=== PATIENT | female | born 1975 ===

== ENCOUNTER 2020-10-20 13:05 | Outpatient (REF) | payer OTHER, SELFPAY ==
--- NOTE | ~2020-10-20 | MM_ITS ---
EXAMINATION: MM SCREENING DIGITAL BREAST TOMOSYNTHESIS, BILATERAL CLINICAL INFORMATION: Screening. Asymptomatic. Prior benign right breast biopsy 2018 (fibroadenoma). The lifetime risk of breast cancer based on the Tyrer-Cuzick Model is 8%. COMPARISON: Mammography: 07/22/2019, 01/25/2018, 01/15/2018 TECHNIQUE: Digital breast tomosynthesis is performed in both the craniocaudal and mediolateral oblique views along with computer-aided detection (CAD). Synthesized 2D images are generated from the tomosynthesis. FINDINGS: There are scattered areas of fibroglandular density (ACR BI-RADS breast composition Category b). Parenchymal pattern is similar to prior studies. There is no developing density or interval mass or architectural abnormality. No abnormal calcifications. There is a biopsy clip marker anterior 3:00 right breast overlying a stable nodule corresponding to the known fibroadenoma. The axilla and skin contours are unremarkable. No significant changes. MM/MM tomosynthesis screening BI IMPRESSION: No significant changes from prior studies. ASSESSMENT: BI-RADS 2: Benign RECOMMENDATION: Routine annual mammography screening. This patient's information was entered into a reminder system with a target due date for their next mammogram.
== END 2020-10-20 13:06 | disposition home or self-care (01) ==
LOC: HO.MAMMO 13:05
PROVIDERS: PCP Internal Medicine; Visit Provider Internal Medicine
DX: Z12.31 Encounter for screening mammogram for malignant neoplasm of breast (principal)
CPT/HCPCS: 77063; 77067

== ENCOUNTER 2020-11-04 08:32 | Outpatient (REF) | payer OTHER, SELFPAY ==
--- NOTE | ~2020-11-04 | XR_ITS ---
EXAMINATION: XR CHEST CLINICAL INFORMATION: Dyspnea COMPARISON: Previous chest x-ray October 2019 TECHNIQUE: 2 views of the chest were obtained. FINDINGS: No significant abnormality is noted involving the heart, lungs, mediastinum, bony thorax or soft tissues. XR/XR chest 2V IMPRESSION: Unremarkable examination.
[2020-11-04 10:37] LABS: Alanine Aminotransferase 11 U/L (0-31); Alkaline Phosphatase 61 U/L (39-117); Anion Gap 10 (12-20); Aspartate Amino Transferase 15 U/L (5-31); Bilirubin Total 0.4 mg/dL (0.0-1.0); Blood Urea Nitrogen 15 mg/dL (9-16); Calcium 8.6 mg/dL (8.4-10.2); Carbon Dioxide 28 mmol/L (22-29); Chloride 105 mmol/L (96-108); Cholesterol 171 mg/dL; Estimated Glomerular Filt Rate > 60; Glucose Fasting 96 mg/dL (60-99); HDL Cholesterol 71 mg/dL; LDL Cholesterol Calculated 87 mg/dl; Potassium 4.4 mmol/L (3.3-5.1); Sodium 139 mmol/L (135-145); Triglycerides 65 mg/dL
== END 2020-11-04 08:33 | disposition home or self-care (01) ==
LOC: HO.LAB 08:32
PROVIDERS: PCP Internal Medicine; Visit Provider Internal Medicine
DX: E78.5 Hyperlipidemia, unspecified (principal); I10 Essential (primary) hypertension; R06.00 Dyspnea, unspecified
CPT/HCPCS: 36415; 71046; 80053; 80061

== ENCOUNTER 2020-11-25 07:53 | Outpatient (REF) | payer OTHER, SELFPAY ==
--- NOTE | 2020-11-25 17:54 | PFT_ITS ---
INDICATION: Hypertension. SPIROMETRY: The FEV1 to FVC of 84% with an FEV1 of 2.68 L, which is 84% predicted, and an FVC of 3.17 L, which is 82% predicted. No significant response to bronchodilators noted. Of note, there is a slight evidence of small airways disease. Maximum voluntary ventilation 102% predicted. LUNG VOLUMES: Total lung capacity 77% predicted with expiratory reserve volume of 49% predicted. DIFFUSION CAPACITY: DLCO 73% predicted. COMPARISONS: None. INTERPRETATION: No obstructive ventilatory defect. No significant response to bronchodilators noted. There appears to be some degree of small airways disease with some reversibility. Normal maximum voluntary ventilation. The patient also has a mild restrictive ventilatory defect and a mild diffusion impairment. If asthma is in the differential, methacholine challenge will be helpful in the assessment of hyperreactive airways and asthma. Otherwise, further evaluation for the mild restrictive lung process is warranted. MD YASH Costa/MODL / [phone]
== END 2020-11-25 07:54 | disposition home or self-care (01) ==
LOC: HO.RESP 07:53
PROVIDERS: PCP Internal Medicine; Visit Provider Internal Medicine
DX: I10 Essential (primary) hypertension (principal)
CPT/HCPCS: 94060; 94727; 94729

== ENCOUNTER → 2020-11-30 08:00 | Outpatient (BNVA) | payer OTHER, SELFPAY | PROVIDERS: PCP Internal Medicine; Visit Provider Hospitalist | DX: B94.8 Sequelae of other specified infectious and parasitic diseases (principal); R06.02 Shortness of breath; J45.40 Moderate persistent asthma, uncomplicated; J98.4 Other disorders of lung | CPT/HCPCS: 99202 ==

== ENCOUNTER → 2021-01-11 08:34 | Outpatient (BNVA) | payer OTHER, SELFPAY | PROVIDERS: PCP Internal Medicine; Visit Provider Hospitalist | DX: J45.40 Moderate persistent asthma, uncomplicated (principal); J98.4 Other disorders of lung; R06.02 Shortness of breath; B94.8 Sequelae of other specified infectious and parasitic diseases | CPT/HCPCS: 99212 ==

== ENCOUNTER 2021-04-20 08:25 | Outpatient (REF) | payer OTHER, SELFPAY ==
[2021-04-25 09:46] LABS: HPV 16 RNA NOT DETECTED (NOT DETECTED); HPV mRNA E6/E7 rflx Detected (Not Detected)
== END 2021-04-20 08:26 | disposition home or self-care (01) ==
LOC: HO.LAB 08:25
PROVIDERS: PCP Internal Medicine; Visit Provider Obstetrics & Gynecology
DX: Z01.419 Encounter for gynecological examination (general) (routine) without abnormal findings (principal); Z11.51 Encounter for screening for human papillomavirus (HPV)
CPT/HCPCS: 87624; 87625; 88142

== ENCOUNTER → 2021-07-18 09:46 | Outpatient (BNVA) | payer OTHER, SELFPAY | PROVIDERS: PCP Internal Medicine; Visit Provider Hospitalist | DX: U09.9 Post COVID-19 condition, unspecified (principal); R06.00 Dyspnea, unspecified; R06.02 Shortness of breath; J45.40 Moderate persistent asthma, uncomplicated; J98.4 Other disorders of lung; Z79.899 Other long term (current) drug therapy | CPT/HCPCS: 99212 ==

== ENCOUNTER 2021-08-02 11:07 | Outpatient (REF) | payer OTHER, SELFPAY ==
[2021-08-02 11:42] LABS: MANUAL DIFF FLAG NO
[2021-08-02 12:22] LABS: Basophils Percent Auto 0.4 % (0-2); Eosinophils Absolute Auto 0.1 X10*3/uL (0.0-0.4); Hematocrit 39.7 % (37.0-47.0); Hemoglobin 12.8 g/dl (12.0-16.0); Imm Gran Abs Auto 0.01 X10*3/uL (0.00-0.03); Imm Gran Pct Auto 0.2 % (0.0-0.4); Lymphocytes Absolute Auto 1.8 X10*3/uL (1.2-4.9); Lymphocytes Percent Auto 34.2 % (20-40); Mean Corpuscular HGB Conc 32.2 g/dl (31.0-35.0); Mean Corpuscular Hemoglobin 32.8 pg (27.0-33.0); Mean Corpuscular Volume 101.8 fL (80.0-98.0); Mean Platelet Volume 9.5 fL (9.4-12.3); Monocytes Absolute Auto 0.4 X10*3/uL (0.1-1.2); Monocytes Percent Auto 7.4 % (2-11); Neutrophils Absolute Auto 2.9 x10*3/uL (2.0-8.3); Neutrophils Percent Auto 56.8 % (45-73); Platelet Count 415 X10*3/uL (160-400); Red Cell Distribution Width 13.5 % (11.0-16.0); White Blood Count 5.1 X10*3/uL (4.8-10.8)
[2021-08-02 12:53] LABS: C Reactive Protein 0.12 mg/dL (< or = 0.50)
[2021-08-02 13:07] LABS: Erythrocyte Sedimentation Rate 23 MM/HR (0-20)
[2021-08-03 14:11] LABS: Anti DNA DS Antibody 3 IU/mL
[2021-08-03 16:22] LABS: Cyclic Citrullinated Peptide <16 UNITS
[2021-08-03 21:57] LABS: Anti Nuclear Antibody Screen POSITIVE (NEGATIVE)
== END 2021-08-02 11:08 | disposition home or self-care (01) ==
LOC: HO.LAB 11:07
PROVIDERS: Absent Provider Internal Medicine; PCP Internal Medicine; Visit Provider Hospitalist
DX: M25.50 Pain in unspecified joint (principal); J45.909 Unspecified asthma, uncomplicated; Z01.82 Encounter for allergy testing
CPT/HCPCS: 36415; 82785; 85025; 85652; 86003; 86038; 86039; 86140; 86200; 86225

== ENCOUNTER → 2021-10-13 09:16 | Outpatient (BNVA) | payer OTHER, SELFPAY | PROVIDERS: PCP Internal Medicine; Visit Provider Hospitalist | DX: R06.02 Shortness of breath (principal); U09.9 Post COVID-19 condition, unspecified; J45.40 Moderate persistent asthma, uncomplicated; J98.4 Other disorders of lung; Z79.899 Other long term (current) drug therapy | CPT/HCPCS: 99212 ==

== ENCOUNTER 2021-10-19 13:52 | Outpatient (REF) | payer OTHER, SELFPAY ==
[2021-10-19 17:06] LABS: CT PCR NOT DETECTED (Not Detect.); NG PCR NOT DETECTED (Not Detect.)
== END 2021-10-19 13:53 | disposition home or self-care (01) ==
LOC: HO.LAB 13:52
PROVIDERS: PCP Internal Medicine; Visit Provider Obstetrics & Gynecology
DX: N93.9 Abnormal uterine and vaginal bleeding, unspecified (principal); R23.2 Flushing
CPT/HCPCS: 87491; 87591; 99212

== ENCOUNTER 2021-10-20 10:01 | Outpatient (REF) | payer OTHER, SELFPAY ==
--- NOTE | ~2021-10-20 | XR_ITS ---
EXAMINATION: XR KNEE, LEFT CLINICAL INFORMATION: Pain. COMPARISON: Radiographs of the knees dated from 11/26/2017. TECHNIQUE: Three views of the left knee. FINDINGS: No acute fractures or malalignment. Mild joint space narrowing of the medial compartment. No erosions or chondrocalcinosis. Small joint effusion. XR/XR knee LT 3V IMPRESSION: No acute fractures or malalignment. Mild joint space narrowing of the medial compartment. Small joint effusion.
--- NOTE | ~2021-10-20 | XR_ITS ---
EXAMINATION: X-RAY RIGHT ELBOW X-RAY LEFT ELBOW CLINICAL INFORMATION: Pain. COMPARISON: No similar priors. TECHNIQUE: 3 views of each elbow were obtained. FINDINGS: No acute fractures or malalignment. Small marginal osteophyte in the coronoid process of the right elbow, identified on the lateral view. Normal appearance of the soft tissues. No joint effusion. XR/XR elbow LT min 3V IMPRESSION: No acute fractures or malalignment. No significant abnormality of the soft tissues.
--- NOTE | ~2021-10-20 | XR_ITS ---
EXAMINATION: X-RAY RIGHT SHOULDER X-RAY LEFT SHOULDER CLINICAL INFORMATION: Pain. COMPARISON: Chest radiograph dated from 11/04/2020. TECHNIQUE: 4 views of each shoulder were obtained. FINDINGS: No acute fractures or malalignment. The humeral heads are well-seated in there respective glenoid. No significant degenerative osteoarthritis. Normal appearance of the acromioclavicular joints. No significant soft tissue abnormality. Visualized segments of the lungs are within normal limits. XR/XR shoulder RT min 2V IMPRESSION: No significant abnormality.
--- NOTE | ~2021-10-20 | XR_ITS ---
EXAMINATION: X-RAY RIGHT SHOULDER X-RAY LEFT SHOULDER CLINICAL INFORMATION: Pain. COMPARISON: Chest radiograph dated from 11/04/2020. TECHNIQUE: 4 views of each shoulder were obtained. FINDINGS: No acute fractures or malalignment. The humeral heads are well-seated in there respective glenoid. No significant degenerative osteoarthritis. Normal appearance of the acromioclavicular joints. No significant soft tissue abnormality. Visualized segments of the lungs are within normal limits. XR/XR shoulder LT min 2V IMPRESSION: No significant abnormality.
--- NOTE | ~2021-10-20 | XR_ITS ---
EXAMINATION: X-RAY RIGHT ELBOW X-RAY LEFT ELBOW CLINICAL INFORMATION: Pain. COMPARISON: No similar priors. TECHNIQUE: 3 views of each elbow were obtained. FINDINGS: No acute fractures or malalignment. Small marginal osteophyte in the coronoid process of the right elbow, identified on the lateral view. Normal appearance of the soft tissues. No joint effusion. XR/XR elbow RT 2V IMPRESSION: No acute fractures or malalignment. No significant abnormality of the soft tissues.
[2021-10-20 11:48] LABS: Hemoglobin 12.3 g/dl (12.0-16.0); Mean Corpuscular HGB Conc 33.2 g/dl (31.0-35.0); Mean Corpuscular Hemoglobin 33.2 pg (27.0-33.0); Mean Platelet Volume 9.5 fL (9.4-12.3); Platelet Count 390 X10*3/uL (160-400); Red Cell Distribution Width 12.5 % (11.0-16.0); White Blood Count 5.7 X10*3/uL (4.8-10.8)
[2021-10-20 12:12] LABS: C Reactive Protein 0.58 mg/dL (< or = 0.50)
[2021-10-20 12:39] LABS: HCG Quantitative < 2 mIU/mL; TSH reflex Free T4 0.24 uIU/mL (0.32-4.0)
[2021-10-20 12:42] LABS: Erythrocyte Sedimentation Rate 25 MM/HR (0-20)
[2021-10-20 14:08] LABS: Free T4 (Free Thyroxine) 0.93 ng/dL (0.71-1.85)
[2021-10-21 22:37] LABS: Follicle Stimulating Hormone 29.3 mIU/mL; Lutenizing Hormone 37.4 mIU/mL
[2021-10-25 16:27] LABS: Anti DNA DS Antibody 3 IU/mL; SM/Ribonucleoprotein Ab <1.0 NEG AI (<1.0 NEG); Smith Protein <1.0 NEG AI (<1.0 NEG)
== END 2021-10-20 10:02 | disposition home or self-care (01) ==
LOC: HO.XRAY 10:01
PROVIDERS: Absent Provider Obstetrics & Gynecology; PCP Internal Medicine; Visit Provider Internal Medicine Rheumatology
DX: N93.9 Abnormal uterine and vaginal bleeding, unspecified (principal); R76.8 Other specified abnormal immunological findings in serum; M25.50 Pain in unspecified joint; M79.603 Pain in arm, unspecified; G89.29 Other chronic pain; Z79.899 Other long term (current) drug therapy
CPT/HCPCS: 36415; 73030; 73070; 73080; 73562; 83001; 83002; 84439; 84443; 84702; 85027; 85652; 86140; 86225; 86235; 99202

== ENCOUNTER 2021-10-26 13:34 | Outpatient (REF) | payer OTHER, SELFPAY ==
--- NOTE | ~2021-10-26 | MM_ITS ---
EXAMINATION: MM SCREENING DIGITAL BREAST TOMOSYNTHESIS, BILATERAL CLINICAL INFORMATION: Screening. Asymptomatic. The lifetime risk of breast cancer based on the Tyrer-Cuzick Model is 12.5%. COMPARISON: Mammography: October 20, 2020 and studies dating back to January 09, 2012 TECHNIQUE: Digital breast tomosynthesis is performed in both the craniocaudal and mediolateral oblique views along with computer-aided detection (CAD). Synthesized 2D images are generated from the tomosynthesis. FINDINGS: The breasts are heterogeneously dense, which may obscure small masses (ACR BI-RADS breast composition Category c). There are no significant masses, abnormal calcifications, or other abnormalities. MM/MM tomosynthesis screening BI IMPRESSION: There are no significant changes from prior study. ASSESSMENT: BI-RADS 1: Negative RECOMMENDATION: Routine annual mammography screening. This patient's information was entered into a reminder system with a target due date for their next mammogram.
== END 2021-10-26 13:35 | disposition home or self-care (01) ==
LOC: HO.MAMMO 13:34
PROVIDERS: Visit Provider Internal Medicine
DX: Z12.31 Encounter for screening mammogram for malignant neoplasm of breast (principal)
CPT/HCPCS: 77063; 77067

== ENCOUNTER 2021-11-04 11:21 | Outpatient (REF) | payer OTHER, SELFPAY ==
[2021-11-04 13:19] LABS: Free T4 (Free Thyroxine) 0.88 ng/dL (0.71-1.85); Thyroid Stimulating Hormone 0.22 uIU/mL (0.32-4.0)
[2021-11-07 16:21] LABS: Thyroglobulin Antibodies <1 IU/mL (< or = 1); Thyroid Peroxidase Antibodies 2 IU/mL (<9)
== END 2021-11-04 11:22 | disposition home or self-care (01) ==
LOC: HO.LAB 11:21
PROVIDERS: PCP Internal Medicine; Visit Provider Internal Medicine
DX: R79.89 Other specified abnormal findings of blood chemistry (principal)
CPT/HCPCS: 36415; 84439; 84443; 86376; 86800

== ENCOUNTER → 2021-12-06 10:37 | Outpatient (BNVA) | payer OTHER, SELFPAY | PROVIDERS: PCP Internal Medicine; Visit Provider Hospitalist | DX: U09.9 Post COVID-19 condition, unspecified (principal); R06.02 Shortness of breath; J45.40 Moderate persistent asthma, uncomplicated; J98.4 Other disorders of lung; Z79.899 Other long term (current) drug therapy | CPT/HCPCS: 99212 ==

== ENCOUNTER 2021-12-07 12:48 | Outpatient (REF) | payer OTHER, SELFPAY ==
[2021-12-07 15:02] LABS: Thyroid Stimulating Hormone 0.36 uIU/mL (0.32-4.0)
[2021-12-09 21:17] LABS: Thyroglobulin Antibodies <1 IU/mL (< or = 1); Thyroid Peroxidase Antibodies 2 IU/mL (<9)
== END 2021-12-07 12:49 | disposition home or self-care (01) ==
LOC: HO.LAB 12:48
PROVIDERS: PCP Internal Medicine; Visit Provider Internal Medicine
DX: R79.89 Other specified abnormal findings of blood chemistry (principal)
CPT/HCPCS: 36415; 84443; 86376; 86800

== ENCOUNTER → 2021-12-08 14:19 | Outpatient (BNVA) | payer OTHER, SELFPAY | PROVIDERS: PCP Internal Medicine; Visit Provider Internal Medicine Endocrinology, Diabetes & Metabolism | DX: R94.6 Abnormal results of thyroid function studies (principal) | CPT/HCPCS: 99202 ==

== ENCOUNTER 2022-01-25 12:52 | Outpatient (REF) | payer OTHER, SELFPAY ==
--- NOTE | ~2022-01-25 | US_ITS ---
EXAMINATION: US PELVIS CLINICAL INFORMATION: Abnormal uterine bleeding COMPARISON: Previous pelvic ultrasound most recent September 2017 TECHNIQUE: Ultrasound of the pelvis is performed using both transabdominal and transvaginal transducers along with Doppler. Transvaginal imaging is performed due to inadequate visualization transabdominally. FINDINGS: The uterus is anteverted and measures 13 x 5.6 x 9 cm in dimension. There are multiple uterine fibroids. Largest fibroids measure 4.3 x 3.2 x 4.1 cm in the anterior uterine body, 4.6 x 4.7 x 4.4 cm in the posterior uterine body and 3.3 x 4.2 x 4.5 cm in the fundus. Endometrium is not well visualized due to the fibroids. The endometrium does not appear thickened measuring 0.5 cm. There are nabothian cysts in the cervix. The right ovary is not seen. The left ovary is seen transabdominally only and measures 2.2 x 1.4 x 2.2 cm. There is no fluid in the pelvis. US/US pelvic and transvaginal IMPRESSION: Enlarged fibroid uterus. Normal thickness endometrium. Normal left ovary. Right ovary not seen.
== END 2022-01-25 12:53 | disposition home or self-care (01) ==
LOC: HO.HMGCX 12:52
PROVIDERS: Visit Provider Obstetrics & Gynecology
DX: N93.9 Abnormal uterine and vaginal bleeding, unspecified (principal)
CPT/HCPCS: 76830; 76856

== ENCOUNTER 2022-02-09 08:39 | Outpatient (REF) | payer OTHER, SELFPAY | END 2022-02-09 08:40 | disposition home or self-care (01) | LOC: HO.LNP 08:39 | PROVIDERS: Visit Provider Obstetrics & Gynecology | DX: N93.9 Abnormal uterine and vaginal bleeding, unspecified (principal); A63.0 Anogenital (venereal) warts; B97.7 Papillomavirus as the cause of diseases classified elsewhere | CPT/HCPCS: 57454; 58100; 81025; 88305 ==

== ENCOUNTER → 2022-03-07 11:02 | Outpatient (BNVA) | payer OTHER, SELFPAY | PROVIDERS: PCP Internal Medicine; Visit Provider Obstetrics & Gynecology | DX: N93.9 Abnormal uterine and vaginal bleeding, unspecified (principal); B97.7 Papillomavirus as the cause of diseases classified elsewhere; N95.1 Menopausal and female climacteric states; D25.9 Leiomyoma of uterus, unspecified; R79.89 Other specified abnormal findings of blood chemistry | CPT/HCPCS: 99212 ==

== ENCOUNTER 2022-06-07 10:29 | Outpatient (REF) | payer OTHER, SELFPAY ==
[2022-06-10 03:18] LABS: HPV mRNA E6/E7 rflx Not Detected (Not Detected)
== END 2022-06-07 10:30 | disposition home or self-care (01) ==
LOC: HO.LNP 10:29
PROVIDERS: PCP Internal Medicine; Visit Provider Obstetrics & Gynecology
DX: Z01.419 Encounter for gynecological examination (general) (routine) without abnormal findings (principal); Z11.51 Encounter for screening for human papillomavirus (HPV)
CPT/HCPCS: 87624; 88142

== ENCOUNTER → 2022-08-21 09:14 | Outpatient (BNVA) | payer OTHER, SELFPAY | PROVIDERS: PCP Internal Medicine; Visit Provider Internal Medicine | DX: Z12.11 Encounter for screening for malignant neoplasm of colon (principal) | CPT/HCPCS: 99202 ==

== ENCOUNTER 2022-09-06 10:29 | Outpatient (REF) | payer OTHER, SELFPAY ==
--- NOTE | ~2022-09-06 | XR_ITS ---
EXAMINATION: XR CHEST CLINICAL INFORMATION: Pneumothorax COMPARISON: Previous chest x-ray most recent October 2020 TECHNIQUE: 2 views of the chest were obtained. FINDINGS: The cardiac and mediastinal contours are stable. There is atelectasis or small infiltrates at the lung bases. There is a left pneumothorax. This measures 1 cm at the left lung apex. There is question of a larger lateral component measuring up to 2.2 cm. There is a small left pleural effusion. Question left posterior eighth rib fracture. XR/XR chest 2V IMPRESSION: Small left pneumothorax. Atelectasis or small infiltrates at the lung bases. Small left pleural effusion. Question left posterior eighth rib fracture. 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
== END 2022-09-06 10:30 | disposition home or self-care (01) ==
LOC: HO.XRAY 10:29
PROVIDERS: PCP Internal Medicine; Visit Provider Internal Medicine
DX: J93.9 Pneumothorax, unspecified (principal)
CPT/HCPCS: 71046

== ENCOUNTER → 2022-09-20 08:38 | Outpatient (BNVA) | payer OTHER, SELFPAY | PROVIDERS: PCP Internal Medicine; Visit Provider Hospitalist | DX: J45.40 Moderate persistent asthma, uncomplicated (principal); J98.4 Other disorders of lung; J93.9 Pneumothorax, unspecified; J90 Pleural effusion, not elsewhere classified; R06.02 Shortness of breath; R07.9 Chest pain, unspecified; S22.39XA Fracture of one rib, unspecified side, initial encounter for closed fracture; Z79.891 Long term (current) use of opiate analgesic; Z79.899 Other long term (current) drug therapy | CPT/HCPCS: 99212 ==

== ENCOUNTER 2022-09-25 13:01 | Outpatient (REF) | payer OTHER, SELFPAY ==
--- NOTE | ~2022-09-25 | CT_ITS ---
EXAMINATION: CT CHEST WITH CONTRAST CLINICAL INFORMATION: Pneumothorax COMPARISON: Previous chest x-ray 09/06/2022 TECHNIQUE: Multidetector volumetric CT imaging of the chest was obtained after the administration of 65 mL of Omnipaque 350 intravenous contrast without immediate adverse reactions. Axial MIP volume rendering provided. Sagittal and coronal reformatted images were obtained. This CT examination was performed using dose optimization techniques as appropriate, variously including the following: *Automated exposure control *Adjustment of mA and/or kV according to patient size (this includes techniques or standardized protocols for targeted exams where dose is matched to indication/reason for exam; i.e. extremities or head) *Use of iterative reconstruction technique DLP: 165 mGy-cm FINDINGS: ELECTRO TECH: Unremarkable LUNGS: The lungs are clear with no evidence of inflammation or nodules. MEDIASTINUM: The mediastinum is normal. PLEURA: There is no pleural effusion. No pleural mass or thickening. No pneumothorax. AXILLA: No lymphadenopathy. UPPER ABDOMEN: Unremarkable OSSEOUS STRUCTURES: Unremarkable. CT/CT chest w IV con IMPRESSION: Unremarkable examination. No pneumothorax seen. Fleischner guidelines were followed.
[2022-09-25] MEDS: iohexoL 350 MG/ML 100 ML INFUS..BTL 85 ML IV (13:34)
== END 2022-09-25 13:02 | disposition home or self-care (01) ==
LOC: HO.CT 13:01
PROVIDERS: PCP Internal Medicine; Visit Provider Hospitalist
DX: J93.9 Pneumothorax, unspecified (principal); R07.9 Chest pain, unspecified; J90 Pleural effusion, not elsewhere classified
CPT/HCPCS: 71260; Q9967

== ENCOUNTER → 2022-09-27 08:59 | Outpatient (BNVA) | payer OTHER, SELFPAY | PROVIDERS: PCP Internal Medicine; Visit Provider Nurse Practitioner Family | DX: J93.9 Pneumothorax, unspecified (principal); J45.909 Unspecified asthma, uncomplicated; S22.39XD Fracture of one rib, unspecified side, subsequent encounter for fracture with routine healing | CPT/HCPCS: 99212 ==

== ENCOUNTER 2022-11-01 13:35 | Outpatient (REF) | payer OTHER, SELFPAY ==
--- NOTE | ~2022-11-01 | MM_ITS ---
EXAMINATION: MM SCREENING DIGITAL BREAST TOMOSYNTHESIS, BILATERAL CLINICAL INFORMATION: Screening. Asymptomatic. Benign right breast biopsy 2018, fibroadenoma. The lifetime risk of breast cancer based on the Tyrer-Cuzick Model is 8%. COMPARISON: Mammography: 10/26/2021, 10/20/2020, 07/22/2019, 01/15/2018 TECHNIQUE: Digital breast tomosynthesis is performed in both the craniocaudal and mediolateral oblique views along with computer-aided detection (CAD). Synthesized 2D images are generated from the tomosynthesis. FINDINGS: There are scattered areas of fibroglandular density (ACR BI-RADS breast composition Category b). Parenchymal pattern is similar to prior studies. There is no developing density or architectural abnormality. There is biopsy clip marker anterior 3:00 right breast adjacent to stable nodule, biopsy-proven fibroadenoma. The axilla and skin contours are unremarkable. No significant changes. There are no significant masses, abnormal calcifications, or other abnormalities. MM/MM tomosynthesis screening BI IMPRESSION: No mammographic evidence of malignancy. ASSESSMENT: BI-RADS 2: Benign RECOMMENDATION: Routine annual mammography screening. This patient's information was entered into a reminder system with a target due date for their next mammogram.
== END 2022-11-01 13:36 | disposition home or self-care (01) ==
LOC: HO.MAMMO 13:35
PROVIDERS: Absent Provider Obstetrics & Gynecology; PCP Internal Medicine; Visit Provider Internal Medicine
DX: Z12.31 Encounter for screening mammogram for malignant neoplasm of breast (principal)
CPT/HCPCS: 77063; 77067

== ENCOUNTER 2023-02-12 15:38 | Outpatient (AMB) | payer OTHER, SELFPAY ==
[2023-02-12 15:51] VITALS: PULSE 74; O2SAT 99; BMI 32.1
--- NOTE | 2023-02-12 15:51 | A.OFFVIS_ITS ---
Intake Vital Signs 02/12/23 15:51 Height 5 ft 7 in Weight 205 lb BMI 32.1 Pulse 74 Pulse Source Pulse Oximeter Pulse Oximetry (%) 99 Oxygen Delivery Method Room Air Intake Visit Reasons: Shortness of breath [employer] Required: No Allergies gabapentin Allergy (Intermediate, Verified 02/12/23 15:52) abdominal pain HPI HPI Comments History of Present Illness Details The patient is a 47-year-old woman previously healthy who developed COVID-19 back about a year ago. She was very sick at home with pneumonia like symptoms. She did go to the ER where she had an x-ray demonstrating no acute disease in a COVID test that was positive. Ever since then her breathing has not been well. She has has episodes of coughing and also worsening shortness of breath. She has had to leave stores because of increasing shortness of breath. She has a rescue inhaler that she uses with partial improvement of the symptoms. She did undergo a pulmonary function study and she notices the nebulized therapy did help her more. She was given a Flovent inhaler that she has been using regularly. She has not seen significant improvement the shortness of breath or coughing. Patient also has a history of blood pressure issues and has been on lisinopril even before the COVID infection. Recently she did undergo a repeat chest x-ray did which was personally reviewed by me demonstrating no significant changes although some slight haziness of the basilar areas which could be some degree of pneumonitis. In addition to that her pulmonary function studies demonstrated a restrictive process. 12/06/2021 the patient is here for a pulm onary follow-up visit. Overall the patient has been feeling better. She is responding to the respiratory regimen currently on Dulera and Incruse in the morning and then Dulera in the afternoon. She also has other inhalers that I clarified with her that were redundant and she did not have to continue them. She should continue her maintenance therapy in her rescue inhaler. The patient also had pulmonary function studies. It appears that she has a mild restrictive ventilatory defect. She also has a mild diffusion impairment. She needs to undergo a chest x-ray just to make sure there is any interstitial lung disease specially after having COVID. In the meantime no significant eosinophilia or elevations in her IgE to consider biologic therapy. Will continue on the current respiratory regimen. If patient has any worsening symptoms we also can consider Daliresp. 09/19/2022 The patient is here for a sick visit. She started developing chest pain while at [employer]. She was taken via EMS to the ED [place] where she was found to have a left sided rib fx, pleural effusion and small PTX. She was monitored overnight, but, no interventions took place and she was discharged with PCP F/U. Her repeat CXR still demonstrated the changes of basilar opacity on the left along with small PTX. She was given abx and then course complicated by bleeding. [place] [facility] [place] She was given additional abx for pneumonia. However, she is no better. Feels like she is having moderate left sided chest pain radiating to the left arm. She needs a CT chest with IV constrast to further assess. But if her symptoms worsen and or we can not get the CT chest early enough she will need to go to the ED. 02/12/2023 the patient is here for a pulmonary follow-up visit. Overall she is feeling a lot better. Denies any recurrent chest pain. She denies any sh ortness of breath. She does have a rescue inhaler that she uses as needed. Typically does not require it. Less than 2 times a week. She also uses her respiratory medicines with Dulera and Incruse with good effect. She is also using her allergy medicines. She is concerned about having another pneumothorax. At this point I reassured her that there is no evidence of any active disease. The patient knows to minimize any Valsalva like maneuvers. We did review her last CT scan of the chest demonstrating no evidence of any pneumothoraces. At this point the patient is doing well will continue with the current respiratory therapy. If the patient has any new onset chest pains or any other concerning symptoms she is to call the office for an earlier appointment otherwise will follow-up in a year's time. COUNT INCLUDES THE [facility] Medical History (Updated 02/12/23 @ 22:52 by Raudel Mays MD) Rib fracture Pleural effusion Chest pain HPV (human papilloma virus) infection Chronic restrictive lung disease Arm pain, chronic Knee pain STEPHANIE positive Chronic restrictive lung disease Mild recurrent major depression Polyarthralgia Asthma History of DVT of lower extremity Urge urinary incontinence Chronic restrictive lung disease Reactive airway disease Dyspnea [id number] syndrome Obese Depression with anxiety Dyspnea Anxiety Hypertension Arthritis Encounter for follow-up for hypertension Surgical History History of tubal ligation H/O breast biopsy H/O LEEP Family History Father Liver cancer Mother Hypertension Diabetes CVD (cardiovascular disease) Maternal Grandmother Throat cancer Son No problems noted. Social History Housing: House Alcohol intake: never Patient Tobacco Use Status: Never used Tobacco e-Cigarette/Vaping Use: Never Used Second Hand Smoke Exposure: No service: No Current occupational status: unemployed Cognitive needs: No Hearing needs: No Vision needs: No Female Reproductive History Menstrual Age of Menarche: 9 Review of Systems Const Denies night sweats ENT Denies change in voice, Denies lip swelling, Denies mouth pain, Reports nasal congestion, Reports nasal discharge and Denies tongue swelling Card Denies chest pain, Denies dyspnea and Denies dyspnea on exertion Resp Reports cough, Denies pain on inspiration, Denies pain with cough, Denies dyspnea and Denies dyspnea on exertion GI Denies abdominal pain Musc Denies no additional complaints Neuro Denies Neuro-related abnormal movements Psych Denies no additional complaints Darryl/Lymph Denies easy bleeding and Denies lymphadenopathy Aller/Immun Denies lip swelling and Denies tongue swelling Physical Exam Vital Signs: Last Vital Signs Pulse 74 02/12/23 15:51 Pulse Ox 99 02/12/23 15:51 Oxygen Delivery Method Room Air 02/12/23 15:51 BMI result Body Mass Index 32.1 Const General: alert Neck Neck: Yes normal visual inspection, Yes full ROM and Yes no lymphadenopathy Chest Chest palpation & inspection: normal inspection of the chest Resp Effort & Inspection: normal respiratory effort Auscultation: clear to auscultation bilaterally Cardio Rate: regular rate Rhythm: regular rhythm Heart sounds: S1 normal heart sound present and S2 normal heart sound present GI Palpation (GI): Soft to palpation and nontender Auscultation: normal bowel sounds Skin General skin exam: rashes and/or lesions noted Extrem General: Yes no clubbing, cyanosis or edema Assessment & Plan Assessment & Plan (1) Asthma: Code(s): J45.909 - Unspecified asthma, uncomplicated Qualifiers: Asthma severity: moderate Asthma persistence: persistent Asthma complication type: uncomplicated Qualified Code(s): J45.40 - Moderate persistent asthma, uncomplicated (2) Chronic restrictive lung disease: Code(s): J98.4 - Other disorders of lung (3) Pneumothorax: Comment: resolved Code(s): J93.9 - Pneumothorax, unspecified Qualifiers: Pneumothorax type: spontaneous, secondary Qualified Code(s): J93.12 - Secondary spontaneous pneumothorax (4) Pleural effusion: Comment: resolved Code(s): J90 - Pleural effusion, not elsewhere classified Plan Continue Dulera 2 puff twice a day with spacer continue Incruse Nebulizer therapy as needed Albuterol as needed continue singular at nighttime Follow-up in 1 yr Medications: Refilled Incruse Ellipta 62.5 mcg/actuation (umeclidinium) 1 inh inhalation DAILY 30 ea 11RF NS J45.909 - Unspecified asthma, uncomplicated montelukast 10 mg PO DAILY 30 tabs 11RF J45.909 - Unspecified asthma, uncomplicated mometasone-formoterol 200-5 mcg/actuation (Dulera) 2 puffs inhalation Q12H 30 days 13 grams 11RF albuterol sulfate 90 mcg/actuation 2 puffs inhalation Q4-6H PRN 1 ea 11RF shortness of breath or wheezing J45.909 - Unspecified asthma, uncomplicated Coding Level of Care Code Est Pt Level 4 (58231) Diagnoses Moderate persistent asthma without complication J45.40 Asthma severity: moderate Asthma persistence: persistent Asthma complication type: uncomplicated Chronic restrictive lung disease J98.4 Secondary spontaneous pneumothorax J93.12 Pneumothorax type: spontaneous, secondary Pleural effusion J90 Time Spent (min) 17
== END 2023-02-12 16:06 | disposition home or self-care (01) ==
PROVIDERS: PCP Internal Medicine; Visit Provider Hospitalist
DX: J45.40 Moderate persistent asthma, uncomplicated (principal); J98.4 Other disorders of lung; J93.12 Secondary spontaneous pneumothorax; J90 Pleural effusion, not elsewhere classified
CPT/HCPCS: 99214

== ENCOUNTER → 2023-02-12 15:38 | Outpatient (BNVA) | payer OTHER, SELFPAY | PROVIDERS: PCP Internal Medicine; Visit Provider Hospitalist | DX: J45.40 Moderate persistent asthma, uncomplicated (principal); J98.4 Other disorders of lung; J93.12 Secondary spontaneous pneumothorax; J90 Pleural effusion, not elsewhere classified | CPT/HCPCS: 99212 ==

== ENCOUNTER 2023-03-28 07:31 | Outpatient (AMB) | payer OTHER, SELFPAY ==
[2023-03-28 07:34] VITALS: BP 126/80; PULSE 82; O2SAT 99; BMI 32.4
--- NOTE | 2023-03-28 07:34 | MHC.PC.OV ---
Vital Signs 03/28/23 07:34 Height 5 ft 7 in Weight 207 lb BMI 32.4 BP 126/80 Blood Pressure Location Lt brachial Position Sitting Pulse 82 Pulse Source Pulse Oximeter Pulse Oximetry (%) 99 Oxygen Delivery Method Room Air Intake Visit Reasons: pe Intake Note: Patient here for a physical exam Director Of Primary Required: No Accompanied by: Self / Same As Patient Allergies gabapentin Allergy (Intermediate, Verified 03/28/23 07:48) abdominal pain Medication List - Last Reconciled 03/28/23 by Stephanie Chapman MD albuterol sulfate 2.5 mg (3 mL) inhalation Q4H PRN 30 days albuterol sulfate 90 mcg/actuation 2 puffs inhalation Q4-6H PRN aspirin 81 mg PO DAILY 90 days bupropion HCl mg PO cane As directed cetirizine 10 mg PO DAILY clonazepam 1 mg PO TID PRN escitalopram oxalate 10 mg PO DAILY fluticasone propionate 44 mcg/actuation (Flovent HFA) 1 puff inhalation BID 30 days hydrochlorothiazide 25 mg PO DAILY 30 days ibuprofen 600 mg PO Q8H PRN 10 days incontinence pad, liner, disp USe 1 to 2 pads per day as needed Incruse Ellipta 62.5 mcg/actuation (umeclidinium) 1 inh inhalation DAILY NS lisinopril 10 mg PO DAILY 90 days mometasone-formoterol 200-5 mcg/actuation (Dulera) 2 puffs inhalation Q12H 30 days montelukast 10 mg PO DAILY nebulizers (VixOne Nebulizer-Adult Mask) As directed [non slip bath mat As directed] ofloxacin 0.3% 2 drps ophthalmic (eye) timolol maleate 0.5% drps ophthalmic (eye) tobramycin-dexamethasone 0.3-0.1 % 1 drp ophthalmic (eye) TID tramadol 50 mg PO Q8H PRN 30 days underpads (Bed Underpads) Use 4 bed pads per day [wipes As directed] zolpidem 10 mg PO BEDTIME PRN Tobacco use date assessed: 07/27/22 Dental Screening Dental Screen Date: 03/28/23 Did you have a dental visit in the last 12 months?: Yes Did you have a dental problem in the last 6 months where you did not have access to dental care?: No Was dental information given to patient?: Patient has dentist HPI HPI Comments History of Present Illness Details This is a 47-year-old female with mild recurrent major depression that comes for her physical exam. Depression still present and this is follow by counseling and psychiatry. Last mammogram was October 2022. Last Pap smear was 2022 and was normal with HPV negative. Had Cologuard negative in September 2022. No chest pain or shortness of breath. Complains of urge urinary incontinence and loss of balance and needs incontinence liner and cane for gait stability. 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 Social History Housing: House Alcohol intake: never Patient Tobacco Use Status: Never used Tobacco e-Cigarette/Vaping Use: Never Used Second Hand Smoke Exposure: No service: No Current occupational status: unemployed Cognitive needs: No Hearing needs: No Vision needs: No Female Reproductive History Menstrual Age of Menarche: 9 Questionnaire PHQ-9 Over the last 2 weeks, how often have you been bothered by any of the following problems? 1. Little interest or pleasure in doing things: several days 2. Feeling down, depressed, or hopeless: more than half the days 3. Trouble falling or staying asleep, or sleeping too much: not at all 4. Feeling tired or having little energy: more than half the days 5. Poor appetite or overeating: more than half the days 6. Feeling bad about yourself - or that you are a failure or have let yourself or your family down: several days 7. Trouble concentrating on things, such as reading the newspaper or watching television: several days 8. Moving or speaking so slowly that other people could have noticed. Or the opposite - being so fidgety or restless that you have been moving around a lot more than usual: not at all 9. Thoughts that you would be better off or of hurting yourself in some way: not at all Total score: 9 Depression Screening Interpretation: Positive Depression Screening Follow-up: Existing condition, In treatment and Community Mental Health Worker F/U Depression Screening Done: Yes 60425 - PHQ-9 Billing: Yes Source: Developed by Drs. Pablo Gasca, Precious Benoit, Deep Puckett and colleagues, with an educational lyn from [employer]. Thrive Questionnaire Date Thrive assessed: 07/27/22 AUDIT C Alcohol Use Questionnaire (AUDIT-C) 1. How often do you have a drink containing alcohol?: Never Total Score: 0 ALISON-7 AMB Questionnaire ALISON-7 Date ALISON - 7 assessed: 03/28/23 Feeling nervous, anxious, or on edge: 3 = Nearly every day Not being able to stop or control worryin = Several days Worrying too much about different things: 3 = Nearly every day Trouble relaxin = More than half the days Being so restless that it is hard to sit still: 0 = Not at all Becoming easily annoyed or irritable: 3 = Nearly every day Feeling afraid as if something awful might happen: 3 = Nearly every day Total ALISON-7 score (0-4 normal; 5-9 mild; 10-14 moderate; 15-21 severe): 15 Source: Developed by Drs. Pablo Gasca, Deep Delatorre and colleagues, with an educational lyn from [employer]. ALISON-7 Assessment Billing ALISON-7 Assessment Tool: ALISON-7 Assessment 47660 Review of Systems Const All systems reviewed & are unremarkable except as noted in HPI and below Eyes Reports no additional complaints, Denies change in vision and Denies other visual disturbances Card Denies chest pain at rest, Denies chest pain with activity, Denies edema, Denies irregular heart rhythm, Denies claudication, Denies dyspnea, Denies dyspnea on exertion, Denies orthopnea, Denies paroxysmal nocturnal dyspnea and Denies slow heart rate Resp Denies cough, Denies dyspnea and Denies dyspnea on exertion GI Denies abdominal pain, Denies change in bowel habits, Denies excessive flatus, Denies nausea and Denies vomiting Denies urinary incontinence, Denies urinary hesitancy and Denies urinary urgency Musc Denies abnormal gait, Denies atrophy, Denies deformity and Denies limited range of motion Skin/Breast Denies bleeding lesions, Denies changing lesions and Denies rash Neuro Denies abnormal gait, Denies confusion and Denies lack of coordination Psych Reports anxiety, Denies confusion and Reports depression Physical exam (Primary Care) Vital Signs: Last Vital Signs Pulse 82 03/28/23 07:34 BP 126/80 03/28/23 07:34 Pulse Ox 99 03/28/23 07:34 Oxygen Delivery Method Room Air 03/28/23 07:34 BMI result Body Mass Index 32.4 Tobacco/Smoking Status: Tobacco use Status Tobacco use date assessed 07/27/22 03/28/23 07:38 Patient Tobacco Use Status Never used Tobacco 03/28/23 07:38 e-Cigarette/Vaping Use Never Used 03/28/23 07:38 PHQ-9: PHQ-9 Score PHQ-9: Total score 9 03/28/23 07:42 Depression Screening Interpretation: Positive Depression Screening Follow-up: Existing condition, In treatment and Community Mental Health Worker F/U Thrive Assessment: Date of Thrive Assessment Date Thrive assessed 07/27/22 03/28/23 07:38 Const General: No confusion Orientation/consciousness: patient oriented x3 and No confusion HENMT Head: Yes normal to inspection, Yes normocephalic and Yes atraumatic Ears: external ears normal Face and sinus: Yes sinuses nontender Mouth: lip normal Eyes General: appearance normal, both eyes and all related structures Eyelids: Yes eyelids normal Conjunctivae: conjunctivae normal Neck Neck: Yes normal visual inspection and Yes supple Resp Effort & Inspection: normal respiratory effort Auscultation: clear to auscultation bilaterally Cardio Jugular venous distension: no JVD Rate: regular rate Rhythm: regular rhythm Heart sounds: S1 normal heart sound present and S2 normal heart sound present GI Inspection: Yes normal to inspection Palpation (GI): Soft to palpation and nontender Auscultation: normal bowel sounds Skin General skin exam: no rashes or lesions noted Neuro General: patient oriented x3, no focal motor deficits and No confusion Extrem General: Yes full ROM Office Procedures Flu Questionnaire Does the patient have a severe egg allergy?: No Immunizations flu vacc [id number] 6mos up(PF) 60 mcg(15 mcgx4)/0.5 mL IM syringe Performing Provider: Stephanie Chapman MD [facility] Documented (not given) by: IZABEL Chahal on 03/28/23 07:44 Reason Not Given: Patient Refused Assessment and Plan Assessment & Plan (1) Physical exam: Code(s): Z00.00 - Encounter for general adult medical examination without abnormal findings Plan: Repeat in a year (2) Mild recurrent major depression: Code(s): F33.0 - Major depressive disorder, recurrent, mild Plan: Continue bupropion and escitalopram. Follow-up with psychiatry. Orders: Orders Influenza [id number] Immunization Today Z23 - Encounter for immunization Lipid Panel Today E78.5 - Hyperlipidemia, unspecified Comprehensive Regan. Panel Fast Today Z00.00 - Encounter for general adult medical examination without abnormal findings Medications: Refilled [wipes] As directed 120 ea 6RF N39.41 - Urge incontinence cane As directed 1 ea 0RF M25.50 - Pain in unspecified joint, M54.50 - Low back pain, unspecified Coding Level of Care Code Est Pt Prev Care 40-64y(18516) Diagnoses Physical exam Z00.00 Mild recurrent major depression F33.0 Additional Codes ALISON-7 Assessment Billing - ALISON-7 Assessment Tool: ALISON-7 Assessment 22509 ([id number]) Time Spent (min) 33
== END 2023-03-28 08:09 | disposition home or self-care (01) ==
PROVIDERS: Visit Provider Internal Medicine
DX: Z00.00 Encounter for general adult medical examination without abnormal findings (principal); F33.0 Major depressive disorder, recurrent, mild
CPT/HCPCS: 96127; 99396

== ENCOUNTER 2023-03-28 08:23 | Outpatient (REF) | payer OTHER, SELFPAY ==
[2023-03-28 09:31] LABS: Alanine Aminotransferase 10 U/L (0-31); Alkaline Phosphatase 71 U/L (39-117); Anion Gap 11 (12-20); Aspartate Amino Transferase 14 U/L (5-31); Bilirubin Total 1.1 mg/dL (0.0-1.0); Blood Urea Nitrogen 12 mg/dL (9-16); Calcium 9.3 mg/dL (8.4-10.2); Carbon Dioxide 28 mmol/L (22-29); Chloride 107 mmol/L (96-108); Cholesterol 196 mg/dL (<200); Estimated Glomerular Filt Rate > 60; Glucose Fasting 103 mg/dL (60-99); HDL Cholesterol 68 mg/dL (>40); LDL Cholesterol Calculated 114 mg/dL (<100); Potassium 3.8 mmol/L (3.3-5.1); Sodium 142 mmol/L (135-145); Total Protein 7.5 g/dL (6.5-8.0); Triglycerides 72 mg/dL (<150)
== END 2023-03-28 08:24 | disposition home or self-care (01) ==
LOC: HO.LAB 08:23
PROVIDERS: PCP Internal Medicine; Visit Provider Internal Medicine
DX: E78.5 Hyperlipidemia, unspecified (principal); I10 Essential (primary) hypertension
CPT/HCPCS: 36415; 80053; 80061

== ENCOUNTER 2023-09-11 10:22 | Outpatient (AMB) | payer OTHER, SELFPAY ==
[2023-09-11 10:31] VITALS: BP 122/72; BMI 31.8
--- NOTE | 2023-09-11 10:31 | MHC.OFFVIS ---
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 Complaining of right periureteral 12:00 o'clock breast lump, the patient contacted her PCP in the right diagnostic mammogram and ultrasound were ordered, the patient is scheduled today. Last Pap/HPV was in 06/12 was negative, this was preceded in 05/10 by negative Pap/HPV positive, followed by colpo/biopsy/ECC which were negative Last Mammogram was BI-RADS 2 in 11/10 No previous screening Colonoscopy PFSH Medical History Rib fracture Pleural effusion Chest pain HPV (human papilloma virus) infection Chronic restrictive lung disease Arm pain, chronic Knee pain JABARI positive Chronic restrictive lung disease Mild recurrent major depression Polyarthralgia Asthma History of DVT of lower extremity Urge urinary incontinence Chronic restrictive lung disease Reactive airway disease Dyspnea [id number] syndrome Obese Depression with anxiety Dyspnea Anxiety Hypertension Arthritis Encounter for follow-up for hypertension Surgical History History of tubal ligation H/O breast biopsy H/O LEEP Family History Father Liver cancer Mother Hypertension Diabetes CVD (cardiovascular disease) Maternal Grandmother Throat cancer Son No problems noted. Social History Housing: House Alcohol intake: never Patient Tobacco Use Status: Never used Tobacco e-Cigarette/Vaping Use: Never Used Second Hand Smoke Exposure: No service: No Current occupational status: unemployed Cognitive needs: No Hearing needs: No Vision needs: No Female Reproductive History Menstrual Age of Menarche: 9 Total pregnancies: 3 Full term: 2 Number of Living Children: 1 Ab spontaneous: 1 Date of last pap smear: 06/07/22 Date of Mammogram: 11/01/22 Review of Systems Const All systems reviewed & are unremarkable except as noted in HPI and below Card Reports as per HPI Resp Reports as per HPI GI Reports as per HPI and Reports no additional complaints Reports as per HPI Physical Exam Vital Signs: Last Vital Signs BP 122/72 09/11/23 10:31 BMI result Body Mass Index 31.8 Const General: cooperative, healthy appearing and comfortable Chest Chest palpation & inspection: normal inspection of the chest and normal palpation of entire chest wall Breast/axilla inspection: normal inspection of the breasts and normal inspection of the axillae Breast/axilla palpation: normal palpation of the breasts (Left breast within normal), normal palpation of the axillae, no axillary lymphadenopathy and abnormal palpation of the breast (Right breast 12:00 o'clock periareoral 0.3 cm lump) Resp Effort & Inspection: normal respiratory effort Auscultation: clear to auscultation bilaterally Percussion: percussion normal Cardio Palpation: normal PMI Rate: regular rate Rhythm: regular rhythm Heart sounds: no murmurs and no rubs Peripheral pulses: Peripheral pulses 2+ throughout GI Inspection: Yes normal to inspection Palpation (GI): Soft to palpation, nontender, no guarding, not rigid and No hepatosplenomegaly present Percussion: Yes normal to percussion Auscultation: normal bowel sounds Rectal Exam - Female: deferred General: Yes bladder normal to palpation External Female Exam: No lesion Speculum Exam - Vagina: normal appearance of the vagina, normal palpation, normal vaginal discharge and not erythematous Speculum Exam - Cervix: normal appearance of the cervix and normal palpation Bimanual exam- vagina & uterus: normal bimanual exam, normal palpation, uterine size normal, bladder normal to palpation, consistency normal and normal palpation Bimanual Exam- Adnexa, other: normal adnexae, no masses and no tenderness Assessment & Plan Assessment & Plan (1) Well woman exam: Code(s): Z01.419 - Encounter for gynecological examination (general) (routine) without abnormal findings Category: Medical Plan: Co testing not indicated this year. Counseled the patient about the recommended dietary allowance of 1200 mg of Calcium & 600 IU of vitamin D. Instructions given the patient to schedule next screening Mammogram in 11/11. The patient was referred to GI for screening colonoscopy . The patient was instructed to perform monthly self-breast exams and schedule annual exam in a year. All questions answered and the patient verbalized understanding. (2) Breast lump on right side at 12 o'clock position: Comment: Right periareolar 12:00 o'clock lump Code(s): N63.15 - Unspecified lump in the right breast, overlapping quadrants Category: Medical Plan: Discussed with the patient the finding on Breast exam (breast lump) .The differential diagnosis includes but not limited to lump/cyst/pre cancer/cancer or dense breast tissue. The work up includes breast US and diagnostic mammogram and referred the patient for surgical breast consult. Orders: Referrals Gastroenterology Referral Z12.11 - Encounter for screening for malignant neoplasm of colon General Surgery Referral N63.15 - Unspecified lump in the right breast, overlapping quadrants
== END 2023-09-11 10:54 | disposition home or self-care (01) ==
PROVIDERS: Visit Provider Obstetrics & Gynecology
DX: Z01.419 Encounter for gynecological examination (general) (routine) without abnormal findings (principal); N63.15 Unspecified lump in the right breast, overlapping quadrants
CPT/HCPCS: 99396

== ENCOUNTER → 2023-09-11 10:22 | Outpatient (BNVA) | payer OTHER, SELFPAY | PROVIDERS: Visit Provider Obstetrics & Gynecology ==

== ENCOUNTER 2023-09-19 16:15 | Outpatient (AMB) | payer OTHER, SELFPAY ==
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
[2023-09-19 16:20] VITALS: BP 130/80; BMI 31.5
== END 2023-09-19 17:03 | disposition home or self-care (01) ==
PROVIDERS: PCP Internal Medicine; Visit Provider Internal Medicine
DX: T22.131A Burn of first degree of right upper arm, initial encounter (principal); F33.0 Major depressive disorder, recurrent, mild; I10 Essential (primary) hypertension; J45.40 Moderate persistent asthma, uncomplicated
CPT/HCPCS: 99214

== ENCOUNTER 2023-10-09 13:56 | Outpatient (REF) | payer OTHER, SELFPAY ==
--- NOTE | ~2023-10-09 | MM_ITS ---
EXAMINATION: MM DIAGNOSTIC DIGITAL BREAST TOMOSYNTHESIS, BILATERAL US BREAST LIMITED, RIGHT MAMMOGRAPHY: CLINICAL INFORMATION: Mastodynia right periareolar region 9:00 axis, and questionably 12:00 axis as well. No palpable abnormality. Patient also due for bilateral screening. Benign right breast biopsy in 2018 yielding fibroadenoma. COMPARISON: Mammography: 11/01/2022, 10/26/2021, 10/20/2020, 07/22/2019, 01/15/2018 TECHNIQUE: Digital breast tomosynthesis is performed in both the craniocaudal and mediolateral oblique views along with computer-aided detection (CAD). Synthesized 2D images are generated from the tomosynthesis. In addition to standard views, full-field digital right ML view was obtained, as well as 3-D spot compression right CC and MLO views of the retroareolar region to include the region of palpable concern. FINDINGS: There are scattered areas of fibroglandular density (ACR BI-RADS breast composition Category b). Breast tissue borders on heterogeneously dense. In the right breast anterior one third at the 2:00 axis, there is a small oval mass with a biopsy clip in the periphery, consistent with the known biopsied fibroadenoma. No abnormality is noted mammographically in the periareolar region at 9:00 axis through 12:00 in the region of breast pain and palpable abnormality. Otherwise, there are no suspicious masses, suspicious grouped calcifications, or areas of architectural distortion in either breast. The parenchymal pattern is stable from prior exams. ULTRASOUND: CLINICAL INFORMATION: Mastodynia and palpable focus right periareolar region 9:00 questionably 12:00 axis as well. No definite palpable abnormality. History of benign fibroadenoma biopsied in 2018 at the 2:00 axis. COMPARISON: 01/25/2018. TECHNIQUE: Targeted sonographic evaluation was performed using a high frequency linear transducer. Attention to the periareolar region spanning 9:00 to 12:00 was performed. Selected archived documentation. FINDINGS: RIGHT BREAST: -Both myself and the technologist scanned. In the 11:00 retroareolar region, near the area of palpable concern, there is a mildly complicated cyst measuring 1.6 x 0.7 x 1.4 cm. This could potentially represent the region of palpable abnormality. This is not well seen on mammography, and could simply be a normal fat lobule made more hypoechoic by nipple shadowing on the ultrasound. There is good through transmission and no internal color Doppler flow. Finding is circumscribed. It is wider than tall. Six-month follow-up recommended. At the 2:00 axis there is a 1.0 cm biopsy proven fibroadenoma with a biopsy clip in the periphery. No additional abnormality is identified. MM/MM tomosynthesis diagnostic BI IMPRESSION: -There are no findings in either breast suspicious for malignancy. -Questionable mildly complicated cyst in the 11:00 retroareolar region, which may correlate with the focus of palpable concern and pain. This cannot definitively be characterized as a definite abnormality because of persistent shadowing from the nipple, which complicated the appearance, making it appear more hypoechoic than it likely actually is. This finding could potentially represent a normal retroareolar fat lobule, as there is no definite correlate on the mammogram. Six-month follow-up targeted right breast ultrasound is recommended to ensure stability and to assess if this represents a true abnormality. -1.0 cm benign fibroadenoma right breast 2:00, biopsy proven. This is unchanged. -No suspicious findings in the left breast. OVERALL ASSESSMENT: Mammography: BI-RADS 3 - Probably benign finding(s) - 6 month follow-up suggested Ultrasound: BI-RADS 3 - Probably benign finding(s) - 6 month follow-up suggested RECOMMENDATION: 6 Month F/U Results were discussed with the patient at time of visit. This patient's information was entered into a reminder system with a target due date for their next mammogram.
== END 2023-10-09 13:57 | disposition home or self-care (01) ==
LOC: HO.MAMMO 13:56
PROVIDERS: PCP Internal Medicine; Visit Provider Internal Medicine
DX: N63.15 Unspecified lump in the right breast, overlapping quadrants (principal)
CPT/HCPCS: 76642; 77062; 77066

== ENCOUNTER → 2023-10-09 14:30 | Outpatient (BNV) | payer OTHER, SELFPAY | PROVIDERS: PCP Internal Medicine; Visit Provider Radiology Diagnostic Radiology | DX: N64.4 Mastodynia (principal) | CPT/HCPCS: 76642; 77066; G0279 ==

== ENCOUNTER 2023-12-10 14:37 | Outpatient (AMB) | payer OTHER, SELFPAY ==
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
[2023-12-10 14:44] VITALS: PULSE 90; O2SAT 98; BMI 30.5
== END 2023-12-10 14:58 | disposition home or self-care (01) ==
PROVIDERS: PCP Internal Medicine; Visit Provider Hospitalist
DX: J18.9 Pneumonia, unspecified organism (principal); J45.40 Moderate persistent asthma, uncomplicated; J98.4 Other disorders of lung
CPT/HCPCS: 99214

== ENCOUNTER → 2023-12-10 14:37 | Outpatient (BNVA) | payer OTHER, SELFPAY | PROVIDERS: PCP Internal Medicine; Visit Provider Hospitalist | DX: J18.9 Pneumonia, unspecified organism (principal); J45.40 Moderate persistent asthma, uncomplicated; J98.4 Other disorders of lung | CPT/HCPCS: 99212 ==

== ENCOUNTER 2024-01-24 09:27 | Outpatient (AMB) | payer OTHER, SELFPAY ==
--- NOTE | 2024-01-24 09:30 | A.OFFPC_ITS ---
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 Accompanied by: Self / Same As Patient Allergies gabapentin Allergy (Intermediate, Verified 01/24/24 09:48) abdominal pain Medication List - Last Reconciled 01/24/24 by Stephanie Chapman MD albuterol sulfate 2.5 mg (3 mL) inhalation Q4H PRN 30 days albuterol sulfate 90 mcg/actuation 2 puffs inhalation Q4-6H PRN aspirin 81 mg PO DAILY 90 days bupropion HCl XL mg PO cane As directed cetirizine 10 mg PO DAILY clonazepam 1 mg PO TID PRN escitalopram oxalate 10 mg PO DAILY fluticasone propionate 44 mcg/actuation (Flovent HFA) 1 puff inhalation BID 30 days hydrochlorothiazide 25 mg PO DAILY 30 days ibuprofen 600 mg PO Q8H PRN 10 days incontinence pad, liner, disp USe 1 to 2 pads per day as needed Incruse Ellipta 62.5 mcg/actuation (umeclidinium) 1 inh inhalation DAILY NS lisinopril 10 mg PO DAILY 90 days mometasone-formoterol 200-5 mcg/actuation (Dulera) 2 puffs inhalation Q12H 30 days montelukast 10 mg PO DAILY nebulizers (VixOne Nebulizer-Adult Mask) As directed [non slip bath mat As directed] ofloxacin 0.3% 2 drps ophthalmic (eye) silver sulfadiazine 1% (Silvadene) 1 appl topical DAILY 1 week [thin panty liners As directed] timolol maleate 0.5% drps ophthalmic (eye) tobramycin-dexamethasone 0.3-0.1 % 1 drp ophthalmic (eye) TID tramadol 50 mg PO Q8H PRN 30 days underpads (Bed Underpads) Use 4 bed pads per day walker (Ultra-Light Rollator misc) As directed [wipes Use 4 times a day as needed] zolpidem 10 mg PO BEDTIME PRN Tobacco use date assessed: 09/19/23 Dental Screening Dental Screen Date: 09/19/23 HPI HPI Comments History of Present Illness Details This is a 48-year-old female with mild recurrent major depression and hypertension that comes today complaining of bilateral leg swelling that started few weeks ago. Went to ER for this matter recently and had ultrasound venous Doppler which was negative. Depression stable with medications. Blood pressure well controlled. She is also obese with a BMI of 30.7 and will benefit from Wegovy. No chest pain or shortness on breath. [facility] Medical History (Updated 01/24/24 @ 11:55 by Stephanie Chapman MD) Pneumonia Rib fracture Pleural effusion Chest pain HPV (human papilloma virus) infection Chronic restrictive lung disease Arm pain, chronic Knee pain STEPHANIE positive Chronic restrictive lung disease Mild recurrent major depression Polyarthralgia Asthma History of DVT of lower extremity Urge urinary incontinence Chronic restrictive lung disease Reactive airway disease Dyspnea [id number] syndrome Obese Depression with anxiety Dyspnea Anxiety Hypertension Arthritis Encounter for follow-up for hypertension Surgical History History of tubal ligation H/O breast biopsy H/O LEEP Family History Father Liver cancer Mother Hypertension Diabetes CVD (cardiovascular disease) Maternal Grandmother Throat cancer Son No problems noted. Social History Housing: House Alcohol intake: never Patient Tobacco Use Status: Never used Tobacco e-Cigarette/Vaping Use: Never Used Second Hand Smoke Exposure: No service: No Current occupational status: unemployed Cognitive needs: No Hearing needs: No Vision needs: No Female Reproductive History Menstrual Age of Menarche: 9 Questionnaire Thrive Questionnaire Date Thrive assessed: 09/19/23 ALISON-7 AMB Questionnaire ALISON-7 Date ALISON - 7 assessed: 09/19/23 Source: Developed by Drs. Pablo Gasca, Precious Benoit, Deep Puckett and colleagues, with an educational lyn from [employer]. Review of Systems Const All systems reviewed & are unremarkable except as noted in HPI and below Card Denies chest pain at rest, Denies chest pain with activity, Denies edema, Denies irregular heart rhythm, Denies claudication, Denies dyspnea, Denies dyspnea on exertion, Denies orthopnea, Denies paroxysmal nocturnal dyspnea and Denies slow heart rate Resp Denies cough, Denies dyspnea and Denies dyspnea on exertion GI Denies abdominal pain, Denies change in bowel habits, Denies excessive flatus, Denies nausea and Denies vomiting Reports urinary incontinence, Denies urinary hesitancy and Denies urinary urgency Musc Denies atrophy, Denies deformity, Reports arthralgias and Denies limited range of motion Skin/Breast Denies bleeding lesions, Denies changing lesions and Denies rash Physical exam (Primary Care) Vital Signs: Last Vital Signs BP 130/86 01/24/24 09:32 BMI result Body Mass Index 30.7 BMI Assessment/Plan discussion: High BMI High, discussed plan: lifestyle, weight reduction, dietary and physical activity Tobacco/Smoking Status: Tobacco use Status Tobacco use date assessed 09/19/23 01/24/24 09:35 Patient Tobacco Use Status Never used Tobacco 01/24/24 09:35 e-Cigarette/Vaping Use Never Used 01/24/24 09:35 Thrive Assessment: Date of Thrive Assessment Date Thrive assessed 09/19/23 01/24/24 09:35 Resp Effort & Inspection: normal respiratory effort Auscultation: clear to auscultation bilaterally Cardio Jugular venous distension: no JVD Rate: regular rate Rhythm: regular rhythm Heart sounds: S1 normal heart sound present and S2 normal heart sound present Extrem General: Yes full ROM Right lower extremity: lower leg Details: non-pitting edema Details: 1+ Left lower extremity: lower leg Details: non-pitting edema Details: 1+ Assessment and Plan Assessment & Plan (1) Hypertension: Code(s): I10 - Essential (primary) hypertension Qualifiers: Hypertension type: primary hypertension Qualified Code(s): I10 - Essential (primary) hypertension Plan: Continue hydrochlorothiazide. Blood pressure goal is equal or less than 130/80. (2) Mild recurrent major depression: Code(s): F33.0 - Major depressive disorder, recurrent, mild Plan: Continue SSRIs. (3) Obesity, Class I, BMI 30-34.9: Code(s): E66.9 - Obesity, unspecified Plan: Start Wegovy. BMI goal is less than 30. (4) Lymphedema: Code(s): I89.0 - Lymphedema, not elsewhere classified Plan: Start compression stockings as needed. Orders: Orders Comprehensive [place]. Panel Fast Today E66.9 - Obesity, unspecified Lipid Panel Today E66.9 - Obesity, unspecified, E78.5 - Hyperlipidemia, unspecified Medications: New [compression stockings knee high] As directed 2 ea 6RF I89.0 - Lymphedema, not elsewhere classified semaglutide (weight loss) (Connie) administer weeks 1 through 4 of therapy 0.25 mg (0.5 mL) subcut QWEEK 2 mL 0RF 4 weeks E66.9 - Obesity, unspecified, I10 - Essential (primary) hypertension Coding Level of Care Code Est Pt Level 4 (82227) Complex EM visit Add On G2211 Diagnoses Primary hypertension I10 Hypertension type: primary hypertension Mild recurrent major depression F33.0 Obesity, Class I, BMI 30-34.9 E66.9 Lymphedema I89.0 Time Spent (min) 23
[2024-01-24 09:32] VITALS: BP 130/86; BMI 30.7
== END 2024-01-24 09:58 | disposition home or self-care (01) ==
PROVIDERS: PCP Internal Medicine; Visit Provider Internal Medicine
DX: I10 Essential (primary) hypertension (principal); F33.0 Major depressive disorder, recurrent, mild; I89.0 Lymphedema, not elsewhere classified
CPT/HCPCS: 99214; G2211

== ENCOUNTER 2024-03-05 10:54 | Outpatient (AMB) | payer OTHER, SELFPAY ==
[2024-03-05 11:14] VITALS: BP 128/70; PULSE 88; O2SAT 98; BMI 30.4
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
== END 2024-03-05 11:33 | disposition home or self-care (01) ==
PROVIDERS: PCP Internal Medicine; Visit Provider Hospitalist
DX: J18.9 Pneumonia, unspecified organism (principal); J45.40 Moderate persistent asthma, uncomplicated; J98.4 Other disorders of lung
CPT/HCPCS: 99214

== ENCOUNTER → 2024-03-05 10:54 | Outpatient (BNVA) | payer OTHER, SELFPAY | PROVIDERS: PCP Internal Medicine; Visit Provider Hospitalist | DX: J18.9 Pneumonia, unspecified organism (principal); J45.40 Moderate persistent asthma, uncomplicated; J98.4 Other disorders of lung | CPT/HCPCS: 99212 ==

== ENCOUNTER 2024-03-31 07:31 | Outpatient (AMB) | payer OTHER, SELFPAY ==
--- NOTE | 2024-03-31 07:44 | A.OFFPC_ITS ---
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 Accompanied by: Self / Same As Patient Allergies gabapentin Allergy (Intermediate, Verified 03/31/24 07:51) abdominal pain Medication List - Last Reconciled 03/31/24 by Stephanie Chapman MD albuterol sulfate 2.5 mg (3 mL) inhalation Q4H PRN 30 days albuterol sulfate 90 mcg/actuation 2 puffs inhalation Q4-6H PRN aspirin 81 mg PO DAILY 90 days bupropion HCl XL mg PO cane As directed cetirizine 10 mg PO DAILY clonazepam 1 mg PO TID PRN [compression stockings knee high As directed] escitalopram oxalate 10 mg PO DAILY fluticasone propionate 44 mcg/actuation (Flovent HFA) 1 puff inhalation BID 30 days furosemide mg PO hydrochlorothiazide 25 mg PO DAILY 30 days ibuprofen 600 mg PO Q8H PRN 10 days incontinence pad, liner, disp USe 1 to 2 pads per day as needed Incruse Ellipta 62.5 mcg/actuation (umeclidinium) 1 inh inhalation DAILY NS lisinopril 10 mg PO DAILY 90 days mometasone-formoterol 200-5 mcg/actuation (Dulera) 2 puffs inhalation Q12H 30 days montelukast 10 mg PO DAILY nebulizers (VixOne Nebulizer-Adult Mask) As directed [non slip bath mat As directed] ofloxacin 0.3% 2 drps ophthalmic (eye) semaglutide (weight loss) (Wegovy) 0.25 mg (0.5 mL) subcut QWEEK 4 weeks semaglutide (weight loss) (Wegovy) 0.5 mg (0.5 mL) subcut QWEEK 4 weeks silver sulfadiazine 1% (Silvadene) 1 appl topical DAILY 1 week [thin panty liners As directed] timolol maleate 0.5% drps ophthalmic (eye) tobramycin-dexamethasone 0.3-0.1 % 1 drp ophthalmic (eye) TID tramadol 50 mg PO Q8H PRN 30 days underpads (Bed Underpads) Use 4 bed pads per day walker (Ultra-Light Rollator misc) As directed [wipes Use 4 times a day as needed] zolpidem 10 mg PO BEDTIME PRN Tobacco use date assessed: 09/19/23 Dental Screening Dental Screen Date: 03/31/24 Did you have a dental visit in the last 12 months?: No Did you have a dental problem in the last 6 months where you did not have access to dental care?: No Was dental information given to patient?: Patient has dentist HPI HPI Comments History of Present Illness Details This is a 48-year-old female that comes for her physical exam. Mammogram done 2023. Pap smear done 2022. Cologuard done 2 years ago and was negative. No chest pain or shortness on breath. Complains of constipation with less than 3 bowel movements per week. Has lost a few lb with Wegovy. Has moderate recurrent major depression follow by Psychiatry. 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 Social History Housing: House Alcohol intake: never Patient Tobacco Use Status: Never used Tobacco e-Cigarette/Vaping Use: Never Used Second Hand Smoke Exposure: No service: No Current occupational status: unemployed Cognitive needs: No Hearing needs: No Vision needs: No Female Reproductive History Menstrual Age of Menarche: 9 Questionnaire PHQ-9 Over the last 2 weeks, how often have you been bothered by any of the following problems? 1. Little interest or pleasure in doing things: nearly every day 2. Feeling down, depressed, or hopeless: several days 3. Trouble falling or staying asleep, or sleeping too much: nearly every day 4. Feeling tired or having little energy: more than half the days 5. Poor appetite or overeating: more than half the days 6. Feeling bad about yourself - or that you are a failure or have let yourself or your family down: not at all 7. Trouble concentrating on things, such as reading the newspaper or watching television: more than half the days 8. Moving or speaking so slowly that other people could have noticed. Or the opposite - being so fidgety or restless that you have been moving around a lot more than usual: more than half the days 9. Thoughts that you would be better off or of hurting yourself in some way: not at all Total score: 15 Depression Screening Interpretation: Positive (no suicidal thoughts) Depression Screening Follow-up: Existing condition, In treatment, Community Mental Health Worker F/U and Follow-up Visit Requested Depression Screening Done: Yes 39772 - PHQ-9 Billing: Yes Source: Developed by Drs. Pablo Gasca, Precious Benoit, Deep Puckett and colleagues, with an educational lyn from [employer]. Thrive Questionnaire Date Thrive assessed: 09/19/23 I am a: Patient What is your living situation today?: I have a steady place to live Within the past 12 months, did the food you bought not last and you didn't have the money to get more?: Never true Within the past 12 months, did you worry whether your food would run out before you got money to buy more?: Never true Do you have trouble paying for medicines?: No Do you have trouble getting transportation to medical appointments?: No Do you have trouble paying your heating and electricity bill?: No Do you have trouble taking care of your child, family member or friend?: I choose not to answer this question Do you have trouble with day-to-day activities such as bathing, preparing meals, shopping, managing finances, etc.?: Yes Are you currently unemployed and looking for a job?: I choose not to answer this question Are you interested in more education?: Yes Please select the resources that you would like help with: Utilities Currently or been in a relationship where the following occur: I choose not to answer THRIVE Score: 0 AUDIT C Alcohol Use Questionnaire (AUDIT-C) 1. How often do you have a drink containing alcohol?: Never Total Score: 0 Score Reviewed/Action Taken: No ALISON-7 AMB Questionnaire ALISON-7 Date ALISON - 7 assessed: 09/19/23 Feeling nervous, anxious, or on edge: 1 = Several days Not being able to stop or control worryin = Nearly every day Worrying too much about different things: 0 = Not at all Trouble relaxin = Nearly every day Being so restless that it is hard to sit still: 2 = More than half the days Becoming easily annoyed or irritable: 2 = More than half the days Feeling afraid as if something awful might happen: 0 = Not at all Total ALISON-7 score (0-4 normal; 5-9 mild; 10-14 moderate; 15-21 severe): 11 Source: Developed by Drs. Pablo Gasca, Precious Benoit, Deep Puckett and colleagues, with an educational lyn from [employer]. ALISON-7 Assessment Billing ALISON-7 Assessment Tool: ALISON-7 Assessment 99309 Review of Systems Const All systems reviewed & are unremarkable except as noted in HPI and below Card Denies chest pain at rest, Denies chest pain with activity, Denies edema, Denies irregular heart rhythm, Denies claudication, Denies dyspnea, Denies dyspnea on exertion, Denies orthopnea, Denies paroxysmal nocturnal dyspnea and Denies slow heart rate Resp Denies cough, Denies dyspnea and Denies dyspnea on exertion GI Denies abdominal pain, Denies change in bowel habits, Denies excessive flatus, Denies nausea and Denies vomiting Neuro Denies lack of coordination Physical exam (Primary Care) Vital Signs: Last Vital Signs BP 126/72 03/31/24 07:45 BMI result Body Mass Index 29.3 Tobacco/Smoking Status: Tobacco use Status Tobacco use date assessed 09/19/23 03/31/24 07:47 Patient Tobacco Use Status Never used Tobacco 03/31/24 07:47 e-Cigarette/Vaping Use Never Used 03/31/24 07:47 PHQ-9: PHQ-9 Score PHQ-9: Total score 15 03/31/24 07:47 Depression Screening Interpretation: Positive (no suicidal thoughts) Depression Screening Follow-up: Existing condition, In treatment, Community Mental Health Worker F/U and Follow-up Visit Requested Thrive Assessment: Date of Thrive Assessment Date Thrive assessed 09/19/23 03/31/24 07:47 Currently or been in a relationship where the following occur: I choose not to answer HENMT Head: Yes normal to inspection, Yes normocephalic and Yes atraumatic Ears: external ears normal Eyes General: appearance normal, both eyes and all related structures Eyelids: Yes eyelids normal Conjunctivae: conjunctivae normal Neck Neck: Yes normal visual inspection and Yes supple Resp Effort & Inspection: normal respiratory effort Auscultation: clear to auscultation bilaterally Cardio Jugular venous distension: no JVD Rate: regular rate Rhythm: regular rhythm Heart sounds: S1 normal heart sound present and S2 normal heart sound present GI Inspection: Yes normal to inspection Palpation (GI): Soft to palpation and nontender Auscultation: normal bowel sounds Skin General skin exam: no rashes or lesions noted Neuro General: no focal motor deficits Extrem General: Yes full ROM Psych Appearance: grossly normal Office Procedures Flu Questionnaire Does the patient have a severe egg allergy?: No Immunizations Fluarix Triv [id number] (PF) 45 mcg (15 mcg x 3)/0.5 mL IM syringe Performing Provider: Stephanie Chapman MD [facility] [place] [facility] Documented (not given) by: IZABEL Chahal on 03/31/24 07:54 Reason Not Given: Patient Refused Coding Level of Care Code Est Pt Level 3 (38210) Est Pt Prev Care 40-64y(72858) Diagnoses Physical exam Z00.00 Moderate recurrent major depression F33.1 Chronic idiopathic constipation K59.04 Additional Codes PHQ-9 - 81316 - PHQ-9 Billing: Yes ([id number]) ALISON-7 Assessment Billing - ALISON-7 Assessment Tool: ALISON-7 Assessment 25135 ([id number]) Time Spent (min) 33 Assessment & Plan Assessment & Plan (1) Physical exam: Code(s): Z00.00 - Encounter for general adult medical examination without abnormal findings Category: Medical Plan: Repeat in a year. (2) Moderate recurrent major depression: Code(s): F33.1 - Major depressive disorder, recurrent, moderate Category: Medical Plan: Continue bupropion. Follow-up with psychiatry. (3) Chronic idiopathic constipation: Code(s): K59.04 - Chronic idiopathic constipation Category: Medical Plan: Start docusate as needed. Follow a high-fiber diet. Orders: Orders Comprehensive [place]. Panel Fast Today Z00.00 - Encounter for general adult medical examination without abnormal findings Influenza [id number] Immunization Today Z23 - Encounter for immunization Lipid Panel Today Z00.00 - Encounter for general adult medical examination without abnormal findings Medications: New ibuprofen 800 mg PO Q8H 30 days PRN 90 tabs 2RF pain docusate calcium 240 mg PO BEDTIME 90 days PRN 90 caps 0RF constipation Refilled semaglutide (weight loss) (Wegovy) administer weeks 5 through 8 of therapy 0.5 mg (0.5 mL) subcut QWEEK 4 weeks 2 mL 0RF Discontinued semaglutide (weight loss) (Wegovy) administer weeks 1 through 4 of therapy Discontinued Reason: Patient Completed Course 0.25 mg (0.5 mL) subcut QWEEK 4 weeks 2 mL 0RF E66.9 - Obesity, unspecified, I10 - Essential (primary) hypertension
[2024-03-31 07:45] VITALS: BP 126/72; BMI 29.3
== END 2024-03-31 08:05 | disposition home or self-care (01) ==
PROVIDERS: PCP Internal Medicine; Visit Provider Internal Medicine
DX: Z00.00 Encounter for general adult medical examination without abnormal findings (principal); F33.1 Major depressive disorder, recurrent, moderate; K59.04 Chronic idiopathic constipation

== ENCOUNTER → 2024-03-31 07:31 | Outpatient (BNVA) | payer OTHER, SELFPAY | PROVIDERS: PCP Internal Medicine; Visit Provider Internal Medicine | DX: Z00.01 Encounter for general adult medical examination with abnormal findings (principal); F33.1 Major depressive disorder, recurrent, moderate; K59.04 Chronic idiopathic constipation; I10 Essential (primary) hypertension; E66.9 Obesity, unspecified | CPT/HCPCS: 96127; 99212; 99396 ==

== ENCOUNTER 2024-04-14 10:35 | Outpatient (REF) | payer OTHER, SELFPAY ==
--- NOTE | ~2024-04-14 | US_ITS ---
EXAMINATION: US DIAGNOSTIC ULTRASOUND BREAST, RIGHT CLINICAL INFORMATION: Diagnostic exam; six-month follow-up for right breast 11:00 axis potential oval mass versus nipple shadow artifact. COMPARISON: 10/09/2023 mammography and right breast ultrasound. Mammography 11/01/2022. TECHNIQUE: Ultrasound of the right breast is performed with real-time florez scale imaging and color Doppler. Attention was given to the 10-1 o'clock axes to include the 11:00 retroareolar region. FINDINGS: At the 11:00 retroareolar location, there is a stable and unchanged probable region of artifact versus stable oval mass measuring 1.6 x 0.9 x 1.4 cm. On today's exam, this appears more likely to represent nipple shadow artifact involving a fatty lobule versus an actual mass or complicated cyst. To be cautious, one more six-month follow-up recommended to ensure stability when the patient is due for bilateral screening. US/US breast RT limited mamm only IMPRESSION: 1. No findings suspicious for malignancy right breast. 2. Probably benign findings 11:00 retroareolar location which are unchanged and probably artifactual. Recommend six-month follow-up targeted right breast ultrasound to ensure stability, when the patient is due for bilateral screening. ASSESSMENT: BI-RADS 3: Probably Benign RECOMMENDATION: Diagnostic right sonography in 6 months. This patient's information was entered into a reminder system with a target due date for their next mammogram. Electronically signed by: Greg Finnegan MD 04/14/2024 11:22 AM [facility]
== END 2024-04-14 10:36 | disposition home or self-care (01) ==
LOC: HO.MAMMO 10:35
PROVIDERS: PCP Internal Medicine; Visit Provider Internal Medicine
DX: N63.11 Unspecified lump in the right breast, upper outer quadrant (principal)
CPT/HCPCS: 76642

== ENCOUNTER → 2024-04-14 11:00 | Outpatient (BNV) | payer OTHER, SELFPAY | PROVIDERS: PCP Internal Medicine; Visit Provider Radiology Diagnostic Radiology | DX: N63.11 Unspecified lump in the right breast, upper outer quadrant (principal) | CPT/HCPCS: 76642 ==

== ENCOUNTER 2024-05-01 12:19 | Emergency (ER) | payer OTHER, SELFPAY ==
--- NOTE | 2024-05-01 | ECG_ITS ---
Test Reason : PALPITATIONS Blood Pressure : / mmHG Vent. Rate : 112 BPM Atrial Rate : 112 BPM P-R Int : 204 ms QRS Dur : 084 ms QT Int : 298 ms P-R-T Axes : 026 027 -20 degrees QTc Int : 406 ms Sinus tachycardia Otherwise normal ECG When compared with ECG of 15-NOV-2019 19:12, Inverted T waves have replaced nonspecific T wave abnormality in Inferior leads Nonspecific T wave abnormality now evident in Anterior leads Referred By: Jennifer Krueger Electronically Signed By:JEANNINE MERCHANT MD
--- NOTE | ~2024-05-01 | XR_ITS ---
EXAMINATION: XR ABDOMEN KUB CLINICAL INDICATION: pain COMPARISON: None available. TECHNIQUE: AP view of the abdomen. FINDINGS: Bowel gas pattern is normal/nonspecific no focally dilated loop to suggest ileus or obstruction. Large ovoid calcification in the central pelvis is consistent with a degenerated uterine fibroid. No additional abnormal calcifications. No organomegaly. No large abdominal mass. Lung bases clear. Osseous structures grossly normal. XR/XR KUB IMPRESSION: No acute findings KUB examination. Electronically signed by: Greg Finnegan MD 05/01/2024 03:27 PM EST
[2024-05-01 12:54] VITALS: BP 147/91; PULSE 118; RESP 18; TEMP 36.6; O2SAT 98; BMI 25.2
--- NOTE | 2024-05-01 12:58 | ED_ITS ---
HPI - General Adult General Chief complaint: General Medical Stated complaint: vomiting Time Seen by Provider: 05/01/24 13:27 Source: patient and healthcare consultant Mode of arrival: ambulatory Limitations: language barrier History of Present Illness ED Provider: chema MALDONADO narrative: Patient is a 48-year-old Ivorian speaking female with history of constipation, depression, obesity presenting to the ED with complaint of nausea, vomiting and generalized abdominal pain for the past 3 days. States abdominal pain is generalized and due to vomiting. Also complains of constipation, last normal bowel movement was the day before yesterday. Some urinary frequency. Denies fevers. Emesis is non-bloody. States she recently got her third Wegovy shot, and has been increasing the dose each time. Denies chest pain, dyspnea, palpitations. MD complaint: nausea and vomiting Onset (ago): day(s) Related Data Home Medications ?Medication ?Instructions ?Recorded ?Confirmed bupropion HCl 150 mg 24 hr tablet, mg PO 03/23/20 03/31/24 extended release clonazepam 1 mg tablet 1 mg PO TID PRN 03/23/20 03/31/24 zolpidem 10 mg tablet 10 mg PO BEDTIME PRN 03/23/20 03/31/24 cetirizine 10 mg tablet 10 mg PO DAILY 11/04/20 03/31/24 escitalopram oxalate 10 mg tablet 10 mg PO DAILY 10/13/21 03/31/24 ofloxacin 0.3 % eye drops 2 drp ophthalmic (eye) 08/21/22 03/31/24 tobramycin 0.3 %-dexamethasone 0.1 1 drp ophthalmic (eye) TID 08/21/22 03/31/24 % eye drops,suspension timolol maleate 0.5 % eye drops drp ophthalmic (eye) 02/12/23 03/31/24 furosemide 20 mg tablet mg PO 03/05/24 03/31/24 Previous Rx's ?Medication ?Instructions ?Recorded fluticasone propionate 44 1 puff inhalation BID 30 days 11/04/20 mcg/actuation HFA aerosol inhaler #10.6 grams (Flovent HFA) hydrochlorothiazide 25 mg tablet 25 mg PO DAILY 30 days #30 tabs 11/30/20 nebulizers (VixOne Nebulizer-Adult #1 ea 04/22/21 Mask) albuterol sulfate 2.5 mg/3 mL 2.5 mg (3 mL) inhalation Q4H PRN 08/21/22 (0.083 %) solution for nebulization shortness of breath or wheezing 30 days #180 mL ibuprofen 600 mg tablet 600 mg PO Q8H PRN pain 10 days #30 09/25/22 tabs underpads (Bed Underpads) #100 ea 02/08/23 Incruse Ellipta 62.5 mcg/actuation 1 inh inhalation DAILY #30 ea 02/12/23 powder for inhalation (umeclidinium) mometasone-formoterol HFA 200 2 puff inhalation Q12H 30 days #13 02/12/23 mcg-5 mcg/actuation aerosol grams inhaler (Dulera) cane #1 ea 03/28/23 non slip bath mat #1 ea 08/14/23 walker (Ultra-Light Rollator misc) #1 ea 08/14/23 lisinopril 10 mg tablet 10 mg PO DAILY 90 days #90 tabs 09/04/23 silver sulfadiazine 1 % topical 1 appl topical DAILY 1 week #20 09/19/23 cream (Silvadene) grams incontinence pad, liner, disp #60 ea 10/04/23 albuterol sulfate 90 mcg/actuation 2 puff inhalation Q4-6H PRN 12/10/23 aerosol inhaler shortness of breath or wheezing #1 ea compression stockings knee high #2 ea 01/24/24 thin panty liners #90 ea 02/01/24 wipes #120 ea 02/01/24 montelukast 10 mg tablet 10 mg PO DAILY #30 tabs 03/04/24 aspirin 81 mg tablet,delayed 81 mg PO DAILY 90 days #90 tabs 03/05/24 release docusate calcium 240 mg capsule 240 mg PO BEDTIME PRN constipation 03/31/24 90 days #90 caps ibuprofen 800 mg tablet 800 mg PO Q8H PRN pain 30 days #90 03/31/24 tabs semaglutide (weight loss) 0.5 0.5 mg (0.5 mL) subcut QWEEK 4 03/31/24 mg/0.5 mL subcutaneous pen weeks #2 mL injector (Connie) tramadol 50 mg tablet 50 mg PO Q8H PRN pain 30 days #90 04/02/24 tabs semaglutide (weight loss) 1 mg/0.5 1 mg (0.5 mL) subcut Q7D 4 weeks 04/25/24 mL subcutaneous pen injector #2 mL (Wegovy) ondansetron 4 mg disintegrating 4 mg PO Q8H PRN nausea and 05/01/24 tablet vomiting #10 tabs Allergies Allergy/AdvReac Type Severity Reaction Status Date / Time gabapentin Allergy Intermediate abdominal Verified 05/01/24 12:58 pain Review of Systems 2 Review of Systems: As per HPI Yes all other systems are reviewed and are negative Constitutional: Constitutional: Reports as per HPI [facility] Past Medical History Medical History (Updated 05/01/24 @ 16:27 by Jennifer Krueger NP) Pneumonia Rib fracture Pleural effusion Chest pain HPV (human papilloma virus) infection Chronic restrictive lung disease Arm pain, chronic Knee pain STEPHANIE positive Chronic restrictive lung disease Mild recurrent major depression Polyarthralgia Asthma History of DVT of lower extremity Urge urinary incontinence Chronic restrictive lung disease Reactive airway disease Dyspnea 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 Social History Social History Housing: House Alcohol intake: never Patient Tobacco Use Status: Never used Tobacco Smoked in Last 30 Days: No e-Cigarette/Vaping Use: Never Used Second Hand Smoke Exposure: No Use of substances other than those prescribed or required for medical reasons: No Advance Directives: No Advance Directives Information Provided: Yes Do you have a plan to hurt others: No Plan Patient : No service: No Current occupational status: unemployed Cognitive needs: No Hearing needs: No Vision needs: No Physical Exam ED Vital Signs: Vital Signs - 24 hr 05/01/24 12:54 05/01/24 14:39 05/01/24 15:25 Temperature 97.9 F 98.9 F 97.7 F Pulse Rate 118 H 106 H 109 H Respiratory Rate 18 15 13 Blood Pressure 147/91 H 139/77 142/90 H Pulse Oximetry 98 97 99 Oxygen Delivery Method Room Air Room Air Room Air BMI result Body Mass Index 25.2 Vital signs have been reviewed and appear to be correct. Blood pressure elevated. Heart rate tachycardic. Respiratory rate normal. Temperature normal. Oxygen saturation normal. Const General: cooperative, healthy appearing and no acute distress Orientation/consciousness: oriented to person, oriented to place, oriented to time and patient oriented x3 Limitations: no limitations HENNJ Head: Yes normocephalic and Yes atraumatic Ears: external ears normal General nose exam: Normal external nose present Face and sinus: Yes face symmetric Mouth: oropharynx normal and moist mucous membranes Throat: Yes uvula midline Eyes Pupils: Equal, round and reactive pupils present Neck Neck: Yes normal visual inspection and Yes supple Resp Effort & Inspection: normal respiratory effort and able to speak in complete sentences Auscultation: clear to auscultation bilaterally Cardio Rate: regular rate Rhythm: regular rhythm Heart sounds: S1 normal heart sound present and S2 normal heart sound present GI Palpation (GI): Soft to palpation and nontender Auscultation: normoactive bowel sounds General: Yes no CVA tenderness Back/Spine/Pelvis Back: no CVA tenderness Skin General skin exam: elasticity normal and turgor normal Neuro General: oriented to person, oriented to place, oriented to time, patient oriented x3, moves all extremities, no focal motor deficits and CN's II-XI intact bilaterally Cranial nerves: Yes Equal, round and reactive pupils present Cognition (Neuro): normal cognition Extrem General: Yes full ROM, Yes no pedal edema and Yes no calf tenderness Psych Mental Status: mental status grossly normal Affect: normal affect Thought process: Normal thought process present Course Course Course Narrative: This is a rapid medical exam performed by Chantelle White PA-C. The patient is a 48-year-old female with a history of constipation, depression, obesity who presents with abdominal pain x2 days. Patient states she recently started Wegovy, she received her 3rd dose 2 days ago, since then she has developed generalized abdominal discomfort with nausea vomiting. On exam, the patient's abdomen is soft, nondistended, obese, nontender no guarding. We will obtain a KUB to assess stool burden, and screening labs. The patient is hemodynamically stable and can return to the waiting room pending her full medical assessment. Medications Administered Discontinued Medications Generic Name Dose Route Start Last Admin Trade Name Dennis PRN Reason Stop Dose Admin Sodium Chloride 1,000 mls @ 999 mls/hr 05/01/24 15:45 05/01/24 16:09 Ns IV 05/01/24 16:45 999 mls/hr .Q1H1M ORIANA Administration Ondansetron HCl 4 mg 05/01/24 15:40 05/01/24 16:09 Ondansetron Hcl 4 Mg/2 Ml Vial IVPUSH 05/01/24 15:41 4 mg ONCE ONE Administration Medical Decision Making Medical Decision Making [facility] Narrative: Patient is a 48-year-old Ivorian speaking female with history of constipation, depression, obesity presenting to the ED with complaint of nausea, vomiting and generalized abdominal pain for the past 3 days. On exam patient is awake, A+Ox3, tachycardic, VS otherwise WNL, afebrile, normal neurological exam without focal deficits, physical exam findings as above. Given reported symptoms and physical exam findings, initial differential includes electrolyte abnormality, constipation, UTI, adverse medication reaction, gastritis. Less likely obstruction. Labs notable for no leukocytosis, no anemia, slight hypercalcemia but no other significant electrolyte abnormalities, slightly elevated ALT and Tbili. X-ray abdomen notable for no evidence of obstruction. My interpretation is in agreement with the radiologist's interpretation. Urinalysis notable for trace leukocytes, no nitrites, unlikely UTI. Will wait for culture prior to treatment with antibiotics. Patient mildly tachycardic despite 1L NS. Patient states she was more tachycardic yesterday. This is likely due to dehydration, do not suspect PE as patient denies any chest pain or dyspnea. Discussed with patient that nausea and vomiting is likely due to her semaglutide injections. Advised her to call her PCP who is prescribing this for her to discuss dosage amount. She reports improvement in nausea after medications administered here. She feels comfortable with discharge home. Will send prescription for ODT Zofran. Return precautions discussed at bedside. Patient verbalized understanding of and agreement with plan. Differential Diagnosis Differential Diagnoses: The differential diagnosis associated with the presentation includes as per [facility] Admission/Observation Consideration of admission/observation: Escalation of care including admission/observation considered Patient would have been admitted to the hospital had their work up had any findings where hospital admission was appropriate and their clinical presentation warranted hospital admission. Lab Data [facility] Lab Attestation statement: I reviewed the patient's lab results. as per [facility] 05/01/24 13:05 05/01/24 13:05 Labs: Lab Results 05/01/24 05/01/24 05/01/24 Range/Units 13:05 13:37 15:32 WBC 5.6 (4.8-10.8) X10*3/uL RBC 4.28 (4.20-5.50) X10*6/uL Hgb 12.7 (12.0-16.0) g/dl Hct 36.9 L (37.0-47.0) % MCV 86.2 (80.0-98.0) fL MCH 29.7 (27.0-33.0) pg MCHC 34.4 (31.0-35.0) g/dl RDW 11.9 (11.0-16.0) % Plt Count 356 (160-400) X10*3/uL MPV 8.9 L (9.4-12.3) fL Immature Gran % (Auto) 0.2 (0.0-0.4) % Neut % (Auto) 59.5 (45-73) % Lymph % (Auto) 30.5 (20-40) % [place] % (Auto) 9.4 (2-11) % Eos % (Auto) 0.2 (0-4) % Baso % (Auto) 0.2 (0-2) % Lymph # (Auto) 1.7 (1.2-4.9) X10*3/uL [place] # (Auto) 0.5 (0.1-1.2) X10*3/uL Eos # (Auto) 0.0 (0.0-0.4) X10*3/uL Baso # (Auto) 0.0 (0.0-0.2) X10*3/uL Abs Immat Gran (auto) 0.01 (0.00-0.03) X10*3/uL Absolute Neuts (auto) 3.4 (2.0-8.3) x10*3/uL Absolute Nucleated RBC 0.000 (0.0-0.012) X10*3/uL Nucleated RBC % (auto) 0.0 (0.0-0.2) /100WBC Sodium 142 (135-145) mmol/L Potassium 3.5 (3.3-5.1) mmol/L Chloride 108 (96-108) mmol/L Carbon Dioxide 26 (22-29) mmol/L Anion Gap 12 (12-20) BUN 12 (9-16) mg/dL Creatinine 0.56 (0.5-1.4) mg/dL Estim Creat Clear Calc 116.9 Estimated GFR > 60 Random Glucose 109 (60-115) mg/dL Calcium 10.9 H D (8.4-10.2) mg/dL Magnesium 1.6 (1.6-2.6) mg/dL Total Bilirubin 1.3 H (0.0-1.0) mg/dL AST 27 (5-31) U/L ALT 39 H (0-31) U/L Alkaline Phosphatase 87 (39-117) U/L Total Protein 7.3 (6.5-8.0) g/dL Albumin 3.9 (3.5-5.0) g/dL Lipase 15 (8-78) U/L Urine Color Dark Yellow Urine Appearance Turbid Urine pH 5.5 (5.0-9.0) Ur Specific [place] 1.025 (1.005-1.025) Urine Protein 30 (1+) H (Neg-Trace) mg/dL Urine Glucose (UA) Negative (Negative) mg/dL Urine Ketones Trace (Negative) mg/dL Urine Blood Small (1+) H (Negative) Urine Nitrite Negative (Negative) Ur Leukocyte Esterase Trace H (Negative) Urine RBC 0-2 (0-2) /HPF Urine WBC 0-5 (0-5) /HPF Ur Squamous Epith Cells 6-10 (0-2) /HPF Calcium Oxalate Crystal Present Other Crystals Present Urine Bacteria None Seen (None Seen) Hyaline Casts 0-2 (0-2) /LPF Influenza Type A (PCR) NEGATIVE (Negative) Influenza Type B (PCR) NEGATIVE (Negative) RSV RNA Qual (PCR) NEGATIVE (Negative) SARS-CoV-2 RNA (RT-PCR) NEGATIVE (Negative) Independent Interpretation I performed an independent interpretation of an: Plain X-Ray Interpretation: No evidence of obstruction on KUB Radiology Impression Discussion of test interpretation with radiology: I have reviewed the radiologist's reading. Radiologist Impression: IMPRESSION: No acute findings KUB examination. External Record Review External record reviewed: Inpatient record, Office record and Outpatient record Discharge Plan Discharge Clinical Impression: Nausea & vomiting Patient Disposition: Home, Self-Care Instructions: Semaglutide (By injection), Acute Nausea and Vomiting (ED) Additional Instructions: You were evaluated in the emergency department today for nausea and vomiting which is likely due to your semaglutide injections. We recommend that you call your PCP to discuss the dosage amounts of this medication. Your symptoms improved in the emergency department with IV medication. You are being prescribed ondansetron which is a nausea medication that you can take at home. Use this as prescribed. Be sure to drink plenty of fluids and get adequate rest. Return to the emergency department if you have persistent vomiting, notice blood in your vomit, develop fever, severe abdominal pain or any other concerning symptoms. Prescriptions: New ondansetron 4 mg tablet,disintegrating 4 mg PO Q8H PRN (Reason: nausea and vomiting) Qty: 10 0RF No Action (DME) VixOne Nebulizer-Adult Mask Misc See Rx Instructions .Route Qty: 1 0RF Rx Instructions: As directed albuterol sulfate 2.5 mg /3 mL (0.083 %) solution for nebulization 2.5 mg inhalation Q4H PRN (Reason: shortness of breath or wheezing) 30 Days Qty: 180 11RF (DME) underpads [Bed Underpads] Pad See Rx Instructions .Route Qty: 100 11RF Rx Instructions: Use 4 bed pads per day (DME) Ultra-Light Rollator Misc See Rx Instructions .Route Qty: 1 0RF Rx Instructions: As directed (DME) non slip bath mat See Rx Instructions .Route .MEDSUPPLY Qty: 1 0RF Rx Instructions: As directed lisinopril 10 mg tablet 10 mg PO DAILY 90 Days Qty: 90 1RF (DME) incontinence pad, liner, disp Pad See Rx Instructions .Route Qty: 60 6RF Rx Instructions: USe 1 to 2 pads per day as needed (DME) wipes See Rx Instructions .Route .MEDSUPPLY Qty: 120 6RF Rx Instructions: Use 4 times a day as needed (DME) thin panty liners See Rx Instructions .Route .MEDSUPPLY Qty: 90 11RF Rx Instructions: As directed montelukast 10 mg tablet 10 mg PO DAILY Qty: 30 11RF aspirin 81 mg tablet,delayed release (DR/EC) 81 mg PO DAILY 90 Days Qty: 90 3RF tramadol 50 mg tablet 50 mg PO Q8H PRN (Reason: pain) 30 Days Qty: 90 0RF Wegovy 1 mg/0.5 mL pen injector 1 mg subcut Q7D 28 Days Qty: 2 0RF cetirizine 10 mg tablet 10 mg PO DAILY Flovent HFA 44 mcg/actuation HFA aerosol inhaler 1 puff inhalation BID 30 Days Qty: 10.6 4RF Rx Instructions: administer with spacer zolpidem 10 mg tablet 10 mg PO BEDTIME PRN clonazepam 1 mg tablet 1 mg PO TID PRN bupropion HCl 150 mg tablet extended release 24 hr PO (DME) cane Device See Rx Instructions .Route Qty: 1 0RF Rx Instructions: As directed silver sulfadiazine [Silvadene] 1 % cream 1 appl topical DAILY 7 Days Qty: 20 0RF Rx Instructions: apply a 1.5 mm thickness (DME) compression stockings knee high 40 mmHg See Rx Instructions .Route .MEDSUPPLY Qty: 2 6RF Rx Instructions: As directed hydrochlorothiazide 25 mg tablet 25 mg PO DAILY 30 Days Qty: 30 1RF escitalopram oxalate 10 mg tablet 10 mg PO DAILY ibuprofen 600 mg tablet 600 mg PO Q8H PRN (Reason: pain) 10 Days Qty: 30 0RF timolol maleate 0.5 % drops ophthalmic (eye) Dulera 200-5 mcg/actuation HFA aerosol inhaler 2 puff inhalation Q12H 30 Days Qty: 13 11RF Incruse Ellipta 62.5 mcg/actuation blister with device 1 inh inhalation DAILY Qty: 30 11RF ofloxacin 0.3 % drops 2 drp ophthalmic (eye) tobramycin-dexamethasone 0.3-0.1 % drops,suspension 1 drp ophthalmic (eye) TID albuterol sulfate 90 mcg/actuation HFA aerosol inhaler 2 puff inhalation Q4-6H PRN (Reason: shortness of breath or wheezing) Qty: 1 11RF furosemide 20 mg tablet PO ibuprofen 800 mg tablet 800 mg PO Q8H PRN (Reason: pain) 30 Days Qty: 90 2RF Wegovy 0.5 mg/0.5 mL pen injector 0.5 mg subcut QWEEK 28 Days Qty: 2 0RF Rx Instructions: administer weeks 5 through 8 of therapy docusate calcium 240 mg capsule 240 mg PO BEDTIME PRN (Reason: constipation) 90 Days Qty: 90 0RF Print Language: Ivorian
[2024-05-01 13:08] LABS: MANUAL DIFF FLAG NO
[2024-05-01 13:10] LABS: Basophils Percent Auto 0.2 % (0-2); Eosinophils Percent Auto 0.2 % (0-4); Hematocrit 36.9 % (37.0-47.0); Hemoglobin 12.7 g/dl (12.0-16.0); Imm Gran Abs Auto 0.01 X10*3/uL (0.00-0.03); Imm Gran Pct Auto 0.2 % (0.0-0.4); Lymphocytes Absolute Auto 1.7 X10*3/uL (1.2-4.9); Lymphocytes Percent Auto 30.5 % (20-40); Mean Corpuscular HGB Conc 34.4 g/dl (31.0-35.0); Mean Corpuscular Hemoglobin 29.7 pg (27.0-33.0); Mean Corpuscular Volume 86.2 fL (80.0-98.0); Mean Platelet Volume 8.9 fL (9.4-12.3); Monocytes Absolute Auto 0.5 X10*3/uL (0.1-1.2); Monocytes Percent Auto 9.4 % (2-11); Neutrophils Absolute Auto 3.4 x10*3/uL (2.0-8.3); Neutrophils Percent Auto 59.5 % (45-73); Platelet Count 356 X10*3/uL (160-400); Red Blood Count 4.28 X10*6/uL (4.20-5.50); Red Cell Distribution Width 11.9 % (11.0-16.0); White Blood Count 5.6 X10*3/uL (4.8-10.8)
[2024-05-01 13:28] LABS: Alanine Aminotransferase 39 U/L (0-31); Albumin Level 3.9 g/dL (3.5-5.0); Alkaline Phosphatase 87 U/L (39-117); Anion Gap 12 (12-20); Aspartate Amino Transferase 27 U/L (5-31); Bilirubin Total 1.3 mg/dL (0.0-1.0); Blood Urea Nitrogen 12 mg/dL (9-16); Calcium 10.9 mg/dL (8.4-10.2); Carbon Dioxide 26 mmol/L (22-29); Chloride 108 mmol/L (96-108); Creatinine Clr Calc Pharmacy 116.9; Estimated Glomerular Filt Rate > 60; Glucose Random 109 mg/dL (60-115); Lipase 15 U/L (8-78); Magnesium 1.6 mg/dL (1.6-2.6); Potassium 3.5 mmol/L (3.3-5.1); Sodium 142 mmol/L (135-145); Total Protein 7.3 g/dL (6.5-8.0)
[2024-05-01 14:24] LABS: Influenza A PCR NEGATIVE (Negative); Influenza B PCR NEGATIVE (Negative); Resp Syncy Virus RNA Qual PCR NEGATIVE (Negative); SARS COV2 PCR INHOUSE NEGATIVE (Negative)
[2024-05-01 14:39] VITALS: BP 139/77; PULSE 106; RESP 15; TEMP 37.2; O2SAT 97
[2024-05-01 15:25] VITALS: BP 142/90; PULSE 109; RESP 13; TEMP 36.5; O2SAT 99
--- NOTE | 2024-05-01 15:34 | PC.NURSE ---
a&ox4. vss and up to date aside from being sinus tachycardic on the pvc monitor. pt presents to the ED c/o nonradiating generalized abd pain w/ associated nausea/vomiting/decreased PO intake x 3 days. pt also reports urinary frequency. pt also verbalizing chest palpitations. denies chest pain/dizziness/lightheadedness/sob. UA obtained/sent to lab. ekg performed by tech. on RA w/o difficulty - no sob/wob noted. respirations even/unlabored. plan of care ongoing. call jarrett placed within reach.
[2024-05-01 15:40] LABS: Appearance Urine Turbid; Color Urine Dark Yellow; Glucose Urine UA Negative (Negative); Leukocyte Esterase Urine Trace (Negative); Nitrite Urine Negative (Negative); PH 5.5 (5.0-9.0); Specific Gravity - Urine 1.025 (1.005-1.025); UMIC TRIGGER UACC YES; Urine Blood Small (1+) (Negative); Urine Ketones Trace mg/dL (Negative); Urine Protein 30 (1+) mg/dL (Neg-Trace)
[2024-05-01] MEDS: 0.9 % Sodium Chloride 1,000 ML 999 ML IV (16:09)
[2024-05-01] MEDS: ondansetron HCL 4 MG/2 ML VIAL IVPUSH (16:09)
--- NOTE | 2024-05-01 16:13 | PC.NURSE ---
20gIV placed in the left AC - IVF/medication administered per provider order.
[2024-05-01 16:30] LABS: Bacteria Urine None Seen (None Seen); Calcium Oxalate Crystals Urine Present; Hyaline Casts Urine 0-2 /LPF (0-2); Other Crystals Urine Present; RBC Urine 0-2 /HPF (0-2); WBC Urine 0-5 /HPF (0-5)
[2024-05-01 16:56] VITALS: BP 135/77; PULSE 112; RESP 20; TEMP 36.8; O2SAT 98
[2024-05-01 17:19] VITALS: BP 135/77; PULSE 112; RESP 20; TEMP 36.8; O2SAT 98
[2024-05-01 17:20] VITALS: BP 135/77; PULSE 112; RESP 20; TEMP 36.8; O2SAT 98
== END 2024-05-01 17:21 | disposition home or self-care (01) ==
PROVIDERS: Physician Assistant Medical; Registered Nurse Emergency; Emergency Provider Student in an Organized Health Care Education/Training Program; PCP Internal Medicine
DX: R11.2 Nausea with vomiting, unspecified (principal); R10.84 Generalized abdominal pain; Z03.818 Encounter for observation for suspected exposure to other biological agents ruled out; J45.909 Unspecified asthma, uncomplicated; I10 Essential (primary) hypertension; Z79.899 Other long term (current) drug therapy
CPT/HCPCS: 0241U; 36415; 74018; 80053; 81001; 83690; 83735; 85025; 93005; 96361; 96374; 99285; J2405

== ENCOUNTER → 2024-05-01 12:57 | Outpatient (BNV) | payer OTHER, SELFPAY | PROVIDERS: Emergency Provider Student in an Organized Health Care Education/Training Program; PCP Internal Medicine; Visit Provider Radiology Diagnostic Radiology | DX: R10.9 Unspecified abdominal pain (principal) | CPT/HCPCS: 74018 ==

== ENCOUNTER → 2024-05-01 15:32 | Outpatient (BNV) | payer OTHER, SELFPAY | PROVIDERS: Emergency Provider Student in an Organized Health Care Education/Training Program; PCP Internal Medicine; Visit Provider Internal Medicine Cardiovascular Disease | DX: R00.2 Palpitations (principal) | CPT/HCPCS: 93010 ==

== ENCOUNTER 2024-05-12 15:58 | Outpatient (AMB) | payer OTHER, SELFPAY ==
--- NOTE | 2024-05-12 16:34 | MHC.PC.OV ---
Vital Signs 05/12/24 16:35 Height 5 ft 7 in Weight 166 lb 14.239 oz BMI 26.1 BP 136/80 Blood Pressure Location Lt brachial Position Sitting Intake Visit Reasons: [facility] [place] vomiting Integration Developer Required: No Accompanied by: Self / Same As Patient Allergies gabapentin Allergy (Intermediate, Verified 05/12/24 17:04) abdominal pain Medication List - Last Reconciled 05/12/24 by Stephanie Chapman MD albuterol sulfate 2.5 mg (3 mL) inhalation Q4H PRN 30 days albuterol sulfate 90 mcg/actuation 2 puffs inhalation Q4-6H PRN aspirin 81 mg PO DAILY 90 days bupropion HCl XL mg PO cane As directed cetirizine 10 mg PO DAILY clonazepam 1 mg PO TID PRN [compression stockings knee high As directed] docusate calcium 240 mg PO BEDTIME PRN 90 days escitalopram oxalate 10 mg PO DAILY fluticasone propionate 44 mcg/actuation (Flovent HFA) 1 puff inhalation BID 30 days furosemide mg PO hydrochlorothiazide 25 mg PO DAILY 30 days ibuprofen 800 mg PO Q8H PRN 30 days incontinence pad, liner, disp USe 1 to 2 pads per day as needed Incruse Ellipta 62.5 mcg/actuation (umeclidinium) 1 inh inhalation DAILY NS lisinopril 10 mg PO DAILY 90 days mometasone-formoterol 200-5 mcg/actuation (Dulera) 2 puffs inhalation Q12H 30 days montelukast 10 mg PO DAILY nebulizers (VixOne Nebulizer-Adult Mask) As directed [non slip bath mat As directed] ofloxacin 0.3% 2 drps ophthalmic (eye) ondansetron 4 mg PO Q8H PRN silver sulfadiazine 1% (Silvadene) 1 appl topical DAILY 1 week [thin panty liners As directed] timolol maleate 0.5% drps ophthalmic (eye) tobramycin-dexamethasone 0.3-0.1 % 1 drp ophthalmic (eye) TID tramadol 50 mg PO Q8H PRN 30 days underpads (Bed Underpads) Use 4 bed pads per day walker (Ultra-Light Rollator misc) As directed [wipes Use 4 times a day as needed] zolpidem 10 mg PO BEDTIME PRN Tobacco use date assessed: 09/19/23 Dental Screening Dental Screen Date: 03/31/24 HPI HPI Comments History of Present Illness Details The patient is a 48-year-old female presenting with a history of nausea and vomiting. She reported a significant reaction to a 1 mg dose of Wegovy, which began after administration. This reaction was characterized by an inability to consume food or water without emesis, leading to three days of nausea and excessive vomiting, accompanied by a significant lack of intake. The patient described the vomit as green in color, indicating potential dehydration and biliary content due to prolonged vomiting. Prior administration of a 0.5 mg dose of the same medication did not cause adverse effects. She went to ER due to this matter and received IV fluids. For her weight she would like to be in the lowest dose of Wegovy. The patient has a history of depression for which she is receiving treatment. She is currently on multiple medications, including hydrochlorothiazide and lisinopril for hypertension, and reports ongoing constipation for which she uses Docusate. Furthermore, there is a history of reported allergies and adverse reactions to multiple medications, including bupropion, cetirizine, furosemide, and clonazepam used as needed. The patient has a scheduled appointment with a psychiatrist. 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 Social History Housing: House Alcohol intake: never Patient Tobacco Use Status: Never used Tobacco e-Cigarette/Vaping Use: Never Used Second Hand Smoke Exposure: No service: No Current occupational status: unemployed Cognitive needs: No Hearing needs: No Vision needs: No Female Reproductive History Menstrual Age of Menarche: 9 Questionnaire Thrive Questionnaire Date Thrive assessed: 03/31/24 I am a: Patient What is your living situation today?: I have a steady place to live Within the past 12 months, did the food you bought not last and you didn't have the money to get more?: Never true Within the past 12 months, did you worry whether your food would run out before you got money to buy more?: Never true Do you have trouble paying for medicines?: No Do you have trouble getting transportation to medical appointments?: No Do you have trouble paying your heating and electricity bill?: No Do you have trouble taking care of your child, family member or friend?: I choose not to answer this question Do you have trouble with day-to-day activities such as bathing, preparing meals, shopping, managing finances, etc.?: Yes Are you currently unemployed and looking for a job?: I choose not to answer this question Are you interested in more education?: Yes Please select the resources that you would like help with: Utilities Currently or been in a relationship where the following occur: I choose not to answer THRIVE Score: 0 ALISON-7 AMB Questionnaire ALISON-7 Date ALISON - 7 assessed: 09/19/23 Source: Developed by Drs. Pablo Gasca, Precious Benoit, Deep Puckett and colleagues, with an educational lyn from [employer]. Review of Systems Const Details: - Gastrointestinal: Reports excessive vomiting, inability to consume food or water, and constipation. - Neurological: Reports depression. Physical exam (Primary Care) Vital Signs: Last Vital Signs BP 136/80 05/12/24 16:35 BMI result Body Mass Index 26.1 BMI Assessment/Plan discussion: High BMI High, discussed plan: lifestyle, weight reduction, dietary and physical activity Tobacco/Smoking Status: Tobacco use Status Tobacco use date assessed 09/19/23 05/12/24 16:34 Patient Tobacco Use Status Never used Tobacco 05/12/24 16:34 e-Cigarette/Vaping Use Never Used 05/12/24 16:34 Thrive Assessment: Date of Thrive Assessment Date Thrive assessed 03/31/24 05/12/24 16:34 Currently or been in a relationship where the following occur: I choose not to answer Const Other: General: No confusion Respiratory: Normal respiratory effort, clear to auscultation bilaterally Cardiovascular: No jugular venous distension, regular rate, regular rhythm, S1 normal heart sound present and S2 normal heart sound present GI: Normal to inspection, Soft to palpation and nontender, normal bowel sounds Psychology: Grossly normal, depression present more or less Office Procedures Flu Questionnaire Does the patient have a severe egg allergy?: No Immunizations Fluarix Triv [id number] (PF) 45 mcg (15 mcg x 3)/0.5 mL IM syringe Performing Provider: Stephanie Chapman MD [facility] [place] [facility] Documented (not given) by: IZABEL Chahal on 05/12/24 17:06 Reason Not Given: Patient Refused Coding Level of Care Code Est Pt Level 4 (58170) Complex EM visit Add On G2211 Diagnoses Nausea and vomiting R11.2 Moderate recurrent major depression F33.1 Primary hypertension I10 Hypertension type: primary hypertension Chronic idiopathic constipation K59.04 Time Spent (min) 22 Assessment & Plan Assessment & Plan (1) Nausea and vomiting: Code(s): R11.2 - Nausea with vomiting, unspecified Category: Medical (2) Moderate recurrent major depression: Code(s): F33.1 - Major depressive disorder, recurrent, moderate Category: Medical (3) Hypertension: Code(s): I10 - Essential (primary) hypertension Category: Medical Qualifiers: Hypertension type: primary hypertension Qualified Code(s): I10 - Essential (primary) hypertension (4) Chronic idiopathic constipation: Code(s): K59.04 - Chronic idiopathic constipation Category: Medical Plan - Decrease Wegovy to mitigate adverse effects while monitoring for tolerance: - Administer additional medications including Docusate for constipation management. - Continue current antihypertensive regimen, including lisinopril and hydrochlorothiazide, with ongoing monitoring of blood pressure. - Follow up with psychiatry for ongoing management of depression, continue scheduled appointment. Patient was informed and verbally consented to the use of an ambient scribe for clinic note documentation during this visit. I discussed the comprehensive plan for managing the patient's adverse reactions to Wegovy, confirming that reducing the dosage has previously minimized symptoms. We conversed about monitoring for any future incidence of nausea or vomiting and ensuring adequate hydration. Options for alternative weight management were also outlined, should dose manipulation not suffice. Continuous mental health support is emphasized with future engagement with psychiatric services. All potential side effects and expectations regarding medication tolerance were reviewed, and the patient agreed with the revised plan. Orders: Orders Influenza [id number] Immunization 05/12/24 Z23 - Encounter for immunization Medications: New semaglutide (weight loss) (Wegovy) administer weeks 1 through 4 of therapy 0.25 mg (0.5 mL) subcut QWEEK 2 mL 0RF 4 weeks Refilled docusate calcium 240 mg PO BEDTIME PRN 90 caps 0RF constipation 90 days Patient Instructions: - Avoid using 1 mg dose of Wegovy for the time being. - Begin using 0.25 mg dose when resuming. - Stay hydrated and attempt to eat small amounts when able. - Continue taking medications as prescribed for depression and hypertension. - Follow up with your psychiatrist as scheduled. - Seek immediate medical attention if nausea and vomiting persist or worsen.
[2024-05-12 16:35] VITALS: BP 136/80; BMI 26.1
== END 2024-05-12 17:47 | disposition home or self-care (01) ==
PROVIDERS: PCP Internal Medicine; Visit Provider Internal Medicine
DX: Z23 Encounter for immunization (principal)

== ENCOUNTER → 2024-05-12 15:58 | Outpatient (BNVA) | payer OTHER, SELFPAY | PROVIDERS: PCP Internal Medicine; Visit Provider Internal Medicine | DX: R11.2 Nausea with vomiting, unspecified (principal); F33.1 Major depressive disorder, recurrent, moderate; I10 Essential (primary) hypertension; K59.04 Chronic idiopathic constipation | CPT/HCPCS: 90471; 99212 ==

== ENCOUNTER 2024-07-28 10:40 | Outpatient (AMB) | payer OTHER, SELFPAY ==
--- NOTE | 2024-07-28 10:55 | A.OFFPC_ITS ---
Vital Signs 07/28/24 10:58 Height 5 ft 7 in Weight 159 lb 4 oz BMI 24.9 BP 122/70 Blood Pressure Location Lt brachial Position Sitting Pulse 70 Pulse Source Pulse Oximeter Temp 97.5 F Temp Source Temporal Artery Scan Pulse Oximetry (%) 99 Oxygen Delivery Method Room Air Intake Visit Reasons: Leg/Arm Tremors Intake Note: Patient is here to follow up on Weight loss medication discuss . Manager Wellness Required: Yes Manager Wellness Language: Gis Database Administrator Name: Davis ([id number]) Information Interpreted: non-clinical & clinical It Security Architect: Not Required per policy Accompanied by: Self / Same As Patient Allergies gabapentin Allergy (Intermediate, Verified 07/28/24 11:13) abdominal pain semaglutide [From Wegovy] Allergy (Intermediate, Verified 07/28/24 11:13) termons Medication List - Last Reconciled 07/30/24 by SRIDEVI De Dios albuterol sulfate 2.5 mg (3 mL) inhalation Q4H PRN 30 days albuterol sulfate 90 mcg/actuation 2 puffs inhalation Q4-6H PRN aspirin 81 mg PO DAILY 90 days bupropion HCl XL mg PO cane As directed cetirizine 10 mg PO DAILY clonazepam 1 mg PO TID PRN [compression stockings knee high As directed] docusate calcium 240 mg PO BEDTIME PRN 90 days escitalopram oxalate 10 mg PO DAILY fluticasone propionate 44 mcg/actuation (Flovent HFA) 1 puff inhalation BID 30 days furosemide mg PO hydrochlorothiazide 25 mg PO DAILY 30 days ibuprofen 800 mg PO Q8H PRN 30 days incontinence pad, liner, disp USe 1 to 2 pads per day as needed Incruse Ellipta 62.5 mcg/actuation (umeclidinium) 1 inh inhalation DAILY NS lisinopril 10 mg PO DAILY 90 days mometasone-formoterol 200-5 mcg/actuation (Dulera) 2 puffs inhalation Q12H 30 days montelukast 10 mg PO DAILY nebulizers (VixOne Nebulizer-Adult Mask) As directed [non slip bath mat As directed] ofloxacin 0.3% 2 drps ophthalmic (eye) ondansetron 4 mg PO Q8H PRN silver sulfadiazine 1% (Silvadene) 1 appl topical DAILY 1 week [thin panty liners As directed] timolol maleate 0.5% drps ophthalmic (eye) tobramycin-dexamethasone 0.3-0.1 % 1 drp ophthalmic (eye) TID tramadol 50 mg PO Q8H PRN 30 days underpads (Bed Underpads) Use 4 bed pads per day walker (Ultra-Light Rollator misc) As directed [wipes Use 4 times a day as needed] zolpidem 10 mg PO BEDTIME PRN Tobacco use date assessed: 07/28/24 Dental Screening Dental Screen Date: 07/28/24 Did you have a dental visit in the last 12 months?: Yes Did you have a dental problem in the last 6 months where you did not have access to dental care?: No Was dental information given to patient?: Patient has dentist HPI Leg/Arm Tremors HPI Details The patient is a 49-year-old female presenting with complaints of arm and leg tremors The patient reports that sometimes it is difficult for her to pick things up due to the tremors in her hands Patient reports that her tremors started after she was placed on Wegovy but they still remain after stopping the Wegovy The patient denies pain to her extremities and reports that her symptoms his bilateral The patient reports that her friend told her that she might have Parkinson disease On exam: Finger to nose test showed mild action tremors, the patient reports that it is worse at times The patient reports that this has been going on for about 3 months now Heart palpitation: Patient reports she could hear her heart palpitation when she lays down Reports that sometime it is short-lived but could go on for the whole day at times The patient denies otalgia and reports that the heartbeats are bilateral Patient also reports that this started after she was placed on Wegovy as well She denies chest pain, denies shortness of breath and said sob only occur during the summertime The patient also reports ringing in her ears when she gets the palpitations [facility] Medical History Pneumonia Rib fracture Pleural effusion Chest pain HPV (human papilloma virus) infection Chronic restrictive lung disease Arm pain, chronic Knee pain JABARI positive Chronic restrictive lung disease Mild recurrent major depression Polyarthralgia Asthma History of DVT of lower extremity Urge urinary incontinence Chronic restrictive lung disease Reactive airway disease Dyspnea 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 Social History Housing: House Alcohol intake: never Patient Tobacco Use Status: Never used Tobacco e-Cigarette/Vaping Use: Never Used Second Hand Smoke Exposure: No service: No Current occupational status: unemployed Cognitive needs: No Hearing needs: No Vision needs: No Female Reproductive History Menstrual Age of Menarche: 9 Questionnaire PHQ-9 Over the last 2 weeks, how often have you been bothered by any of the following problems? 1. Little interest or pleasure in doing things: more than half the days 2. Feeling down, depressed, or hopeless: nearly every day 3. Trouble falling or staying asleep, or sleeping too much: several days 4. Feeling tired or having little energy: several days 5. Poor appetite or overeating: not at all 6. Feeling bad about yourself - or that you are a failure or have let yourself or your family down: several days 7. Trouble concentrating on things, such as reading the newspaper or watching television: several days 8. Moving or speaking so slowly that other people could have noticed. Or the opposite - being so fidgety or restless that you have been moving around a lot more than usual: not at all 9. Thoughts that you would be better off or of hurting yourself in some way: not at all Total score: 9 Depression Screening Interpretation: Positive Depression Screening Done: Yes 22004 - PHQ-9 Billing: Yes Source: Developed by Drs. Pablo Gasca, Precious Benoit, Deep Puckett and colleagues, with an educational lyn from [email or web address]. Thrive Questionnaire Date Thrive assessed: 07/28/24 I am a: Patient What is your living situation today?: I have a steady place to live Within the past 12 months, did the food you bought not last and you didn't have the money to get more?: Never true Within the past 12 months, did you worry whether your food would run out before you got money to buy more?: Never true Do you have trouble paying for medicines?: No Do you have trouble getting transportation to medical appointments?: No Do you have trouble paying your heating and electricity bill?: No Do you have trouble taking care of your child, family member or friend?: No Do you have trouble with day-to-day activities such as bathing, preparing meals, shopping, managing finances, etc.?: No Are you currently unemployed and looking for a job?: No Are you interested in more education?: No Please select the resources that you would like help with: None Currently or been in a relationship where the following occur: No concerns reported THRIVE Score: 0 AUDIT C Alcohol Use Questionnaire (AUDIT-C) 1. How often do you have a drink containing alcohol?: Never Total Score: 0 ALISON-7 AMB Questionnaire ALISNO-7 Date ALISON - 7 assessed: 07/28/24 Feeling nervous, anxious, or on edge: 0 = Not at all Not being able to stop or control worryin = Not at all Worrying too much about different things: 0 = Not at all Trouble relaxin = Not at all Being so restless that it is hard to sit still: 0 = Not at all Becoming easily annoyed or irritable: 0 = Not at all Feeling afraid as if something awful might happen: 0 = Not at all Total ALISON-7 score (0-4 normal; 5-9 mild; 10-14 moderate; 15-21 severe): 0 Source: Developed by Drs. Pablo Gasca, Precious Benoit, Deep Puckett and colleagues, with an educational lyn from [email or web address]. ALISON-7 Assessment Billing ALISON-7 Assessment Tool: ALISON-7 Assessment 07257 Review of Systems Const Denies headache(s) Eyes Denies loss of vision ENT Denies vertigo, Denies dizziness, Denies headache(s), Reports tinnitus (During heart palpitation in the ears), Denies sore throat and Reports other (Heart palpitation is in her ears when laying down) Card Denies chest pain, Denies leg edema and Denies lightheadedness Resp Denies cough, Denies hemoptysis and Denies wheezing GI Denies abdominal pain, Denies melena, Reports constipation (chronic on and off), Denies diarrhea and Denies vomiting Denies urinary frequency, Denies dysuria and Denies urinary urgency Musc Denies arthralgias, Denies joint swelling, Denies numbness and Denies tingling Neuro Denies Abnormal speech present, Denies behavioral changes, Denies vertigo, Denies dizziness, Denies headache(s), Denies loss of vision, Denies memory loss, Denies numbness, Denies tingling and Reports tremor(s) (Reports tremors in upper and lower extremities, worse in uppers) Psych Reports anxiety, Denies behavioral changes, Reports depression, Denies memory loss and Denies panic attacks Darryl/Lymph Denies easy bleeding and Denies easy bruising Aller/Immun Denies wheezing Physical exam (Primary Care) Vital Signs: Last Vital Signs Temp 97.5 F 07/28/24 10:58 Pulse 70 07/28/24 10:58 BP 122/70 07/28/24 10:58 Pulse Ox 99 07/28/24 10:58 Oxygen Delivery Method Room Air 07/28/24 10:58 BMI result Body Mass Index 24.9 Tobacco/Smoking Status: Tobacco use Status Tobacco use date assessed 07/28/24 07/28/24 11:11 Patient Tobacco Use Status Never used Tobacco 07/28/24 11:11 e-Cigarette/Vaping Use Never Used 07/28/24 11:11 PHQ-9: PHQ-9 Score PHQ-9: Total score 9 07/28/24 11:27 Depression Screening Interpretation: Positive Thrive Assessment: Date of Thrive Assessment Date Thrive assessed 07/28/24 07/28/24 11:11 Currently or been in a relationship where the following occur: No concerns reported Const General: healthy appearing, no acute distress, alert and awake Nutritional Appearance: well nourished Orientation/consciousness: oriented to person, oriented to place and oriented to time [facility] Head: Yes normal to inspection Ears: TM's normal bilaterally General nose exam: Normal nasal mucous membranes and turbinates present Eyes Conjunctivae: conjunctivae normal Sclerae: sclerae normal Pupils: Equal, round and reactive pupils present Neck Neck: Yes no lymphadenopathy and Yes no JVD Thyroid: Thyroid normal Carotids: no bruits Chest Chest palpation & inspection: normal inspection of the chest Resp Effort & Inspection: normal respiratory effort and not tachypneic Auscultation: no crackles, no rales, no rhonchi and no wheezes Cardio Rate: regular rate Rhythm: regular rhythm Heart sounds: no murmurs and normal S1 and S2 Bruits: no carotid bruits Peripheral pulses: Peripheral pulses 2+ throughout GI Inspection: Yes normal to inspection Palpation (GI): Soft to palpation, nontender, no hepatomegaly and no splenomegaly Auscultation: normal bowel sounds Skin General skin exam: no rashes or lesions noted and dry skin Neuro General: oriented to person, oriented to place, oriented to time and CN's II-XI intact bilaterally Cranial nerves: Yes CN's II-XII intact bilaterally, Yes Equal, round and reactive pupils present and Yes Nystagmus not present Speech: No Abnormal speech present Gait exam (Neuro): Normal gait present Motor exam (neuro): Tremors during motor activity present (mild action tremors noted in upper exts, none in lower) Sensory Exam: double simultaneous stimulation for sensation normal and Upper extremity sensory exam abnormal Coordination: No [id number] test normal (mild action tremors) Romberg Test: Negative Extrem Right upper extremity: full ROM Left upper extremity: full ROM Right lower extremity: full ROM; no edema Left lower extremity: full ROM; no edema Psych Mental Status: mental status grossly normal Speech and movement: Normal speech and movement present Affect: normal affect Attitude: cooperative Thought process: Normal thought process present Coding Level of Care Code Est Pt Level 4 (50846) Diagnoses Essential tremor G25.0 Pulsatile tinnitus H93.A9 Chronic idiopathic constipation K59.04 Additional Codes PHQ-9 - 38752 - PHQ-9 Billing: Yes ([id number]) ALISON-7 Assessment Billing - ALISON-7 Assessment Tool: ALISON-7 Assessment 69985 ([id number]) Time Spent (min) 39 Assessment & Plan Assessment & Plan (1) Essential tremor: Code(s): G25.0 - Essential tremor Category: Medical Plan: The patient was referred to Neurology (2) Pulsatile tinnitus: Code(s): H93.A9 - Pulsatile tinnitus, unspecified ear Category: Medical Plan: Bilateral carotid ultrasound ordered (3) Chronic idiopathic constipation: Code(s): K59.04 - Chronic idiopathic constipation Category: Medical Plan: Increase fluid hydration and dietary fiber Continue docusate calcium 240 mg at bedtime Orders: Orders US carotid duplex BI Today H93.A9 - Pulsatile tinnitus, unspecified ear Referrals Neurology Referral G25.0 - Essential tremor
[2024-07-28 10:58] VITALS: BP 122/70; PULSE 70; TEMP 36.4; O2SAT 99; BMI 24.9
--- OUTSIDE RECORDS SUMMARY | 2024-07-28 12:02 | XMS_ITS | Clinical Summary ---
Author Organization [facility] Address [address] [place] [address] Care Team Providers Care Assorter Name Role Phone Neelima Lima PA-C Primary Care Provider [phone] Source Comments PLEASE NOTE, if this patient is a minor, it may be UNLAWFUL to discuss sensitive information that is contained in these records (such as FAMILY PLANNING, MENTAL HEALTH or SUBSTANCE ABUSE) with the minor patient's parent or other person without the patient's specific authorization.[facility] Allergies No known active allergies Medications clonazePAM (KLONOPIN) 1 mg tablet nightly at bedtime. 2 5 Active mirtazapine (REMERON) 15 mg tablet 3 5 Active paroxetine (PAXIL) 20 mg tablet 3 5 Active propranolol (INDERAL LA) 60 mg 24 hr capsule 5 5 Active diclofenac sodium (VOLTAREN) [address] tablet Take 1 Tab by mouth 2 (two) times daily. Swallow whole. Do not crush or chew. 60 Tab 2 6 Active leg brace (KNEE BRACE) Dx: M25.561 Hinged knee brace. indefinite need. Size large. Wear daily for pain as needed 1 Each 0 6 Active ibuprofen (ADVIL,MOTRIN) 600 mg tablet Take 1 Tab by mouth 4 (four) times daily as needed for pain. 30 Tab 1 6 Active Active Problems Problem Noted Date Diagnosed Date History of DVT (deep vein thrombosis) 09/27/2015 Atypical squamous cells of u ndetermined significance (ASCUS) on Papanicolaou smear of cervix 09/27/2015 Overview (09/27/2015): HPV negative last done 03/16/2015 Dr. Samreen Reyes MD [facility]. Recurrent major depression in partial remission (HCC-CMS) 05/31/2015 Migraine aura, persistent 05/31/2015 Midline low back pain without sciatica 6 Obesity (BMI 30.0-34.9) 05/31/2015 Immunizations Name Administration Dates Next Due INFLUENZA, SEASONAL, INJECTABLE 03/11/2014 Td (adult) unspecified 04/07/2008 Family History Medical History Relation Name Comments Cancer Father Cancer Maternal Grandmother Diabetes Mother Hypertension Mother Relation Name Status Comments Father Maternal Grandmother Mother Social History Tobacco Use Types Packs/Day Years Used Date Smoking Tobacco: Never Smokeless Tobacco: Never Alcohol Use Standard Drinks/Week Comments Yes 0 (1 standard drink = 0.6 oz pur e alcohol) rarely Social Connections Answer Date Recorded Social Connections and Isolation 0 01/12/2019 Financial Resource Strain Answer Date R ecorded Financial Resource Strain 0 2018 Stress Answer Date Recorded Stress 0 01/12/2019 Physical Activity Answer Date Recorded Physical Activity 0 01/12/2019 Food Insecurity Answer Date Recorded Food 0 01/12/2019 Transportation Needs Answer Date Record ed Transportation 0 01/12/2019 Housing Stability Answer Date Recorded Housing 0 01/12/2019 Safety and Environment Answer Date Michele rded Safety 0 01/12/2019 Utilities Answer Date Recorded Utilities 0 01/12/2019 Employment Answer Date Recorded Employment 0 01/12/2019 Comments No Sex and Gender Information Value Date Recorded Sex Assigned at Not on file Legal Sex Female 7:07 AM PST Gender Identity Not on file Sexual Orientation Not on file Last Filed Vital Signs Vital Sign Reading Time Taken Comments Blood Pressure 126/84 09/29/2015 9:36 AM EDT Pulse 70 09/29/2015 9:36 AM EDT Temperature 37 ??C (98.6 ??F) 09/29/2015 9:36 AM EDT Respiratory Rate 16 09/29/2015 9:36 AM EDT Oxygen Saturation - - Inhaled Oxygen Concentration - - Weight 86.6 kg (191 lb) 09/29/2015 9:36 AM EDT Height 167 cm (5' 5.75 ) 05/31/2015 9:05 AM EST Body Mass Index 31.06 05/31/2015 9:05 AM EST Plan of Treatment Not on file Insurance [place] MEDICAID Member Subscriber Plan / Payer (Ef fective 2015-Present) Name:Amira Nicholas Relation to Subscriber:Self Name:Amira Nicholas Payer ID:[id number] Group ID:Not on file Type:Medicaid Address: [address] [id number] MEDICARE - [place] Care Teams Assorter Relationship Specialty Start Date End Date Neelima Lima PA-C [address] [place] [id number] PCP - General Internal Medicine 05/19/16
--- OUTSIDE RECORDS SUMMARY | 2024-07-28 12:02 | XMS_ITS | Clinical Summary ---
Author Organization [facility] Address [address] [place] [address] Care Team Providers Care Corporate Human Resources Manager Name Role Phone Unavailable Primary Care Provider Unavailabl e Allergies No known active allergies Social History Tobacco Use Types Packs/Day Years Used Date Smoking Tobacco: Never Assessed Sex and Gender Information Value Date Recorded Sex Assigned at Female 09/05/2022 1:53 AM EDT Gender Identity Female 09/05/2022 1:53 AM EDT Sexual Orientation Heterosexual (straight) 09/05 1:53 AM EDT Last Filed Vital Signs Vital Sign Reading Time Taken Comments Blood Pressure 144/85 09/05/2022 11:00 AM EDT Pulse 81 09/05/2022 11:00 AM EDT Temperature 36.6 ??C (97.8 ??F) 09/05/2022 8:09 AM ED T Respiratory Rate 18 09/05/2022 11:00 AM EDT Oxygen Saturation 95% 09/05/2022 11:00 AM EDT Inhaled Oxygen Concentration - - Weight - - Height - - Body Mass Index - - Plan of Treatment Health Maintenance Due Date Last Done Comments Hepatitis C Virus Screening 1973 HIV Screening 1986 DTaP/Tdap/Td Vaccines (1 - Tdap) 1992 Hepatitis B Vaccines (1 of 3 - 19+ 3-dose series) 1992 Pap Smear (Ages 21-65) 1994 Mammogram 2013 Colonoscopy 2018 Pneumococcal Vaccines 50+ (1 of 1 - PCV) 2023 Zoster (Shingles) Vaccine (1 of 2) 2023 Influenza Vaccine 12/20/2023 03/11/2014 COVID-19 Vaccine ( - 2023-2 5 season) 2024 Pneumococcal Vaccine: Pediat ava (0-5 Years) and At-Risk Patients (6 to 49 Years) Aged Out No longer eligible b ased on patient's age to complete this topic
--- OUTSIDE RECORDS SUMMARY | 2024-07-28 12:02 | XMS_ITS | Clinical Summary ---
Author Organization [facility] Address [address] [place] [address] Phone Care Team Providers Care Cemetery Worker Name Role Phone Unavailable Primary Care Provider Unavailabl e Allergies Active Allergy Reactions Criticality Noted Date Comments Gabapentin 04/30/2024 Abdominal pain Encounters Date Type Department Care Team Description 04/30/2024 5:13 PM EST - 04/30/2024 9:27 PM EST Emergency [facility] Emergency [address] [place] [address] Discharge Disposition: Home or Self Care from Last 3 Months Medical History Medical History Date Comments HTN (hypertension) Social History Tobacco Use Types Packs/Day Years Used Date Smoking Tobacco: Never Assessed Comments Unknown Sex and Gender Information Value Date Recorded Sex Assigned at Not on file Legal Sex Female 8:26 AM EST Gender Identity Not on file Sexual Orientation Not on file Obstetrics History Last Filed Vital Signs Vital Sign Reading Time Taken Comments Blood Pressure 172/97 04/30/2024 5:23 PM EST Pulse 122 04/30/2024 5:23 PM EST Temperature 37.1 ??C (98.8 ??F) 04/30/2024 5:23 PM ES T Respiratory Rate 18 04/30/2024 5:23 PM EST Oxygen Saturation 98% 04/30/2024 5:23 PM EST Inhaled Oxygen Concentration - - Weight 86.2 kg (190 lb) 04/30/2024 5:28 PM EST Height 172.7 cm (5' 8 ) 04/30/2024 5:28 PM EST Body Mass Index 28.89 04/30/2024 5:28 PM EST Plan of Treatment Health Maintenance Due Date Last Done Comments Breast Cancer Screening 1973 Hepatitis B Vaccines (1 of 3 - 19+ 3-dose series) 1992 Cervical Cancer Screening: P ap Smear 1994 DTaP,Tdap,and Td Vaccines (2 - Td or Tdap) 04/07/2018 04/07/2008 Colorectal Cancer Screening: Colonoscopy 04/23/2022 Depression Screening 04/23/2022 HIV Screening 04/23/2022 Hepatitis C Screening 04/23/2022 Medicare Annual Wellness Visit 04/23/2022 Social Influencers of Health Screening 04/23/2022 Pneumococcal Vaccine: 50+ Ye ars (1 of 1 - PCV) 2023 Zoster Vaccines (1 of 2) 2023 COVID-19 Vaccine (1 - 2023-2 5 season) 2024 Influenza Vaccine (#1) 2024 03/11/2014 HIB Vaccines Aged Out No longer eligi ble based on patient's age to complete this topic HPV Vaccines Aged Out No longer eligi ble based on patient's age to complete this topic Hepatitis A Vaccines Aged Out No long er eligible based on patient's age to complete this topic IPV Vaccines Aged Out No longer eligi ble based on patient's age to complete this topic MMR Vaccines Aged Out No longer eligi ble based on patient's age to complete this topic Meningococcal ACWY Vaccine Aged Out N o longer eligible based on patient's age to complete this topic Meningococcal B Vacine Aged Out No lo nger eligible based on patient's age to complete this topic Pneumococcal Vaccine: Pediat rics (0 to 5 Years) and At-Risk Patients (6 to 64 Years) Aged Out No longer eligi ble based on patient's age to complete this topic RSV Immunization Patients Un pawel 20 months Aged Out No longer eligible b ased on patient's age to complete this topic Varicella Vaccines Aged Out No longer eligible based on patient's age to complete this topic Insurance Member Subscriber Plan / Payer (Ef fective 2016-Present) Name:Amira Nicholas Relation to Subscriber:Self Name:Amira Nicholas Payer ID:[id number] Group ID:[id number] Type:Not on file Address: [place] [address] [place] [id number]
== END 2024-07-28 13:12 | disposition home or self-care (01) ==
PROVIDERS: PCP Internal Medicine
DX: G25.0 Essential tremor (principal); H93.A9 Pulsatile tinnitus, unspecified ear; K59.04 Chronic idiopathic constipation

== ENCOUNTER → 2024-07-28 10:40 | Outpatient (BNVA) | payer OTHER, SELFPAY | PROVIDERS: PCP Internal Medicine | DX: G25.0 Essential tremor (principal); H93.A9 Pulsatile tinnitus, unspecified ear; K59.04 Chronic idiopathic constipation | CPT/HCPCS: 96127; 99212 ==

== ENCOUNTER 2024-08-27 14:17 | Outpatient (REF) | payer OTHER, SELFPAY ==
--- NOTE | ~2024-08-27 | US_ITS ---
EXAMINATION: BILATERAL CAROTID ULTRASOUND WITH DOPPLER HISTORY: H93.A9 - Pulsatile tinnitus, unspecified ear COMPARISON: There are no prior studies for comparison. TECHNIQUE: Real time and Color and Spectral doppler ultrasonography of the carotid and vertebral arteries was performed in multiple planes. FINDINGS: No significant plaque is seen. There are multiple enlarged lymph nodes in the neck measuring up to 2.7 x 1.2 x 1.5 cm on the right and 2.6 x 1.1 x 1.5 cm on the left. There is cortical thickening. VERTEBRAL FLOW DIRECTION: Antegrade bilaterally. PEAK SYSTOLIC VELOCITIES (in cm/sec): RIGHT: CCA: Prox: 246 Dist: 194 ICA: Prox: 172 Mid: 109 Dist: 192 ICA/CCA Ratio: 0.78 ECA: 130 Peak ICA EDV: 62 LEFT: CCA: Prox: 230 Dist: 175 ICA: Prox: 203 Mid: 140 Dist: 112 ICA/CCA Ratio: 0.88 ECA: 111 Peak ICA EDV: 46 US/US carotid duplex BI IMPRESSION: 1. Overall increased velocities bilaterally without visualized plaque. No significant stenosis. 2. Enlarged bilateral cervical lymph nodes as described. Electronically signed by: Pablo Bhakta MD 08/27/2024 03:12 PM EDT
--- OUTSIDE RECORDS SUMMARY | 2024-08-27 16:35 | XMS_ITS ---
Author Name [facility] Organization Unknown Encounters Encounter Type Encounter Reason Primary Diagnosis Location Date Emergency Pneumothorax, unspecified Pneumothorax, unspecified [employer] 09/05/2022 Care Team Organization Name Specialty Phone Email Start Date End Da te [employer] 09/05/2022 09/05/2022 [employer] 09/05/2022
--- OUTSIDE RECORDS SUMMARY | 2024-08-27 16:35 | XMS_ITS | Clinical Summary ---
Author Organization [facility] Address [address] [place] [address] Phone Care Team Providers Care Ammunition Specialist Name Role Phone Unavailable Primary Care Provider Unavailabl e Allergies Active Allergy Reactions Criticality Noted Date Comments Gabapentin 04/30/2024 Abdominal pain Medical History Medical History Date Comments HTN [...] age to complete this topic Meningococcal B Vaccine Aged Out No l onger eligible based on patient's age to complete [...] patient's age to complete this topic Insurance MEDICARE Member Subscriber Plan / Payer (Ef fective 2016-Present) Name:Amira Nicholas Relation to Subscriber:Self Name:Amira Nicholas Payer ID:[id number] Group ID:[id number] Type:Not on file Address: [place] [address] [place] [id number]
--- OUTSIDE RECORDS SUMMARY | 2024-08-27 16:35 | XMS_ITS | Clinical Summary ---
Author Organization [facility] Address [address] [place] [address] Care Team Providers Care Sales Representative Raw Fibers Name Role Phone Neelima Lima PA-C Primary Care Provider [phone] Source Comments PLEASE NOTE, if this patient [...] last done 03/16/2015 Dr. Samreen Reyes MD [facility] Plant Engineering Supervisor. Recurrent major depression i n partial remission ([facility] V24) 05/31/2015 Migraine aura, persistent 05/31/2015 Midline low back pain without sciatica 6 Obesity (BMI 30.0-34.9) 05/31/2015 Immunizations Immunization Administration Dates Next Due INFLUENZA, SEASONAL, INJECTABLE [...] Plan of Treatment Not on file Insurance [place] Care Teams Sales Representative Raw [employer]ers Relationship Specialty Start Date End Date Neelima Lima PA-C [address] [place] [id number] PCP - General Internal Medicine 05/19/16
--- OUTSIDE RECORDS SUMMARY | 2024-08-27 16:35 | XMS_ITS | Clinical Summary ---
Author Organization [facility] Address [address] [place] [address] Care Team Providers Care Jumpbasting Collar Baster Name Role Phone Unavailable Primary Care Provider [...]
== END 2024-08-27 14:18 | disposition home or self-care (01) ==
LOC: HO.HMGCX 14:17
PROVIDERS: PCP Internal Medicine
DX: H93.A1 Pulsatile tinnitus, right ear (principal); H93.A2 Pulsatile tinnitus, left ear
CPT/HCPCS: 93880

== ENCOUNTER → 2024-08-27 14:20 | Outpatient (BNV) | payer OTHER, SELFPAY | PROVIDERS: PCP Internal Medicine; Visit Provider Radiology Diagnostic Radiology | DX: R59.0 Localized enlarged lymph nodes (principal) | CPT/HCPCS: 93880 ==

== ENCOUNTER 2024-09-02 11:11 | Outpatient (REF) | payer OTHER, SELFPAY ==
[2024-09-02 11:58] LABS: MANUAL DIFF FLAG NO
[2024-09-02 12:19] LABS: Basophils Percent Auto 0.2 % (0-2); Hematocrit 31.5 % (37.0-47.0); Hemoglobin 10.5 g/dl (12.0-16.0); Imm Gran Abs Auto 0.01 X10*3/uL (0.00-0.03); Imm Gran Pct Auto 0.2 % (0.0-0.4); Lymphocytes Absolute Auto 1.8 X10*3/uL (1.2-4.9); Lymphocytes Percent Auto 43.1 % (20-40); Mean Corpuscular HGB Conc 33.3 g/dl (31.0-35.0); Mean Corpuscular Hemoglobin 29.3 pg (27.0-33.0); Monocytes Absolute Auto 0.4 X10*3/uL (0.1-1.2); Monocytes Percent Auto 10.5 % (2-11); Neutrophils Absolute Auto 1.9 x10*3/uL (2.0-8.3); Platelet Count 351 X10*3/uL (160-400); Red Blood Count 3.58 X10*6/uL (4.20-5.50); Red Cell Distribution Width 12.9 % (11.0-16.0); White Blood Count 4.1 X10*3/uL (4.8-10.8)
[2024-09-02 12:48] LABS: Alanine Aminotransferase 41 U/L (0-31); Albumin Level 3.7 g/dL (3.5-5.0); Aspartate Amino Transferase 42 U/L (5-31); Bilirubin Direct 0.3 mg/dL (0.0-0.5); Bilirubin Total 1.3 mg/dL (0.0-1.0); Magnesium 1.6 mg/dL (1.6-2.6); Total Protein 6.8 g/dL (6.5-8.0)
[2024-09-02 13:19] LABS: Folate 9.9 ng/mL (> or = 4.0); Vitamin B12 188 pg/mL (200-900)
--- OUTSIDE RECORDS SUMMARY | 2024-09-02 14:34 | XMS_ITS | Clinical Summary ---
Author Organization [facility] Address [address] [place] [address] Care Team Providers Care Supervisor Parachute Manufacturing Name Role Phone Unavailable Primary Care Provider [...]
--- OUTSIDE RECORDS SUMMARY | 2024-09-02 14:34 | XMS_ITS | Clinical Summary ---
Author Organization [facility] Address [address] [place] [address] Care Team Providers Care Holder Pile Driving Name Role Phone Neelima Lima PA-C Primary Care Provider +1 [phone] Source Comments PLEASE NOTE, if this patient [...] last done 03/16/2015 Dr. Samreen Reyes MD [facility] Street Inspector. Recurrent major depression i n partial remission ([facility] V24) 05/31/2015 Migraine aura, persistent 05/31/2015 Midline [...] Plan of Treatment Not on file Insurance [place] Care Teams Holder Pile Driving Relationship Specialty Start Date End Date Neelima Lima PA-C [address] [place] [id number] PCP - General Internal Medicine 05/19/16
--- OUTSIDE RECORDS SUMMARY | 2024-09-02 14:34 | XMS_ITS | Clinical Summary ---
Author Organization [facility] Address [address] [place] [address] Phone Care Team Providers Care Repair Servicer Name Role Phone Unavailable Primary Care Provider [...] ID:[id number] Group ID:[id number] Type:Not on file Address: [place] [address] [place] [address]
[2024-09-02 17:32] LABS: Alkaline Phosphatase 148 U/L (39-117)
[2024-09-05 12:14] LABS: Zinc 77 mcg/dL (60-130)
== END 2024-09-02 11:12 | disposition home or self-care (01) ==
LOC: HO.LAB 11:11
PROVIDERS: PCP Internal Medicine; Visit Provider Hospitalist
DX: R06.02 Shortness of breath (principal); J45.40 Moderate persistent asthma, uncomplicated; R09.89 Other specified symptoms and signs involving the circulatory and respiratory systems
CPT/HCPCS: 36415; 80076; 82607; 82746; 83735; 84100; 84630; 85025; 99212

== ENCOUNTER 2024-09-02 11:11 | Outpatient (AMB) | payer OTHER, SELFPAY ==
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
[2024-09-02 11:17] VITALS: BP 128/80; PULSE 107; O2SAT 96; BMI 25.2
--- OUTSIDE RECORDS SUMMARY | 2024-09-02 13:49 | XMS_ITS | Clinical Summary ---
Author Organization [facility] Address [address] [place] [address] Care Team Providers Care Glass Inspector Name Role Phone Unavailable Primary Care Provider [...]
--- OUTSIDE RECORDS SUMMARY | 2024-09-02 13:50 | XMS_ITS | Clinical Summary ---
Author Organization [facility] Address [address] [place] [address] Phone Care Team Providers Care Framing Inspector Name Role Phone Unavailable Primary Care [...] - 2023-2 5 season) 2024 Influenza Vaccine (Season Ended) 2025 03/11/20 14 HIB Vaccines Aged Out No longer eligi [...] ID:[id number] Group ID:[id number] Type:Not on file Address: [place] [address] [place] [id number]
--- OUTSIDE RECORDS SUMMARY | 2024-09-02 13:50 | XMS_ITS | Clinical Summary ---
Author Organization [facility] Address [address] [place] [address] Care Team Providers Care Retail Operations Manager Name Role Phone Neelima Lima PA-C Primary Care Provider [phone] [phone] Source Comments PLEASE NOTE, if this patient [...] last done 03/16/2015 Dr. Samreen Reyes MD [facility] Hitting Coach. Recurrent major depression i n partial remission ([facility] V24) 05/31/2015 Migraine aura, persistent 05/31/2015 Midline [...] Plan of Treatment Not on file [place] Care Teams Retail Operations Manager Relationship Specialty Start Date End Date Neelima Lima PA-C [address] [place] [id number] PCP - General Internal Medicine 05/19/16
== END 2024-09-02 11:40 | disposition home or self-care (01) ==
LOC: HO.HPS 11:11
PROVIDERS: PCP Internal Medicine; Visit Provider Hospitalist
DX: J45.40 Moderate persistent asthma, uncomplicated (principal); J98.4 Other disorders of lung; R06.02 Shortness of breath
CPT/HCPCS: 99214; G2211

== ENCOUNTER 2024-09-09 13:41 | Emergency (ER) | payer OTHER, SELFPAY ==
--- NOTE | ~2024-09-09 | XR_ITS ---
EXAMINATION: XR CHEST CLINICAL INFORMATION: SOB, COUGH COMPARISON: September 06, 2022. TECHNIQUE: 2 views of the chest were obtained. FINDINGS: Mild prominence of the interstitial markings more conspicuous in the inferior right perihilar. No consolidation, pleural effusion or pneumothorax. No hyperinflation. Heart silhouette size is normal. S-shaped curvature of the thoracic spine. XR/XR chest 2V IMPRESSION: Consider acute small airway inflammatory process in the correct clinical settings. Scoliosis, mild. Electronically signed by: Valente Cruz MD 09/09/2024 02:14 PM EDT
[2024-09-09 13:52] VITALS: BP 148/72; PULSE 126; RESP 22; TEMP 37.4; O2SAT 99; BMI 25.1
--- NOTE | 2024-09-09 13:54 | ECG_ITS ---
Test Reason : chest pressure Blood Pressure : */* mmHG Vent. Rate : 106 BPM Atrial Rate : 106 BPM P-R Int : 148 ms QRS Dur : 86 ms QT Int : 324 ms P-R-T Axes : 41 28 16 degrees QTcB Int : 430 ms Sinus tachycardia Otherwise normal ECG When compared with ECG of 01-May-2024 15:32, Nonspecific T wave abnormality has replaced inverted T waves in Inferior leads Referred By: Generic ED Physician Electronically Signed By: MARCUS LOPEZ
--- NOTE | 2024-09-09 13:56 | ED_ITS ---
HPI - General Adult General Chief complaint: Dyspnea Stated complaint: SOB Time Seen by Provider: 09/09/24 14:56 Source: patient Mode of arrival: ambulatory Limitations: no limitations History of Present Illness ED Provider: Dr. Lashay Callejas HPI narrative: Patient comes in the emergency room complaining of asthma exacerbation, cough, shortness of breath, not responding well to inhaler. When patient arrived to triage, patient was given a nebulization treatment. Patient denies chest pain but states that she has a bit of pressure. Related Data Home Medications ?Medication ?Instructions ?Recorded ?Confirmed bupropion HCl 150 mg 24 hr tablet, mg PO 03/23/20 07/30/24 extended release clonazepam 1 mg tablet 1 mg PO TID PRN 03/23/20 07/30/24 zolpidem 10 mg tablet 10 mg PO BEDTIME PRN 03/23/20 07/30/24 cetirizine 10 mg tablet 10 mg PO DAILY 11/04/20 07/30/24 escitalopram oxalate 10 mg tablet 10 mg PO DAILY 10/13/21 07/30/24 ofloxacin 0.3 % eye drops 2 drp ophthalmic (eye) 08/21/22 07/30/24 tobramycin 0.3 %-dexamethasone 0.1 1 drp ophthalmic (eye) TID 08/21/22 07/30/24 % eye drops,suspension timolol maleate 0.5 % eye drops drp ophthalmic (eye) 02/12/23 07/30/24 furosemide 20 mg tablet mg PO 03/05/24 07/30/24 Previous Rx's ?Medication ?Instructions ?Recorded fluticasone propionate 44 1 puff inhalation BID 30 days 11/04/20 mcg/actuation HFA aerosol inhaler #10.6 grams (Flovent HFA) hydrochlorothiazide 25 mg tablet 25 mg PO DAILY 30 days #30 tabs 11/30/20 nebulizers (VixOne Nebulizer-Adult #1 ea 04/22/21 Mask) albuterol sulfate 2.5 mg/3 mL 2.5 mg (3 mL) inhalation Q4H PRN 08/21/22 (0.083 %) solution for nebulization shortness of breath or wheezing 30 days #180 mL underpads (Bed Underpads) #100 ea 02/08/23 Incruse Ellipta 62.5 mcg/actuation 1 inh inhalation DAILY #30 ea 02/12/23 powder for inhalation (umeclidinium) mometasone-formoterol HFA 200 2 puff inhalation Q12H 30 days #13 02/12/23 mcg-5 mcg/actuation aerosol grams inhaler (Dulera) cane #1 ea 03/28/23 non slip bath mat #1 ea 08/14/23 walker (Ultra-Light Rollator misc) #1 ea 08/14/23 lisinopril 10 mg tablet 10 mg PO DAILY 90 days #90 tabs 09/04/23 silver sulfadiazine 1 % topical 1 appl topical DAILY 1 week #20 09/19/23 cream (Silvadene) grams incontinence pad, liner, disp #60 ea 10/04/23 albuterol sulfate 90 mcg/actuation 2 puff inhalation Q4-6H PRN 12/10/23 aerosol inhaler shortness of breath or wheezing #1 ea compression stockings knee high #2 ea 01/24/24 thin panty liners #90 ea 02/01/24 wipes #120 ea 02/01/24 montelukast 10 mg tablet 10 mg PO DAILY #30 tabs 03/04/24 aspirin 81 mg tablet,delayed 81 mg PO DAILY 90 days #90 tabs 03/05/24 release ondansetron 4 mg disintegrating 4 mg PO Q8H PRN nausea and 05/01/24 tablet vomiting #10 tabs docusate calcium 240 mg capsule 240 mg PO BEDTIME PRN constipation 05/12/24 90 days #90 caps tramadol 50 mg tablet 50 mg PO Q8H PRN pain 30 days #90 09/02/24 tabs ibuprofen 800 mg tablet 800 mg PO Q8H PRN pain 30 days #90 09/03/24 tabs mecobalamin (vitamin B12) 5,000 5,000 mcg PO DAILY 30 days #30 tabs 09/03/24 mcg disintegrating tablet furosemide 20 mg tablet (Lasix) 20 mg PO DAILY #7 tabs 09/09/24 Allergies Allergy/AdvReac Type Severity Reaction Status Date / Time gabapentin Allergy Intermediate abdominal Verified 09/09/24 13:53 pain semaglutide [From Wegovy] Allergy Intermediate termons Verified 09/09/24 13:53 Review of Systems 2 Review of Systems: Constitutional : No Weight loss, No Fever, No Chills, No Night Sweats, No Fatigue, No Malaise ENT/Mouth : No Hearing loss, No Ear Pain, No Nasal Congestion, No Sinus Pain, No Hoarseness, No sore throat, No Rhinorrhea, No Swallowing Difficulty Eyes: No Eye Pain, No Swelling, No Redness, No Foreign Body, No Discharge, No Vision Changes Cardiovascular : No Chest Pain, no orthopnea, no edema palpitations Respiratory : Complaining of cough, wheezing and shortness of breath worse with exertion Gastrointestinal : No Nausea, No Vomiting, No Diarrhea, No Constipation, No abdominal Pain, No Hematochezia, No Melena Genitourinary : no irregular bleeding, No Dysuria, No Urinary Frequency, No Hematuria, No Urinary Incontinence, No Urgency, No Flank Pain, No Urinary Flow Changes, No Hesitancy Musculoskeletal : No joint pain, No Myalgias, No Joint Swelling Skin : No Skin Lesions, No rash Neuro : No Weakness, No Numbness, No Paresthesias, No Loss of Consciousness, No Dizziness, No Headache Psych : No Anxiety/Panic, No Depression, No SI/HI/AH/VH, No Social Issues, Heme/Lymph: No Bruising, No Bleeding,No Lymphadenopathy Endocrine : No Polyuria, No Polydipsia, No Temperature Intolerance PMFSH Past Medical History Medical History Dyspnea Pneumonia Rib fracture Pleural effusion Chest pain HPV (human papilloma virus) infection Chronic restrictive lung disease Arm pain, chronic Knee pain JABARI positive Chronic restrictive lung disease Mild recurrent major depression Polyarthralgia Asthma History of DVT of lower extremity Urge urinary incontinence Chronic restrictive lung disease Reactive airway disease 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 Social History Social History Housing: House Alcohol intake: never Patient Tobacco Use Status: Never used Tobacco e-Cigarette/Vaping Use: Never Used Second Hand Smoke Exposure: No service: No Current occupational status: unemployed Cognitive needs: No Hearing needs: No Vision needs: No Physical Exam ED Vital Signs: Vital Signs - 24 hr 09/09/24 17:56 09/09/24 17:56 09/09/24 19:18 Temperature 98.3 F 98.3 F Pulse Rate 122 H 115 H Respiratory Rate 20 20 Blood Pressure 144/63 H 140/65 H Pulse Oximetry 98 99 98 Oxygen Delivery Method Room Air Room Air BMI result Body Mass Index 25.1 Const Other: Appearance: Alert. Oriented X3. No acute distress. Well-appearing Eyes: Pupils equal, round and reactive to light. ENT: Pharynx normal. Neck: Normal inspection. Neck supple. No lymph nodes noted. No crepitus CVS: Heart rate 110, patient just received a nebulization treatment. Pulses normal. Normal S1 and S2 Respiratory: No respiratory distress. At this time, breathing sounds are normal, no wheezing, no rales or crackles Abdomen: Soft and nontender. No rigidity. No distention. Skin: Skin warm and dry. Normal skin color. Normal skin turgor. Extremities: No lower extremity edema. No Lacerations. No Rash Neuro: Oriented X 3. No motor deficit. No sensory deficit. Moving all extremities. No slurred speech. CN 2 through 12 grossly intact Psych: calm, cooperative, normal affect Course Course Course Narrative: RME: 49-year-old female history of asthma and pneumothorax presents to ED for coughing chest tightness shortness of breath and body aches/chills. Patient's sounds tight. Smiled wheezing. EKG labs chest x-ray ED brought ordered Medications Administered Discontinued Medications Generic Name Dose Route Start Last Admin Trade Name Freq PRN Reason Stop Dose Admin Acetaminophen 975 mg 09/09/24 17:44 09/09/24 17:46 Acetaminophen 325 Mg Tablet PO 09/09/24 17:45 975 mg ONCE ONE Administration Albuterol Sulfate 2.5 mg/ 0 mg 09/09/24 14:15 09/09/24 14:20 Albuterol/Ipratropium 3 ml INHALE 09/09/24 14:16 1 dose ONCE ONE Administration Medical Decision Making Medical Decision Making MDM Narrative: My interpretation of labs: Patient's hematology shows a hemoglobin of 10.9, hematocrit of 32.3. Patient is on blood thinners, normal platelets Patient's chemistry is within normal limits, LFTs within normal limits Patient's BNP is 222, this is the 1st time that a BNP is checked Serology negative for influenza RSV COVID Chest x-ray does not show overt pulmonary edema Patient was ambulated in the emergency room, patient's oxygen saturation is in the mid 90s with exertion. I discussed with the patient that we will start her on Lasix. Differential Diagnosis Differential Diagnoses: The differential diagnosis associated with the presentation includes (URI, COVID, asthma, influenza, CHF) Admission/Observation Consideration of admission/observation: Escalation of care including admission/observation considered (Given patient's new onset of elevated BNP, observation/admission was considered) Lab Data MDM Lab Attestation statement: I reviewed the patient's lab results. 09/09/24 15:14 09/09/24 15:14 Labs: Lab Results 09/09/24 09/09/24 Range/Units 15:14 15:15 WBC 6.3 (4.8-10.8) X10*3/uL RBC 3.65 L (4.20-5.50) X10*6/uL Hgb 10.9 L (12.0-16.0) g/dl Hct 32.3 L (37.0-47.0) % MCV 88.5 (80.0-98.0) fL MCH 29.9 (27.0-33.0) pg MCHC 33.7 (31.0-35.0) g/dl RDW 13.2 (11.0-16.0) % Plt Count 314 (160-400) X10*3/uL MPV 8.9 L (9.4-12.3) fL Immature Gran % (Auto) 0.3 (0.0-0.4) % Neut % (Auto) 63.6 (45-73) % Lymph % (Auto) 23.8 (20-40) % [place] % (Auto) 11.9 H (2-11) % Eos % (Auto) 0.2 (0-4) % Baso % (Auto) 0.2 (0-2) % Lymph # (Auto) 1.5 (1.2-4.9) X10*3/uL [place] # (Auto) 0.8 (0.1-1.2) X10*3/uL Eos # (Auto) 0.0 (0.0-0.4) X10*3/uL Baso # (Auto) 0.0 (0.0-0.2) X10*3/uL Abs Immat Gran (auto) 0.02 (0.00-0.03) X10*3/uL Absolute Neuts (auto) 4.0 (2.0-8.3) x10*3/uL Absolute Nucleated RBC 0.000 (0.0-0.012) X10*3/uL Nucleated RBC % (auto) 0.0 (0.0-0.2) /100WBC Hold Blue Top SEE NOTE Sodium 141 (135-145) mmol/L Potassium 3.5 (3.3-5.1) mmol/L Chloride 106 (96-108) mmol/L Carbon Dioxide 27 (22-29) mmol/L Anion Gap 12 (12-20) BUN 9 (9-16) mg/dL Creatinine 0.51 (0.5-1.4) mg/dL Estim Creat Clear Calc 126.9 Estimated GFR > 60 Random Glucose 105 (60-115) mg/dL Calcium 9.8 D (8.4-10.2) mg/dL Total Bilirubin 1.3 H (0.0-1.0) mg/dL AST 30 (5-31) U/L ALT 32 H (0-31) U/L Alkaline Phosphatase 166 H (39-117) U/L Troponin I High Sens 8.0 (<3.5-17.0) ng/L B-Natriuretic Peptide 222 H (<100) pg/mL Total Protein 7.0 (6.5-8.0) g/dL Albumin 3.7 (3.5-5.0) g/dL Influenza Type A (PCR) NEGATIVE (Negative) Influenza Type B (PCR) NEGATIVE (Negative) RSV RNA Qual (PCR) NEGATIVE (Negative) SARS-CoV-2 RNA (RT-PCR) NEGATIVE (Negative) Independent Interpretation I performed an independent interpretation of an: Plain X-Ray Radiology Impression Discussion of test interpretation with radiology: I have reviewed the radiologist's reading. Radiologist Impression: Mild prominence of the interstitial markings more conspicuous in the inferior right perihilar. No consolidation, pleural effusion or pneumothorax. No hyperinflation. Heart silhouette size is normal. S-shaped curvature of the thoracic spine. XR/XR chest 2V IMPRESSION: Consider acute small airway inflammatory process in the correct clinical settings. Scoliosis, mild. Discharge Plan Discharge Clinical Impression: Headache Dyspnea Qualifiers: Dyspnea type: shortness of breath Qualified Code(s): R06.02 - Shortness of breath Patient Disposition: Home, Self-Care Instructions: Acute Headache (ED), Dyspnea (ED) Additional Instructions: Please follow-up with your primary care physician tomorrow. If you have any worsening or new symptoms, please return to the emergency room or call 911 Prescriptions: New furosemide [Lasix] 20 mg tablet 20 mg PO DAILY Qty: 7 0RF No Action (DME) VixOne Nebulizer-Adult Mask Misc See Rx Instructions .Route Qty: 1 0RF Rx Instructions: As directed albuterol sulfate 2.5 mg /3 mL (0.083 %) solution for nebulization 2.5 mg inhalation Q4H PRN (Reason: shortness of breath or wheezing) 30 Days Qty: 180 11RF (DME) underpads [Bed Underpads] Pad See Rx Instructions .Route Qty: 100 11RF Rx Instructions: Use 4 bed pads per day (DME) Ultra-Light Rollator Misc See Rx Instructions .Route Qty: 1 0RF Rx Instructions: As directed (DME) non slip bath mat See Rx Instructions .Route .MEDSUPPLY Qty: 1 0RF Rx Instructions: As directed lisinopril 10 mg tablet 10 mg PO DAILY 90 Days Qty: 90 1RF (DME) incontinence pad, liner, disp Pad See Rx Instructions .Route Qty: 60 6RF Rx Instructions: USe 1 to 2 pads per day as needed (DME) wipes See Rx Instructions .Route .MEDSUPPLY Qty: 120 6RF Rx Instructions: Use 4 times a day as needed (DME) thin panty liners See Rx Instructions .Route .MEDSUPPLY Qty: 90 11RF Rx Instructions: As directed montelukast 10 mg tablet 10 mg PO DAILY Qty: 30 11RF aspirin 81 mg tablet,delayed release (DR/EC) 81 mg PO DAILY 90 Days Qty: 90 3RF tramadol 50 mg tablet 50 mg PO Q8H PRN (Reason: pain) 30 Days Qty: 90 0RF mecobalamin (vitamin B12) 5,000 mcg tablet,disintegrating 5,000 mcg PO DAILY 30 Days Qty: 30 0RF ibuprofen 800 mg tablet 800 mg PO Q8H PRN (Reason: pain) 30 Days Qty: 90 2RF ondansetron 4 mg tablet,disintegrating 4 mg PO Q8H PRN (Reason: nausea and vomiting) Qty: 10 0RF cetirizine 10 mg tablet 10 mg PO DAILY Flovent HFA 44 mcg/actuation HFA aerosol inhaler 1 puff inhalation BID 30 Days Qty: 10.6 4RF Rx Instructions: administer with spacer zolpidem 10 mg tablet 10 mg PO BEDTIME PRN clonazepam 1 mg tablet 1 mg PO TID PRN bupropion HCl 150 mg tablet extended release 24 hr PO (DME) cane Device See Rx Instructions .Route Qty: 1 0RF Rx Instructions: As directed silver sulfadiazine [Silvadene] 1 % cream 1 appl topical DAILY 7 Days Qty: 20 0RF Rx Instructions: apply a 1.5 mm thickness (DME) compression stockings knee high 40 mmHg See Rx Instructions .Route .MEDSUPPLY Qty: 2 6RF Rx Instructions: As directed hydrochlorothiazide 25 mg tablet 25 mg PO DAILY 30 Days Qty: 30 1RF escitalopram oxalate 10 mg tablet 10 mg PO DAILY timolol maleate 0.5 % drops ophthalmic (eye) Dulera 200-5 mcg/actuation HFA aerosol inhaler 2 puff inhalation Q12H 30 Days Qty: 13 11RF Incruse Ellipta 62.5 mcg/actuation blister with device 1 inh inhalation DAILY Qty: 30 11RF docusate calcium 240 mg capsule 240 mg PO BEDTIME PRN (Reason: constipation) 90 Days Qty: 90 0RF ofloxacin 0.3 % drops 2 drp ophthalmic (eye) tobramycin-dexamethasone 0.3-0.1 % drops,suspension 1 drp ophthalmic (eye) TID albuterol sulfate 90 mcg/actuation HFA aerosol inhaler 2 puff inhalation Q4-6H PRN (Reason: shortness of breath or wheezing) Qty: 1 11RF furosemide 20 mg tablet PO Stand Alone Forms: Work/School Release Interventions: ED Discharge Assessment Last Done: 09/09/24 19:18 Discharge Date/Time: 09/09/24 19:18 Print Language: Tajik
[2024-09-09 14:20] VITALS: PULSE 74; RESP 22; O2SAT 97
[2024-09-09] MEDS: Albuterol Sulfate 2.5 MG, Albuterol/Iprat 2.5/0.5MG 3 ML 3 ML INHALE (14:20)
[2024-09-09 15:21] LABS: MANUAL DIFF FLAG NO
[2024-09-09 15:27] LABS: Basophils Percent Auto 0.2 % (0-2); Eosinophils Percent Auto 0.2 % (0-4); Hematocrit 32.3 % (37.0-47.0); Hemoglobin 10.9 g/dl (12.0-16.0); Imm Gran Abs Auto 0.02 X10*3/uL (0.00-0.03); Imm Gran Pct Auto 0.3 % (0.0-0.4); Lymphocytes Absolute Auto 1.5 X10*3/uL (1.2-4.9); Lymphocytes Percent Auto 23.8 % (20-40); Mean Corpuscular HGB Conc 33.7 g/dl (31.0-35.0); Mean Corpuscular Hemoglobin 29.9 pg (27.0-33.0); Mean Corpuscular Volume 88.5 fL (80.0-98.0); Mean Platelet Volume 8.9 fL (9.4-12.3); Monocytes Absolute Auto 0.8 X10*3/uL (0.1-1.2); Monocytes Percent Auto 11.9 % (2-11); Neutrophils Percent Auto 63.6 % (45-73); Platelet Count 314 X10*3/uL (160-400); Red Blood Count 3.65 X10*6/uL (4.20-5.50); Red Cell Distribution Width 13.2 % (11.0-16.0); White Blood Count 6.3 X10*3/uL (4.8-10.8)
[2024-09-09 15:50] LABS: Alanine Aminotransferase 32 U/L (0-31); Albumin Level 3.7 g/dL (3.5-5.0); Anion Gap 12 (12-20); Aspartate Amino Transferase 30 U/L (5-31); Bilirubin Total 1.3 mg/dL (0.0-1.0); Blood Urea Nitrogen 9 mg/dL (9-16); Calcium 9.8 mg/dL (8.4-10.2); Carbon Dioxide 27 mmol/L (22-29); Chloride 106 mmol/L (96-108); Creatinine Clr Calc Pharmacy 126.9; Estimated Glomerular Filt Rate > 60; Glucose Random 105 mg/dL (60-115); Potassium 3.5 mmol/L (3.3-5.1); Sodium 141 mmol/L (135-145)
[2024-09-09 16:05] LABS: Influenza A PCR NEGATIVE (Negative); Influenza B PCR NEGATIVE (Negative); Resp Syncy Virus RNA Qual PCR NEGATIVE (Negative); SARS COV2 PCR INHOUSE NEGATIVE (Negative)
[2024-09-09 16:12] LABS: B Type Natriuretic Peptide 222 pg/mL (<100)
[2024-09-09 17:07] LABS: Alkaline Phosphatase 166 U/L (39-117)
--- OUTSIDE RECORDS SUMMARY | 2024-09-09 17:25 | XMS_ITS | Encounter Summary ---
Author Organization [facility] Address [address] [place] [address] Care Team Providers Care Field Hockey Coach Name Role Phone Physician, Pcp Unknown Primary Care Provider Tabatha vailable Reason for Visit * Reason Comments Shortness of Breath Encounter Details Date Type Department Care Team (Late st Contact Info) Description 09/09/2024 12:08 PM EDT - 09/09/2024 5:15 PM EDT Emergency [facility] Emergency [address] [place] [address] Discharge Disposition: Home or Self Care Social History Tobacco Use Types Packs/Day Years Used Date Smoking Tobacco: Never Assessed Comments Unknown Sex and Gender Information Value Date Recorded Sex Assigned at Not on file Legal Sex Female 8:26 AM EST Gender Identity Not on file Sexual Orientation Not on file documented as of this encounter Last Filed Vital Signs Vital Sign Reading Time Taken Comments Blood Pressure 173/94 09/09/2024 12:17 PM EDT Pulse 118 09/09/2024 12:17 PM EDT Temperature 36.7 ??C (98 ??F) 09/09/2024 12:17 PM EDT Respiratory Rate 20 09/09/2024 12:17 PM EDT Oxygen Saturation 97% 09/09/2024 12:17 PM EDT Inhaled Oxygen Concentration - - Weight 68 kg (150 lb) 09/09/2024 12:17 PM EDT Height 162.6 cm (5' 4 ) 09/09/2024 12:17 PM EDT Body Mass Index 25.75 09/09/2024 12:17 PM EDT documented in this encounter Discharge Disposition Disposition Code Departure Means Destination Comment s Home or Self Care LWBS after triage, CNRx3 documented in this encounter Progress Notes * Emmy Olson RN - 09/09/2024 12:19 PM EDT Pt is unable to take deep breaths, cough, used inhaler at home * Carmenza Calderon RN - 09/09/2024 12:11 PM EDT Pt c/o cough congestion sob x 2 days . Pt has hx asthma , using inhalers at home with no relief. Denies fevers documented in this encounter Plan of Treatment Not on file documented as of this encounter Visit Diagnoses Not on filedocumented in this encounter Care Teams Field Hockey Coach Relationship Specialty Start Date End Date Physician, Pcp Unknown PCP - General 09/09/24 documented as of this encounter
--- OUTSIDE RECORDS SUMMARY | 2024-09-09 17:25 | XMS_ITS | Clinical Summary ---
Author Organization [facility] Address [address] [place] [address] Care Team Providers Care Motor Vehicle Licence Examiner Name Role Phone Neelima Lima PA-C Primary Care Provider [phone] [phone] Source Comments PLEASE NOTE, if this patient [...] last done 03/16/2015 Dr. Samreen Reyes MD [facility] Packing Machine Operator. Recurrent major depression i n partial remission ([facility] V24) 05/31/2015 Migraine aura, persistent [...] Plan of Treatment Not on file Insurance [place] Care Teams Motor Vehicle Licence Examiner Relationship Specialty Start Date End Date Neelima Lima PA-C [address] [place] [id number] PCP - General Internal Medicine 05/19/16
--- OUTSIDE RECORDS SUMMARY | 2024-09-09 17:25 | XMS_ITS | Clinical Summary ---
Author Organization [facility] Address [address] [place] [address] Care Team Providers Care Construction Equipment Mechanic Helper Name Role Phone Unavailable Primary Care Provider Unavailabl e Allergies No known active allergies Social History Tobacco Use Types Packs/Day Years Used Date Smoking Tobacco: Never Assessed Comments No Sex and Gender Information Value Date Recorded Sex Assigned at Female 09/05/2022 1:53 AM EDT Legal Sex Female 1:35 AM EDT Gender Identity Female 09/05/2022 1:53 [...] 2023 Influenza Vaccine 12/20/2023 03/11/2014 COVID-19 Vaccine (2023-2 5 season) 2024 Pneumococcal Vaccine: Pediat ava (0-5 Years) and At-Risk Patients (6 to 49 Years) Aged Out No longer eligible b ased on patient's age to complete this topic Insurance [facility] MEDICARE PART A & [facility] MEDICARE OUT OF NETWORK
--- OUTSIDE RECORDS SUMMARY | 2024-09-09 17:25 | XMS_ITS | Clinical Summary ---
Author Organization [facility] Address [address] [place] [address] Phone Care Team Providers Care Lacquer Pin Press Operator Name Role Phone Physician, Pcp Unknown Primary Care Provider Tabatha vailable Encounters Date Type Department Care Team Description 09/09/2024 12:08 PM EDT - 09/09/2024 5:15 PM EDT Emergency [facility] Emergency [address] [place] [address] Discharge Disposition: Home or Self Care from Last 3 Months Medical History Medical History Date Comments HTN (hypertension) Asthma Social History Tobacco Use Types Packs/Day Years [...] Mass Index 25.75 09/09/2024 12:17 PM EDT Plan of Treatment Health Maintenance Due Date [...] patient's age to complete this topic Insurance [facility] MEDICARE Member Subscriber Plan / Payer (Ef fective 2016-Present) Name:Amira Nicholas Relation to Subscriber:Self Name:Amira Nicholas Payer ID:[id number] Group ID:[id number] Type:Not on file Address: [address] [place] [address] Care Teams Lacquer Pin Press Operator Relationship Specialty Start Date End Date Physician, Pcp Unknown PCP - General 09/09/24
[2024-09-09] MEDS: Acetaminophen 325 MG TABLET 975 MG PO (17:46)
[2024-09-09 17:56] VITALS: BP 144/63; PULSE 122; RESP 20; TEMP 36.8; O2SAT 98; O2SAT 99
[2024-09-09 19:18] VITALS: BP 140/65; PULSE 115; RESP 20; TEMP 36.8; O2SAT 98
== END 2024-09-09 19:18 | disposition home or self-care (01) ==
PROVIDERS: Physician Assistant; Emergency Provider Emergency Medicine; PCP Internal Medicine
DX: R06.02 Shortness of breath (principal); R51.9 Headache, unspecified; R05.9 Cough, unspecified; R00.0 Tachycardia, unspecified; M79.10 Myalgia, unspecified site; Z79.899 Other long term (current) drug therapy; Z03.818 Encounter for observation for suspected exposure to other biological agents ruled out
CPT/HCPCS: 0241U; 71046; 80053; 83880; 84484; 85025; 93005; 94640; 99284; 99285

== ENCOUNTER → 2024-09-09 13:54 | Outpatient (BNV) | payer OTHER, SELFPAY | PROVIDERS: Emergency Provider Emergency Medicine; PCP Internal Medicine; Visit Provider Radiology Diagnostic Radiology | DX: R06.02 Shortness of breath (principal); R05.9 Cough, unspecified | CPT/HCPCS: 71046 ==

== ENCOUNTER → 2024-09-09 13:54 | Outpatient (BNV) | payer OTHER, SELFPAY | PROVIDERS: Emergency Provider Emergency Medicine; PCP Internal Medicine; Visit Provider Internal Medicine | DX: R00.0 Tachycardia, unspecified (principal) | CPT/HCPCS: 93010 ==

== ENCOUNTER 2024-09-16 10:24 | Outpatient (REF) | payer OTHER, SELFPAY ==
--- OUTSIDE RECORDS SUMMARY | 2024-09-16 13:09 | XMS_ITS | Clinical Summary ---
Author Organization [facility] Address [address] [place] [address] Care Team Providers Care Territory Manager Name Role Phone Unavailable Primary Care [...] 03/11/2014 COVID-19 Vaccine ( season) 2024 Insurance [facility] MEDICARE PART A & [place] [facility] [place]
--- OUTSIDE RECORDS SUMMARY | 2024-09-16 13:09 | XMS_ITS | Clinical Summary ---
Author Organization [facility] Address [address] [place] [address] Phone Care Team Providers Care Chainstitch Sewing Machine Operator Name Role Phone Physician, Pcp Unknown Primary Care Provider Tabatha vailable Encounters Date Type Department Care Team Description 09/09/2024 12:08 PM EDT - 09/09/2024 5:15 PM EDT Emergency [facility] Emergency [address] [place] [address] Discharge Disposition: Home or Self [...] patient's age to complete this topic Insurance [facility] MEDIC[facility] Member Subscriber Plan / Payer (Ef fective 2016-Present) Name:Amira Nicholas Relation to Subscriber:Self Name:Amira Nicholas Payer ID:[id number] Group ID:[id number] Type:Not on file Address: [address] [place] [address] Care Teams Chainstitch Sewing Machine Operator Relationship Specialty Start Date End Date Physician, Pcp Unknown PCP - General 09/09/24
--- OUTSIDE RECORDS SUMMARY | 2024-09-16 13:09 | XMS_ITS | Clinical Summary ---
Author Organization [facility] Address [address] [place] [address] Care Team Providers Care Boring Machine Operator Vertical Name Role Phone Neelima Lima PA-C Primary Care Provider [phone] Source Comments PLEASE NOTE, if this patient [...] last done 03/16/2015 Dr. Samreen Reyes MD [facility] Electrical Designer Drafter. Recurrent major depression i n partial remission ([facility] V[facility]) 05/31/2015 Migraine aura, persistent [...] Plan of Treatment Not on file [place] Care Teams Boring Machine Operator Vertical Relationship Specialty Start Date End Date Neelima Lima PA-C [address] [place] [id number] PCP - General Internal Medicine 05/19/16
[2024-09-19 13:43] LABS: HPV Genotype 16 Negative (Negative); HPV High Risk Negative (Negative)
[2024-09-19 13:44] LABS: HPV Genotype 18 Negative (Negative)
== END 2024-09-16 10:25 | disposition home or self-care (01) ==
LOC: HO.LNP 10:24
PROVIDERS: PCP Internal Medicine; Visit Provider Obstetrics & Gynecology
DX: Z01.419 Encounter for gynecological examination (general) (routine) without abnormal findings (principal); R87.610 Atypical squamous cells of undetermined significance on cytologic smear of cervix (ASC-US); Z87.42 Personal history of other diseases of the female genital tract
CPT/HCPCS: 87626; 88175; 99396; 99459

== ENCOUNTER 2024-09-16 10:24 | Outpatient (AMB) | payer OTHER, SELFPAY ==
--- NOTE | 2024-09-16 10:28 | MHC.OFFVIS ---
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 Marine Rigger Required: Yes Marine Rigger Language: International Student Advisor Services: Marine Rigger Present (in person) Marine Rigger Name: Katie IZABEL Foster Information Interpreted: non-clinical & clinical Septic Pump Truck Driver: Septic Pump Truck Driver Present (IZABEL Herndon) Accompanied by: Self / Same As Patient Allergies gabapentin Allergy (Intermediate, Verified 09/16/24 10:42) abdominal pain semaglutide [From Wegovy] Allergy (Intermediate, Verified 09/16/24 10:42) termons Is last menstrual period known: No Post menopausal: Yes Patient : No HPI Comments Details: Presenting for annual exam. No complaints. Last Pap/HPV was negative in 06/12, the patient in 05/10 had negative Pap/HPV positive, followed by colpo biopsy negative Last Mammogram with breast ultrasound was BI-RADS 3 in 04/13, the recommendation was to repeat in six-month, mammogram and breast ultrasound scheduled in 4 weeks No previous screening Colonoscopy PFSH Medical History Dyspnea Pneumonia Rib fracture Pleural effusion Chest pain HPV (human papilloma virus) infection Chronic restrictive lung disease Arm pain, chronic Knee pain JABARI positive Chronic restrictive lung disease Mild recurrent major depression Polyarthralgia Asthma History of DVT of lower extremity Urge urinary incontinence Chronic restrictive lung disease Reactive airway disease 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 Social History Housing: House Alcohol intake: never Patient Tobacco Use Status: Never used Tobacco e-Cigarette/Vaping Use: Never Used Second Hand Smoke Exposure: No Patient : No service: No Current occupational status: unemployed Cognitive needs: No Hearing needs: No Vision needs: No Female Reproductive History Menstrual Age of Menarche: 9 control method: none Total pregnancies: 3 Full term: 3 Number of Living Children: 2 Date of last pap smear: 06/07/22 (negative hpv, negative pap smear) Date of Mammogram: 10/09/23 (bi rad 3) Review of Systems Const All systems reviewed & are unremarkable except as noted in HPI and below Card Reports as per HPI Resp Reports as per HPI GI Reports as per HPI and Reports no additional complaints Reports as per HPI Physical Exam Vital Signs: Last Vital Signs BP 140/80 H 09/16/24 10:43 BMI result Body Mass Index 24.3 Const General: cooperative, healthy appearing and comfortable Chest Chest palpation & inspection: normal inspection of the chest and normal palpation of entire chest wall Breast/axilla inspection: normal inspection of the breasts and normal inspection of the axillae Breast/axilla palpation: normal palpation of the breasts, normal palpation of the axillae and no axillary lymphadenopathy Resp Effort & Inspection: normal respiratory effort Auscultation: clear to auscultation bilaterally Percussion: percussion normal Cardio Palpation: normal PMI Rate: regular rate Rhythm: regular rhythm Heart sounds: no murmurs and no rubs Peripheral pulses: Peripheral pulses 2+ throughout GI Inspection: Yes normal to inspection Palpation (GI): Soft to palpation, nontender, no guarding, not rigid and No hepatosplenomegaly present Percussion: Yes normal to percussion Auscultation: normal bowel sounds Rectal Exam - Female: deferred General: Yes bladder normal to palpation External Female Exam: No lesion Speculum Exam - Vagina: normal appearance of the vagina, normal palpation, normal vaginal discharge and not erythematous Speculum Exam - Cervix: normal appearance of the cervix and normal palpation Bimanual exam- vagina & uterus: normal bimanual exam, normal palpation, uterine size normal, bladder normal to palpation, consistency normal and normal palpation Bimanual Exam- Adnexa, other: normal adnexae, no masses and no tenderness Assessment & Plan Assessment & Plan (1) Well woman exam: Code(s): Z01.419 - Encounter for gynecological examination (general) (routine) without abnormal findings Category: Medical Plan: Co testing done. Counseled the patient about the recommended dietary allowance of 1200 mg of Calcium & 600 IU of vitamin D. Mammogram with breast ultrasound scheduled The patient is referred to GI for screening colonoscopy. The patient was instructed to perform monthly self-breast exams and schedule annual exam in a year. All questions answered and the patient verbalized understanding. Orders: Referrals Gastroenterology Referral Z12.11 - Encounter for screening for malignant neoplasm of colon Coding Level of Care Code Est Pt Prev Care 40-64y(27140) Diagnoses Well woman exam Z01.419
[2024-09-16 10:43] VITALS: BP 140/80; BMI 24.3
--- OUTSIDE RECORDS SUMMARY | 2024-09-16 11:58 | XMS_ITS | Clinical Summary ---
Author Organization [facility] Address [address] [place] [address] Phone Care Team Providers Care Parts Data Writer Name Role Phone Physician, Pcp Unknown Primary Care Provider Tabatha vailable Encounters Date Type Department Care Team Description 09/09/2024 12:08 PM EDT - 09/09/2024 5:15 PM EDT Emergency [facility] [address] [place] [address] Discharge Disposition: Home or Self [...] patient's age to complete this topic Insurance [facility] MEDICARE Member Subscriber Plan / Payer (Ef fective 2016-Present) Name:Amira Nicholas Relation to Subscriber:Self Name:Amira Nicholas Payer ID:[id number] Group ID:[id number] Type:Not on file Address: [address] [place] [address] Care Teams Parts Data Writer Relationship Specialty Start Date End Date Physician, Pcp Unknown PCP - General 09/09/24
--- OUTSIDE RECORDS SUMMARY | 2024-09-16 11:58 | XMS_ITS | Clinical Summary ---
Author Organization [facility] Address [address] [place] [address] Care Team Providers Care Marketing Support Specialist Name Role Phone Neelima Lima PA-C Primary Care Provider [phone] Source Comments PLEASE NOTE, if this patient [...] last done 03/16/2015 Dr. Samreen Reyes MD [facility] Lunchroom Food Service Supervisor. Recurrent major depression i n partial remission ([facility] V24) 05/31/2015 Migraine aura, persistent 05/31/2015 [...] Treatment Not on file [place] Care Teams Marketing Support Specialist Relationship Specialty Start Date End Date Neelima Lima PA-C [address] [place] [id number] PCP - General Internal Medicine 05/19/16
--- OUTSIDE RECORDS SUMMARY | 2024-09-16 11:58 | XMS_ITS | Clinical Summary ---
Author Organization [facility] Address [address] [place] [address] Care Team Providers Care Electrical Prospecting Operator Name Role Phone Unavailable Primary Care Provider [...] (1 of 3 - 19+ 3-dose series) 05/21 Pap Smear (Ages 21-65) 1994 Mammogram 2013 Colonoscopy 2018 Pneumococcal Vaccines 50+ (1 of 1 - PCV) 2023 Zoster (Shingles) Vaccine (1 of 2) 2023 Influenza Vaccine 12/20/2023 03/11/2014 COVID-19 Vaccine ( season) 2024 Insurance [facility] MEDICARE PART A & [place] [facility] [place]
== END 2024-09-16 11:07 | disposition home or self-care (01) ==
LOC: HO.HWS 10:24
PROVIDERS: PCP Internal Medicine; Visit Provider Obstetrics & Gynecology
DX: Z01.419 Encounter for gynecological examination (general) (routine) without abnormal findings (principal)
CPT/HCPCS: 99396; 99459

== ENCOUNTER 2024-09-29 08:03 | Outpatient (AMB) | payer OTHER, SELFPAY ==
--- NOTE | 2024-09-29 08:08 | A.OFFPC_ITS ---
Vital Signs 09/29/24 08:10 Height 5 ft 7 in Weight 157 lb BMI 24.6 BP 140/80 H Blood Pressure Location Lt brachial Position Sitting Intake Visit Reasons: 6M Depression Intake Note: Patient here for 6 month follow up depression Automation Tech Required: No Accompanied by: Self / Same As Patient Allergies gabapentin Allergy (Intermediate, Verified 09/29/24 08:18) abdominal pain semaglutide [From Wegovy] Allergy (Intermediate, Verified 09/29/24 08:18) termons Medication List - Last Reconciled 09/29/24 by Stephanie Chapman MD albuterol sulfate 2.5 mg (3 mL) inhalation Q4H PRN 30 days albuterol sulfate 90 mcg/actuation 2 puffs inhalation Q4-6H PRN aspirin 81 mg PO DAILY 90 days bupropion HCl XL mg PO cane As directed cetirizine 10 mg PO DAILY clonazepam 1 mg PO TID PRN [compression stockings knee high As directed] docusate calcium 240 mg PO BEDTIME PRN 90 days escitalopram oxalate 10 mg PO DAILY fluticasone propionate 44 mcg/actuation (Flovent HFA) 1 puff inhalation BID 30 days furosemide (Lasix) 20 mg PO DAILY furosemide mg PO hydrochlorothiazide 25 mg PO DAILY 30 days ibuprofen 800 mg PO Q8H PRN 30 days incontinence pad, liner, disp USe 1 to 2 pads per day as needed Incruse Ellipta 62.5 mcg/actuation (umeclidinium) 1 inh inhalation DAILY NS lisinopril 10 mg PO DAILY 90 days mecobalamin (vitamin B12) 5,000 mcg PO DAILY 30 days mometasone-formoterol 200-5 mcg/actuation (Dulera) 2 puffs inhalation Q12H 30 days montelukast 10 mg PO DAILY nebulizers (VixOne Nebulizer-Adult Mask) As directed [non slip bath mat As directed] ofloxacin 0.3% 2 drps ophthalmic (eye) ondansetron 4 mg PO Q8H PRN silver sulfadiazine 1% (Silvadene) 1 appl topical DAILY 1 week [thin panty liners As directed] timolol maleate 0.5% drps ophthalmic (eye) tobramycin-dexamethasone 0.3-0.1 % 1 drp ophthalmic (eye) TID tramadol 50 mg PO Q8H PRN 30 days underpads (Bed Underpads) Use 4 bed pads per day walker (Ultra-Light Rollator misc) As directed [wipes Use 4 times a day as needed] zolpidem 10 mg PO BEDTIME PRN Tobacco use date assessed: 07/28/24 Dental Screening Dental Screen Date: 07/28/24 HPI HPI Comments History of Present Illness Details The patient is a 49-year-old female presenting with multiple chronic conditions and medication management needs. Her essential hypertension is currently treated with two medications, hydrochlorothiazide and lisinopril; future adjustments are planned to taper the former and increase the latter. She recalls an acute asthma exacerbation in August requiring emergency care, attributed to airway inflammation, resolved without significant radiographic findings. Scoliosis results in ongoing back pain, while newly recognized anemia is under evaluation. Elevated hepatic enzymes necessitate further investigation through imaging and serologic testing. She continuously experiences pain attributed to fibromyalgia, as assessed by rheumatology. The patient mentions tremor episodes, with follow-up planned in neurology. Her mental health issues, specifically depression with anxiety, are managed with psychiatric medications. [facility] Medical History (Updated 09/29/24 @ 11:09 by Stephanie Chapman MD) Dyspnea Pneumonia Rib fracture Pleural effusion Chest pain HPV (human papilloma virus) infection Chronic restrictive lung disease Arm pain, chronic Knee pain STEPHANIE positive Chronic restrictive lung disease Mild recurrent major depression Polyarthralgia Asthma History of DVT of lower extremity Urge urinary incontinence Chronic restrictive lung disease Reactive airway disease Xxof-AVXYO-64 syndrome Obese Depression with anxiety Dyspnea Anxiety Hypertension Arthritis Encounter for follow-up for hypertension Surgical History History of tubal ligation H/O breast biopsy H/O LEEP Family History Father Liver cancer Mother Hypertension Diabetes CVD (cardiovascular disease) Maternal Grandmother Throat cancer Son No problems noted. Social History Housing: House Alcohol intake: never Patient Tobacco Use Status: Never used Tobacco e-Cigarette/Vaping Use: Never Used Second Hand Smoke Exposure: No service: No Current occupational status: unemployed Cognitive needs: No Hearing needs: No Vision needs: No Female Reproductive History Menstrual Age of Menarche: 9 Questionnaire PHQ-9 Over the last 2 weeks, how often have you been bothered by any of the following problems? 1. Little interest or pleasure in doing things: several days 2. Feeling down, depressed, or hopeless: more than half the days 3. Trouble falling or staying asleep, or sleeping too much: more than half the days 4. Feeling tired or having little energy: more than half the days 5. Poor appetite or overeating: several days 6. Feeling bad about yourself - or that you are a failure or have let yourself or your family down: several days 7. Trouble concentrating on things, such as reading the newspaper or watching television: several days 8. Moving or speaking so slowly that other people could have noticed. Or the opposite - being so fidgety or restless that you have been moving around a lot more than usual: more than half the days 9. Thoughts that you would be better off or of hurting yourself in some way: not at all Total score: 12 Depression Screening Interpretation: Positive Depression Screening Follow-up: Existing condition, In treatment and Follow-up Visit Requested Depression Screening Done: Yes 99862 - PHQ-9 Billing: Yes Source: Developed by Drs. Pablo Gasca, Precious Benoit, Deep Puckett and colleagues, with an educational lyn from [employer]. Thrive Questionnaire Date Thrive assessed: 09/29/24 I am a: Patient What is your living situation today?: I have a steady place to live Within the past 12 months, did the food you bought not last and you didn't have the money to get more?: Sometimes True Within the past 12 months, did you worry whether your food would run out before you got money to buy more?: Never true Do you have trouble paying for medicines?: No Do you have trouble getting transportation to medical appointments?: Yes Do you have trouble paying your heating and electricity bill?: Yes Do you have trouble taking care of your child, family member or friend?: No Do you have trouble with day-to-day activities such as bathing, preparing meals, shopping, managing finances, etc.?: Yes Are you currently unemployed and looking for a job?: Yes Are you interested in more education?: Yes Please select the resources that you would like help with: None Currently or been in a relationship where the following occur: No concerns reported THRIVE Score: 3 AUDIT C Alcohol Use Questionnaire (AUDIT-C) 1. How often do you have a drink containing alcohol?: Never Total Score: 0 Score Reviewed/Action Taken: No ALISON-7 AMB Questionnaire ALISON-7 Date LAISON - 7 assessed: 07/28/24 Source: Developed by Drs. Pablo Gasca, Precious Beonit, Deep Puckett and colleagues, with an educational lyn from [employer]. Review of Systems Const All systems reviewed & are unremarkable except as noted in HPI and below Card Denies chest pain at rest, Denies chest pain with activity, Denies edema, Denies irregular heart rhythm, Denies claudication, Denies dyspnea, Denies dyspnea on exertion, Denies orthopnea, Denies paroxysmal nocturnal dyspnea and Denies slow heart rate Resp Denies cough, Denies dyspnea and Denies dyspnea on exertion GI Denies abdominal pain, Denies change in bowel habits, Denies excessive flatus, Denies nausea and Denies vomiting Denies urinary incontinence, Denies urinary hesitancy and Denies urinary urgency Musc Denies atrophy, Denies deformity and Denies limited range of motion Physical exam (Primary Care) Vital Signs: Last Vital Signs BP 140/80 H 09/29/24 08:10 BMI result Body Mass Index 24.6 Tobacco/Smoking Status: Tobacco use Status Tobacco use date assessed 07/28/24 09/29/24 08:15 Patient Tobacco Use Status Never used Tobacco 09/29/24 08:15 e-Cigarette/Vaping Use Never Used 09/29/24 08:15 PHQ-9: PHQ-9 Score PHQ-9: Total score 12 09/29/24 08:21 Depression Screening Interpretation: Positive Depression Screening Follow-up: Existing condition, In treatment and Follow-up Visit Requested Thrive Assessment: Date of Thrive Assessment Date Thrive assessed 09/29/24 09/29/24 08:15 Currently or been in a relationship where the following occur: No concerns reported Resp Effort & Inspection: normal respiratory effort Auscultation: clear to auscultation bilaterally Cardio Jugular venous distension: no JVD Rate: regular rate Rhythm: regular rhythm Heart sounds: S1 normal heart sound present and S2 normal heart sound present Extrem General: Yes full ROM Coding Level of Care Code Est Pt Level 4 (07817) Complex EM visit Add On G2211 Diagnoses Transaminitis R74.01 Essential tremor G25.0 Moderate recurrent major depression F33.1 Primary hypertension I10 Hypertension type: primary hypertension Asthma J45.909 Additional Codes PHQ-9 - 29369 - PHQ-9 Billing: Yes ([id number]) Time Spent (min) 23 Assessment & Plan Assessment & Plan (1) Transaminitis: Code(s): R74.01 - Elevation of levels of liver transaminase levels Category: Medical (2) Essential tremor: Code(s): G25.0 - Essential tremor Category: Medical (3) Moderate recurrent major depression: Code(s): F33.1 - Major depressive disorder, recurrent, moderate Category: Medical (4) Hypertension: Code(s): I10 - Essential (primary) hypertension Category: Medical Qualifiers: Hypertension type: primary hypertension Qualified Code(s): I10 - Essential (primary) hypertension (5) Asthma: Code(s): J45.909 - Unspecified asthma, uncomplicated Category: Medical Plan Management for the patient's hypertension now includes a revaluation of her medication with a shift from hydrochlorothiazide to increasing lisinopril owing to a predicted improvement in control. Asthma care remains focused on strict adherence to inhaler therapies post-exacerbation. Investigative action regarding anemia and elevated liver enzymes is underway. Observational management of fibromyalgia involves accommodative lifestyle advice and potential pain- management interventions. Subscriber management of tremors involves a planned initiation of propranolol and coordinated care with neurology. The patient's mental health treatment is under a steadied psychiatric regime with bupropion and clonazepam, with scope for modification according to her unease. Patient was informed and verbally consented to the use of an ambient scribe for clinic note documentation during this visit. I communicated to the patient that her blood pressure regimen will be modified, progressively increasing lisinopril to improve control while abandoning hydrochlorothiazide. We reviewed her past severe asthma episode, noting ongoing therapeutic benefits from her inhaler regimes. I discussed pursuing abdominal ultrasound and hepatitis panels to clear suspicions surrounding her elevated liver enzymes. For tremors, a trial dose of propranolol is proposed, with neurologic referral endorsed to address any side effects. The route for managing reported fibromyalgia pain was highlighted through rheumatologic recommendations and potential appointments with specialists. Full understanding and consent for these approaches, including medication adjustments and diagnostics, was ensured. Orders: Orders Liver Panel Today R74.01 - Elevation of levels of liver transaminase levels US abdomen barnett w elastography Today R74.01 - Elevation of levels of liver transaminase levels CA echo transthoracic complete Today R01.1 - Cardiac murmur, unspecified, R06.02 - Shortness of breath, R79.89 - Other specified abnormal findings of blood chemistry Hepatitis A,B,C Profile Today R74.01 - Elevation of levels of liver transaminase levels Complete Blood Count Auto Diff Today D64.9 - Anemia, unspecified IRON PROFILE Today D64.9 - Anemia, unspecified Vitamin B12 and Folate Today E53.8 - Deficiency of other specified B group vitamins Medications: New lisinopril 20 mg PO DAILY 90 tabs 1RF 90 days Refilled ibuprofen 800 mg PO Q8H PRN 90 tabs 2RF pain 30 days tramadol 50 mg PO Q8H PRN 90 tabs 0RF pain 30 days Discontinued furosemide (Lasix) Discontinued Reason: Patient Completed Course 20 mg PO DAILY 7 tabs 0RF lisinopril Discontinued Reason: Patient Completed Course 10 mg PO DAILY 90 days 90 tabs 1RF I10 - Essential (primary) hypertension hydrochlorothiazide Discontinued Reason: Patient Completed Course 25 mg PO DAILY 30 days 30 tabs 1RF Patient Instructions: - Stop taking hydrochlorothiazide and start a 20 mg dosage of lisinopril as directed. - Continue using your inhalers, such as Singulair and Dulera, for asthma management. - Schedule your abdominal ultrasound and complete the hepatitis panel as soon as possible. - Begin taking propranolol for tremors as prescribed. - Follow-up with neurology for further tremor assessment. - Keep taking your psychiatric medications as directed, and collaborate with your psychiatrist on any needed adjustments. - Schedule regular check-ups to monitor your health and medication efficacy. - Report any new or worsening symptoms to the clinic immediately.
--- OUTSIDE RECORDS SUMMARY | 2024-09-29 08:08 | XMS_ITS | Clinical Summary ---
Author Organization [facility] Address [address] [place] [address] Care Team Providers Care Film Laboratory Technician Name Role Phone Unavailable Primary Care Provider [...] Zoster (Shingles) Vaccine (1 of 2) 2023 COVID-19 Vaccine (1 - 2023- season) 2024 Influenza Vaccine 12/19/2024 03/11/2014 Insurance [facility] MEDIC[facility] PART A & B [facility] [place] OUT [place]WORK
--- OUTSIDE RECORDS SUMMARY | 2024-09-29 08:09 | XMS_ITS | Clinical Summary ---
Author Organization [facility] Address [address] [place] [address] Phone Care Team Providers Care Manager Store Name Role Phone Physician, Pcp Unknown Primary Care Provider Tabatha vailable Encounters Date Type Department Care Team Description 09/09/2024 12:08 PM EDT - 09/09/2024 5:15 PM EDT Emergency [facility] Emergency [address] [place] [address] Discharge Disposition: Home or Self [...] patient's age to complete this topic Insurance [facility] MEDICARE Member Subscriber Plan / Payer (Ef fective 2016-Present) Name:Amira Nicholas Relation to Subscriber:Self Name:Amira Nicholas Payer ID:[id number] Group ID:[id number] Type:Not on file Address: [address] [place] [address] Care Teams Manager Store Relationship Specialty Start Date End Date Physician, Pcp Unknown PCP - General 09/09/24
--- OUTSIDE RECORDS SUMMARY | 2024-09-29 08:09 | XMS_ITS | Clinical Summary ---
Author Organization [facility] Address [address] [place] [address] Care Team Providers Care Weight Trainer Name Role Phone Neelima Lima PA-C Primary Care Provider [phone] Source Comments PLEASE NOTE, if this patient [...] last done 03/16/2015 Dr. Samreen Reyes MD [facility] Machine Packager. Recurrent major depression i n partial remission ([facility] V[facility]) 05/31/2015 Migraine aura, persistent 05/31/2015 Midline [...] Plan of Treatment Not on file [place] Care Teams Weight Trainer Relationship Specialty Start Date End Date Neelima Lima PA-C [address] [place] [phone] PCP - General Internal Medicine 05/19/16
[2024-09-29 08:10] VITALS: BP 140/80; BMI 24.6
== END 2024-09-29 08:30 | disposition home or self-care (01) ==
LOC: HO.HMCH 08:04
PROVIDERS: PCP Internal Medicine; Visit Provider Internal Medicine
DX: R74.01 Elevation of levels of liver transaminase levels (principal); G25.0 Essential tremor; F33.1 Major depressive disorder, recurrent, moderate; I10 Essential (primary) hypertension; J45.909 Unspecified asthma, uncomplicated

== ENCOUNTER → 2024-09-29 08:03 | Outpatient (BNVA) | payer OTHER, SELFPAY | PROVIDERS: PCP Internal Medicine; Visit Provider Internal Medicine | DX: R74.01 Elevation of levels of liver transaminase levels (principal); G25.0 Essential tremor; F33.1 Major depressive disorder, recurrent, moderate; I10 Essential (primary) hypertension; J45.909 Unspecified asthma, uncomplicated | CPT/HCPCS: 96127; 99212 ==

== ENCOUNTER 2024-10-01 08:46 | Outpatient (REF) | payer OTHER, SELFPAY ==
--- NOTE | ~2024-10-01 | XR_ITS ---
EXAMINATION: XR CHEST CLINICAL INFORMATION: J45.40 - Moderate persistent asthma, uncomplicated COMPARISON: 09/09/2024. TECHNIQUE: 2 views of the chest were obtained. FINDINGS: The cardiac, hilar, and mediastinal contours are normal. The lungs are clear bilaterally. There is no pneumothorax or pleural effusion. There is no focal osseous or soft tissue abnormality. XR/XR chest 2V IMPRESSION: No active pulmonary disease. Electronically signed by: Greg Finnegan MD 10/01/2024 10:41 AM EDT
[2024-10-01 09:36] LABS: MANUAL DIFF FLAG NO
--- OUTSIDE RECORDS SUMMARY | 2024-10-01 09:36 | XMS_ITS | Clinical Summary ---
Author Organization [facility] Address [address] [place] [address] Care Team Providers Care University Registrar Name Role Phone Neelima Lima PA-C Primary Care Provider [phone] Source Comments PLEASE NOTE, if this patient [...] last done 03/16/2015 Dr. Samreen Reyes MD [facility] Derrick Car Operator. Recurrent major depression i n partial remission ([facility] V24) 05/31/2015 Migraine aura, persistent 05/31/2015 [...] Plan of Treatment Not on file [place] Care Teams University Registrar Relationship Specialty Start Date End Date Neelima Lima PA-C [address] [place] [id number] PCP - General Internal Medicine 05/19/16
--- OUTSIDE RECORDS SUMMARY | 2024-10-01 09:36 | XMS_ITS | Clinical Summary ---
Author Organization [facility] Address [address] [place] [address] Care Team Providers Care Insurance Adviser Name Role Phone Unavailable Primary Care Provider [...] 12/19/2024 03/11/2014 Insurance [facility] MEDICARE PART A & B [facility] MGD MEDICARE OUT OF NETWORK
--- OUTSIDE RECORDS SUMMARY | 2024-10-01 09:36 | XMS_ITS | Clinical Summary ---
Author Organization [facility] Address [address] [place] [address] Phone Care Team Providers Care Hydrogen Power Plant Manager Name Role Phone Physician, Pcp Unknown Primary Care Provider Tabatha vailable Encounters Date Type Department Care Team Description 09/09/2024 12:08 PM EDT - 09/09/2024 5:[address] [facility] Emergency [address] [place] [address] Discharge Disposition: Home or Self [...] patient's age to complete this topic Insurance [facility] MEDICARE Member Subscriber Plan / Payer (Ef fective 2016-Present) Name:Amira Nicholas Relation to Subscriber:Self Name:Amira Nicholas Payer ID:[id number] Group ID:[id number] Type:Not on file Address: [address] [place] [address] Care Teams Hydrogen Power Plant Manager Relationship Specialty Start Date End Date Physician, Pcp Unknown PCP - General 09/09/24
[2024-10-01 10:26] LABS: Basophils Percent Auto 0.2 % (0-2); Eosinophils Percent Auto 0.9 % (0-4); Hematocrit 33.8 % (37.0-47.0); Hemoglobin 11.3 g/dl (12.0-16.0); Imm Gran Abs Auto 0.01 X10*3/uL (0.00-0.03); Imm Gran Pct Auto 0.2 % (0.0-0.4); Lymphocytes Absolute Auto 1.9 X10*3/uL (1.2-4.9); Lymphocytes Percent Auto 43.2 % (20-40); Mean Corpuscular HGB Conc 33.4 g/dl (31.0-35.0); Mean Corpuscular Hemoglobin 29.7 pg (27.0-33.0); Mean Corpuscular Volume 88.7 fL (80.0-98.0); Mean Platelet Volume 9.7 fL (9.4-12.3); Monocytes Absolute Auto 0.4 X10*3/uL (0.1-1.2); Neutrophils Absolute Auto 1.9 x10*3/uL (2.0-8.3); Neutrophils Percent Auto 45.5 % (45-73); Platelet Count 317 X10*3/uL (160-400); Red Blood Count 3.81 X10*6/uL (4.20-5.50); Red Cell Distribution Width 12.5 % (11.0-16.0); White Blood Count 4.3 X10*3/uL (4.8-10.8)
[2024-10-01 11:05] LABS: Alanine Aminotransferase 26 U/L (0-31); Albumin Level 3.8 g/dL (3.5-5.0); Alkaline Phosphatase 160 U/L (39-117); Anion Gap 13 (12-20); Aspartate Amino Transferase 28 U/L (5-31); Bilirubin Direct 0.3 mg/dL (0.0-0.5); Bilirubin Total 1.1 mg/dL (0.0-1.0); Blood Urea Nitrogen 16 mg/dL (9-16); Calcium 9.9 mg/dL (8.4-10.2); Carbon Dioxide 27 mmol/L (22-29); Chloride 107 mmol/L (96-108); Cholesterol 160 mg/dL (<200); Estimated Glomerular Filt Rate > 60; Glucose Fasting 114 mg/dL (60-99); HDL Cholesterol 61 mg/dL (>40); Iron 112 mcg/dL (30-160); LDL Cholesterol Calculated 84 mg/dL (<100); Lipase 39 U/L (8-78); Percent Iron Saturation 45 % (15-50); Potassium 4.2 mmol/L (3.3-5.1); Sodium 143 mmol/L (135-145); Total Iron Binding Capacity 248 mcg/dL (228-428); Total Protein 7.2 g/dL (6.5-8.0); Triglycerides 77 mg/dL (<150); Unsaturated Iron Binding 136 ug/dL
[2024-10-01 11:11] LABS: HBS Num1 0.26 mIU/mL (0-7.99); HBc Num1 0.07 S/CO (0.00-0.79); Hepatitis A Antibody IgM 0.34 Index (0-0.79); Hepatitis B Core Antibody Nonreactive (Nonreactive); Hepatitis B Surface Antigen Negative (Negative); ~HepC Num1 0.11 S/CO (0.00-0.79); ~Hepatitis A Antibody IgM Nonreactive (Nonreactive); ~Hepatitis B Surface Antibody NONREACTIVE (Nonreactive); ~Hepatitis C Antibody Nonreactive (Nonreactive)
[2024-10-01 11:20] LABS: Folate 5.9 ng/mL (> or = 4.0); Vitamin B12 1033 pg/mL (200-900)
[2024-10-01 11:22] LABS: Erythrocyte Sedimentation Rate 28 MM/HR (0-20)
[2024-10-02 20:42] LABS: Antibody to SS-A Antigen <1.0 NEG AI (<1.0 NEG); Antibody to SS-B Antigen <1.0 NEG AI (<1.0 NEG); Myeloperoxidase Antibody <1.0 AI; Proteinase 3 PR3 Antibodies <1.0 AI
[2024-10-03 17:39] LABS: Cyclic Citrullinated Peptide <16 UNITS
[2024-10-06 02:48] LABS: CK-BB 2 % (None Detected); CK-MB 0 % (<5); CK-MM 98 % (95-100); Creatine Kinase Isoenzyme Itrp BB BAND PRESENT.; Creatine Kinase,Total,Serum 29 U/L (21-240)
[2024-10-08 08:03] LABS: Anti Nuclear Antibody Screen NEGATIVE (NEGATIVE)
== END 2024-10-01 08:47 | disposition home or self-care (01) ==
LOC: HO.XRAY 08:46
PROVIDERS: Absent Provider Internal Medicine; PCP Internal Medicine; Visit Provider Hospitalist
DX: G72.9 Myopathy, unspecified (principal); J45.40 Moderate persistent asthma, uncomplicated; R06.02 Shortness of breath; E78.5 Hyperlipidemia, unspecified; E66.9 Obesity, unspecified; E53.8 Deficiency of other specified B group vitamins; D64.9 Anemia, unspecified; R74.01 Elevation of levels of liver transaminase levels
CPT/HCPCS: 36415; 71046; 80053; 80061; 80076; 82248; 82552; 82607; 82746; 83540; 83690; 85025; 85652; 86021; 86038; 86200; 86235; 86704; 86706; 86709; 86803; 87340; 99212

== ENCOUNTER 2024-10-01 08:46 | Outpatient (AMB) | payer OTHER, SELFPAY ==
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
[2024-10-01 08:51] VITALS: BP 122/62; PULSE 78; O2SAT 100; BMI 24.4
--- OUTSIDE RECORDS SUMMARY | 2024-10-01 09:06 | XMS_ITS | Clinical Summary ---
Author Organization [facility] Address [address] [place] [address] Care Team Providers Care Braille Duplicating Machine Operator Name Role Phone Neelima Lima PA-C Primary Care Provider [phone] Source Comments PLEASE NOTE, if this patient [...] last done 03/16/2015 Dr. Samreen Reyes MD [facility] Record Center Specialist. Recurrent major depression i n partial remission ([facility] V24) 05/31/2015 Migraine aura, persistent 05/31/2015 Midline [...] Plan of Treatment Not on file Insurance [place] Care Teams Braille Duplicating Machine Operator Relationship Specialty Start Date End Date Neelima Lima PA-C [address] [place] [id number] PCP - General Internal Medicine 05/19/16
--- OUTSIDE RECORDS SUMMARY | 2024-10-01 09:06 | XMS_ITS | Clinical Summary ---
Author Organization [facility] Address [address] [place] [address] Care Team Providers Care Rn Testing Name Role Phone Unavailable Primary Care Provider [...] season) 2024 Influenza Vaccine 12/19/2024 03/11/[address] [facility] MEDICARE PART A & B [facility] MGD MEDICARE OUT OF NETWORK
== END 2024-10-01 09:07 | disposition home or self-care (01) ==
LOC: HO.HPS 08:47
PROVIDERS: PCP Internal Medicine; Visit Provider Hospitalist
DX: J45.40 Moderate persistent asthma, uncomplicated (principal); J98.4 Other disorders of lung; R06.02 Shortness of breath
CPT/HCPCS: 99214

== ENCOUNTER → 2024-10-01 09:37 | Outpatient (BNV) | payer OTHER, SELFPAY | PROVIDERS: Absent Provider Internal Medicine; PCP Internal Medicine; Visit Provider Radiology Diagnostic Radiology | DX: J45.40 Moderate persistent asthma, uncomplicated (principal) | CPT/HCPCS: 71046 ==

== ENCOUNTER 2024-10-07 09:35 | Emergency (ER) | payer OTHER, SELFPAY ==
--- NOTE | ~2024-10-07 | XR_ITS ---
EXAMINATION: XR THORACIC SPINE CLINICAL INFORMATION: midline pain COMPARISON: None available. TECHNIQUE: 3 views of the thoracic spine were obtained. FINDINGS: There is a mild right convex scoliosis of the upper thoracic spine, apex at T6. There is a normal kyphosis. There is normal sagittal alignment without subluxation. There is no gross fracture, compression deformity, or suspicious bone lesion evident. Very mild degenerative disc changes are present throughout the thoracic spine. The facets are normally aligned. The imaged soft tissues, mediastinal contents, and lungs appear normal. XR/XR thoracic spine 3V IMPRESSION: No acute findings of the thoracic spine. Mild thoracic spondylosis. Electronically signed by: Greg Finnegan MD 10/07/2024 10:29 AM EDT RP
[2024-10-07 10:07] VITALS: BP 131/65; PULSE 93; RESP 16; TEMP 36.3; O2SAT 100; BMI 24.4
--- NOTE | 2024-10-07 11:20 | ED.BACK ---
HPI - Back Pain/Injury General Chief Complaint: Back Pain/Injury Stated Complaint: Back pain Time Seen by Provider: 10/07/24 11:19 Source: patient Mode of arrival: ambulatory Limitations: no limitations History of Present Illness ED Provider: Jeremias Whaley PA-C HPI Narrative: 49 yo female with history of asthma, constipation, depression, lymphedema, pneumonia, tremor, anxiety, chronic pain on chronic opiates who presents to the ER for evaluation of low back pain for the last 1 week. No trauma or injury. She has had back pain like this before. It radiates down her legs with certain movements and is worse with walking. She has been taking ibuprofen and her tramadol with no improvement. no bowel or bladder incontinence. no LE weakness, numbness or tingling. no fever or chills. no urinary symptoms. MD elicited complaint: back pain Onset (ago): week(s) (1) Timing: constant Severity: moderate Similar Symptoms Previously: Yes Location: lumbar spine Radiation: left upper leg and right upper leg Exacerbating factors: none Relieving factors: supine Context: unknown Associated symptoms: denies other symptoms Treatments prior to arrival: NSAIDS Work related injury: No Related Data Home Medications ?Medication ?Instructions ?Recorded ?Confirmed bupropion HCl 150 mg 24 hr tablet, mg PO 03/23/20 09/29/24 extended release clonazepam 1 mg tablet 1 mg PO TID PRN 03/23/20 09/29/24 zolpidem 10 mg tablet 10 mg PO BEDTIME PRN 03/23/20 09/29/24 cetirizine 10 mg tablet 10 mg PO DAILY 11/04/20 09/29/24 escitalopram oxalate 10 mg tablet 10 mg PO DAILY 10/13/21 09/29/24 ofloxacin 0.3 % eye drops 2 drp ophthalmic (eye) 08/21/22 09/29/24 tobramycin 0.3 %-dexamethasone 0.1 1 drp ophthalmic (eye) TID 08/21/22 09/29/24 % eye drops,suspension timolol maleate 0.5 % eye drops drp ophthalmic (eye) 02/12/23 09/29/24 Previous Rx's ?Medication ?Instructions ?Recorded fluticasone propionate 44 1 puff inhalation BID 30 days 11/04/20 mcg/actuation HFA aerosol inhaler #10.6 grams (Flovent HFA) nebulizers (VixOne Nebulizer-Adult #1 ea 04/22/21 Mask) albuterol sulfate 2.5 mg/3 mL 2.5 mg (3 mL) inhalation Q4H PRN 08/21/22 (0.083 %) solution for nebulization shortness of breath or wheezing 30 days #180 mL underpads (Bed Underpads) #100 ea 02/08/23 Incruse Ellipta 62.5 mcg/actuation 1 inh inhalation DAILY #30 ea 02/12/23 powder for inhalation (umeclidinium) mometasone-formoterol HFA 200 2 puff inhalation Q12H 30 days #13 02/12/23 mcg-5 mcg/actuation aerosol grams inhaler (Dulera) cane #1 ea 03/28/23 non slip bath mat #1 ea 08/14/23 walker (Ultra-Light Rollator misc) #1 ea 08/14/23 silver sulfadiazine 1 % topical 1 appl topical DAILY 1 week #20 09/19/23 cream (Silvadene) grams incontinence pad, liner, disp #60 ea 10/04/23 albuterol sulfate 90 mcg/actuation 2 puff inhalation Q4-6H PRN 12/10/23 aerosol inhaler shortness of breath or wheezing #1 ea compression stockings knee high #2 ea 01/24/24 thin panty liners #90 ea 02/01/24 wipes #120 ea 02/01/24 montelukast 10 mg tablet 10 mg PO DAILY #30 tabs 03/04/24 aspirin 81 mg tablet,delayed 81 mg PO DAILY 90 days #90 tabs 03/05/24 release ondansetron 4 mg disintegrating 4 mg PO Q8H PRN nausea and 05/01/24 tablet vomiting #10 tabs docusate calcium 240 mg capsule 240 mg PO BEDTIME PRN constipation 05/12/24 90 days #90 caps mecobalamin (vitamin B12) 5,000 5,000 mcg PO DAILY 30 days #30 tabs 09/03/24 mcg disintegrating tablet ibuprofen 800 mg tablet 800 mg PO Q8H PRN pain 30 days #90 09/29/24 tabs lisinopril 20 mg tablet 20 mg PO DAILY 90 days #90 tabs 09/29/24 tramadol 50 mg tablet 50 mg PO Q8H PRN pain 30 days #90 09/29/24 tabs cyclobenzaprine 10 mg tablet 10 mg PO TID PRN muscle spasm #10 10/07/24 tabs prednisone 20 mg tablet 40 mg (2 x 20 mg) PO DAILY #8 tabs 10/07/24 Allergies Allergy/AdvReac Type Severity Reaction Status Date / Time gabapentin Allergy Intermediate abdominal Verified 10/07/24 10:10 pain semaglutide [From Wegovy] Allergy Intermediate termons Verified 10/07/24 10:10 Review of Systems Review of Systems: Yes all other systems are reviewed and are negative [facility] Past Medical History Medical History (Updated 10/07/24 @ 12:12 by ROCKY Agrawal) Myopathy Dyspnea Pneumonia Rib fracture Pleural effusion Chest pain HPV (human papilloma virus) infection Chronic restrictive lung disease Arm pain, chronic Knee pain STEPHANIE positive Chronic restrictive lung disease Mild recurrent major depression Polyarthralgia Asthma History of DVT of lower extremity Urge urinary incontinence Chronic restrictive lung disease Reactive airway disease 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 Social History Social History Housing: House Alcohol intake: never Patient Tobacco Use Status: Never used Tobacco e-Cigarette/Vaping Use: Never Used Second Hand Smoke Exposure: No Advance Directives: No Advance Directives Information Provided: No service: No Current occupational status: unemployed Cognitive needs: No Hearing needs: No Vision needs: No Physical Exam Vital Signs: Vital Signs: Last Vital Signs Temp 97.5 F 10/07/24 12:21 Pulse 93 10/07/24 12:21 Resp 18 10/07/24 12:21 BP 154/77 H 10/07/24 12:21 Pulse Ox 98 10/07/24 12:21 O2 Del Method Room Air 10/07/24 12:21 BMI result Body Mass Index 24.4 Appearance: Alert. Oriented X3. No acute distress. HEENT: normal external inspection Neck: Normal inspection. Neck supple. CVS: Normal heart rate and rhythm. Pulses normal. Respiratory: No respiratory distress. Breath sounds normal. Abdomen: Soft and nontender. +BS x4 Back: no midline tenderness of the thoracic spine. the middle and lower lumbar areas with soft tissue tenderness centrally. no SI joint tenderness. negative straight leg raise test. Skin: Skin warm and dry. Normal skin color. Normal skin turgor. No rashes. Extremities: No lower extremity edema. No joint swelling. Neuro/psych: Oriented X 3. No motor deficit. No sensory deficit. CN II-XII intact. Normal speech and cognition. slow but steady gait Medications Administered Discontinued Medications Generic Name Dose Route Start Last Admin Trade Name Freq PRN Reason Stop Dose Admin Acetaminophen 975 mg 10/07/24 11:47 10/07/24 11:54 Acetaminophen 325 Mg Tablet PO 10/07/24 11:48 975 mg ONCE ONE Administration Cyclobenzaprine HCl 10 mg 10/07/24 11:47 10/07/24 11:54 Cyclobenzaprine Hcl 10 Mg Tablet PO 10/07/24 11:48 10 mg ONCE ONE Administration Prednisone 40 mg 10/07/24 11:47 10/07/24 11:54 Prednisone 20 Mg Tablet PO 10/07/24 11:48 40 mg ONCE ONE Administration Medical Decision Making Medical Decision Making MDM Narrative: 49 yo female presenting to the ER for evaluation of lower back pain x1 week. no trauma. she reports pain shoots down both legs. no red flag symptoms of low back pain XR thoracic spine ordered from triage, no acute abnormality or injury. no urinary symptoms. given flexeril and prednisone with concern for radiculopathy. she is already on tramadol at home will d/c with these meds and refer to PCP for possible PT. stable for d/c home Differential Diagnosis Differential Diagnoses: The differential diagnosis associated with the presentation includes Inflammatory disorders, malignancy, trauma, osteoporosis, nerve root compression, radiculopathy, plexopathy, degenerative disc disease, disc herniation, spinal stenosis, sacroiliac joint dysfunction, facet joint injury, and less likely infection?like abscess or diskitis Independent Interpretation I performed an independent interpretation of an: Plain X-Ray Interpretation: xr without acute fx or misalignment Radiology Impression Discussion of test interpretation with radiology: I have reviewed the radiologist's reading. External Record Review External record reviewed: Outpatient record, Prior outpatient labs and Prior outpatient radiology Tests considered The following testing was considered but not selected: XR lumbar spine considered - no trauma Prescription Management I considered prescription management with: Pain Medication Chronic Conditions Patient?s care impacted by: Other (chronic pain on chronic opiates) Critical Care Time Critical Care Time Critical Care Time: No Discharge Plan Discharge Clinical Impression: Lumbar radiculopathy Patient Disposition: Home, Self-Care Instructions: Lumbar Radiculopathy (ED), Lower Back Exercises (ED) Additional Instructions: Your x-ray did not show any acute abnormalities. Use ice several times per day for 20 minutes at a time for the next 48 hours and then change to heat. Take medications as prescribed to help with pain and discomfort. Follow up with your Primary Care Doctor this week. Recommend following up with the customer resource specialist - call for an appointment, number below. If your pain worsens, if you develop new numbness, tingling, weakness, loss of function or incontinence call 911 or come back to the ER right away for evaluation. Prescriptions: New prednisone 20 mg tablet 40 mg PO DAILY Qty: 8 0RF cyclobenzaprine 10 mg tablet 10 mg PO TID PRN (Reason: muscle spasm) Qty: 10 0RF No Action (DME) VixOne Nebulizer-Adult Mask Misc See Rx Instructions .Route Qty: 1 0RF Rx Instructions: As directed albuterol sulfate 2.5 mg /3 mL (0.083 %) solution for nebulization 2.5 mg inhalation Q4H PRN (Reason: shortness of breath or wheezing) 30 Days Qty: 180 11RF (DME) underpads [Bed Underpads] Pad See Rx Instructions .Route Qty: 100 11RF Rx Instructions: Use 4 bed pads per day (DME) Ultra-Light Rollator Misc See Rx Instructions .Route Qty: 1 0RF Rx Instructions: As directed (DME) non slip bath mat See Rx Instructions .Route .MEDSUPPLY Qty: 1 0RF Rx Instructions: As directed (DME) incontinence pad, liner, disp Pad See Rx Instructions .Route Qty: 60 6RF Rx Instructions: USe 1 to 2 pads per day as needed (DME) wipes See Rx Instructions .Route .MEDSUPPLY Qty: 120 6RF Rx Instructions: Use 4 times a day as needed (DME) thin panty liners See Rx Instructions .Route .MEDSUPPLY Qty: 90 11RF Rx Instructions: As directed montelukast 10 mg tablet 10 mg PO DAILY Qty: 30 11RF aspirin 81 mg tablet,delayed release (DR/EC) 81 mg PO DAILY 90 Days Qty: 90 3RF mecobalamin (vitamin B12) 5,000 mcg tablet,disintegrating 5,000 mcg PO DAILY 30 Days Qty: 30 0RF ondansetron 4 mg tablet,disintegrating 4 mg PO Q8H PRN (Reason: nausea and vomiting) Qty: 10 0RF cetirizine 10 mg tablet 10 mg PO DAILY Flovent HFA 44 mcg/actuation HFA aerosol inhaler 1 puff inhalation BID 30 Days Qty: 10.6 4RF Rx Instructions: administer with spacer zolpidem 10 mg tablet 10 mg PO BEDTIME PRN clonazepam 1 mg tablet 1 mg PO TID PRN bupropion HCl 150 mg tablet extended release 24 hr PO (DME) cane Device See Rx Instructions .Route Qty: 1 0RF Rx Instructions: As directed silver sulfadiazine [Silvadene] 1 % cream 1 appl topical DAILY 7 Days Qty: 20 0RF Rx Instructions: apply a 1.5 mm thickness (DME) compression stockings knee high 40 mmHg See Rx Instructions .Route .MEDSUPPLY Qty: 2 6RF Rx Instructions: As directed escitalopram oxalate 10 mg tablet 10 mg PO DAILY timolol maleate 0.5 % drops ophthalmic (eye) Dulera 200-5 mcg/actuation HFA aerosol inhaler 2 puff inhalation Q12H 30 Days Qty: 13 11RF Incruse Ellipta 62.5 mcg/actuation blister with device 1 inh inhalation DAILY Qty: 30 11RF docusate calcium 240 mg capsule 240 mg PO BEDTIME PRN (Reason: constipation) 90 Days Qty: 90 0RF ofloxacin 0.3 % drops 2 drp ophthalmic (eye) tobramycin-dexamethasone 0.3-0.1 % drops,suspension 1 drp ophthalmic (eye) TID albuterol sulfate 90 mcg/actuation HFA aerosol inhaler 2 puff inhalation Q4-6H PRN (Reason: shortness of breath or wheezing) Qty: 1 11RF tramadol 50 mg tablet 50 mg PO Q8H PRN (Reason: pain) 30 Days Qty: 90 0RF ibuprofen 800 mg tablet 800 mg PO Q8H PRN (Reason: pain) 30 Days Qty: 90 2RF lisinopril 20 mg tablet 20 mg PO DAILY 90 Days Qty: 90 1RF Referrals: New Borrero MD, PhD [Physician] - Stephanie Solano MD [Primary Care Provider] - Interventions: ED Discharge Assessment Last Done: 10/07/24 12:21 Discharge Date/Time: 10/07/24 12:21 Print Language: Bhutanese
--- OUTSIDE RECORDS SUMMARY | 2024-10-07 11:49 | XMS_ITS | Clinical Summary ---
Author Organization [facility] Address [address] [place] [address] Phone Care Team Providers Care Body Designer Name Role Phone Physician, Pcp Unknown Primary Care Provider Tabatha vailable Encounters Date Type Department Care Team Description 09/09/2024 12:08 PM EDT - 09/09/2024 5:15 PM EDT Emergency [facility] Emergency [address] [place] [address] Discharge Disposition: Home or Self [...] patient's age to complete this topic Insurance [facility] MEDICARE Member Subscriber Plan / Payer (Ef fective 2016-Present) Name:Amira Nicholas Relation to Subscriber:Self Name:Amira Nicholas Payer ID:[id number] Group ID:[id number] Type:Not on file Address: [address] [place] [address] Care Teams Body Designer Relationship Specialty Start Date End Date Physician, Pcp Unknown PCP - General 09/09/24
--- OUTSIDE RECORDS SUMMARY | 2024-10-07 11:49 | XMS_ITS | Clinical Summary ---
Author Organization [facility] Address [address] [place] [address] Care Team Providers Care Head Screen Worker Name Role Phone Neelima Lima PA-C Primary Care Provider [phone] Source Comments PLEASE NOTE, if this patient [...] last done 03/16/2015 Dr. Samreen Reyes MD [facility] Material Assistant. Recurrent major depression i n partial remission [...] Plan of Treatment Not on file [place] Care Teams Head Screen Worker Relationship Specialty Start Date End Date Neelima Lima PA-C [address] [place] [id number] PCP - General Internal Medicine 05/19/16
--- OUTSIDE RECORDS SUMMARY | 2024-10-07 11:49 | XMS_ITS | Clinical Summary ---
Author Organization [facility] Address [address] [place] [address] Care Team Providers Care External Relations Manager Name Role Phone Unavailable Primary Care [...] season) 2024 Influenza Vaccine 12/19/2024 03/11/2014 Insurance [facility] MEDICARE PART A & B [facility] MEDIC[facility] OUT OF NETWORK
[2024-10-07] MEDS: predniSONE 20 MG TABLET 40 MG PO (11:54)
[2024-10-07] MEDS: Cyclobenzaprine HCl 10 MG TABLET PO (11:54)
[2024-10-07] MEDS: Acetaminophen 325 MG TABLET 975 MG PO (11:54)
[2024-10-07 12:19] VITALS: BP 154/77; PULSE 93; RESP 18; TEMP 36.4; O2SAT 98
[2024-10-07 12:21] VITALS: BP 154/77; PULSE 93; RESP 18; TEMP 36.4; O2SAT 98
== END 2024-10-07 12:21 | disposition home or self-care (01) ==
PROVIDERS: Emergency Provider Emergency Medicine; PCP Internal Medicine
DX: M54.16 Radiculopathy, lumbar region (principal); M54.6 Pain in thoracic spine
CPT/HCPCS: 72072; 99283

== ENCOUNTER → 2024-10-07 10:24 | Outpatient (BNV) | payer OTHER, SELFPAY | PROVIDERS: PCP Internal Medicine; Visit Provider Radiology Diagnostic Radiology | DX: M54.6 Pain in thoracic spine (principal) | CPT/HCPCS: 72072 ==

== ENCOUNTER 2024-10-09 10:57 | Outpatient (REF) | payer OTHER, SELFPAY ==
--- OUTSIDE RECORDS SUMMARY | 2024-10-09 12:18 | XMS_ITS | Clinical Summary ---
Author Organization [facility] Address [address] [place] [address] Phone Care Team Providers Care Supervisor Painting Shipyard Name Role Phone Physician, Pcp Unknown Primary Care Provider Tabatha vailable Encounters Date Type Department Care Team Description 09/09/2024 12:08 PM EDT - 09/09/2024 5:15 PM EDT Emergency [facility] Emergency [address] [place] [address] Discharge Disposition: Home or Self [...] to complete this topic Insurance [facility] MEDICARE Member Subscriber Plan / Payer (Ef fective 2016-Present) Name:Amira Nicholas Relation to Subscriber:Self Name:Amira Nicholas Payer ID:[id number] Group ID:[id number] Type:Not on file Address: [address] [place] [address] Care Teams Supervisor Painting Shipyard Relationship Specialty Start Date End Date Physician, Pcp Unknown PCP - General 09/09/24
--- OUTSIDE RECORDS SUMMARY | 2024-10-09 12:18 | XMS_ITS | Clinical Summary ---
Author Organization [facility] Address [address] [place] [address] Care Team Providers Care Production Lapping Machine Operator Name Role Phone Neelima Lima PA-C Primary Care Provider [phone] Source Comments PLEASE NOTE, if this patient [...] last done 03/16/2015 Dr. Samreen Reyes MD [facility] Agricultural Consultant. Recurrent major depression i n partial remission ([facility] V24) 05/31/2015 Migraine aura, persistent 05/31/2015 Midline [...] Plan of Treatment Not on file [place] Care Teams Production Lapping Machine Operator Relationship Specialty Start Date End Date Neelima Lima PA-C [address] [place] [id number] PCP - General Internal Medicine 05/19/16
--- OUTSIDE RECORDS SUMMARY | 2024-10-09 12:18 | XMS_ITS | Clinical Summary ---
Author Organization [facility] Address [address] [place] [address] Care Team Providers Care Oncology Specialist Name Role Phone Unavailable Primary Care [...] season) 2024 Influenza Vaccine 12/19/2024 03/11/2014 Insurance [facility] MEDICARE PART A & B [facility] [place] OUT OF NETWORK
== END 2024-10-09 10:58 | disposition home or self-care (01) ==
LOC: HO.LNP 10:57
PROVIDERS: PCP Internal Medicine; Visit Provider Obstetrics & Gynecology
DX: R87.610 Atypical squamous cells of undetermined significance on cytologic smear of cervix (ASC-US) (principal)
CPT/HCPCS: 57454; 88305

== ENCOUNTER 2024-10-09 10:57 | Outpatient (AMB) | payer OTHER, SELFPAY ==
--- NOTE | 2024-10-09 11:12 | MHC.OFFVIS ---
Vital Signs 10/09/24 11:13 Height 5 ft 7 in Weight 156 lb BMI 24.4 Intake Visit Reasons: Colposcopy Rest Room Maid Required: Yes Rest Room Maid Language: Director Oracle Database Services: Rest Room Maid Present (in person) Rest Room Maid Name: Katie PAIZ Information Interpreted: non-clinical & clinical Postal Worker: Postal Worker Present (Katie PAIZ) Accompanied by: Self / Same As Patient Allergies gabapentin Allergy (Intermediate, Verified 10/09/24 11:16) abdominal pain semaglutide [From Wegovy] Allergy (Intermediate, Verified 10/09/24 11:16) termons Post menopausal: Yes HPI Comments Details: Presenting for ascus HPV negative, the patient had HPV positive or negative Pap in 2020 [facility] Medical History Myopathy Dyspnea Pneumonia Rib fracture Pleural effusion Chest pain HPV (human papilloma virus) infection Chronic restrictive lung disease Arm pain, chronic Knee pain JABARI positive Chronic restrictive lung disease Mild recurrent major depression Polyarthralgia Asthma History of DVT of lower extremity Urge urinary incontinence Chronic restrictive lung disease Reactive airway disease [id number] syndrome Obese Depression with anxiety Dyspnea Anxiety Hypertension Arthritis Encounter for follow-up for hypertension Surgical History History of tubal ligation H/O breast biopsy H/O LEEP Family History Father Liver cancer Mother Hypertension Diabetes CVD (cardiovascular disease) Maternal Grandmother Throat cancer Son No problems noted. Social History Housing: House Alcohol intake: never Patient Tobacco Use Status: Never used Tobacco e-Cigarette/Vaping Use: Never Used Second Hand Smoke Exposure: No service: No Current occupational status: unemployed Cognitive needs: No Hearing needs: No Vision needs: No Female Reproductive History Menstrual Age of Menarche: 9 Review of Systems Const All systems reviewed & are unremarkable except as noted in HPI and below Reports as per HPI and Reports no additional complaints GI Reports no additional complaints Reports no additional complaints Physical Exam Vital Signs: BMI result Body Mass Index 24.4 Office Procedures Colposcopy Colposcopy: Pre-Procedure Counseling: Before beginning the procedure, I conducted comprehensive counseling with the patient. We thoroughly discussed the procedure itself, including its details, alternatives, and all associated risks. This included but not limited to the following complications such as bleeding, infection, and injury to the vagina, bladder, and vessels, as well as the potential need for transfusion with all its associated risks. Subsequently, the patient sign the consent. Urine test done in the office was negative Pap smear result: Ascus/HPV negative. Procedure: During the procedure, the following steps were performed: A speculum was inserted, and acetic acid was applied. Colposcopy was conducted, allowing visualization of the transformation zone. Acetowhite lesions were identified at the 5+ 12 o'clock position. Cervical biopsies were obtained from the 5+ 12 o'clock position, followed by an endocervical curettage (ECC). Vaginoscopy of the upper vagina revealed no evidence of aceto-white lesions. Hemostasis was achieved using Monsel solution, and the patient tolerated the procedure well. Post-Procedure Instructions: The patient was advised to promptly contact the office or the after hours answering service or go to the emergency room if experiencing a temperature exceeding 100.4?F, abdominal pain, nausea/vomiting, or bleeding. Additionally, the patient was instructed to abstain from vaginal intercourse and bathtub use. The patient confirmed understanding of these instructions. Discharge Instructions: The patient was instructed to schedule a follow-up appointment in 2 weeks for further evaluation and management. Please note that this note was generated using a voice recognition program, and errors may have occurred during research and development manager. 22618-Ttzhaxgls of cervix including upper vagina with biopsy and ECC Procedure code (CPT) selection complete Assessment & Plan Assessment & Plan (1) ASCUS of cervix with negative high risk HPV: Code(s): R87.610 - Atypical squamous cells of undetermined significance on cytologic smear of cervix (ASC-US) Category: Medical Plan: Discussed with the patient the result of her abnormal pap, its significance, risk of progression, persistence, and regression. the false positive/negative rate of a Pap smear as a screening test in detecting cervical cancer and the indication for a diagnostic test -colposcopy, biopsy, endocervical curettage. The patient verbalized understanding and agreed with the plan, all questions answered. Colpo biopsy ECC done, see procedure note Orders: Orders AMB Colposcopy Today R87.610 - Atypical squamous cells of undetermined significance on cytologic smear of cervix (ASC-US) Coding Level of Care Code Procedure Only Diagnoses ASCUS of cervix with negative high risk HPV R87.610 CPT Codes Colposcopy - CPT: 72662-Snqyrudht of cervix including upper vagina with biopsy and ECC ([id number])
[2024-10-09 11:13] VITALS: BMI 24.4
--- OUTSIDE RECORDS SUMMARY | 2024-10-09 11:39 | XMS_ITS | Clinical Summary ---
Author Organization [facility] Address [address] [place] [address] Care Team Providers Care Manager International Name Role Phone Neelima Lima PA-C Primary Care Provider [phone] Source Comments PLEASE NOTE, if this patient [...] last done 03/16/2015 Dr. Samreen Reyes MD [facility] [place] Machine Operator. Recurrent major depression i n partial remission ([facility] V24) 05/31/2015 Migraine aura, persistent [...] Plan of Treatment Not on file [place] Care Teams Manager International Relationship Specialty Start Date End Date Neelima Lima PA-C [address] [place] [id number] PCP - General Internal Medicine 05/19/16
--- OUTSIDE RECORDS SUMMARY | 2024-10-09 11:39 | XMS_ITS | Clinical Summary ---
Author Organization [facility] Address [address] [place] [address] Care Team Providers Care Cartographic Technician Name Role Phone Unavailable Primary Care [...] season) 2024 Influenza Vaccine 12/19/2024 03/11/2014 Insurance [facility] MEDICARE PART A & B [facility] [place] MEDICARE OUT OF NETWORK
--- OUTSIDE RECORDS SUMMARY | 2024-10-09 11:39 | XMS_ITS | Clinical Summary ---
Author Organization [facility] Address [address] [place] [address] Phone Care Team Providers Care Revolving Inventory Clerk Name Role Phone Physician, Pcp Unknown Primary Care Provider Tabatha vailable Encounters Date Type Department Care Team Description 09/09/2024 12:08 PM EDT - 09/09/2024 5:15 PM EDT Emergency [facility] Emergency [address] [place] [address] Discharge Disposition: Home or Self [...] patient's age to complete this topic Insurance [facility] MEDICARE Member Subscriber Plan / Payer (Ef fective 2016-Present) Name:Amira Nicholas Relation to Subscriber:Self Name:Amira Nicholas Payer ID:[id number] Group ID:[id number] Type:Not on file Address: [address] [place] [address] Care Teams Revolving Inventory Clerk Relationship Specialty Start Date End Date Physician, Pcp Unknown PCP - General 09/09/24
== END 2024-10-09 12:00 | disposition home or self-care (01) ==
LOC: HO.HWS 10:58
PROVIDERS: PCP Internal Medicine; Visit Provider Obstetrics & Gynecology
DX: R87.610 Atypical squamous cells of undetermined significance on cytologic smear of cervix (ASC-US) (principal)
CPT/HCPCS: 57454

== ENCOUNTER 2024-10-14 10:27 | Outpatient (REF) | payer OTHER, SELFPAY ==
--- NOTE | ~2024-10-14 | MM_ITS ---
EXAMINATION: MM DIAGNOSTIC DIGITAL BREAST TOMOSYNTHESIS, BILATERAL Limited right breast ultrasound. CLINICAL INFORMATION: 1 year follow-up for hypoechoic solid mass versus complicated cyst in the right breast on ultrasound. COMPARISON: Mammography: Comparison is made with relevant prior exams. TECHNIQUE: Digital breast mammography with tomosynthesis is performed in both the craniocaudal and mediolateral oblique views along with computer-aided detection (CAD). FINDINGS: There are scattered areas of fibroglandular density (ACR BI-RADS breast composition Category b). Right marker clip. There are no significant masses, abnormal calcifications, or other abnormalities. Targeted color Doppler ultrasound scanning in the right breast previously seen solid mass versus complicated cyst at 11:00 2 cm from the nipple again demonstrates interval decrease in size of a hypoechoic oval circumscribed solid mass versus complicated cyst measuring 8 x 5 x 7 mm not significantly changed from prior ultrasound. Results are provided to the patient at time of visit by the technologist. MM/MM tomosynthesis diagnostic BI IMPRESSION: Left: Negative. Right: Hypoechoic oval circumscribed solid mass versus complicated cyst at 11:00 2 cm from the nipple decreased in size to significantly changed from prior ultrasound. Recommend follow-up in one year to demonstrate 2 years of stability when the patient will be due for bilateral mammography. ASSESSMENT: BI-RADS BI-RADS 3 - Probably benign finding(s) - 12 month follow-up suggested RECOMMENDATION: 12 month diagnostic follow up This patient's information was entered into a reminder system with a target due date for their next mammogram. Electronically signed by: Zunilda Foster DO 10/14/2024 12:44 PM EDT
--- OUTSIDE RECORDS SUMMARY | 2024-10-14 11:13 | XMS_ITS | Clinical Summary ---
Author Organization [facility] Address [address] [place] [address] Care Team Providers Care Malted Milk Supervisor Name Role Phone Unavailable Primary Care Provider [...] season) 2024 Influenza Vaccine 12/19/2024 03/11/2014 Insurance [facility] MEDICARE PART A & B [facility] [place] MEDICARE OUT OF NETWORK
== END 2024-10-14 10:28 | disposition home or self-care (01) ==
LOC: HO.MAMMO 10:27
PROVIDERS: PCP Internal Medicine; Visit Provider Internal Medicine
DX: N60.01 Solitary cyst of right breast (principal)
CPT/HCPCS: 76642; 77062; 77066

== ENCOUNTER → 2024-10-14 10:45 | Outpatient (BNV) | payer OTHER, SELFPAY | PROVIDERS: PCP Internal Medicine; Visit Provider Internal Medicine | DX: N64.89 Other specified disorders of breast (principal) | CPT/HCPCS: 76642; 77066; G0279 ==

== ENCOUNTER 2024-10-15 | Outpatient (REF) | payer OTHER, SELFPAY ==
--- OUTSIDE RECORDS SUMMARY | 2024-11-18 08:14 | XMS_ITS | Clinical Summary ---
Author Organization [facility] Address [address] [place] [address] Care Team Providers Care Biostatistics Professor Name Role Phone Unavailable Primary Care Provider [...] 81 09/05/2022 11:00 AM EDT Temperature 36.6 C (97.8 F) 09/05/2022 8:09 AM EDT Respiratory Rate 18 09/05/2022 11:00 AM EDT [...] season) 2024 Influenza Vaccine 12/19/2024 03/11/2014 Insurance [facility] MEDIC[facility] PART A & B [facility] [place] MGD MEDICARE OUT OF NETWORK
--- OUTSIDE RECORDS SUMMARY | 2024-11-18 08:14 | XMS_ITS ---
[facility] Name [facility] Organization Unknown Encounters Encounter Type Encounter Reason Primary Diagnosis Location Date Emergency Pneumothorax, unspecified Pneumothorax, unspecified [facility] 09/05/2022 Care Team Organization Name Specialty Phone Email Start Date End Da te [facility] 09/05/2022 09/05/2022 [facility] 09/05/2022
--- OUTSIDE RECORDS SUMMARY | 2024-11-18 08:16 | XMS_ITS | Clinical Summary ---
Author Organization [facility] Address [address] [place] [address] Phone Care Team Providers Care Batch Records Clerk Name Role Phone Physician, Pcp Unknown Primary Care Provider Tabatha vailable Encounters Date Type Department Care Team Description 09/09/2024 12:08 PM EDT - 09/09/2024 5:15 PM EDT Emergency [facility] Emergency [address] [place] [address] Discharge Disposition: Home or Self [...] 118 09/09/2024 12:17 PM EDT Temperature 36.7 C (98 F) 09/09/2024 12:17 PM EDT Respiratory Rate 20 [...] 2023-2 5 season) 2024 Influenza Vaccine (#1) 2025 03/11/2014 HIB Vaccines Aged Out No longer [...] patient's age to complete this topic Insurance [facility] MEDICARE Member Subscriber Plan / Payer (Ef fective 2016-Present) Name:Amira Nicholas Relation to Subscriber:Self Name:Amira Nicholas Payer ID:[id number] Group ID:[id number] Type:Not on file Address: [address] [place] [address] Care Teams Batch Records Clerk Relationship Specialty Start Date End Date Physician, Pcp Unknown PCP - General 09/09/24
== END 2024-10-15 00:01 | disposition home or self-care (01) ==
LOC: CF
PROVIDERS: PCP Internal Medicine; Visit Provider Internal Medicine
DX: M54.14 Radiculopathy, thoracic region (principal); I10 Essential (primary) hypertension; K59.04 Chronic idiopathic constipation; F33.1 Major depressive disorder, recurrent, moderate; J45.909 Unspecified asthma, uncomplicated; N60.09 Solitary cyst of unspecified breast
CPT/HCPCS: 99212

== ENCOUNTER 2024-10-15 09:05 | Outpatient (AMB) | payer OTHER, SELFPAY ==
--- NOTE | 2024-10-15 09:17 | MHC.PC.OV ---
Vital Signs 10/15/24 09:18 Height 5 ft 7 in Weight 158 lb BMI 24.7 BP 136/80 Blood Pressure Location Lt brachial Position Sitting Intake Visit Reasons: [facility] [place] 10/07 back pain Smoke And Flame Specialist Required: No Accompanied by: Self / Same As Patient Allergies gabapentin Allergy (Intermediate, Verified 10/15/24 09:50) abdominal pain semaglutide [From Wegovy] Allergy (Intermediate, Verified 10/15/24 09:50) termons Medication List - Last Reconciled 10/15/24 by Stephanie Chapman MD albuterol sulfate 2.5 mg (3 mL) inhalation Q4H PRN 30 days albuterol sulfate 90 mcg/actuation 2 puffs inhalation Q4-6H PRN aspirin 81 mg PO DAILY 90 days [Bath mat As directed] bupropion HCl XL mg PO cane As directed cetirizine 10 mg PO DAILY clonazepam 1 mg PO TID PRN [compression stockings knee high As directed] cyclobenzaprine 10 mg PO TID PRN docusate calcium 240 mg PO BEDTIME PRN 90 days escitalopram oxalate 10 mg PO DAILY fluticasone propionate 44 mcg/actuation (Flovent HFA) 1 puff inhalation BID 30 days [Grab bar As directed] ibuprofen 800 mg PO Q8H PRN 30 days incontinence pad, liner, disp USe 1 to 2 pads per day as needed Incruse Ellipta 62.5 mcg/actuation (umeclidinium) 1 inh inhalation DAILY NS lisinopril 20 mg PO DAILY 90 days mecobalamin (vitamin B12) 5,000 mcg PO DAILY 30 days mometasone-formoterol 200-5 mcg/actuation (Dulera) 2 puffs inhalation Q12H 30 days montelukast 10 mg PO DAILY nebulizers (VixOne Nebulizer-Adult Mask) As directed [non slip bath mat As directed] ofloxacin 0.3% 2 drps ophthalmic (eye) ondansetron 4 mg PO Q8H PRN prednisone 40 mg (2 x 20 mg) PO DAILY silver sulfadiazine 1% (Silvadene) 1 appl topical DAILY 1 week [thin panty liners As directed] timolol maleate 0.5% drps ophthalmic (eye) tobramycin-dexamethasone 0.3-0.1 % 1 drp ophthalmic (eye) TID tramadol 50 mg PO Q8H PRN 30 days underpads (Bed Underpads) Use 4 bed pads per day walker (Ultra-Light Rollator misc) As directed [wipes Use 4 times a day as needed] zolpidem 10 mg PO BEDTIME PRN Tobacco use date assessed: 07/28/24 Dental Screening Dental Screen Date: 07/28/24 HPI HPI Comments History of Present Illness Details The patient is a 49-year-old female presenting with back pain and a cyst in the right breast. Her back pain was initially addressed during an emergency department visit on October 07, where she received Flexeril and prednisone to manage the inflammation. She completed the prednisone regimen, yet the pain persists, prompting considerations for further imaging, such as an MRI, and possibly a referral to a neuro-surgeon. Physical therapy may be a viable option to manage her symptoms moving forward. Regarding the cyst in the right breast, a recent sonogram identified its presence, although it does not appear to be malignant or require immediate intervention. The patient has been advised to consult with a surgeon for a comprehensive evaluation, but the condition is not urgent. Her medical history includes essential hypertension, managed with lisinopril, and she has a noted allergy to gabapentin. Her current medication regimen comprises an inhaler for intermittent use, baby aspirin, bupropion for depression, cetirizine for allergies, and clonazepam for anxiety, taken as required. She also uses Dulera, following the prescribed dosage. 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 Social History Housing: House Alcohol intake: never Patient Tobacco Use Status: Never used Tobacco e-Cigarette/Vaping Use: Never Used Second Hand Smoke Exposure: No service: No Current occupational status: unemployed Cognitive needs: No Hearing needs: No Vision needs: No Female Reproductive History Menstrual Age of Menarche: 9 Questionnaire Thrive Questionnaire Date Thrive assessed: 09/29/24 I am a: Patient What is your living situation today?: I have a steady place to live Within the past 12 months, did the food you bought not last and you didn't have the money to get more?: Sometimes True Within the past 12 months, did you worry whether your food would run out before you got money to buy more?: Never true Do you have trouble paying for medicines?: No Do you have trouble getting transportation to medical appointments?: Yes Do you have trouble paying your heating and electricity bill?: Yes Do you have trouble taking care of your child, family member or friend?: No Do you have trouble with day-to-day activities such as bathing, preparing meals, shopping, managing finances, etc.?: Yes Are you currently unemployed and looking for a job?: Yes Are you interested in more education?: Yes Please select the resources that you would like help with: None Currently or been in a relationship where the following occur: No concerns reported THRIVE Score: 3 AUDIT C Alcohol Use Questionnaire (AUDIT-C) 1. How often do you have a drink containing alcohol?: Never Total Score: 0 ALISON-7 AMB Questionnaire ALISON-7 Date ALISON - 7 assessed: 07/28/24 Feeling nervous, anxious, or on edge: 0 = Not at all Not being able to stop or control worryin = Not at all Worrying too much about different things: 0 = Not at all Trouble relaxin = Not at all Being so restless that it is hard to sit still: 0 = Not at all Becoming easily annoyed or irritable: 1 = Several days Feeling afraid as if something awful might happen: 1 = Several days Total ALISON-7 score (0-4 normal; 5-9 mild; 10-14 moderate; 15-21 severe): 2 Source: Developed by Randolph Azaret B[employer]. [employer], Deep Puckett and colleagues, with an educational lyn from [employer]. Review of Systems Const All systems reviewed & are unremarkable except as noted in HPI and below Card Denies chest pain at rest, Denies chest pain with activity, Denies edema, Denies irregular heart rhythm, Denies claudication, Denies dyspnea, Denies dyspnea on exertion, Denies orthopnea, Denies paroxysmal nocturnal dyspnea and Denies slow heart rate Resp Denies cough, Denies dyspnea and Denies dyspnea on exertion GI Denies abdominal pain, Denies change in bowel habits, Denies excessive flatus, Denies nausea and Denies vomiting Denies urinary incontinence, Denies urinary hesitancy and Denies urinary urgency Musc Denies abnormal gait, Reports back pain, Denies atrophy, Denies deformity and Denies limited range of motion Skin/Breast Denies bleeding lesions, Denies changing lesions and Denies rash Neuro Denies abnormal gait, Denies behavioral changes and Denies lack of coordination Psych Denies behavioral changes Physical exam (Primary Care) Vital Signs: Last Vital Signs BP 136/80 10/15/24 09:18 BMI result Body Mass Index 24.7 Tobacco/Smoking Status: Tobacco use Status Tobacco use date assessed 07/28/24 10/15/24 09:29 Patient Tobacco Use Status Never used Tobacco 10/15/24 09:29 e-Cigarette/Vaping Use Never Used 10/15/24 09:29 Thrive Assessment: Date of Thrive Assessment Date Thrive assessed 09/29/24 10/15/24 09:29 Currently or been in a relationship where the following occur: No concerns reported Resp Effort & Inspection: normal respiratory effort Auscultation: clear to auscultation bilaterally Cardio Jugular venous distension: no JVD Rate: regular rate Rhythm: regular rhythm Heart sounds: S1 normal heart sound present and S2 normal heart sound present Back/Spine/Pelvis Thoracic/Lumbar Spine: thoracic spinal tenderness Extrem General: Yes full ROM Coding Level of Care Code Est Pt Level 4 (02683) Complex EM visit Add On G2211 Diagnoses Thoracic radiculopathy M54.14 Breast cyst N60.09 Asthma J45.909 Moderate recurrent major depression F33.1 Chronic idiopathic constipation K59.04 Primary hypertension I10 Hypertension type: primary hypertension Time Spent (min) 22 Assessment & Plan Assessment & Plan (1) Thoracic radiculopathy: Code(s): M54.14 - Radiculopathy, thoracic region Category: Medical (2) Breast cyst: Code(s): N60.09 - Solitary cyst of unspecified breast Category: Medical (3) Asthma: Code(s): J45.909 - Unspecified asthma, uncomplicated Category: Medical (4) Moderate recurrent major depression: Code(s): F33.1 - Major depressive disorder, recurrent, moderate Category: Medical (5) Chronic idiopathic constipation: Code(s): K59.04 - Chronic idiopathic constipation Category: Medical (6) Hypertension: Code(s): I10 - Essential (primary) hypertension Category: Medical Qualifiers: Hypertension type: primary hypertension Qualified Code(s): I10 - Essential (primary) hypertension Plan During our discussion, I addressed the patient's persistent back pain and cyst in the right breast. An MRI may be warranted to further evaluate her back pain before considering a neuro-surgeon consultation, and physical therapy was discussed as a potential treatment option. The cyst in her right breast, confirmed by a sonogram, will be further evaluated by a surgeon, although it currently poses no immediate concern. Her essential hypertension treatment with lisinopril will continue, and her current medication regimen, including baby aspirin, bupropion, cetirizine, and clonazepam, should be maintained. The patient should continue using Dulera as prescribed. She is informed about the steps moving forward for comprehensive care. Patient was informed and verbally consented to the use of an ambient scribe for clinic note documentation during this visit. I reviewed with the patient the management of her persistent back pain and the cyst in her right breast. We discussed the potential need for an MRI to evaluate the back pain further, with consideration of a neuro-surgeon referral based on the results. Physical therapy was also discussed as a complementary treatment approach. Regarding the breast cyst, I reassured her that while it does not appear concerning, a surgical evaluation will provide a comprehensive understanding and management plan. We discussed the maintenance of her current medication regimen and the importance of monitoring her blood pressure given her essential hypertension. The patient expressed understanding and agreement with the outlined plan. Orders: Orders MR thoracic spine wo con Today M54.14 - Radiculopathy, thoracic region Referrals General Surgery Referral N60.09 - Solitary cyst of unspecified breast Medications: New lidocaine 5% (DermacinRx Lidocan) leave on most painful area for up to 12 hrs 1 patch topical DAILY 30 days PRN 15 ea 3RF pain (scale score 4-6) M54.14 - Radiculopathy, thoracic region Patient Instructions: - Continue current medication regimen as prescribed. - Follow up with a surgeon for evaluation of the breast cyst. - Consider physical therapy for back pain. - Monitor blood pressure regularly. - Follow up with me for any changes in symptoms or concerns.
[2024-10-15 09:18] VITALS: BP 136/80; BMI 24.7
--- OUTSIDE RECORDS SUMMARY | 2024-10-15 09:38 | XMS_ITS | Clinical Summary ---
Author Organization [facility] Address [address] [place] [address] Care Team Providers Care Executive Sales Assistant Name Role Phone Unavailable Primary Care Provider [...] season) 2024 Influenza Vaccine 12/19/2024 03/11/2014 Insurance [facility] MEDICARE PART A & B [facility] [place] MEDICARE OUT OF NETWORK
== END 2024-10-15 09:59 | disposition home or self-care (01) ==
LOC: HO.HMCH 09:06
PROVIDERS: PCP Internal Medicine; Visit Provider Internal Medicine
DX: M54.14 Radiculopathy, thoracic region (principal); N60.09 Solitary cyst of unspecified breast; J45.909 Unspecified asthma, uncomplicated; F33.1 Major depressive disorder, recurrent, moderate; K59.04 Chronic idiopathic constipation; I10 Essential (primary) hypertension

== ENCOUNTER → 2024-10-27 13:55 | Outpatient (REF) | payer OTHER, SELFPAY ==
--- NOTE | 2024-10-27 13:57 | CA_ITS ---
Transthoracic Echocardiogram Patient (Last, First, Middle): Amira Nicholas, Gender: Female Date of : 1975 Age: 49 Procedure Date: 10/27/2024 Procedure Type: Transthoracic Echocardiogram Location: OP Height: 170. cm Weight: 71.67 kg BSA: 1.83 m2 Heart Rate: 101 bpm BP: 140 / 60 mmHg Aircraft Designer: ALVARO Referring MD: Stephanie Chapman MD Blender Laborer: Vargas Corbett MD Symptoms: R01.1 - Cardiac murmur, unspecified Study Quality: Adequate ECG Rhythm: Tachycardia Conclusions: - Essentially normal study with increased gradient across the aortic valve which may suggest higher stroke volume Findings Left Ventricle Normal left ventricular size, thickness, and systolic function. The visually estimated ejection fraction is between 60-65%. Spectral Doppler is indicative of a normal filling pattern. Right Ventricle Normal right ventricular cavity size and systolic function. Atria Both atria are normal in size. There is no evidence of interatrial shunt. Aortic Valve Normal aortic valve structure and function. There is no aortic valve stenosis. The peak aortic gradient is 23 mmHg.The mean gradient is 12 mmHg. There is no aortic valve regurgitation. increased gradient across the aortic valve and LVOT suggestive of increased stroke volume. Subaortic membrane can not be entirely ruled out Mitral Valve Normal mitral valve structure and function. There is no mitral valve regurgitation. There is no mitral valve stenosis. Pulmonic Valve The pulmonic valve is likely normal. There is trace pulmonic valve regurgitation. Tricuspid Valve Normal tricuspid valve structure. There is mild tricuspid valve regurgitation. The right ventricular systolic pressure is normal. The right ventricular systolic pressure is 32 mmHg. Normal right atrial pressure. There is no evidence of pulmonary hypertension. Great Vessels All visible segments of the aorta are normal in size. The pulmonary artery was not well visualized. There is no dilatation of the ascending aorta measuring 2.60 cm. Venous The inferior vena cava is normal in size and collapses greater than 50% with inspiration. Pericardium/Pleural There is no evidence of pericardial effusion. Prior Study Comparison No prior study available for comparison. Measurements 2D Linear Measurements IVSd: 0.97 0.6-0.9/0.6-1.0 cm LVIDd: 4.70 3.9-5.3/4.2-5.9 cm LVIDd Index: 2.57 2.4-3.2/2.2-3.1 cm/m2 LVIDs: 2.23 2.0-3.6 cm LVPWd: 0.97 0.7-1.1 cm LA Diam: 3.70 2.7-3.8/3.0-4.0 cm LAIDs Index: 2.02 1.5-2.3 cm/m2 LV Mass: 196.76 67-162/88-224 g LV Mass Index: 107.52 43-95/49-115 g/m2 LVOT Diam: 1.90 3.0+(-)1.3 cm 2D Systolic Function EF 4C: 67.80 >55% EF 2C: 60.50 >55% EF BiP: 64.50 >55% Mitral Valve MV Pk E: 1.47 MV PK A: 1.08 MV Decel Time: 147.00 E/A: 1.40 E'Lateral: 13.10 E'Medial: 7.94 E/E' Med: 18.50 E/E' Lat: 11.20 PHT: 43.00 MVA PHT: 5.12 Decel Letcher: 10.06 Aortic Valve AoV Pk Ward: 2.40 AoV Mn Ward: 1.61 AoV VTI: 0.41 AoV Pk Grad: 23.00 Aov Mn Grad: 12.00 TAISHA Cont.VTI: 2.33 LVOT LVOT Pk Ward: 1.97 LVOT Mn Ward: 1.32 LVOT VTI: 0.34 LVOT Pk Grad: 16.00 LVOT Mn Grad: 8.00 LVOT Diam: 1.90 LVOT Area: 2.84 Diastolic Function MV Pk E: 1.47 MV Pk A: 1.08 E/A: 1.40 E'Medial: 7.94 E/E' Med: 18.50 E' Laterial: 13.10 E/E' Lat: 11.20 Right Ventricle TAPSE (mm): 27.70 TVS' Ward: 15.10 Tricuspid Valve TR Pk Ward: 2.71 TR Pk Grad: 29.00 RA Press: 3.00 RVSP: 32.00 Great Vessels Aorta Sinus of Valsalva: 2.80 2.0-3.5 cm Ao Asc: 2.60 2.1-3.4 cm Pulmonary Valve PV Pk Ward: 1.50 Peak PV Grad: 9.00 Updated in Other Vendor System with Status of Final Vargas Corbett MD electronically signed on 10/28/2024 5:34:52 PM with status of Final
--- NOTE | 2024-10-27 13:59 | ECG_ITS ---
Test Reason : copd Blood Pressure : */* mmHG Vent. Rate : 85 BPM Atrial Rate : 85 BPM P-R Int : 176 ms QRS Dur : 86 ms QT Int : 346 ms P-R-T Axes : 46 47 18 degrees QTcB Int : 411 ms Normal sinus rhythm Normal ECG When compared with ECG of 09-Sep-2024 15:16, No significant change was found Referred By: Raudel Mays Electronically Signed By: JEANNINE MERCHANT MD
== END ==
LOC: HO.CARD 13:55
PROVIDERS: PCP Internal Medicine; Visit Provider Internal Medicine
DX: R01.1 Cardiac murmur, unspecified (principal); R79.89 Other specified abnormal findings of blood chemistry; R06.02 Shortness of breath; J44.9 Chronic obstructive pulmonary disease, unspecified
CPT/HCPCS: 93005; 93306

== ENCOUNTER → 2024-10-27 13:59 | Outpatient (BNV) | payer OTHER, SELFPAY | PROVIDERS: PCP Internal Medicine; Visit Provider Internal Medicine Cardiovascular Disease | DX: I35.8 Other nonrheumatic aortic valve disorders (principal); I36.1 Nonrheumatic tricuspid (valve) insufficiency; R01.1 Cardiac murmur, unspecified | CPT/HCPCS: 93306 ==

== ENCOUNTER 2024-11-14 11:32 | Outpatient (REF) | payer OTHER, SELFPAY ==
--- NOTE | ~2024-11-14 | US_ITS ---
EXAMINATION: US ABDOMEN LIMITED WITH LIVER ELASTOGRAPHY HISTORY: R74.01 - Elevation of levels of liver transaminase levels TECHNIQUE: Real-time grayscale ultrasound imaging of the right upper quadrant was performed and images were reviewed. COMPARISON: There are no prior studies available for comparison. FINDINGS: Liver: The right lobe of the liver measures 13.0 cm in size. The left lobe of the liver measures 9.7 cm in size. The liver demonstrates normal homogeneous echotexture. No focal mass or intrahepatic biliary ductal dilatation is identified. There is normal hepatopedal flow in the portal vein. Ultrasound elastography of the liver was performed with 10 separate measurements of the liver parenchyma with the patient in the supine position. Measurements were obtained approximately 2 cm below Reese's capsule and perpendicular to the capsule. Elastography is somewhat limited due to the patient's difficulty suspending respiration. The median shear wave velocity is 1.72 m/s. The interquartile range/median (IQR/median) is 0.21. Gallbladder and biliary tree: The gallbladder is unremarkable, without evidence of calculi, wall thickening, or pericholecystic fluid. There is no sonographic Agrawal sign. The common bile duct is normal in caliber measuring 6 mm. Right Kidney: The right kidney measures 12.0 cm in length. The right kidney is unremarkable, without evidence of masses, hydronephrosis, or calculi. Pancreas: The pancreatic head, neck, and body are unremarkable. The pancreatic tail is obscured by bowel gas. Abdominal aorta and inferior vena cava: The visualized portions of the abdominal aorta and inferior vena cava are normal in caliber. There is no free fluid in the right upper quadrant. US/US abdomen barnett w elastography IMPRESSION: Unremarkable right upper quadrant ultrasound. The median shear wave velocity in the liver is 1.72 m/s, corresponding to a median liver stiffness of 9.13 kPa. The IQR/median value is 0.21. This is indicative of a poor quality data set, and the estimated liver stiffness may be unreliable. Findings are indicative of a high elastography value suggestive of compensated advanced chronic liver disease. REFERENCE: Society of Radiologists in Ultrasound Liver Stiffness Thresholds (2020): LIVER STIFFNESS THRESHOLDS: *Shear wave velocity less than 1.3 m/s (Liver Stiffness equal or less than 5 kPa): High probability of being normal. *Shear wave velocity less than 1.7 m/s (Liver Stiffness less than 9 kPa): In the absence of other known clinical signs, rules out compensated advanced chronic liver disease. *Shear wave velocity between 1.7-2.1 m/s (Liver Stiffness 9-13 kPa): Suggestive of compensated advanced chronic liver disease but need further test for confirmation. *Shear wave velocity between 2.1-2.4 m/s (Liver Stiffness 13-17 kPa): Rules in compensated advanced chronic liver disease. *Shear wave velocity greater than 2.4 m/s (Liver Stiffness over 17 kPa): Suggestive of clinically significant portal hypertension. QUALITY OF DATA SET: SIGNIFICANT CHANGE FROM PRIOR EXAM: Significant change if liver stiffness measurement is 10% or greater from prior exam. OTHER CONSIDERATIONS: The stage of liver fibrosis may be overestimated in the setting of acute hepatitis, liver inflammation, elevated liver function tests, hepatic vascular congestion, obstructive cholestasis, non-fasting state, and infiltrative diseases such as amyloidosis and lymphoma. In some patients with NAFLD, the liver stiffness thresholds for compensated advanced chronic liver disease may be lower. In causes other than viral hepatitis and NAFLD, liver stiffness thresholds are not well established. Electronically signed by: Pablo Bhakta MD 11/14/2024 12:19 PM EDT
== END 2024-11-14 11:33 | disposition home or self-care (01) ==
LOC: HO.US 11:32
PROVIDERS: PCP Internal Medicine; Visit Provider Internal Medicine
DX: R74.01 Elevation of levels of liver transaminase levels (principal)
CPT/HCPCS: 76705; 76981

== ENCOUNTER → 2024-11-14 11:34 | Outpatient (BNV) | payer OTHER, SELFPAY | PROVIDERS: PCP Internal Medicine; Visit Provider Radiology Diagnostic Radiology | DX: R74.01 Elevation of levels of liver transaminase levels (principal) | CPT/HCPCS: 76705 ==

== ENCOUNTER 2024-11-23 07:55 | Outpatient (REF) | payer OTHER, SELFPAY ==
--- NOTE | ~2024-11-23 | MR_ITS ---
CLINICAL HISTORY: M54.14 - Radiculopathy, thoracic region MR thoracic spine without contrast Comparison: CR/DC/SR - XR THORACIC SPINE 3V - 10/07/24 10:[address]/SR - CT CHEST W IV CON - 09/25/22 13:20 EDT Findings: Alignment is within normal limits. No bone marrow edema. No evidence of acute or chronic fracture. Small multilevel vertebral body hemangioma. There are small disc protrusions at multiple levels which minimally indent upon the thecal sac. Mild multilevel facet and uncovertebral joint hypertrophy, most prominent T4/T5 and T5/T6 on the right with at most foraminal stenosis. The spinal cord is normal in size and signal. Unremarkable paraspinous muscles. Impression: No acute findings. Mild multilevel degenerative change which likely does not account for the patient's presentation. This document has been electronically signed by: Nicole Vazquez MD on 11/24/2024 22:04:54
--- OUTSIDE RECORDS SUMMARY | 2024-11-23 07:57 | XMS_ITS | Clinical Summary ---
Author Organization [facility] Address [address] [place] [address] Care Team Providers Care Mobility Specialist Name Role Phone Unavailable Primary Care [...] season) 2024 Influenza Vaccine 12/19/2024 03/11/2014 Insurance [facility] MEDICARE PART A & B [facility] [place] MEDICARE OUT OF NETWORK
--- OUTSIDE RECORDS SUMMARY | 2024-11-23 07:57 | XMS_ITS | Clinical Summary ---
Author Organization [facility] Address [address] [place] [address] Phone Care Team Providers Care Weekday Babysitter Name Role Phone Physician, Pcp Unknown Primary Care Provider Tabatha vailable Encounters Date Type Department Care Team Description 09/09/2024 12:08 PM EDT - 09/09/2024 5:15 PM EDT Emergency [facility] Emergency [address] [place] [address] Discharge Disposition: Home or Self [...] this topic Insurance [facility] MEDICARE Member Subscriber Plan / Payer (Ef fective 2016-Present) Name:Amira Nicholas Relation to Subscriber:Self Name:Amira Nicholas Payer ID:[id number] Group ID:[id number] Type:Not on file Address: [address] [place] [address] Care Teams Weekday Babysitter Relationship Specialty Start Date End Date Physician, Pcp Unknown PCP - General 09/09/24
--- OUTSIDE RECORDS SUMMARY | 2024-11-23 07:57 | XMS_ITS | Clinical Summary ---
Author Organization [facility] Address [address] [place] [address] Care Team Providers Care Drawing Press Operator Name Role Phone Neelima Lima PA-C Primary Care Provider +1 [phone] Source Comments PLEASE NOTE, if this patient [...] last done 03/16/2015 Dr. Samreen Reyes MD [facility] Director Of Environmental Services. Recurrent major depression i n partial remission ([facility] V24) 05/31/2015 [...] 70 09/29/2015 9:36 AM EDT Temperature 37 C (98.6 F) 09/29/2015 9:36 AM EDT Respiratory Rate 16 09/29/2015 9:36 AM EDT Oxygen Saturation - - Inhaled Oxygen Concentration - - Weight 86.6 kg (191 lb) 09/29/2015 9:36 AM EDT Height 167 cm (5' 5.75 ) 05/31/2015 9:05 AM EST Body Mass Index 31.06 05/31/2015 9:05 AM EST Plan of Treatment Not on file Insurance [place] Member Subscriber Plan / Payer (Ef fective 2015-Present) Name:Amira Nicholas Relation to Subscriber:Self Name:Amira Nicholas Payer ID:[id number] Group ID:Not on file Type:Medicaid Address: [address] [address] MEDICARE - [place] Care Teams Drawing Press Operator Relationship Specialty Start Date End Date Neelima Lima PA-C [address] [place] [id number] PCP - General Internal Medicine 05/19/16
== END 2024-11-23 07:56 | disposition home or self-care (01) ==
LOC: HO.MRI 07:55
PROVIDERS: PCP Internal Medicine; Visit Provider Internal Medicine
DX: M54.14 Radiculopathy, thoracic region (principal)
CPT/HCPCS: 72146

== ENCOUNTER → 2024-11-23 07:57 | Outpatient (BNV) | payer OTHER, SELFPAY | PROVIDERS: PCP Internal Medicine; Visit Provider Radiology Diagnostic Radiology | DX: M54.14 Radiculopathy, thoracic region (principal) | CPT/HCPCS: 72146 ==

== ENCOUNTER 2024-11-26 10:03 | Outpatient (AMB) | payer OTHER, SELFPAY ==
--- NOTE | 2024-11-26 10:17 | MHC.OFFVIS ---
Vital Signs 11/26/24 10:23 Height 5 ft 7 in Weight 153 lb BMI 24.0 BP 144/76 H Blood Pressure Location Rt brachial Position Sitting Pulse 99 Intake Visit Reasons: Solitary cyst of unspecified breast Intake Note: Patient referred by pcp Dr. Hamzah Chapman for cyst on Right breast. Patient c/o: denies pain, tenderness, itch. Mammo and Rt br US: 10-14-2024 Associate Professor Of English Required: Yes Associate Professor Of English Name: Batsheva PAIZ Accompanied by: Self / Same As Patient Allergies gabapentin Allergy (Intermediate, Verified 11/26/24 10:21) abdominal pain semaglutide (From Wegovy) Allergy (Intermediate, Verified 11/26/24 10:21) termons HPI HPI Solitary cyst of unspecified breast: Details: [age] year female referred because of an abnormal mammogram. She actually has been undergoing mammograms for several years and there has been note of a hypoechoic circumferentially solid mass versus complicated cyst at the 11 o'clock position. This has decreased significantly on her last mammogram last Sep, 2024. She denies any palpable mass. She denies any nipple or skin changes Her menarche was at age of 11. Her 1st was the age of 16. She had 2 pregnancies. She had her menopause at age of 46. She denies any strong family history of breast cancer. Review of her records show that she had excision of a breast mass on the right side in 2005. 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 Social History Housing: House Alcohol intake: never Patient Tobacco Use Status: Never used Tobacco e-Cigarette/Vaping Use: Never Used Second Hand Smoke Exposure: No service: No Current occupational status: unemployed Cognitive needs: No Hearing needs: No Vision needs: No Female Reproductive History Menstrual Age of Menarche: 9 Review of Systems Const Denies chills and Denies fever(s) Card Denies chest pain, Denies dyspnea and Denies dyspnea on exertion Resp Denies cough, Denies dyspnea and Denies dyspnea on exertion GI Denies hematochezia and Denies change in bowel habits Denies hematuria Musc Denies back pain and Denies limited range of motion Neuro Denies focal weakness and Denies convulsions Psych Denies depression and Denies mood swings Physical Exam Vital Signs: Last Vital Signs Pulse 99 11/26/24 10:23 BP 144/76 H 11/26/24 10:23 BMI result Body Mass Index 24.0 Const General: comfortable and no acute distress Orientation/consciousness: patient oriented x3 Neck Neck: Yes no lymphadenopathy Chest Other: No palpable breast masses, no nipple or skin changes, no axillary lymphadenopathy Resp Auscultation: clear to auscultation bilaterally Cardio Rhythm: regular rhythm GI Palpation (GI): Soft to palpation, nontender and no guarding Neuro General: patient oriented x3 Assessment & Plan Assessment & Plan (1) Abnormal mammogram of right breast: Code(s): R92.8 - Other abnormal and inconclusive findings on diagnostic imaging of breast Category: Medical Plan: She has had mammograms before showing this oval circumferential eyes mass versus complicated cyst at the 11 o'clock position. However, her mammogram from Sep, 2024 shows that this has decreased in size compared to prior ultrasounds The recommendation by the radiologist was to follow up in 1 year to demonstrate 2 years of stability when the patient will be due for bilateral mammogram. I explained this to her. I told her that it does not appear that she will require surgical intervention at this time She understands the plan well and is comfortable with this. I did tell her that if she has any concerns before next mammogram, she should come back to the office. Coding Level of Care Code New Pt Level 3 (80155) Diagnoses Abnormal mammogram of right breast R92.8
[2024-11-26 10:23] VITALS: BP 144/76; PULSE 99; BMI 24.0
--- OUTSIDE RECORDS SUMMARY | 2024-11-26 10:50 | XMS_ITS | Clinical Summary ---
Author Organization [facility] Address [address] [place] [address] Care Team Providers Care Ware Server Name Role Phone Unavailable Primary Care Provider [...] season) 2024 Influenza Vaccine 12/19/2024 03/11/2014 Insurance [facility] MEDICARE PART A & B [facility] [place]GD MEDICARE OUT OF NETWORK
--- OUTSIDE RECORDS SUMMARY | 2024-11-26 10:50 | XMS_ITS | Clinical Summary ---
Author Organization [facility] Address [address] [place] [address] Phone Care Team Providers Care Philosophy Faculty Member Name Role Phone Physician, Pcp Unknown Primary Care Provider Tabatha vailable Encounters Date Type Department Care Team Description 09/09/2024 12:08 PM EDT - 09/09/2024 5:15 PM EDT Emergency [facility] Emergency [address] [place] [address] Discharge Disposition: Home or Self [...] 5 Years) and At-Risk Patients (6 to 49 Years) Aged Out No longer eligi ble based on patient's age to complete this topic RSV Immunization Patients Un pawel 20 months Aged Out No longer eligible b ased on patient's age to complete this topic Varicella Vaccines Aged Out No longer eligible based on patient's age to complete this topic Insurance [facility] MEDICARE Member Subscriber Plan / Payer (Ef fective 2016-Present) Name:Amira Nicholas Relation to Subscriber:Self Name:Amira Nicholas Payer ID:[id number] Group ID:[id number] Type:Not on file Address: [address] [place] [address] Care Teams Philosophy Faculty Member Relationship Specialty Start Date End Date Physician, Pcp Unknown PCP - General 09/09/24
--- OUTSIDE RECORDS SUMMARY | 2024-11-26 10:50 | XMS_ITS | Clinical Summary ---
Author Organization [facility] Address [address] [place] [address] Care Team Providers Care Front Elevator Operator Name Role Phone Neelima Lima PA-C Primary Care Provider [phone] [phone] Source Comments PLEASE NOTE, if this patient [...] last done 03/16/2015 Dr. Samreen Reyes MD [facility] Welding Manager. Recurrent major depression i n partial remission ([facility] V24) 05/31/2015 Migraine aura, persistent [...] Nicholas Relation to Subscriber:Self Name:Amira Nicholas Payer ID:[id number] Group ID:Not on file Type:Medicaid Address: [address] [address] MEDICARE - [place] Care Teams Front Elevator Operator Relationship Specialty Start Date End Date Neelima Lima PA-C [address] [place] [id number] PCP - General Internal Medicine 05/19/16
== END 2024-11-26 10:32 | disposition home or self-care (01) ==
LOC: HO.HGS 10:03
PROVIDERS: PCP Internal Medicine; Visit Provider Surgery
DX: R92.8 Other abnormal and inconclusive findings on diagnostic imaging of breast (principal)
CPT/HCPCS: 99203

== ENCOUNTER → 2024-11-26 10:03 | Outpatient (BNVA) | payer OTHER, SELFPAY | PROVIDERS: PCP Internal Medicine; Visit Provider Surgery | DX: Z71.2 Person consulting for explanation of examination or test findings (principal); R92.8 Other abnormal and inconclusive findings on diagnostic imaging of breast | CPT/HCPCS: 99202 ==

== ENCOUNTER 2024-12-31 15:11 | Outpatient (AMB) | payer OTHER, SELFPAY ==
--- NOTE | 2024-12-31 15:11 | A.OFFVIS_ITS ---
Intake Visit Reasons: Colpo Result Local Company Flatbed Truck Driver Required: Yes Local Company Flatbed Truck Driver Language: Rug Cleaner Helper Services: Local Company Flatbed Truck Driver Present (in person) Local Company Flatbed Truck Driver Name: Katie PAIZ Information Interpreted: non-clinical & clinical Allergies gabapentin Allergy (Intermediate, Verified 11/26/24 10:21) abdominal pain semaglutide (From Wegovy) Allergy (Intermediate, Verified 11/26/24 10:21) termons HPI Comments Details: The patient is scheduled a telehealth visit post colpo for follow-up. The patient is doing well with no complaints. The pathology showed the following: A. Endocervix, curettage: Fragments of squamous mucosa within normal limits; no endocervical component seen; negative for squamous intraepithelial lesion. B. Cervix, 5 o'clock, biopsy: Squamous mucosa within normal limits; no endocervical component seen; negative for squamous intraepithelial lesion. C. Cervix, 12 o'clock, biopsy: Squamous mucosa within normal limits; negative for squamous intraepithelial lesion. COMMENT: The atypical cells noted in the patient's recent Pap smear ([id number]; ASCUS; HPV+) are not seen in the current biopsy findings. Clinical correlation is advised [facility] Medical History (Updated 11/26/24 @ 10:35 by Sunil Mora MD) Abnormal mammogram of right breast Myopathy Dyspnea Pneumonia Rib fracture Pleural effusion Chest pain HPV (human papilloma virus) infection Chronic restrictive lung disease Arm pain, chronic Knee pain JABARI positive Chronic restrictive lung disease Mild recurrent major depression Polyarthralgia Asthma History of DVT of lower extremity Urge urinary incontinence Chronic restrictive lung disease Reactive airway disease [id number] syndrome Obese Depression with anxiety Dyspnea Anxiety Hypertension Arthritis Encounter for follow-up for hypertension Surgical History History of tubal ligation H/O breast biopsy H/O LEEP Family History Father Liver cancer Mother Hypertension Diabetes CVD (cardiovascular disease) Maternal Grandmother Throat cancer Son No problems noted. Social History Housing: House Alcohol intake: never Patient Tobacco Use Status: Never used Tobacco e-Cigarette/Vaping Use: Never Used Second Hand Smoke Exposure: No service: No Current occupational status: unemployed Cognitive needs: No Hearing needs: No Vision needs: No Female Reproductive History Menstrual Age of Menarche: 9 Review of Systems Const All systems reviewed & are unremarkable except as noted in HPI and below Reports as per HPI and Reports no additional complaints GI Reports no additional complaints Reports no additional complaints Telehealth Telehealth Telehealth Platform: Telephone Location of provider rendering services: practice address Location of patient: address on file Patient Identification confirmed using: Name, : Yes Telehealth method: video Patient verbally consented to treatment: Yes Patient verbally consented to billing insurance company: Yes Patient informed of any privacy concerns related to visit: Yes Minutes spent on Phone/Video with Pt.: 2 Assessment & Plan Assessment & Plan (1) ASCUS of cervix with negative high risk HPV: Code(s): R87.610 - Atypical squamous cells of undetermined significance on cytologic smear of cervix (ASC-US) Category: Medical Plan: Discussed with the patient the pathology results of the colposcopy biopsies & endocervical curettage. Discussed with the patient the sensitivity specificity, positive and negative predictive value in detecting cervical cancer in addition discussed the regression, persistence and progression rates. Recommended co- testing in 12 months, if cytology and or HPV are abnormal will proceed was colposcopy biopsy and endocervical curettage. Instructions given to the patient to schedule a co test appointment in 1 year. All questions answered the patient verbalized understanding. I spent a total of 20 minutes reviewing the chart, talking to the patient via video and documenting in the medical record. Coding Level of Care Code Tele Est Pt Level 3 (32422) Diagnoses ASCUS of cervix with negative high risk HPV R87.610
--- OUTSIDE RECORDS SUMMARY | 2024-12-31 15:14 | XMS_ITS | Clinical Summary ---
Author Organization [facility] Address [address] [place] [address] Care Team Providers Care Interior Assemblies Installer Name Role Phone Unavailable Primary Care Provider [...] season) 2024 Influenza Vaccine 12/19/2024 03/11/2014 Insurance [facility] MEDICARE PART A & B [facility]GD MEDICARE OUT OF NETWORK
--- OUTSIDE RECORDS SUMMARY | 2024-12-31 15:14 | XMS_ITS | Clinical Summary ---
Author Organization [facility] Address [address] [place] [address] Care Team Providers Care Taproom Attendant Name Role Phone Neelima Lima PA-C Primary Care Provider [phone] [phone] Source Comments PLEASE NOTE, if this patient [...] last done 03/16/2015 Dr. Samreen Reyes MD [facility] Lumber Sales Supervisor. Recurrent major depression i n partial remission ([facility] V24) 05/31/2015 Migraine [...] Nicholas Relation to Subscriber:Self Name:Amira Nicholas Payer ID:[id number] Group ID:Not on file Type:Medicaid Address: [address] [address] MEDICARE - [place] Care Teams Taproom Attendant Relationship Specialty Start Date End Date Neelima Lima PA-C [address] [place] [phone] PCP - General Internal Medicine 05/19/16
--- OUTSIDE RECORDS SUMMARY | 2024-12-31 15:14 | XMS_ITS | Clinical Summary ---
Author Organization [facility] Address [address] [place] [address] Phone Care Team Providers Care Steel Die Press Set Up Operator Name Role Phone Physician, Pcp Unknown Primary Care Provider Tabatha vailable Medical History Medical History Date Comments HTN [...] 04/07/2018 04/07/2008 Colorectal Cancer Screening: Colonoscopy 04/23/2022 HIV Screening 04/23/2022 Hepatitis C Screening 04/23/2022 Medicare Annual Wellness Visit 04/23/2022 Social Influencers of Health Screening 04/23/2022 Pneumococcal Vaccine: 50+ Ye ars (1 of 1 - PCV) 2023 Zoster Vaccines (1 of 2) 2023 COVID-19 Vaccine (1 - 2023-2 5 season) 2024 Depression Screening 05/21/2024 Influenza Vaccine (#1) 2025 03/11/2014 HIB Vaccines [...] patient's age to complete this topic Insurance [facility] MEDICARE Member Subscriber Plan / Payer (Ef fective 2016-Present) Name:Amira Nicholas Relation to Subscriber:Self Name:Amira Nicholas Payer ID:[id number] Group ID:[id number] Type:Not on file Address: [facility] [address] [address] Care Teams Steel Die Press Set Up Operator Relationship Specialty Start Date End Date Physician, Pcp Unknown PCP - General 09/09/24
== END 2024-12-31 15:19 | disposition home or self-care (01) ==
LOC: HO.HWS 15:11
PROVIDERS: PCP Internal Medicine; Visit Provider Obstetrics & Gynecology
DX: R87.610 Atypical squamous cells of undetermined significance on cytologic smear of cervix (ASC-US) (principal)
CPT/HCPCS: 99213

== ENCOUNTER 2025-01-01 13:28 | Outpatient (AMB) | payer OTHER, SELFPAY ==
--- NOTE | 2025-01-01 13:31 | MHC.OFFVIS ---
Vital Signs 01/01/25 13:32 Height 5 ft 7 in Weight 150 lb 4 oz BMI 23.5 BP 130/76 Blood Pressure Location Rt brachial Position Sitting Pulse 94 Pulse Source Pulse Oximeter Pulse Oximetry (%) 98 Oxygen Delivery Method Room Air Intake Visit Reasons: INP-Essential Tremor Intake Note: Essential tremors Remelt Furnace Expediter Required: Yes Remelt Furnace Expediter Name: iPad - Jesus Accompanied by: Self / Same As Patient Allergies gabapentin Allergy (Intermediate, Verified 01/01/25 13:34) abdominal pain semaglutide (From Wegovy) Allergy (Intermediate, Verified 01/01/25 13:34) termons HPI Comments Details: 49y/o female comes for evaluation tremors. she started noticing tremors 10 mths ago when she was started on Wegovy .Her Wegovy stopped after 2 mths. Her hand tremors improved but she still has leg tremors. The tremors are intermittent and mostly with action and posture. she is under a lot of stress and is depressed. The tremors are mostly with action- has trouble with drinking and eating. No fh/o tremors No head injury [facility] Medical History (Updated 01/01/25 @ 15:10 by Estrella Campos MD) Coarse tremors Abnormal mammogram of right breast Myopathy Dyspnea Pneumonia Rib fracture Pleural effusion Chest pain HPV (human papilloma virus) infection Chronic restrictive lung disease Arm pain, chronic Knee pain JABARI positive Chronic restrictive lung disease Mild recurrent major depression Polyarthralgia Asthma History of DVT of lower extremity Urge urinary incontinence Chronic restrictive lung disease Reactive airway disease [id number] syndrome Obese Depression with anxiety Dyspnea Anxiety Hypertension Arthritis Encounter for follow-up for hypertension Surgical History History of tubal ligation H/O breast biopsy H/O LEEP Family History Father Liver cancer Mother Hypertension Diabetes CVD (cardiovascular disease) Maternal Grandmother Throat cancer Son No problems noted. Social History Housing: House Alcohol intake: never Patient Tobacco Use Status: Never used Tobacco e-Cigarette/Vaping Use: Never Used Second Hand Smoke Exposure: No service: No Current occupational status: unemployed Cognitive needs: No Hearing needs: No Vision needs: No Female Reproductive History Menstrual Age of Menarche: 9 Physical Exam Vital Signs: Last Vital Signs Pulse 94 01/01/25 13:32 BP 130/76 01/01/25 13:32 Pulse Ox 98 01/01/25 13:32 Oxygen Delivery Method Room Air 01/01/25 13:32 BMI result Body Mass Index 23.5 Const General: cooperative, healthy appearing, comfortable and no acute distress Nutritional Appearance: average body habitus Orientation/consciousness: patient oriented x3 Neuro Other: mild lara postural and action tremors in hand s No leg or head tremors Normal tone FFM and foot taps normal General: patient oriented x3 Deep tendon reflexes (DTR's): Right triceps reflex intensity grade: 2+, Left triceps reflex intensity grade: 2+, Rt Biceps (C5, C6): 2+, Left biceps reflex intensity grade: 2+, Right brachioradialis reflex intensity grade: 2+, Left brachioradialis reflex intensity grade: 2+, Right patellar reflex intensity grade: 3+ and Left patellar reflex intensity grade: 3+ Assessment & Plan Assessment & Plan (1) Coarse tremors: Comment: likely exaggerated physiological tremors Code(s): G25.2 - Other specified forms of tremor Category: Medical Plan Patient was upset and believes that the tremors were due to wegovy. I suggested occupational therapy for hand exercises and will consider medications if her tremors worsen and affects her ADLs. Lumbar spine X ray to evaluate her back pain. Orders: Orders OT Evaluation and Treatment Today G25.0 - Essential tremor XR lumbar spine 2-3V Today M54.9 - Dorsalgia, unspecified Coding Level of Care Code New Pt Level 4 (92143) Diagnoses Coarse tremors G25.2
[2025-01-01 13:32] VITALS: BP 130/76; PULSE 94; O2SAT 98; BMI 23.5
--- OUTSIDE RECORDS SUMMARY | 2025-01-01 14:19 | XMS_ITS | Clinical Summary ---
Author Organization [facility] Address [address] [place] [address] Care Team Providers Care Photographer Motion Picture Name Role Phone Unavailable Primary Care Provider [...] season) 2024 Influenza Vaccine 12/19/2024 03/11/2014 Insurance [facility] MEDICARE PART A & B [facility] MGD MEDICARE OUT OF NETWORK
--- OUTSIDE RECORDS SUMMARY | 2025-01-01 14:19 | XMS_ITS | Clinical Summary ---
Author Organization [facility] Address [address] [place] [address] Care Team Providers Care Nurse Wound Name Role Phone Neelima Lima PA-C Primary Care Provider [phone] Source Comments PLEASE NOTE, if this patient [...] last done 03/16/2015 Dr. Samreen Reyes MD [facility] [employer]. Recurrent major depression i n partial remission ([facility] V24) 05/31/2015 Migraine aura, persistent 05/31/2015 [...] Nicholas Relation to Subscriber:Self Name:Amira Nicholas Payer ID:[id number] Group ID:Not on file Type:Medicaid Address: [address] [id number] MEDICARE - [place] Care Teams Nurse Wound Relationship Specialty Start Date End Date Neelima Lima PA-C [address] [place] [id number] PCP - General Internal Medicine 05/19/16
--- OUTSIDE RECORDS SUMMARY | 2025-01-01 14:19 | XMS_ITS | Clinical Summary ---
Author Organization [facility] Address [address] [place] [address] Phone Care Team Providers Care Animal Care Technician Name Role Phone Physician, Pcp Unknown Primary [...] ID:[id number] Group ID:[id number] Type:Not on file Address: [facility] [address] [address] Care Teams Animal Care Technician Relationship Specialty Start Date End Date Physician, Pcp Unknown PCP - General 09/09/24
== END 2025-01-01 14:10 | disposition home or self-care (01) ==
PROVIDERS: PCP Internal Medicine; Visit Provider Psychiatry & Neurology Neurology
DX: G25.2 Other specified forms of tremor (principal)
CPT/HCPCS: 99204

== ENCOUNTER → 2025-01-01 13:28 | Outpatient (BNVA) | payer OTHER, SELFPAY | PROVIDERS: PCP Internal Medicine; Visit Provider Psychiatry & Neurology Neurology | DX: G25.2 Other specified forms of tremor (principal); M54.9 Dorsalgia, unspecified | CPT/HCPCS: 99202 ==

== ENCOUNTER 2025-01-13 10:51 | Inpatient (IN) | payer OTHER, SELFPAY ==
[2025-01-13] VITALS (15 sets, daily range): BP systolic 119–158; BP diastolic 56–102; PULSE 49–123; RESP 16–20; TEMP 36.3–37.1; O2SAT 94–100; BMI 29.4; BMI 24.7
--- NOTE | 2025-01-13 | ECG_ITS ---
Test Reason : SYNCOPE Blood Pressure : */* mmHG Vent. Rate : 107 BPM Atrial Rate : 107 BPM P-R Int : 178 ms QRS Dur : 86 ms QT Int : 338 ms P-R-T Axes : 45 32 24 degrees QTcB Int : 451 ms Sinus tachycardia Possible Left atrial enlargement Borderline ECG When compared with ECG of 27-Oct-2024 14:06, No significant change was found Referred By: Generic ED Physician Electronically Signed By: MARCUS LOPEZ
--- NOTE | 2025-01-13 | ECG_ITS ---
Test Reason : chest pain Blood Pressure : */* mmHG Vent. Rate : 104 BPM Atrial Rate : 104 BPM P-R Int : 174 ms QRS Dur : 74 ms QT Int : 336 ms P-R-T Axes : 38 32 21 degrees QTcB Int : 441 ms Sinus tachycardia Possible Left atrial enlargement Borderline ECG When compared with ECG of 13-Jan-2025 11:38, No significant change was found Referred By: [facility] Electronically Signed By: MARCUS LOPEZ
--- NOTE | ~2025-01-13 | XR_ITS ---
EXAMINATION: XR WRIST 3 OR MORE VIEWS LEFT, XR HAND 3 OR MORE VIEWS LEFT HISTORY: Syncope and fall COMPARISON: There are no prior studies available for comparison. FINDINGS: Six views of the left hand and wrist are submitted. There is periarticular osteopenia. There is no fracture or dislocation. The joint spaces are preserved. The soft tissues are unremarkable. XR/XR wrist LT min 3V IMPRESSION: Osteopenia. No evidence of fracture of the left hand or wrist. Electronically signed by: Pablo Bhakta MD 01/13/2025 12:37 PM EDT
--- NOTE | ~2025-01-13 | CT_ITS ---
EXAMINATION: CT CERVICAL SPINE WITHOUT CONTRAST CLINICAL INFORMATION: Fall, syncope COMPARISON: None available. TECHNIQUE: Axial imaging was performed from the base of the skull through T2 without IV contrast. Coronal and sagittal reformatted images were generated from the original axial data set. ALARA: The examination used one or more of the following radiation dose reduction techniques: Automated exposure control, iterative reconstruction, and/or adjustment of mA and/or KV. DLP: 250 mGY*cm FINDINGS: There is severe degenerative change in the right temporal mandibular joint with joint space narrowing and osteophytes. There are milder changes on the left. There is partial opacification of the right sphenoid sinus and a moderate to large mucous retention cyst in the floor the left maxillary sinus. There is no prevertebral soft tissue edema. There is mild reversal cervical lordosis. Disc spaces are preserved. Vertebral body height is preserved. No fracture lines are evident. CT/CT cervical spine wo IV con IMPRESSION: No acute fracture. There is mild reversal of cervical lordosis. This can be related to degenerative changes, positioning, muscle spasm, or posterior soft tissue injury. There is partial opacification of the right sphenoid sinus and a moderate-sized mucous retention cyst in the left maxillary sinus. Severe degenerative changes are evident in the right TMJ and mild changes are present on the left. Electronically signed by: Franklyn Gerber MD 01/13/2025 01:38 PM EDT
--- NOTE | ~2025-01-13 | CT_ITS ---
EXAMINATION: CT FACIAL BONES WITHOUT CONTRAST CLINICAL INFORMATION: Fall with facial injury COMPARISON: None available. TECHNIQUE: Axial CT scan performed from the skull base through the upper cervical region without contrast This CT examination was performed using dose optimization techniques as appropriate, variously including the following: *Automated exposure control *Adjustment of mA and/or kV according to patient size (this includes techniques or standardized protocols for targeted exams where dose is matched to indication/reason for exam; i.e. extremities or head) *Use of iterative reconstruction technique DLP: 251 mGY*cm FINDINGS: There is partial opacification of the right sphenoid sinus and anterior third ethmoid air cells. There is moderate sized retention cyst in the left maxillary sinus extending up from the floor. There is a 5 mm bony spur projecting right of midline from the bony nasal septum. There are wires are seen encircling teeth in the anterior maxilla. No fracture lines are identified. There are severe degenerative changes in the right and moderate changes on the left involving several mandibular joint with joint space narrowing and marginal osteophytes. CT/CT facial bones wo IV con IMPRESSION: No discrete facial bone fracture. 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 Moderate sized left maxillary sinus mucous retention cyst. Partial opacification of the anterior right ethmoid air cells and right sphenoid sinus. Metal wires are seen partially encircling 2 teeth in the maxilla. Electronically signed by: Franklyn Gerber MD 01/13/2025 01:52 PM EDT RP
--- NOTE | ~2025-01-13 | CT_ITS ---
EXAMINATION: CT HEAD WITHOUT CONTRAST CLINICAL INFORMATION: Fall, syncope COMPARISON: None available. TECHNIQUE: Contiguous axial imaging was performed from the skull base to vertex without intravenous administration of contrast. This CT examination was performed using dose optimization techniques as appropriate, variously including the following: *Automated exposure control *Adjustment of mA and/or kV according to patient size (this includes techniques or standardized protocols for targeted exams where dose is matched to indication/reason for exam; i.e. extremities or head) *Use of iterative reconstruction technique DLP: 563 mGy-cm FINDINGS: No acute cortical disruption in the bony calvarium. No gross soft tissue contusion in the scalp. No acute intracranial hemorrhage, mass effect, midline shift, hydrocephalus or herniation. Richards-white matter differentiation is normal. Posterior cranial fossa contents demonstrated no gross hemorrhage or mass effect. There is normal position of the cerebellar tonsils. Sellar/suprasellar region demonstrated no gross masses. There is a questionable 4 mm hyperdensity within the sella turcica/pituitary gland. 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 Large retention cysts versus polyp, left maxillary sinus. Mucosal thickening and secretions in the right ethmoid cells. Poor pneumatization of the frontal sinuses. Secretions within the right sphenoid sinus. Tympanic cavity and mastoid cells are aerated bilaterally. Probable high riding right internal jugular bulb. CT/CT head/brain wo IV con IMPRESSION: No acute fracture, bony calvarium. No acute intracranial hemorrhage. Acute on chronic paranasal sinus disease. Electronically signed by: Valente Cruz MD 01/13/2025 01:23 PM EDT
--- NOTE | ~2025-01-13 | XR_ITS ---
EXAMINATION: XR WRIST 3 OR MORE VIEWS LEFT, XR HAND 3 OR MORE VIEWS LEFT HISTORY: Syncope and fall COMPARISON: There are no prior studies available for comparison. FINDINGS: Six views of the left hand and wrist are submitted. There is periarticular osteopenia. There is no fracture or dislocation. The joint spaces are preserved. The soft tissues are unremarkable. XR/XR hand LT min 3V IMPRESSION: Osteopenia. No evidence of fracture of the left hand or wrist. Electronically signed by: Pablo Bhakta MD 01/13/2025 12:37 PM EDT
--- NOTE | ~2025-01-13 | XR_ITS ---
EXAMINATION: XR HAND, RIGHT CLINICAL INFORMATION: fall and syncope COMPARISON: None available. TECHNIQUE: AP and lateral views of the right hand. FINDINGS: Borderline low bone mineral density is noted. No fracture lines are evident. Small calcific density is present in the soft tissues volar to the scaphoid tuberosity. XR/XR hand RT 2V IMPRESSION: Unremarkable right hand. Electronically signed by: Franklyn Gerber MD 01/13/2025 12:38 PM EDT
--- NOTE | ~2025-01-13 | XR_ITS ---
EXAMINATION: XR CHEST CLINICAL INFORMATION: Syncope and fall COMPARISON: 10/01/2024, dating back to 11/15/2019. TECHNIQUE: AP view of the chest was obtained. FINDINGS: The cardiac, hilar, and mediastinal contours are normal. The lungs are clear bilaterally. No pneumothorax or effusion. No focal osseous or soft tissue abnormality. XR/XR chest 1V IMPRESSION: No acute findings in the thorax. Electronically signed by: Greg Finnegan MD 01/13/2025 12:37 PM EDT
--- NOTE | 2025-01-13 12:02 | PC.NURSE ---
Dr. Sapp at bedside, c-collar cleared.
--- NOTE | 2025-01-13 12:09 | ED.SYNCOPE ---
HPI - Syncope General Chief Complaint: Syncope Stated Complaint: LOC fell,headstrike, abrasion to chin, arm pain Time Seen by Provider: 01/13/25 11:45 Source: patient and EMS Mode of arrival: EMS Limitations: no limitations History of Present Illness ED Provider: DR. Sapp HPI narrative: A 49-year-old female came in by ambulance for evaluation after had a syncopal episode. Patient was at the doctor office having a visit with her PCP, while patient was waiting started to have lightheadedness and dizziness then suddenly collapsed on the ground, patient could not get herself up waited till she got help from bystanders who called the ambulance and transported to the ED, patient confirmed LOC, striking left side of her face, complaining of chest pain from after the fall, left hand/left wrist pain, right knee pain. Patient thinks that she passed out for few minutes. Related Data Home Medications ?Medication ?Instructions ?Recorded ?Confirmed bupropion HCl 150 mg 24 hr tablet, mg PO 03/23/20 10/15/24 extended release clonazepam 1 mg tablet 1 mg PO TID PRN 03/23/20 10/15/24 zolpidem 10 mg tablet 10 mg PO BEDTIME PRN 03/23/20 10/15/24 cetirizine 10 mg tablet 10 mg PO DAILY 11/04/20 10/15/24 escitalopram oxalate 10 mg tablet 10 mg PO DAILY 10/13/21 10/15/24 ofloxacin 0.3 % eye drops 2 drp ophthalmic (eye) 08/21/22 10/15/24 tobramycin 0.3 %-dexamethasone 0.1 1 drp ophthalmic (eye) TID 08/21/22 10/15/24 % eye drops,suspension timolol maleate 0.5 % eye drops drp ophthalmic (eye) 02/12/23 10/15/24 Previous Rx's ?Medication ?Instructions ?Recorded fluticasone propionate 44 1 puff inhalation BID 30 days 11/04/20 mcg/actuation HFA aerosol inhaler #10.6 grams (Flovent HFA) nebulizers (VixOne Nebulizer-Adult #1 ea 04/22/21 Mask) albuterol sulfate 2.5 mg/3 mL 2.5 mg (3 mL) inhalation Q4H PRN 08/21/22 (0.083 %) solution for nebulization shortness of breath or wheezing 30 days #180 mL underpads (Bed Underpads) #100 ea 02/08/23 Incruse Ellipta 62.5 mcg/actuation 1 inh inhalation DAILY #30 ea 02/12/23 powder for inhalation (umeclidinium) mometasone-formoterol HFA 200 2 puff inhalation Q12H 30 days #13 02/12/23 mcg-5 mcg/actuation aerosol grams inhaler (Dulera) cane #1 ea 03/28/23 non slip bath mat #1 ea 08/14/23 walker (Ultra-Light Rollator misc) #1 ea 08/14/23 silver sulfadiazine 1 % topical 1 appl topical DAILY 1 week #20 09/19/23 cream (Silvadene) grams incontinence pad, liner, disp #60 ea 10/04/23 albuterol sulfate 90 mcg/actuation 2 puff inhalation Q4-6H PRN 12/10/23 aerosol inhaler shortness of breath or wheezing #1 ea compression stockings knee high #2 ea 01/24/24 thin panty liners #90 ea 02/01/24 wipes #120 ea 02/01/24 montelukast 10 mg tablet 10 mg PO DAILY #30 tabs 03/04/24 aspirin 81 mg tablet,delayed 81 mg PO DAILY 90 days #90 tabs 03/05/24 release ondansetron 4 mg disintegrating 4 mg PO Q8H PRN nausea and 05/01/24 tablet vomiting #10 tabs docusate calcium 240 mg capsule 240 mg PO BEDTIME PRN constipation 05/12/24 90 days #90 caps mecobalamin (vitamin B12) 5,000 5,000 mcg PO DAILY 30 days #30 tabs 09/03/24 mcg disintegrating tablet ibuprofen 800 mg tablet 800 mg PO Q8H PRN pain 30 days #90 09/29/24 tabs lisinopril 20 mg tablet 20 mg PO DAILY 90 days #90 tabs 09/29/24 cyclobenzaprine 10 mg tablet 10 mg PO TID PRN muscle spasm #10 10/07/24 tabs prednisone 20 mg tablet 40 mg (2 x 20 mg) PO DAILY #8 tabs 10/07/24 Bath mat #1 ea 10/21/24 Grab bar #1 ea 10/21/24 lidocaine 5 % topical patch 1 patch topical DAILY PRN pain 10/24/24 (DermacinRx Lidocan) (scale score 4-6) 30 days #15 ea tramadol 50 mg tablet 50 mg PO Q8H PRN pain 30 days #90 12/26/24 tabs Allergies Allergy/AdvReac Type Severity Reaction Status Date / Time gabapentin Allergy Intermediate abdominal Verified 01/13/25 11:10 pain semaglutide (From Wegovy) Allergy Intermediate termons Verified 01/13/25 11:10 Review of Systems Review of Systems: All other systems are reviewed and are negative Constitutional: Reports as per HPI and Reports no additional constitutional complaints Eyes: Reports as per HPI and Reports no additional eye complaints Reports system reviewed and no additional complaints, except as documented Cardiovascular: Reports as per HPI and Reports no additional cardiovascular complaints Respiratory: Reports as per HPI and Reports no additional respiratory complaints Gastrointestinal: Reports as per HPI and Reports no additional gastrointestinal complaints Genitourinary: Reports no additional female genitourinary complaints Musculoskeletal: Reports no additional musculoskeletal complaints Skin/Breast: Reports system reviewed and no additional complaints, except as docu Psychiatric: Reports no additional psychiatric complaints Endocrine: Reports no additional endocrine complaints Hematologic/Lymphatic: Reports no additional hematologic/lymphatic complaints Allergic/Immunologic: Reports no additional allergic/immunologic complaints Reports system reviewed and no additional complaints, except as documented and Reports Abnormal speech present [facility] Past Medical History Medical History Coarse tremors Abnormal mammogram of right breast Myopathy Dyspnea Pneumonia Rib fracture Pleural effusion Chest pain HPV (human papilloma virus) infection Chronic restrictive lung disease Arm pain, chronic Knee pain JABARI positive Chronic restrictive lung disease Mild recurrent major depression Polyarthralgia Asthma History of DVT of lower extremity Urge urinary incontinence Chronic restrictive lung disease Reactive airway disease 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 Social History Social History Housing: House Alcohol intake: never Patient Tobacco Use Status: Never used Tobacco Smoked in Last 30 Days: No e-Cigarette/Vaping Use: Never Used Second Hand Smoke Exposure: No Use of substances other than those prescribed or required for medical reasons: No Advance Directives: No Advance Directives Information Provided: Yes Patient : No service: No Current occupational status: unemployed Cognitive needs: No Hearing needs: No Vision needs: No Physical Exam Vital Signs: Vital Signs: Last Vital Signs Temp 98.0 F 01/13/25 16:36 Pulse 94 01/13/25 16:36 Resp 18 01/13/25 16:36 BP 129/60 01/13/25 16:36 Pulse Ox 98 01/13/25 16:36 O2 Del Method Room Air 01/13/25 16:36 BMI result Body Mass Index 29.4 Vital signs have been reviewed and appear to be correct. Blood pressure elevated. Heart rate normal. Respiratory rate normal. Temperature normal. Oxygen saturation normal. Appearance: Alert. Oriented X3. No acute distress. Head: Normal external exam. Normocephalic. Left facial tenderness, no step-off, no deformity. No Shore signs noted. No raccoon eyes noted Eyes: PERRLA. EOMI. Conjunctiva and sclera normal. Eyelids normal. ENT: TM's Normal. Pharynx normal. Uvula midline. Moist mucous membranes. No trismus noted. No drooling noted. No muffled voice noted. Neck: Normal inspection. Neck supple. FROM. No adenopathy. Thyroid Normal. No meningeal signs. No neck mass noted. CVS: Normal heart rate and rhythm. Heart sound normal. No murmurs noted. Pulses normal throughout. Respiratory: No respiratory distress. Painless inspiration. Breath sounds normal. No wheezes/rales/rhonchi noted. Chest nontender. No accessory muscle usage noted or decreased air movement noted. Abdomen: Soft and nontender. Bowel sounds normal in all 4 quadrants. No distention noted. No organomegaly noted. No visible injury noted. Back: No CVA tenderness. Full range of motion noted. Skin: Skin warm and dry. Normal skin color. Normal skin turgor. No rashes/lesions/lacerations noted. Extremities: No lower extremity edema. Extremities exhibit normal range of motion. Extremities nontender. Neuro: GCS of 15. Mental status: Normal attention, orientation, memory, and affect. Cranial nerves: Pupils are equal, round and reactive to light, EOMI, visual amaya are fall, face is symmetric, facial sensations are normal. Motor examination normal muscle tone, strength to 4 extremities. DTR are +2, planter's are flexor. Sensory exam; normal coordination, no ataxia, gait stable. Cerebellar exam: Kisfzb-mv-[id number] and uoxt-br-thdh is normal. Extrapyramidal system: No tremors, no rigidity with normal facial expressions. Pronator drift not present Course Reevaluation(s) Reevaluation #1: 49-year-old female presented after had syncopal episode earlier today, no chest pain, labs were sent and unremarkable, normal neuro exam with normal head/facial/cervical spine CT. No acute fracture in both hands and wrists. patient will need to be admitted for further monitoring and workup for syncope. Elevated troponin repeat troponin to be checked by Dr. Callejas, patient should be admitted to medical service case discussed with PAKhalif. For the patient to be admitted. Time: 14:55 Medications Administered Discontinued Medications Generic Name Dose Route Start Last Admin Trade Name Freq PRN Reason Stop Dose Admin Acetaminophen 1,000 mg in 100 mls @ 400 mls/hr 01/13/25 12:08 01/13/25 13:05 Ofirmev IV 01/13/25 12:22 Infused ONCE ONE Infusion Morphine Sulfate 1 mg 01/13/25 12:08 01/13/25 12:48 Morphine Sulfate 2 Mg/Ml Cartridge IVPUSH 01/13/25 12:09 1 mg ONCE ONE Administration Protocol Medical Decision Making Medical Decision Making [facility] Narrative: I received sign-out from my colleague Dr. Sapp Troponin 2 was pending, no weight is 109, significantly more elevated than the 1st troponin of 67. I informed the hospitalist team Patient being admitted Differential Diagnosis Differential Diagnoses: The differential diagnosis associated with the presentation includes (Syncope, ACS, intracranial bleed, cervical spine injury, facial injury, electrolyte derangement, severe anemia, extremity fracture.) Admission/Observation Consideration of admission/observation: Escalation of care including admission/observation considered Consult Healthcare Provider Management of the patient was discussed with: Hospitalist (Dr. Sauceda) Lab Data [facility] Lab Attestation statement: I reviewed the patient's lab results. 01/13/25 12:12 01/13/25 12:12 Labs: Lab Results 01/13/25 01/13/25 01/13/25 Range/Units 12:12 14:56 16:59 WBC 6.0 (4.8-10.8) X10*3/uL RBC 3.77 L (4.20-5.50) X10*6/uL Hgb 10.7 L (12.0-16.0) g/dl Hct 31.9 L (37.0-47.0) % MCV 84.6 (80.0-98.0) fL MCH 28.4 (27.0-33.0) pg MCHC 33.5 (31.0-35.0) g/dl RDW 12.8 (11.0-16.0) % Plt Count 313 (160-400) X10*3/uL MPV 9.3 L (9.4-12.3) fL Immature Gran % (Auto) 0.7 H (0.0-0.4) % Neut % (Auto) 63.7 (45-73) % Lymph % (Auto) 28.3 (20-40) % [place] % (Auto) 6.6 (2-11) % Eos % (Auto) 0.5 (0-4) % Baso % (Auto) 0.2 (0-2) % Lymph # (Auto) 1.7 (1.2-4.9) X10*3/uL [place] # (Auto) 0.4 (0.1-1.2) X10*3/uL Eos # (Auto) 0.0 (0.0-0.4) X10*3/uL Baso # (Auto) 0.0 (0.0-0.2) X10*3/uL Abs Immat Gran (auto) 0.04 H (0.00-0.03) X10*3/uL Absolute Neuts (auto) 3.9 (2.0-8.3) x10*3/uL Absolute Nucleated RBC 0.000 (0.0-0.012) X10*3/uL Nucleated RBC % (auto) 0.0 (0.0-0.2) /100WBC Sodium 145 (135-145) mmol/L Potassium 4.0 (3.3-5.1) mmol/L Chloride 109 H (96-108) mmol/L Carbon Dioxide 27 (22-29) mmol/L Anion Gap 13 (12-20) BUN 13 (9-16) mg/dL Creatinine 0.43 L (0.5-1.4) mg/dL Estim Creat Clear Calc 144.6 Estimated GFR > 60 Random Glucose 106 (60-115) mg/dL Calcium 10.0 (8.4-10.2) mg/dL Troponin I High Sens 67.1 H* D 108.7 H* D (<3.5-17.0) ng/L Independent Interpretation I performed an independent interpretation of an: EKG (Sinus tachycardia at 107 beats per minutes, no ST-T changes, no change from prior EKG.), Plain X-Ray (Right hand/left hand/left wrist/chest x-ray: No acute fracture, negative chest x-ray.) and CT Scan (Head/facial/cervical spine CT: No acute intracranial pathology, no facial fracture, no cervical spine fracture.) Radiology Impression Discussion of test interpretation with radiology: I have reviewed the radiologist's reading. Critical Care Time Critical Care Time Critical Care Time: Yes Total Critical Care Time: 60 Attestation: I have personally provided critical care time. Time includes review of lab data, radiology results, discussion with consultants, and monitoring for potential decompensation. Intervention performed as documented. Discharge Plan Discharge Clinical Impression: Syncope and collapse, Contusion of face, Elevated troponin Patient Disposition: Admitted As Inpatient Print Language: Fijian
[2025-01-13 12:18] LABS: MANUAL DIFF FLAG NO
[2025-01-13 12:21] LABS: Hematocrit 31.9 % (37.0-47.0); Hemoglobin 10.7 g/dl (12.0-16.0); Imm Gran Abs Auto 0.04 X10*3/uL (0.00-0.03); Imm Gran Pct Auto 0.7 % (0.0-0.4); Lymphocytes Absolute Auto 1.7 X10*3/uL (1.2-4.9); Mean Corpuscular HGB Conc 33.5 g/dl (31.0-35.0); Mean Corpuscular Hemoglobin 28.4 pg (27.0-33.0); Mean Corpuscular Volume 84.6 fL (80.0-98.0); NRBC Abs Auto 0.000 X10*3/uL (0.0-0.012); NRBC Pct Auto 0.0 /100WBC (0.0-0.2); Platelet Count 313 X10*3/uL (160-400); Red Blood Count 3.77 X10*6/uL (4.20-5.50); White Blood Count 6.0 X10*3/uL (4.8-10.8)
[2025-01-13 12:32] LABS: Anion Gap 13 (12-20); Blood Urea Nitrogen 13 mg/dL (9-16); Calcium 10.0 mg/dL (8.4-10.2); Carbon Dioxide 27 mmol/L (22-29); Chloride 109 mmol/L (96-108); Creatinine Clr Calc Pharmacy 144.6; Estimated Glomerular Filt Rate > 60; Potassium 4.0 mmol/L (3.3-5.1); Sodium 145 mmol/L (135-145)
--- OUTSIDE RECORDS SUMMARY | 2025-01-13 13:02 | XMS_ITS | Clinical Summary ---
Author Organization [facility] Address [address] [place] [address] Care Team Providers Care Roll Bucker Name Role Phone Unavailable Primary Care Provider [...] season) 2024 Influenza Vaccine 12/19/2024 03/11/2014 Insurance [facility] MEDICARE PART A & B [facility] MEDICARE OUT OF NETWORK
--- OUTSIDE RECORDS SUMMARY | 2025-01-13 13:03 | XMS_ITS | Clinical Summary ---
Author Organization [facility] Address [address] [place] [address] Phone Care Team Providers Care Orthopaedic Nurse Name Role Phone Physician, Pcp Unknown Primary [...] ID:[id number] Group ID:[id number] Type:Not on file Address: [facility] [address] [address] Care Teams Orthopaedic Nurse Relationship Specialty Start Date End Date Physician, Pcp Unknown PCP - General 09/09/24
--- OUTSIDE RECORDS SUMMARY | 2025-01-13 13:03 | XMS_ITS | Clinical Summary ---
Author Organization [facility] Address [address] [place] [address] Care Team Providers Care Sewing Teacher Name Role Phone Neelima Lima PA-C Primary Care Provider [phone] Source Comments PLEASE NOTE, if this patient [...] HPV negative last done 03/16/2015 Dr. 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 Recurrent major depression i n partial remission ([facility] V24) 05/31/2015 Migraine aura, persistent [...] Nicholas Relation to Subscriber:Self Name:Amira Nicholas Payer ID:[id number] Group ID:Not on file Type:Medicaid Address: [address] [id number] MEDICARE - [place] Care Teams Sewing Teacher Relationship Specialty Start Date End Date Neelima Lima PA-C [address] [place] [id number] PCP - General Internal Medicine 05/19/16
[2025-01-13 15:28] LABS: Troponin-I High Sensitivity 67.1 ng/L (<3.5-17.0)
[2025-01-13 17:27] LABS: Troponin-I High Sensitivity 108.7 ng/L (<3.5-17.0)
--- NOTE | 2025-01-13 18:17 | P.HPHOSP_ITS ---
History of Present Illness Date of Service: 01/13/25 Chief Complaint: syncope 49 year old female with past medical history as listed below who presents with a syncopal episode. She was reportedly going [facility] and forgot her phone and was returning to the car to get the phone when she sudenly felt to ground passed in her report for 5 minutes, no witnessed but was noted by a bystander and brought to the ED and complaning of pain in the arm, there is a hardly noticeable abraision to the left cheek and chin area. She also c/o pain in the arms although there is no visible injury. CT of head and neck, face show no acute injury. CXR unremarkable, hand and wrist xrays unremarkable. Although ED provider note stays felt dizzy and passed out, she tells me it happened suddenly. An incidental troponin I level 67 and now 108, she is intermittent chest pain. ECG shows sinus tachy, no acute ischemic chanages, other sinus tach no change from prior. Review of Systems 2 Review of Systems: Gen: no fever Resp: no sob, no cough CV: no chest, no FREEMAN, no leg edema GI: No n/v, no abd pain Neuro: No confusion no dizziness, pain in the arms Yes all other systems are reviewed and are negative [facility] Medical History Coarse tremors Abnormal mammogram of right breast Myopathy Dyspnea Pneumonia Rib fracture Pleural effusion Chest pain HPV (human papilloma virus) infection Chronic restrictive lung disease Arm pain, chronic Knee pain JABARI positive Chronic restrictive lung disease Mild recurrent major depression Polyarthralgia Asthma History of DVT of lower extremity Urge urinary incontinence Chronic restrictive lung disease Reactive airway disease [id number] syndrome Obese Depression with anxiety Dyspnea Anxiety Hypertension Arthritis Encounter for follow-up for hypertension Family History Father Liver cancer Mother Hypertension Diabetes CVD (cardiovascular disease) Maternal Grandmother Throat cancer Son No problems noted. Surgical History History of tubal ligation H/O breast biopsy H/O LEEP Social History Household Members: Family Housing: House Do you presently have visiting nurse or other home services: No Alcohol intake: never Patient Tobacco Use Status: Never used Tobacco Smoked in Last 30 Days: No e-Cigarette/Vaping Use: Never Used Second Hand Smoke Exposure: No Use of substances other than those prescribed or required for medical reasons: No Currently Displaying Signs/Symptoms of Drug Intoxication Withdrawal: No Have you been hit, kicked, punched, or otherwise hurt by someone within the past year? If so, by whom?: No Is there a partner from a previous relationship who is making you feel unsafe now?: No Are you made to feel afraid or neglected: No Advance Directives: No Advance Directives Information Provided: Yes Do you have a plan to hurt others: No Plan Patient : No service: No Current occupational status: unemployed Cognitive needs: No Hearing needs: No Vision needs: No Meds Allergies Allergy/AdvReac Type Severity Reaction Status Date / Time gabapentin Allergy Intermediate abdominal Verified 01/13/25 11:10 pain semaglutide (From [employer]) Allergy Intermediate termons Verified 01/13/25 11:10 Home Medications ?Medication ?Instructions ?Recorded ?Confirmed ?Last Taken ?Type clonazepam 1 mg tablet 1 mg PO TID PRN Anxiety 11/0 08/0701/13/25 Unknown History zolpidem 10 mg tablet 10 mg PO BEDTIME PRN Sleep 1 05/23/19 01/13/25 Unknown History cetirizine 10 mg tablet 10 mg PO DAILY 11/04/20 08/11/1201/13/25 History escitalopram oxalate 10 mg tablet 10 mg PO DAILY 10/1301/13/25 01/13/25 History timolol maleate 0.5 % eye drops 1 drp ophthalmic (eye) BID 02/12/23 01/13/25 01/13/25 History dorzolamide 2 % eye drops 1 drp ophthalmic (eye) BID 0 01/13/25 01/13/25 01/13/25 History Physical Exam 2 Vital Signs and Narrative: Vital Signs: Last Vital Signs Temp 98.1 F 01/13/25 17:36 Pulse 101 H 01/13/25 17:36 Resp 17 01/13/25 17:36 BP 130/80 01/13/25 17:36 Pulse Ox 97 01/13/25 17:36 O2 Del Method Room Air 01/13/25 17:36 BMI result Body Mass Index 29.4 Const: Other: General: AO X 3, no acute distress Resp: CTA bilateral CVS: S1,S2,RRR GI: +BS, NT, no distention Skin: mild abraision to left cheeck, chin otherwise unremarkable Neuro: motor grossly intact Psych: appropriate affect Results Labs 01/13/25 12:12 01/14/25 06:21 Labs: Laboratory Results - last 24 hr 01/13/25 12:12 MCV 84.6 MCH 28.4 MCHC 33.5 RDW 12.8 Plt Count 313 MPV 9.3 L Immature Gran % (Auto) 0.7 H Neut % (Auto) 63.7 Lymph % (Auto) 28.3 [place] % (Auto) 6.6 Eos % (Auto) 0.5 Baso % (Auto) 0.2 Lymph # (Auto) 1.7 [place] # (Auto) 0.4 Eos # (Auto) 0.0 Baso # (Auto) 0.0 Abs Immat Gran (auto) 0.04 H Absolute Neuts (auto) 3.9 Absolute Nucleated RBC 0.000 Nucleated RBC % (auto) 0.0 Anion Gap 13 Estim Creat Clear Calc 144.6 Estimated GFR > 60 Random Glucose 106 Calcium 10.0 Imaging Radiologist's Impressions: Impressions Chest X-Ray 01/13/25 11:23 IMPRESSION: No acute findings in the thorax. Electronically signed by: Greg Finnegan MD 01/13/2025 12:37 PM EDT RP Wrist X-Ray 01/13/25 11:26 IMPRESSION: Osteopenia. No evidence of fracture of the left hand or wrist. Electronically signed by: Pablo Bhakta MD 01/13/2025 12:37 PM EDT RP Hand X-Ray 01/13/25 11:29 IMPRESSION: Osteopenia. No evidence of fracture of the left hand or wrist. Electronically signed by: Pablo Bhakta MD 01/13/2025 12:37 PM EDT RP Cervical Spine CT 01/13/25 11:33 IMPRESSION: No acute fracture. There is mild reversal of cervical lordosis. This can be related to degenerative changes, positioning, muscle spasm, or posterior soft tissue injury. There is partial opacification of the right sphenoid sinus and a moderate-sized mucous retention cyst in the left maxillary sinus. Severe degenerative changes are evident in the right TMJ and mild changes are present on the left. Electronically signed by: Franklyn Gerber MD 01/13/2025 01:38 PM EDT RP Face CT 01/13/25 11:33 IMPRESSION: No discrete facial bone fracture. 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 Moderate sized left maxillary sinus mucous retention cyst. Partial opacification of the anterior right ethmoid air cells and right sphenoid sinus. Metal wires are seen partially encircling 2 teeth in the maxilla. Electronically signed by: Franklyn Gerber MD 01/13/2025 01:52 PM EDT RP Hand X-Ray 01/13/25 11:33 IMPRESSION: Unremarkable right hand. Electronically signed by: Franklyn Gerber MD 01/13/2025 12:38 PM EDT RP Head CT 01/13/25 12:33 IMPRESSION: No acute fracture, bony calvarium. No acute intracranial hemorrhage. Acute on chronic paranasal sinus disease. Electronically signed by: Valente Cruz MD 01/13/2025 01:23 PM EDT RP Assessment and Plan (1) Chest pain: Status: Acute (2) Syncope and collapse: Status: Acute Plan 49/F with syncope, elevated troponin I rule out acute MA Syncope, unclear etiology ECG sinus tach hydrate check orthostatic BP continuos cardiac monitoring echocardiogram tommorrow cardiology consult in am elevated troponin, rule NSTEMI repeat troponin, check cpk if troponin rising, may need to start heparin or lovenox Quality Stroke Does the patient have a stroke diagnosis?: No VTE Prior VTE?: No VTE Risk Level:: Medical - moderate - high VTE Device Contraindication: Treatment Not Tolerated VTE Drug Contraindication: N/A - Med Ordered
--- NOTE | 2025-01-13 18:43 | MHC.EVENTN ---
While ambulating from [facility], pt c/o 11/27 cp states its intermittent. Denies dizziness, sob. Dr. Briscoe notified via [employer], new orders received.
[2025-01-13 19:16] LABS: Troponin-I High Sensitivity 108.3 ng/L (<3.5-17.0)
--- NOTE | 2025-01-13 19:36 | PHA.MEDREC ---
Addendum entered by Major Bryan, PharmD 01/13/25 20:08: MED REC CHECKED BY [facility] Original Note: Pharmacy Consult ? Medication Reconciliation Pharmacy has completed the medication reconciliation. Spoke with pt and pt family @bedside (family was able to interpret). Pt confirmed: she is taking Lisinopril 1 tab daily, Timolol Eyedrops and Drozolimide Eyedrops 1 drop OU BID; I called pt preferred pharmacy ([facility]) and they state it was last filled 09/29 for 90 days. Pt confirmed she also takes an Albuterol Inhaler and Albuterol Nebulizer as needed for shortness of breath and states she was filling those at [facility] [address] (that pharmacy has since closed down); I called [facility] and they confirmed the pt has not gotten an Albuterol Inhaler from them since and they have no claims for an Albuterol Nebulizer at their facility.
[2025-01-14] VITALS (8 sets, daily range): BP systolic 115–137; BP diastolic 60–76; PULSE 88–102; RESP 18–20; TEMP 36.3–37.2; O2SAT 93–98
[2025-01-14 00:47] LABS: Troponin-I High Sensitivity 97.6 ng/L (<3.5-17.0)
[2025-01-14 02:57] LABS: Appearance Urine Cloudy; Glucose Urine UA Negative (Negative); PH 8.5 (5.0-9.0); Specific Gravity - Urine 1.010 (1.005-1.025); UMIC TRIGGER UA YES
--- NOTE | 2025-01-14 07:00 | CA_ITS ---
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 The visually estimated ejection fraction is between 60-65%. - Elevated gradients across aortic valve related to increased stroke volume. - Moderate pulmonary hypertension is present. Findings Procedure Information Contrast agent, definity, is being given per protocol without apparent complications. Left Ventricle Normal left ventricular cavity size. There is normal left ventricular wall thickness. The left ventricular systolic function is normal. The visually estimated ejection fraction is between 60-65%. There is no evidence of regional wall motion abnormalities. Diastolic function is normal for age. Right Ventricle Normal right ventricular cavity size and systolic function. Atria Both atria are normal in size. Aortic Valve There is a normal trileaflet aortic valve. There is no aortic valve stenosis. There is no aortic valve regurgitation. Mitral Valve The mitral valve appears normal. There is trace mitral valve regurgitation. There is no mitral valve stenosis. Pulmonic Valve The pulmonic valve is likely normal. Tricuspid Valve There is mild tricuspid valve regurgitation. The right ventricular systolic pressure is 57 mmHg. Moderate pulmonary hypertension is present. Great Vessels The asc aorta is normal in size. Venous The inferior vena cava is mildly dilated and collapses less than 50% with inspiration. Pericardium/Pleural There is no evidence of pericardial effusion. Prior Study Comparison Changes noted compared to prior study dated: 10/27/2024. Pulmonary hypertension present. Measurements 2D Linear Measurements IVSd: 0.73 0.6-0.9/0.6-1.0 cm LVIDd: 5.15 3.9-5.3/4.2-5.9 cm LVIDd Index: 2.83 2.4-3.2/2.2-3.1 cm/m2 LVIDs: 3.59 2.0-3.6 cm LVPWd: 0.73 0.7-1.1 cm LA Diam: 3.30 2.7-3.8/3.0-4.0 cm LAIDs Index: 1.81 1.5-2.3 cm/m2 LV Mass: 158.58 67-162/88-224 g LV Mass Index: 87.13 43-95/49-115 g/m2 LVOT Diam: 2.00 3.0+(-)1.3 cm 2D Systolic Function EF 4C: 59.60 >55% EF 2C: 62.00 >55% EF BiP: 59.90 >55% Mitral Valve MV Pk E: 0.90 MV PK A: 0.78 MV Decel Time: 146.00 E/A: 1.20 E'Lateral: 12.00 E'Medial: 8.05 E/E' Med: 11.10 E/E' Lat: 7.50 PHT: 43.00 MVA PHT: 5.12 Decel Butts: 6.14 Aortic Valve AoV Pk Ward: 2.63 AoV Mn Ward: 1.80 AoV VTI: 0.42 AoV Pk Grad: 28.00 Aov Mn Grad: 15.00 TAISHA Cont.VTI: 2.33 LVOT LVOT Pk Ward: 2.07 LVOT Mn Ward: 1.34 LVOT VTI: 0.31 LVOT Pk Grad: 17.00 LVOT Mn Grad: 8.00 LVOT Diam: 2.00 LVOT Area: 3.14 Diastolic Function MV Pk E: 0.90 MV Pk A: 0.78 E/A: 1.20 E'Medial: 8.05 E/E' Med: 11.10 E' Laterial: 12.00 E/E' Lat: 7.50 Right Ventricle TAPSE (mm): 23.50 TVS' Ward: 17.50 Tricuspid Valve TR Pk Ward: 3.24 TR Pk Grad: 42.00 RA Press: 15.00 RVSP: 57.00 Great Vessels Aorta Sinus of Valsalva: 2.69 2.0-3.5 cm Ao Asc: 2.60 2.1-3.4 cm Updated in Other Vendor System with Status of Final Chapito Sosa MD electronically signed on 01/14/2025 12:01:54 PM with status of Final
[2025-01-14 07:13] LABS: Alanine Aminotransferase 17 U/L (0-31); Albumin Level 3.4 g/dL (3.5-5.0); Alkaline Phosphatase 156 U/L (39-117); Anion Gap 10 (12-20); Aspartate Amino Transferase 25 U/L (5-31); Blood Urea Nitrogen 10 mg/dL (9-16); Calcium 9.7 mg/dL (8.4-10.2); Carbon Dioxide 28 mmol/L (22-29); Chloride 105 mmol/L (96-108); Creatinine Clr Calc Pharmacy 147.1; Estimated Glomerular Filt Rate > 60; Potassium 3.6 mmol/L (3.3-5.1); Sodium 139 mmol/L (135-145); Total Protein 6.0 g/dL (6.5-8.0)
[2025-01-14 07:22] LABS: Troponin-I High Sensitivity 67.2 ng/L (<3.5-17.0)
[2025-01-14] MEDS: 0.9 % Sodium Chloride Flush 3 ML SYRINGE IVFLUSH ×2 (09:07→20:07)
--- NOTE | 2025-01-14 09:47 | MHC.CM.PN ---
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 PT VERIFIES PCP ON FILE IS DR. SHANTA CASTELLANO, PT EDUCATED AND DECLINES TO COMPLETE A HCP AT THIS TIME. PER HOSPITALIST ANTIC PT WILL BE MEDICALLY CLEARED TODAY, PT REPORTS SHE WILL CONTACT FAMILY FOR TRANSPORT.
--- NOTE | 2025-01-14 09:51 | PM.CNCAR ---
History of Present Illness History of Present Illness Date of Service: 01/14/25 Chief complaint: Syncope Narrative: This is a cardiology consultation regarding syncope and elevated troponins. It seems that she was going to [facility] and forgot to phone and was returning to the car to get the phone when she suddenly passed out. Then she was brought to the ER and she is complaining of pain in the arm, ablation in the left cheek/saldaña area. No overt injuries from this episode. Troponins were checked and found to be mildly elevated and hence she was admitted. Otherwise, patient states that she has been having chest pains in somewhat of random fashion for several weeks. No clear-cut precipitating or relieving factors. Can just happen any time. Sometimes persistent. Currently, she is complaining of pain everywhere essentially. Review of Systems Review of Systems: Yes all other systems are reviewed and are negative Constitutional: Constitutional: Reports as per HPI and Reports no additional constitutional complaints Eyes: Eyes: Reports as per HPI and Denies no additional eye complaints ENT: Denies system reviewed and no additional complaints, except as documented and Reports as per HPI Cardiovascular: Cardiovascular: Reports as per HPI, Reports no additional cardiovascular complaints, Denies acrocyanosis, Denies cool extremities, Reports chest pain, Denies leg edema, Denies lightheadedness, Denies palpitations and Denies dyspnea Respiratory: Respiratory: Reports as per HPI, Denies no additional respiratory complaints and Denies dyspnea Gastrointestinal: Gastrointestinal: Reports as per HPI and Denies no additional gastrointestinal complaints Genitourinary: Genitourinary: Reports as per HPI Musculoskeletal: Musculoskeletal: Reports no additional musculoskeletal complaints and Reports as per HPI Integumentary/Breasts: Skin/Breast: Reports system reviewed and no additional complaints, except as docu Neurologic: Reports system reviewed and no additional complaints, except as documented and Reports as per HPI Psychiatric: Psychiatric: Reports no additional psychiatric complaints and Reports as per HPI Endocrine: Endocrine: Reports no additional endocrine complaints, Reports as per HPI and Denies palpitations Hematologic/Lymphatic: Hematologic/Lymphatic: Reports no additional hematologic/lymphatic complaints and Reports as per HPI Allergic/Immunologic: Allergic/Immunologic: Reports no additional allergic/immunologic complaints and Reports as per HPI [facility] Past Medical History Medical History Coarse tremors Abnormal mammogram of right breast Myopathy Dyspnea Pneumonia Rib fracture Pleural effusion Chest pain HPV (human papilloma virus) infection Chronic restrictive lung disease Arm pain, chronic Knee pain JABARI positive Chronic restrictive lung disease Mild recurrent major depression Polyarthralgia Asthma History of DVT of lower extremity Urge urinary incontinence Chronic restrictive lung disease 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 Surgical History Surgical History History of tubal ligation H/O breast biopsy H/O LEEP Social History Social History Household Members: Family Housing: House Do you presently have visiting nurse or other home services: No Alcohol intake: never Patient Tobacco Use Status: Never used Tobacco Smoked in Last 30 Days: No e-Cigarette/Vaping Use: Never Used Second Hand Smoke Exposure: No Use of substances other than those prescribed or required for medical reasons: No Currently Displaying Signs/Symptoms of Drug Intoxication Withdrawal: No Have you been hit, kicked, punched, or otherwise hurt by someone within the past year? If so, by whom?: No Is there a partner from a previous relationship who is making you feel unsafe now?: No Are you made to feel afraid or neglected: No Advance Directives: No Advance Directives Information Provided: Yes Do you have a plan to hurt others: No Plan Patient : No service: No Current occupational status: unemployed Cognitive needs: No Hearing needs: No Vision needs: No Meds Allergies Allergy/AdvReac Type Severity Reaction Status Date / Time gabapentin Allergy Intermediate abdominal Verified 01/13/25 11:10 pain semaglutide (From Wegovy) Allergy Intermediate termons Verified 01/13/25 11:10 Active Medications: Current Medications Acetaminophen (Acetaminophen 325 Mg Tablet) 650 mg PO Q6H PRN PRN Reason: Pain, Mild 1-3,fever,headache Last Admin: 01/14/25 09:06 Dose: 650 mg Calcium Carbonate (Calcium Carbonate 750 Mg Tab.Chew) 750 mg PO Q4H PRN PRN Reason: Heartburn Magnesium Hydroxide (Milk Of Magnesia 30 Ml Oral.Susp) 30 ml PO DAILY PRN PRN Reason: Constipation Melatonin (Melatonin 3 Mg Tablet) 6 mg PO BEDTIME PRN PRN Reason: Insomnia Morphine Sulfate (Morphine Sulfate 4 Mg/Ml Cartridge) 2 mg IVPUSH Q6H PRN; Protocol PRN Reason: Pain, Severe (Pain Scale 7-10) Last Admin: 01/13/25 21:04 Dose: 2 mg Ondansetron HCl (Ondansetron Hcl 4 Mg/2 Ml Vial) 4 mg IVPUSH Q8H PRN PRN Reason: Nausea and Vomiting Polyethylene Glycol (Polyethylene Glycol 3350 17 Gm Powd.Pack) 17 gm PO DAILY PRN PRN Reason: Constipation Sodium Chloride (0.9 % Sodium Chloride Flush 3 Ml Syringe) [address] [facility] Last Admin: 01/14/25 09:07 Dose: 3 ml Home Medications ?Medication ?Instructions ?Recorded ?Confirmed ?Last Taken ?Type clonazepam 1 mg tablet 1 mg PO TID PRN Anxiety 03/23/20 01/13/25 Unknown History zolpidem 10 mg tablet 10 mg PO BEDTIME PRN Sleep 03/23/20 01/13/25 Unknown History cetirizine 10 mg tablet 10 mg PO DAILY 11/04/20 01/13/25 01/13/25 History escitalopram oxalate 10 mg tablet 10 mg PO DAILY 10/13/21 01/13/25 01/13/25 History timolol maleate 0.5 % eye drops 1 drp ophthalmic (eye) BID 02/12/23 01/13/25 01/13/25 History dorzolamide 2 % eye drops 1 drp ophthalmic (eye) BID 01/13/25 01/13/25 01/13/25 History Physical Exam Vital Signs: Vital Signs: Last Vital Signs Temp 98.9 F 01/14/25 07:46 Pulse 101 H 01/14/25 07:46 Resp 20 01/14/25 07:46 BP 137/60 01/14/25 07:46 Pulse Ox 93 01/14/25 07:46 O2 Del Method Room Air 01/14/25 07:46 BMI result Body Mass Index 24.7 Const: General: comfortable and no acute distress Orientation/consciousness: patient oriented x3 HEENT: Other: Unremarkable Head: Yes normal to inspection Neck: Neck: Yes normal visual inspection Chest: Chest palpation & inspection: normal inspection of the chest Resp: Auscultation: clear to auscultation bilaterally Cardio: Palpation: normal PMI Heart sounds: S1 normal heart sound present, S2 normal heart sound present, no gallops, no murmurs and no rubs GI: Palpation (GI): Soft to palpation Back/Spine/Pelvis: Other: unremarkable Skin: General skin exam: no rashes or lesions noted Neuro: General: patient oriented x3 Extrem: General: Yes normal to inspection Psych: Mental Status: mental status grossly normal Objective Labs and Meds 01/13/25 12:12 01/14/25 06:21 Lab results: Laboratory Results - last 24 hr 01/13/25 01/13/25 01/13/25 12:12 14:56 16:59 WBC 6.0 RBC 3.77 L Hgb 10.7 L Hct 31.9 L MCV 84.6 MCH 28.4 MCHC 33.5 RDW 12.8 Plt Count 313 MPV 9.3 L Immature Gran % (Auto) 0.7 H Neut % (Auto) 63.7 Lymph % (Auto) 28.3 [place] % (Auto) 6.6 Eos % (Auto) 0.5 Baso % (Auto) 0.2 Lymph # (Auto) 1.7 [place] # (Auto) 0.4 Eos # (Auto) 0.0 Baso # (Auto) 0.0 Abs Immat Gran (auto) 0.04 H Absolute Neuts (auto) 3.9 Absolute Nucleated RBC 0.000 Nucleated RBC % (auto) 0.0 Hold Purple Top Sodium 145 Potassium 4.0 Chloride 109 H Carbon Dioxide 27 Anion Gap 13 BUN 13 Creatinine 0.43 L Estim Creat Clear Calc 144.6 Estimated GFR > 60 Random Glucose 106 Calcium 10.0 Total Bilirubin AST ALT Alkaline Phosphatase Total Creatine Kinase Troponin I High Sens 67.1 H* D 108.7 H* D Total Protein Albumin Urine Color Urine Appearance Urine pH Ur Specific [place] Urine Protein Urine Glucose (UA) Urine Ketones Urine Blood Urine Nitrite Ur Leukocyte Esterase Urine RBC Urine WBC Ur Squamous Epith Cells Urine Bacteria Hyaline Casts 01/13/25 01/13/25 01/14/25 18:39 22:50 00:09 WBC RBC Hgb Hct MCV MCH MCHC RDW Plt Count MPV Immature Gran % (Auto) Neut % (Auto) Lymph % (Auto) [place] % (Auto) Eos % (Auto) Baso % (Auto) Lymph # (Auto) [place] # (Auto) Eos # (Auto) Baso # (Auto) Abs Immat Gran (auto) Absolute Neuts (auto) Absolute Nucleated RBC Nucleated RBC % (auto) Hold Purple Top Sodium Potassium Chloride Carbon Dioxide Anion Gap BUN Creatinine Estim Creat Clear Calc Estimated GFR Random Glucose Calcium Total Bilirubin AST ALT Alkaline Phosphatase Total Creatine Kinase 44 Troponin I High Sens 108.3 H* 97.6 H* Total Protein Albumin Urine Color Yellow Urine Appearance Cloudy Urine pH 8.5 Ur Specific [place] 1.010 Urine Protein Negative Urine Glucose (UA) Negative Urine Ketones Negative Urine Blood Negative Urine Nitrite Negative Ur Leukocyte Esterase Trace H Urine RBC 0-2 Urine WBC 0-5 Ur Squamous Epith Cells 0-2 Urine Bacteria None Seen Hyaline Casts 0-2 01/14/25 06:21 WBC RBC Hgb Hct MCV MCH MCHC RDW Plt Count MPV Immature Gran % (Auto) Neut % (Auto) Lymph % (Auto) [place] % (Auto) Eos % (Auto) Baso % (Auto) Lymph # (Auto) [place] # (Auto) Eos # (Auto) Baso # (Auto) Abs Immat Gran (auto) Absolute Neuts (auto) Absolute Nucleated RBC Nucleated RBC % (auto) Hold Purple Top SEE NOTE Sodium 139 Potassium 3.6 Chloride 105 Carbon Dioxide 28 Anion Gap 10 L BUN 10 Creatinine 0.44 L Estim Creat Clear Calc 147.1 Estimated GFR > 60 Random Glucose 100 Calcium 9.7 Total Bilirubin 1.6 H AST 25 ALT 17 Alkaline Phosphatase 156 H Total Creatine Kinase Troponin I High Sens 67.2 H* Total Protein 6.0 L Albumin 3.4 L Urine Color Urine Appearance Urine pH Ur Specific [place] Urine Protein Urine Glucose (UA) Urine Ketones Urine Blood Urine Nitrite Ur Leukocyte Esterase Urine RBC Urine WBC Ur Squamous Epith Cells Urine Bacteria Hyaline Casts ECG Interpretation: EKG with underlying sinus tachycardia at 107/Min; no ischemic changes; possible left atrial enlargement; normal CT and corrected QT. repeat EKGs similar. Imaging Radiologist's impression: Impressions Chest X-Ray 01/13/25 11:23 IMPRESSION: No acute findings in the thorax. Electronically signed by: Greg Finnegan MD 01/13/2025 12:37 PM EDT RP Wrist X-Ray 01/13/25 11:26 IMPRESSION: Osteopenia. No evidence of fracture of the left hand or wrist. Electronically signed by: Pablo Bhakta MD 01/13/2025 12:37 PM EDT RP Hand X-Ray 01/13/25 11:29 IMPRESSION: Osteopenia. No evidence of fracture of the left hand or wrist. Electronically signed by: Pablo Bhakta MD 01/13/2025 12:37 PM EDT RP Cervical Spine CT 01/13/25 11:33 IMPRESSION: No acute fracture. There is mild reversal of cervical lordosis. This can be related to degenerative changes, positioning, muscle spasm, or posterior soft tissue injury. There is partial opacification of the right sphenoid sinus and a moderate-sized mucous retention cyst in the left maxillary sinus. Severe degenerative changes are evident in the right TMJ and mild changes are present on the left. Electronically signed by: Franklyn Gerber MD 01/13/2025 01:38 PM EDT RP Face CT 01/13/25 11:33 IMPRESSION: No discrete facial bone fracture. 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 Moderate sized left maxillary sinus mucous retention cyst. Partial opacification of the anterior right ethmoid air cells and right sphenoid sinus. Metal wires are seen partially encircling 2 teeth in the maxilla. Electronically signed by: Franklyn Gerber MD 01/13/2025 01:52 PM EDT RP Hand X-Ray 01/13/25 11:33 IMPRESSION: Unremarkable right hand. Electronically signed by: Franklyn Gerber MD 01/13/2025 12:38 PM EDT RP Head CT 01/13/25 12:33 IMPRESSION: No acute fracture, bony calvarium. No acute intracranial hemorrhage. Acute on chronic paranasal sinus disease. Electronically signed by: Valente Cruz MD 01/13/2025 01:23 PM EDT RP Assessment and Plan (1) Syncope and collapse: Status: Acute (2) Elevated troponin: Status: Acute Plan Baseline EKG without any clear-cut ischemic changes. High sensitivity troponin level of 67, 108, 97 and 67. Echocardiogram from October with LVEF of 60-65%. Elevated gradients across aortic valve but thought to be because of high stroke volume. This is getting repeated and we will evaluate. Overall, stated syncopal episode, elevated troponins of uncertain etiology. We can ambulate the patient and see how she does. We will also review the echocardiogram in the interim. If this is unremarkable, then possibly consider discharge and further workup as an outpatient with coronary CTA and possibly cardiac MRI. Procedures Date of Service Date of Service: 01/14/25
--- NOTE | 2025-01-14 11:03 | P.PNIM_ITS ---
Subjective Subjective Date of Service: 01/14/25 Interval History: c/o intermittent chest pain, no arrythmia, also has diffuse bodyache Review of Systems as above Physical Exam 2 Vital Signs: Vital Signs: Last Vital Signs Temp 98.9 F 01/14/25 07:46 Pulse 101 H 01/14/25 07:46 Resp 20 01/14/25 07:46 BP 137/60 01/14/25 07:46 Pulse Ox 93 01/14/25 07:46 O2 Del Method Room Air 01/14/25 07:46 BMI result Body Mass Index 24.7 Const: Other: General: AO X 3, no acute distress Resp: CTA bilateral CVS: S1,S2,RRR GI: +BS, NT, no distention Skin: mild abraision to left cheeck, chin otherwise unremarkable Neuro: motor grossly intact Psych: appropriate affect Objective Data Active Medications Acetaminophen (Acetaminophen 325 Mg Tablet) 650 mg PO Q6H PRN PRN Reason: Pain, Mild 1-3,fever,headache Last Admin: 01/14/25 09:06 Dose: 650 mg Documented By: SAL Calcium Carbonate (Calcium Carbonate 750 Mg Tab.Chew) 750 mg PO Q4H PRN PRN Reason: Heartburn Magnesium Hydroxide (Milk Of Magnesia 30 Ml Oral.Susp) 30 ml PO DAILY PRN PRN Reason: Constipation Melatonin (Melatonin 3 Mg Tablet) 6 mg PO BEDTIME PRN PRN Reason: Insomnia Morphine Sulfate (Morphine Sulfate 4 Mg/Ml Cartridge) 2 mg IVPUSH Q6H PRN; Protocol PRN Reason: Pain, Severe (Pain Scale 7-10) Last Admin: 01/13/25 21:04 Dose: 2 mg Documented By: HAO Ondansetron HCl (Ondansetron Hcl 4 Mg/2 Ml Vial) 4 mg IVPUSH Q8H PRN PRN Reason: Nausea and Vomiting Polyethylene Glycol (Polyethylene Glycol 3350 17 Gm Powd.Pack) 17 gm PO DAILY PRN PRN Reason: Constipation Sodium Chloride (0.9 % Sodium Chloride Flush 3 Ml Syringe) [facility] Last Admin: 01/14/25 09:07 Dose: 3 ml Documented By: SAL Labs 01/13/25 12:12 01/14/25 06:21 Labs: Laboratory Results - last 24 hr 01/13/25 01/13/25 01/13/25 12:12 18:39 22:50 MCV 84.6 MCH 28.4 MCHC 33.5 RDW 12.8 Plt Count 313 MPV 9.3 L Immature Gran % (Auto) 0.7 H Neut % (Auto) 63.7 Lymph % (Auto) 28.3 [place] % (Auto) 6.6 Eos % (Auto) 0.5 Baso % (Auto) 0.2 Lymph # (Auto) 1.7 [place] # (Auto) 0.4 Eos # (Auto) 0.0 Baso # (Auto) 0.0 Abs Immat Gran (auto) 0.04 H Absolute Neuts (auto) 3.9 Absolute Nucleated RBC 0.000 Nucleated RBC % (auto) 0.0 Hold Purple Top Anion Gap 13 Estim Creat Clear Calc 144.6 Estimated GFR > 60 Random Glucose 106 Calcium 10.0 Total Bilirubin AST ALT Alkaline Phosphatase Total Creatine Kinase 44 Total Protein Albumin Urine Color Yellow Urine Appearance Cloudy Urine pH 8.5 Ur Specific [place] 1.010 Urine Protein Negative Urine Glucose (UA) Negative Urine Ketones Negative Urine Blood Negative Urine Nitrite Negative Ur Leukocyte Esterase Trace H Urine RBC 0-2 Urine WBC 0-5 Ur Squamous Epith Cells 0-2 Urine Bacteria None Seen Hyaline Casts 0-2 01/14/25 06:21 MCV MCH MCHC RDW Plt Count MPV Immature Gran % (Auto) Neut % (Auto) Lymph % (Auto) [place] % (Auto) Eos % (Auto) Baso % (Auto) Lymph # (Auto) [place] # (Auto) Eos # (Auto) Baso # (Auto) Abs Immat Gran (auto) Absolute Neuts (auto) Absolute Nucleated RBC Nucleated RBC % (auto) Hold Purple Top SEE NOTE Anion Gap 10 L Estim Creat Clear Calc 147.1 Estimated GFR > 60 Random Glucose 100 Calcium 9.7 Total Bilirubin 1.6 H AST 25 ALT 17 Alkaline Phosphatase 156 H Total Creatine Kinase Total Protein 6.0 L Albumin 3.4 L Urine Color Urine Appearance Urine pH Ur Specific [place] Urine Protein Urine Glucose (UA) Urine Ketones Urine Blood Urine Nitrite Ur Leukocyte Esterase Urine RBC Urine WBC Ur Squamous Epith Cells Urine Bacteria Hyaline Casts Assessment and Plan (1) Elevated troponin: Status: Acute Plan 49/F with syncope, elevated troponin I rule out acute NM Syncope, unclear etiology ECG sinus tach No arrythmia on monitor hydrated check orthostatic BP continuos cardiac monitoring echocardiogram done result pending cardiology consult note, will ambulate elevated troponin, rule NSTEMI 67 to 108 to 67, no dynamic changes on ECG Cardiology assessing for possible outpatient further testing Patient claims unintention 50 ib weight loss over several months, will need further work up on outpatient basisis including all routine screening exams Quality Stroke Does the patient have a stroke diagnosis?: No VTE Prior VTE?: No VTE Risk Level:: Medical - moderate - high VTE Device Contraindication: Treatment Not Indicated VTE Drug Contraindication: N/A - Med Ordered
[2025-01-14] MEDS: timoloL maleate 0.5 % Oph Sol 5 ML DRBTL 1 DROP EYE-BOTH (20:06)
[2025-01-14] MEDS: Dorzolamide HCl 2 % Ophth Sol 10 ML DRPBTL 1 DROP EYE-BOTH (20:06)
[2025-01-15 03:25] VITALS: BP 125/74; PULSE 100; RESP 18; TEMP 36.6; O2SAT 97
[2025-01-15 08:00] VITALS: BP 135/74; PULSE 89; RESP 20; TEMP 36.6; O2SAT 95
[2025-01-15] MEDS: Aspirin Enteric Coated 81 MG TABLET.DR PO (08:11)
[2025-01-15] MEDS: timoloL maleate 0.5 % Oph Sol 5 ML DRBTL 1 DROP EYE-BOTH (08:13)
[2025-01-15] MEDS: Dorzolamide HCl 2 % Ophth Sol 10 ML DRPBTL 1 DROP EYE-BOTH (08:16)
[2025-01-15] MEDS: 0.9 % Sodium Chloride Flush 3 ML SYRINGE IVFLUSH (08:17)
--- NOTE | 2025-01-15 10:23 | PM.PNCARD ---
Subjective Subjective Date of Service: 01/15/25 Interval history: She states that she feels better today. Denies any cardiac symptoms. Review of Systems Review of Systems Yes all other systems are reviewed and are negative Constitutional: Reports as per HPI and Reports no additional constitutional complaints Eyes: Reports as per HPI and Denies no additional eye complaints Denies system reviewed and no additional complaints, except as documented and Reports as per HPI Cardiovascular: Reports as per HPI, Reports no additional cardiovascular complaints, Denies acrocyanosis, Denies cool extremities, Denies chest pain, Denies leg edema, Denies lightheadedness, Denies palpitations and Denies dyspnea Respiratory: Reports as per HPI, Denies no additional respiratory complaints and Denies dyspnea Gastrointestinal: Reports as per HPI and Denies no additional gastrointestinal complaints Genitourinary: Reports as per HPI Musculoskeletal: Reports no additional musculoskeletal complaints and Reports as per HPI Skin/Breast: Reports system reviewed and no additional complaints, except as docu Reports system reviewed and no additional complaints, except as documented and Reports as per HPI Psychiatric: Reports no additional psychiatric complaints and Reports as per HPI Endocrine: Reports no additional endocrine complaints, Reports as per HPI and Denies palpitations Hematologic/Lymphatic: Reports no additional hematologic/lymphatic complaints and Reports as per HPI Allergic/Immunologic: Reports no additional allergic/immunologic complaints and Reports as per HPI Physical Exam Vital Signs: Last Vital Signs Temp 97.9 F 01/15/25 08:00 Pulse 89 01/15/25 08:00 Resp 20 01/15/25 08:00 BP 135/74 01/15/25 08:00 Pulse Ox 95 01/15/25 08:00 O2 Del Method Room Air 01/15/25 08:00 BMI result Body Mass Index 24.7 Const General: comfortable and no acute distress Orientation/consciousness: patient oriented x3 HEENT Other: Unremarkable Head: Yes normal to inspection Neck Neck: Yes normal visual inspection Chest Chest palpation & inspection: normal inspection of the chest Resp Auscultation: clear to auscultation bilaterally Cardio Palpation: normal PMI Heart sounds: S1 normal heart sound present, S2 normal heart sound present, no gallops, no murmurs and no rubs GI Palpation (GI): Soft to palpation Back/Spine/Pelvis Other: unremarkable Skin General skin exam: no rashes or lesions noted Neuro General: patient oriented x3 Extrem General: Yes normal to inspection Psych Mental Status: mental status grossly normal Objective Labs and Meds 01/13/25 12:12 01/14/25 06:21 Progress Note: A&P Assessment and plan (1) Syncope and collapse: Status: Acute (2) Elevated troponin: Status: Acute Plan Baseline EKG without any clear-cut ischemic changes. High sensitivity troponin level of 67, 108, 97 and 67. Echocardiogram from October with LVEF of 60-65%. Elevated gradients across aortic valve but thought to be because of high stroke volume. Repeat echocardiogram also similar. Overall, stated syncopal episode, elevated troponins of uncertain etiology. Negative orthostatics. Today she is free of any symptoms. We will plan discharge and then get an outpatient CTA. If necessary, consider cardiac MRI. Encouraged to keep her well hydrated. In the past, her weight was over 200 lb but currently at 157 lb. Unclear if weight loss has anything to do this. Time Spent With Patient Time: Total time managing care of this patient today ____ minutes. Progress Note: Quality Stroke Does the patient have a stroke diagnosis?: No Procedures Date of Service Date of Service: 01/15/25
[2025-01-15 11:28] VITALS: BP 132/69; PULSE 78; RESP 20; TEMP 37.2; O2SAT 95
--- NOTE | 2025-01-15 11:56 | PM.DS ---
DS: Providers Provider Date of Service: 01/15/25 Date of admission: 01/13/25 18:34 Date of discharge: 01/15/25 Primary care physician: Stephanie Chapman MD Consults: 01/13/25 18:37 Consult to Cardiology Routine Consulting Provider: [facility] Reason for consultation: chest pain, elevated troponin, rule out NSTEMI Has provider been notified: Yes DS: Diagnosis Discharge Diagnosis (1) Syncope and collapse: Status: Acute (2) Elevated troponin: Status: Acute DS: Summary Hospital Course Hospital Course: admission hpi Chief Complaint: syncope 49 year old female with past medical history as listed below who presents with a syncopal episode. She was reportedly going [facility] and forgot her phone and was returning to the car to get the phone when she sudenly felt to ground passed in her report for 5 minutes, no witnessed but was noted by a bystander and brought to the ED and complaning of pain in the arm, there is a hardly noticeable abraision to the left cheek and chin area. She also c/o pain in the arms although there is no visible injury. CT of head and neck, face show no acute injury. CXR unremarkable, hand and wrist xrays unremarkable. Although ED provider note stays felt dizzy and passed out, she tells me it happened suddenly. An incidental troponin I level 67 and now 108, she is intermittent chest pain. ECG shows sinus tachy, no acute ischemic chanages, other sinus tach no change from prior. Hospital course: Patient presented to the hospital after passing out as stated above, testing revealed high troponin I level but trended down but is not believed to be the cause of her passing out. She was monitored on teletmetry without arryhmia, orthostatic blood pressure is negative. She has not had any furtrher episode. She was seen by cardiology with the follow assessment and recommendation Baseline EKG without any clear-cut ischemic changes. High sensitivity troponin level of 67, 108, 97 and 67. Echocardiogram from October with LVEF of 60-65%. Elevated gradients across aortic valve but thought to be because of high stroke volume. Repeat echocardiogram also similar. Overall, stated syncopal episode, elevated troponins of uncertain etiology. Negative orthostatics. Today she is free of any symptoms. We will plan discharge and then get an outpatient CTA. If necessary, consider cardiac MRI. Encouraged to keep her well hydrated. In the past, her weight was over 200 lb but currently at 157 lb. Unclear if weight loss has anything to do this Until further testing in the cardiology office, she is advised to avoid drivinng, to drink plenty of fluid and to follow up with with her PCP and to discuss her weight loss and to review routine screening examination and further testing if needed. Will also arrange for outpatient EEG Time Attestation Discharge Coordination Time (in mins): 40 Quality: Safe Use of Opioids Does Pt have an Active Cancer Diagnosis on the Problem List?: No Quality: Stroke Does the patient have a stroke diagnosis?: No Physical Exam Vital Signs: Vital Signs: Last Vital Signs Temp 98.9 F 01/15/25 11:28 Pulse 78 01/15/25 11:28 Resp 20 01/15/25 11:28 BP 132/69 01/15/25 11:28 Pulse Ox 95 01/15/25 11:28 O2 Del Method Room Air 01/15/25 11:28 BMI result Body Mass Index 24.7 Discharge Plan Discharge Anticipated Discharge Date/Time: 01/15/25 11:51 Patient Disposition: Home, Self-Care Discharge Diagnosis: syncope, elevated troponin Referrals: Stephanie Solano MD [Primary Care Provider, Internal Medicine] - 1 Week Discharge Medications: Continued (DME) VixOne Nebulizer-Adult Mask Misc See Rx Instructions .Route Qty: 1 0RF Rx Instructions: As directed albuterol sulfate 2.5 mg /3 mL (0.083 %) solution for nebulization 2.5 mg inhalation Q4H PRN (Reason: shortness of breath or wheezing) 30 Days Qty: 180 11RF (DME) underpads [Bed Underpads] Pad See Rx Instructions .Route Qty: 100 11RF Rx Instructions: Use 4 bed pads per day (DME) Ultra-Light Rollator Misc See Rx Instructions .Route Qty: 1 0RF Rx Instructions: As directed (DME) non slip bath mat See Rx Instructions .Route .MEDSUPPLY Qty: 1 0RF Rx Instructions: As directed (DME) incontinence pad, liner, disp Pad See Rx Instructions .Route Qty: 60 6RF Rx Instructions: USe 1 to 2 pads per day as needed (DME) wipes See Rx Instructions .Route .MEDSUPPLY Qty: 120 6RF Rx Instructions: Use 4 times a day as needed (DME) thin panty liners See Rx Instructions .Route .MEDSUPPLY Qty: 90 11RF Rx Instructions: As directed aspirin 81 mg tablet,delayed release (DR/EC) 81 mg PO DAILY 90 Days Qty: 90 3RF mecobalamin (vitamin B12) 5,000 mcg tablet,disintegrating 5,000 mcg PO DAILY 30 Days Qty: 30 0RF (DME) Grab bar See Rx Instructions .Route .MEDSUPPLY Qty: 1 0RF Rx Instructions: As directed (DME) Bath mat See Rx Instructions .Route .MEDSUPPLY Qty: 1 0RF Rx Instructions: As directed tramadol 50 mg tablet 50 mg PO Q8H PRN (Reason: pain) 30 Days Qty: 90 0RF dorzolamide 2 % drops 1 drp ophthalmic (eye) BID cetirizine 10 mg tablet 10 mg PO DAILY zolpidem 10 mg tablet 10 mg PO BEDTIME PRN (Reason: Sleep) clonazepam 1 mg tablet 1 mg PO TID PRN (Reason: Anxiety) (DME) cane Device See Rx Instructions .Route Qty: 1 0RF Rx Instructions: As directed (DME) compression stockings knee high 40 mmHg See Rx Instructions .Route .MEDSUPPLY Qty: 2 6RF Rx Instructions: As directed escitalopram oxalate 10 mg tablet 10 mg PO DAILY timolol maleate 0.5 % drops 1 drp ophthalmic (eye) BID albuterol sulfate 90 mcg/actuation HFA aerosol inhaler 2 puff inhalation Q4-6H PRN (Reason: shortness of breath or wheezing) Qty: 1 11RF ibuprofen 800 mg tablet 800 mg PO Q8H PRN (Reason: pain) 30 Days Qty: 90 2RF lisinopril 20 mg tablet 20 mg PO DAILY 90 Days Qty: 90 1RF Discharge Orders: Discharge Order (Routine); Ordered 01/15/25 Ordered By: Clyde Sauceda Diet: Advance to usual diet Activity on Discharge: As tolerated Stand Alone Forms: Patient Portal Discharge page Print Language: Chinese Other Ambulatory Orders: EEG ambulatory (Routine) Timeframe: 1 Week Facility: [facility] - Location: Radiology Ordered By: Clyde Sauceda Care Plan Goals: recovery from syncop (passing out) Health Concerns: syncope (passing out) elevaed heart enzymes Plan of Treatment: you will follow up with heart doctor Dr. Sosa for more testing Follow up with with your primary care provider to discuss further evaluation and tesing for weight loss, including routine screening examinations you should avoid driving for a minimal of 4 weeks and until after you are seen in the cardiology office for further testing Assessment: see
--- NOTE | 2025-01-15 12:12 | MHC.CM.PN ---
Patient has been medically cleared for dc to home today, self care.Last IMM was addressed yesterday.
== END 2025-01-15 14:11 | disposition home or self-care (01) | DRG 312 ==
LOC: HO.ED 15:43 → HO.EDOVER 17:57 → HO.IMC 19:22
PROVIDERS: Admitting Provider Internal Medicine; Emergency Provider Emergency Medicine; PCP Internal Medicine; Visit Provider Internal Medicine
DX: R55 Syncope and collapse (principal); R79.89 Other specified abnormal findings of blood chemistry; Z79.82 Long term (current) use of aspirin; Z79.899 Other long term (current) drug therapy
CPT/HCPCS: 36415; 70450; 70486; 71045; 72125; 73110; 73120; 73130; 80048; 80053; 81001; 82550; 84484; 85025; 93005; 93306; 99222; 99285; J0131; J1650; J2270; Q9957

== ENCOUNTER → 2025-01-13 11:38 | Outpatient (BNV) | payer OTHER, SELFPAY | PROVIDERS: Admitting Provider Internal Medicine; Emergency Provider Emergency Medicine; PCP Internal Medicine; Visit Provider Internal Medicine | DX: R00.0 Tachycardia, unspecified (principal) | CPT/HCPCS: 93010 ==

== ENCOUNTER → 2025-01-13 12:05 | Outpatient (BNV) | payer OTHER, SELFPAY | PROVIDERS: Emergency Provider Emergency Medicine; PCP Internal Medicine; Visit Provider Radiology Diagnostic Radiology | DX: R55 Syncope and collapse (principal); S00.83XA Contusion of other part of head, initial encounter; S06.9X9A Unspecified intracranial injury with loss of consciousness of unspecified duration, initial encounter; J01.40 Acute pansinusitis, unspecified; R07.9 Chest pain, unspecified; W19.XXXA Unspecified fall, initial encounter; M85.842 Other specified disorders of bone density and structure, left hand; M25.532 Pain in left wrist; M79.642 Pain in left hand | CPT/HCPCS: 70450; 70486; 71045; 72125; 73110; 73120; 73130 ==

== ENCOUNTER 2025-01-13 18:34 | Outpatient (BNV) | payer OTHER, SELFPAY | END 2025-01-14 07:00 | PROVIDERS: Admitting Provider Internal Medicine; Emergency Provider Emergency Medicine; PCP Internal Medicine; Visit Provider Internal Medicine | DX: I27.20 Pulmonary hypertension, unspecified (principal) | CPT/HCPCS: 93306 ==

== ENCOUNTER → 2025-01-13 18:34 | Outpatient (BNV) | payer OTHER, SELFPAY | PROVIDERS: Admitting Provider Internal Medicine; Emergency Provider Emergency Medicine; PCP Internal Medicine; Visit Provider Internal Medicine | DX: R55 Syncope and collapse (principal); R79.89 Other specified abnormal findings of blood chemistry | CPT/HCPCS: 99233 ==

== ENCOUNTER → 2025-01-13 18:34 | Outpatient (BNV) | payer OTHER, SELFPAY | PROVIDERS: Admitting Provider Internal Medicine; Emergency Provider Emergency Medicine; PCP Internal Medicine; Visit Provider Internal Medicine | DX: R07.9 Chest pain, unspecified (principal); R55 Syncope and collapse; R79.89 Other specified abnormal findings of blood chemistry | CPT/HCPCS: 99222; 99232 ==

== ENCOUNTER 2025-01-18 10:54 | Emergency (ER) | payer OTHER, SELFPAY ==
--- NOTE | ~2025-01-18 | CT_ITS ---
CLINICAL HISTORY: Left-sided chest pain, history of DVT CT angiography of the chest with IV contrast. 3D/MIP post processing reconstructions were performed. COMPARISON: CT chest dated 09/25/22 at 13:20 EDT FINDINGS: Motion limits evaluation of the distal pulmonary arteries. No intraluminal filling defects within the main or lobar pulmonary arteries to suggest pulmonary embolism. No evidence of right heart strain. Visualized thyroid is unremarkable. No supraclavicular or axillary lymphadenopathy. Ascending aorta and main pulmonary artery are normal in caliber. No pericardial effusion. Normal esophagus. No mediastinal or hilar lymphadenopathy. No pleural effusion. Minimal atelectasis along the posterior left lower lobe. Trachea and central airways are clear. No significant bronchial wall thickening. No bronchiectasis. Visualized portions of the upper abdomen are unremarkable. No acute fracture or suspicious osseous abnormality. IMPRESSION: 1. No evidence of pulmonary embolism within the main or lobar pulmonary arteries. Motion limits evaluation of the distal pulmonary arteries. 2. No acute intrathoracic findings. No evidence of pneumonia. This document has been electronically signed by: Nils Del Rosario MD on 01/18/2025 14:13:02
--- NOTE | ~2025-01-18 | XR_ITS ---
CLINICAL HISTORY: chest pain 2 view chest x-ray. Comparison: CR/SR - XR CHEST 1 VIEW - 01/13/25 12:23 EDT Findings: Normal lung volumes. Lungs are clear. No pneumothorax or pleural effusion. Heart size normal. No passive venous congestion. No midline shift or tracheal deviation. No acute fracture. Impression: 1. No acute cardiopulmonary disease. This document has been electronically signed by: Oleg Jiemnez MD on 01/18/2025 12:24:17
--- OUTSIDE RECORDS SUMMARY | 2025-01-18 10:18 | XMS_ITS | Encounter Summary ---
Author Organization [employer] Address [address] [place] [address] Care Team Providers Care Thread Machine Operator Name Role Phone Physician, Pcp Unknown Primary Care Provider Tabatha vailable Reason for Visit * Reason Comments Chest Pain X2-3 days Encounter Details Date Type Department Care Team (Late st Contact Info) Description 01/18/2025 10:18 AM EDT - 01/18/2025 11:20 AM EDT Emergency [facility] Emergency [address] [place] [phone] Abril Roman, DO [address] [place] [address] Discharge Disposition: Left Against Medical Advice Social [...] being brought back from waiting room. Savana hCau RN 01/18/25 1119 * Miya Johansen RN - 01/18/2025 10:13 AM EDT Patient reports chest pain since Sunday. Patient reports being inpatient at [facility] x 3 days for a fall this past week. documented in this encounter Plan of Treatment Pending Results Name Type Priority Associated Diagnoses Date /Time ECG 12 lead ECG STAT 01/18/2025 10 :10 AM EDT Scheduled Orders Name Type Priority Associated Diagnoses Orde r Schedule ECG 12 lead ECG STAT Every 2 hours for 1 Occurrences starting 01/18/2025 until 01/18/2025 Troponin I high sensitivity Lab Timed Now then every 1 hour for 2 Occurrences starting 01/18/2025 until 01/18/2025 CBC and differential Lab STAT STAT for 1 Occurrences starting 01/18/2025 until 01/18/2025 Comprehensive metabolic panel Lab STAT STAT for 1 Occur rences starting 01/18/2025 until 01/18/2025 Lipase Lab STAT STAT for 1 Occ urrences starting 01/18/2025 until 01/18/2025 Magnesium Lab STAT STAT for 1 Occ urrences starting 01/18/2025 until 01/18/2025 XR Chest 2 Views Imaging STAT Once for 1 Occurrences starting 01/18/2025 until 01/18/2025 B-type natriuretic peptide Lab STAT STAT for 1 Occur rences starting 01/18/2025 until 01/18/2025 CBC auto differential Lab Routine Onc e for 1 Occurrences starting 01/18/2025 until 01/18/2025 documented as of this encounter Procedures Procedure Name Priority Date/Time Associated Diagnosis Comments ECG 12-LEAD STAT 01/18/2025 10:10 AM EDT documented in this encounter Visit Diagnoses Not on filedocumented in this encounter Care Teams Thread Machine Operator Relationship Specialty Start Date End Date Physician, Pcp Unknown PCP - General 09/09/24 documented as of this encounter
--- NOTE | 2025-01-18 10:55 | ECG_ITS ---
Test Reason : CP Blood Pressure : */* mmHG Vent. Rate : 91 BPM Atrial Rate : 91 BPM P-R Int : 172 ms QRS Dur : 84 ms QT Int : 364 ms P-R-T Axes : 47 28 18 degrees QTcB Int : 447 ms Normal sinus rhythm Normal ECG When compared with ECG of 13-Jan-2025 19:04, No significant change was found Referred By: Generic ED Physician Electronically Signed By: JEANNINE MERCHANT MD
[2025-01-18 11:03] VITALS: BP 147/70; PULSE 89; RESP 18; TEMP 36.6; O2SAT 100; BMI 20.2
--- NOTE | 2025-01-18 11:07 | ED_ITS ---
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 Sapp HPI narrative: 49-year-old female PMHx significant for pleural effusion, chest pains, HPV, chronic restrictive lung disease, DVT treated with anticoagulation for 6 months patient not currently on anticoagulation, anxiety, HTN, recently was seen and admitted for syncope with a negative workup. Patient is complaining of generalized body ache from after the syncope and fall including bilateral shoulder pain, and this chest pain, the chest pain is localized to the left side of the chest somewhat of friends and fashion for several months. worsening with movement and taking a deep breath, no clear aggravating factor or relieving factors, no fever, no chills, no coughing, no recent travel, no lower extremity swelling or tenderness. Related Data Home Medications ?Medication ?Instructions ?Recorded ?Confirmed clonazepam 1 mg tablet 1 mg PO TID PRN Anxiety 11/08/0701/16/25 zolpidem 10 mg tablet 10 mg PO BEDTIME PRN Sleep 1 05/23/19 01/16/25 cetirizine 10 mg tablet 10 mg PO DAILY 11/04/2012/20 escitalopram oxalate 10 mg tablet 10 mg PO DAILY 10/1301/16/25 timolol maleate 0.5 % eye drops 1 drp ophthalmic (eye) BID 02/12/23 01/16/25 dorzolamide 2 % eye drops 1 drp ophthalmic (eye) BID 0 01/13/25 01/16/25 Previous Rx's ?Medication ?Instructions ?Recorded nebulizers (VixOne Nebulizer-Adult #1 ea 04/22/21 Mask) albuterol sulfate 2.5 mg/3 mL 2.5 mg (3 mL) inhalation Q4H PRN 08/21/22 (0.083 %) solution for nebulization shortness of breat h or wheezing 30 days #180 mL underpads (Bed Underpads) #100 ea 02/08/23 cane #1 ea 03/28/23 non slip bath mat #1 ea 08/14/23 walker (Ultra-Light Rollator misc) #1 ea 08/14/23 incontinence pad, liner, disp #60 ea 10/04/23 albuterol sulfate 90 mcg/actuation 2 puff inhalation Q 4-6H PRN 12/10/23 aerosol inhaler shortness of breath or wheez ing #1 ea compression stockings knee high #2 ea 01/24/24 thin panty liners #90 ea 02/01/24 wipes #120 ea 02/01/24 aspirin 81 mg tablet,delayed 81 mg PO DAILY 90 days #9 0 tabs 03/05/24 release mecobalamin (vitamin B12) 5,000 5,000 mcg PO DAILY 30 days #30 tabs 09/03/24 mcg disintegrating tablet ibuprofen 800 mg tablet 800 mg PO Q8H PRN pain 30 da ys #90 09/29/24 tabs lisinopril 20 mg tablet 20 mg PO DAILY 90 days #90 t abs 09/29/24 Bath mat #1 ea 10/21/24 Grab bar #1 ea 10/21/24 tramadol 50 mg tablet 50 mg PO Q8H PRN pain 30 day s #90 12/26/24 tabs ibuprofen 800 mg tablet 800 mg PO Q8H PRN pain #20 t abs 01/18/25 Allergies Allergy/AdvReac Type Severity Reaction Status Date / Time gabapentin Allergy Intermediate abdominal Verified 01/18/25 11:04 pain semaglutide (From Wegovy) Allergy Intermediate termons Verified 01/18/25 11:04 Review of Systems 2 Review of Systems: All other systems are reviewed and are negative Constitutional: Reports as per HPI and Reports no additional constitutional complaints Eyes: Reports as per HPI and Reports no additional eye complaints Reports system reviewed and no additional complaints, except as documented Cardiovascular: Reports as per HPI and Reports no additional cardiovascular complaints Respiratory: Reports as per HPI and Reports no additional respiratory complaints Gastrointestinal: Reports as per HPI and Reports no additional gastrointestinal complaints Genitourinary: Reports no additional female genitourinary complaints Musculoskeletal: Reports no additional musculoskeletal complaints Skin/Breast: Reports system reviewed and no additional complaints, except as docu Psychiatric: Reports no additional psychiatric complaints Endocrine: Reports no additional endocrine complaints Hematologic/Lymphatic: Reports no additional hematologic/lymphatic complaints Allergic/Immunologic: Reports no additional allergic/immunologic complaints Reports system reviewed and no additional complaints, except as documented and Reports Abnormal speech present PMFSH Past Medical History Medical History Coarse tremors Abnormal mammogram of right breast Myopathy Dyspnea Pneumonia Rib fracture Pleural effusion Chest pain HPV (human papilloma virus) infection Chronic restrictive lung disease Arm pain, chronic Knee pain JABARI positive Chronic restrictive lung disease Mild recurrent major depression Polyarthralgia Asthma History of DVT of lower extremity Urge urinary incontinence Chronic restrictive lung disease Reactive airway disease 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 Social History Social History Household Members: Family Housing: House Do you presently have visiting nurse or other home services: No Alcohol intake: never Patient Tobacco Use Status: Never used Tobacco Smoked in Last 30 Days: No e-Cigarette/Vaping Use: Never Used Second Hand Smoke Exposure: No Use of substances other than those prescribed or required for medical reasons: No Advance Directives: No Advance Directives Information Provided: Yes Patient : No service: No Current occupational status: unemployed Cognitive needs: No Hearing needs: No Vision needs: No Physical Exam ED Vital Signs: Vital Signs - 24 hr 01/18/25 11:03 01/18/25 12:29 01/18/25 14:43 Temperature 97.9 F 97.4 F Pulse Rate 89 84 95 Respiratory Rate 18 18 20 Blood Pressure 147/70 H 141/73 H 120/56 L Pulse Oximetry 100 98 95 Oxygen Delivery Method Room Air Room Air Room Air BMI result Body Mass Index 20.2 Vital signs have been reviewed and appear to be correct. Blood pressure elevated. Heart rate normal. Respiratory rate normal. Temperature normal. Oxygen saturation normal. Appearance: Alert. Oriented X3. No acute distress. Head: Normal external exam. Normocephalic. Atraumatic. No Shore signs noted. No raccoon eyes noted Eyes: PERRLA. EOMI. Conjunctiva and sclera normal. Eyelids normal. ENT: TM's Normal. Pharynx normal. Uvula midline. Moist mucous membranes. No trismus noted. No drooling noted. No muffled voice noted. Neck: Normal inspection. Neck supple. FROM. No adenopathy. Thyroid Normal. No meningeal signs. No neck mass noted. CVS: Normal heart rate and rhythm. Heart sound normal. No murmurs noted. Pulses normal throughout. Respiratory: No respiratory distress. Painless inspiration. Breath sounds normal. No wheezes/rales/rhonchi noted. Reproducible tenderness to the left chest at lower 1/3 of the at the junction with the ribs., no step-off, no deformity No accessory muscle usage noted or decreased air movement noted. Abdomen: Soft and nontender. Bowel sounds normal in all 4 quadrants. No distention noted. No organomegaly noted. No visible injury noted. Back: No CVA tenderness. Full range of motion noted. Skin: Skin warm and dry. Normal skin color. Normal skin turgor. No rashes/lesions/lacerations noted. Extremities: No lower extremity edema. Extremities exhibit normal range of motion. Extremities nontender. Neuro: Oriented X 3. Cranial nerve exam: II-XII are grossly intact No motor deficit. No sensory deficit. Reflexes normal. Course Course Course Narrative: This is a Rapid Medical Examination (RME) performed by Cory Gilmore PA-C in triage. Full HPI, ROS, assessment and treatment plan per primary provider in the Main ED. Hx: 49 yo F here for eval of headache since syncopal episode 4 days ago and chest pain that woke her from her sleep this morning. Plan: labs, ekg, cxr Reevaluation(s) Reevaluation #1: Left-sided chest pain, recent admission for elevated troponin and syncope, today normal values of troponin x2, no EKG changes, slight elevation of D-dimer with negative CT angio of the chest for pulmonary embolism, physical exam reveals left-sided chest pain that reproducible by chest movement or taking a deep breath and also deep palpation to the chest. Patient instructed to take ibuprofen 800 mg with muscle relaxant and applying heating pad to tender area. Time: 15:23 Medications Administered Discontinued Medications Generic Name Dose Route Start Last Admin Trade Name Freq PRN Reason Stop Dose Admin Iohexol 100 ml 01/18/25 13:01 01/18/25 13:01 Iohexol 350 Mg/Ml 100 Ml Infus..Btl IV 01/18/25 13:02 65 ml ONCE ONE Administration Ketorolac Tromethamine 15 mg 01/18/25 11:59 01/18/25 12:44 Ketorolac Tromethamine 15 Mg/Ml Vial IVPUSH 01/18/25 12:00 15 mg ONCE ONE Administration Medical Decision Making Differential Diagnosis Differential Diagnoses: The differential diagnosis associated with the presentation includes (Pulmonary embolism, ACS, myofascial chest pain, pneumonia, pneumothorax, pleural effusion, costochondritis, chest wall pain.) Admission/Observation Consideration of admission/observation: Escalation of care including admission/observation considered Lab Data MDM Lab Attestation statement: I reviewed the patient's lab results. 01/18/25 11:17 01/18/25 11:17 Labs: Lab Results 01/18/25 01/18/25 Range/Units 11:17 12:21 WBC 4.1 L (4.8-10.8) X10*3/uL RBC 3.71 L (4.20-5.50) X10*6/uL Hgb 10.6 L (12.0-16.0) g/dl Hct 30.8 L (37.0-47.0) % MCV 83.0 (80.0-98.0) fL MCH 28.6 (27.0-33.0) pg MCHC 34.4 (31.0-35.0) g/dl RDW 12.5 (11.0-16.0) % Plt Count 297 (160-400) X10*3/uL MPV 8.6 L (9.4-12.3) fL Immature Gran % (Auto) 0.2 (0.0-0.4) % Neut % (Auto) 44.1 L (45-73) % Lymph % (Auto) 46.5 H (20-40) % Dade % (Auto) 8.0 (2-11) % Eos % (Auto) 1.0 (0-4) % Baso % (Auto) 0.2 (0-2) % Lymph # (Auto) 1.9 (1.2-4.9) X10*3/uL Dade # (Auto) 0.3 (0.1-1.2) X10*3/uL Eos # (Auto) 0.0 (0.0-0.4) X10*3/uL Baso # (Auto) 0.0 (0.0-0.2) X10*3/uL Abs Immat Gran (auto) 0.01 (0.00-0.03) X10*3/uL Absolute Neuts (auto) 1.8 L (2.0-8.3) x10*3/uL Absolute Nucleated RBC 0.000 (0.0-0.012) X10*3/uL Nucleated RBC % (auto) 0.0 (0.0-0.2) /100WBC D-Dimer High Sensitivty 475 NG/ML Sodium 143 (135-145) mmol/L Potassium 4.0 (3.3-5.1) mmol/L Chloride 107 (96-108) mmol/L Carbon Dioxide 24 (22-29) mmol/L Anion Gap 16 (12-20) BUN 11 (9-16) mg/dL Creatinine 0.43 L (0.5-1.4) mg/dL Estim Creat Clear Calc 143.1 Estimated GFR > 60 Random Glucose 104 (60-115) mg/dL Calcium 10.3 H D (8.4-10.2) mg/dL Magnesium 1.5 L (1.6-2.6) mg/dL Total Bilirubin 1.3 H (0.0-1.0) mg/dL AST 24 (5-31) U/L ALT 20 (0-31) U/L Alkaline Phosphatase 171 H (39-117) U/L Troponin I High Sens 5.4 D 5.1 (<3.5-17.0) ng/L Total Protein 6.8 (6.5-8.0) g/dL Albumin 3.7 (3.5-5.0) g/dL Lipase 21 (8-78) U/L Independent Interpretation I performed an independent interpretation of an: CT Scan (CT angio of the chest:1. No evidence of pulmonary embolism within the main or lobar pulmonary arteries. Motion limits evaluation of the distal pulmonary arteries. 2. No acute intrathoracic findings. No evidence of pneumonia.) Radiology Impression Discussion of test interpretation with radiology: I have reviewed the radiologist's reading. Discharge Plan Discharge Clinical Impression: Acute costochondritis Patient Disposition: Home, Self-Care Instructions: Costochondritis (ED) Prescriptions: New ibuprofen 800 mg tablet 800 mg PO Q8H PRN (Reason: pain) Qty: 20 0RF No Action (DME) VixOne Nebulizer-Adult Mask Misc See Rx Instructions .Route Qty: 1 0RF Rx Instructions: As directed albuterol sulfate 2.5 mg /3 mL (0.083 %) solution for nebulization 2.5 mg inhalation Q4H PRN (Reason: shortness of breath or wheezing) 30 Days Qty: 180 11RF (DME) underpads [Bed Underpads] Pad See Rx Instructions .Route Qty: 100 11RF Rx Instructions: Use 4 bed pads per day (DME) Ultra-Light Rollator Misc See Rx Instructions .Route Qty: 1 0RF Rx Instructions: As directed (DME) non slip bath mat See Rx Instructions .Route .MEDSUPPLY Qty: 1 0RF Rx Instructions: As directed (DME) incontinence pad, liner, disp Pad See Rx Instructions .Route Qty: 60 6RF Rx Instructions: USe 1 to 2 pads per day as needed (DME) wipes See Rx Instructions .Route .MEDSUPPLY Qty: 120 6RF Rx Instructions: Use 4 times a day as needed (DME) thin panty liners See Rx Instructions .Route .MEDSUPPLY Qty: 90 11RF Rx Instructions: As directed aspirin 81 mg tablet,delayed release (DR/EC) 81 mg PO DAILY 90 Days Qty: 90 3RF mecobalamin (vitamin B12) 5,000 mcg tablet,disintegrating 5,000 mcg PO DAILY 30 Days Qty: 30 0RF (DME) Grab bar See Rx Instructions .Route .MEDSUPPLY Qty: 1 0RF Rx Instructions: As directed (DME) Bath mat See Rx Instructions .Route .MEDSUPPLY Qty: 1 0RF Rx Instructions: As directed tramadol 50 mg tablet 50 mg PO Q8H PRN (Reason: pain) 30 Days Qty: 90 0RF dorzolamide 2 % drops 1 drp ophthalmic (eye) BID cetirizine 10 mg tablet 10 mg PO DAILY zolpidem 10 mg tablet 10 mg PO BEDTIME PRN (Reason: Sleep) clonazepam 1 mg tablet 1 mg PO TID PRN (Reason: Anxiety) (DME) cane Device See Rx Instructions .Route Qty: 1 0RF Rx Instructions: As directed (DME) compression stockings knee high 40 mmHg See Rx Instructions .Route .MEDSUPPLY Qty: 2 6RF Rx Instructions: As directed escitalopram oxalate 10 mg tablet 10 mg PO DAILY timolol maleate 0.5 % drops 1 drp ophthalmic (eye) BID albuterol sulfate 90 mcg/actuation HFA aerosol inhaler 2 puff inhalation Q4-6H PRN (Reason: shortness of breath or wheezing) Qty: 1 11RF ibuprofen 800 mg tablet 800 mg PO Q8H PRN (Reason: pain) 30 Days Qty: 90 2RF lisinopril 20 mg tablet 20 mg PO DAILY 90 Days Qty: 90 1RF Print Language: [place]
[2025-01-18 11:21] LABS: MANUAL DIFF FLAG NO
[2025-01-18 11:22] LABS: Hematocrit 30.8 % (37.0-47.0); Hemoglobin 10.6 g/dl (12.0-16.0); Imm Gran Abs Auto 0.01 X10*3/uL (0.00-0.03); Imm Gran Pct Auto 0.2 % (0.0-0.4); Lymphocytes Absolute Auto 1.9 X10*3/uL (1.2-4.9); Mean Corpuscular HGB Conc 34.4 g/dl (31.0-35.0); Mean Corpuscular Hemoglobin 28.6 pg (27.0-33.0); Mean Corpuscular Volume 83.0 fL (80.0-98.0); NRBC Abs Auto 0.000 X10*3/uL (0.0-0.012); NRBC Pct Auto 0.0 /100WBC (0.0-0.2); Platelet Count 297 X10*3/uL (160-400); Red Blood Count 3.71 X10*6/uL (4.20-5.50); White Blood Count 4.1 X10*3/uL (4.8-10.8)
--- OUTSIDE RECORDS SUMMARY | 2025-01-18 11:22 | XMS_ITS | Clinical Summary ---
Author Organization [facility] Address [address] [place] [address] Care Team Providers Care Cardiology Nurse Name Role Phone Neelima Lima PA-C Primary Care Provider [phone] Source Comments PLEASE NOTE, if this patient [...] last done 03/16/2015 Dr. 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 Recurrent major depression i n partial remission ([facility] V24) 05/31/2015 Migraine aura, persistent [...] Nicholas Relation to Subscriber:Self Name:Amira Nicholas Payer ID:[id number] Group ID:Not on file Type:Medicaid Address: [address] [id number] MEDICARE - [place] Care Teams Cardiology Nurse Relationship Specialty Start Date End Date Neelima Lima PA-C [address] [place] [id number] PCP - General Internal Medicine 05/19/16
--- OUTSIDE RECORDS SUMMARY | 2025-01-18 11:22 | XMS_ITS | Clinical Summary ---
Author Organization [facility] Address [address] [place] [address] Phone Care Team Providers Care Mechanic Foreman Name Role Phone Physician, Pcp Unknown Primary Care Provider Tabatha vailable Allergies Active Allergy Reactions Criticality Noted Date Comments Gabapentin 04/30/2024 Abdominal pain Encounters Date Type Department Care Team Description 01/18/2025 10:18 AM EDT - 01/18/2025 11:20 AM EDT Emergency [facility] Emergency [address] [place] [address] Abril Roman, Discharge Disposition: Left Against Medical Advice from Last 3 Months Medical History Medical History Date Comments HTN (hypertension) Asthma Depression Social History Tobacco Use Types Packs/Day Years [...] Mass Index 21.93 01/18/2025 10:14 AM EDT Plan of Treatment Health Maintenance Due [...] on patient's age to complete this topic Procedures Procedure Name Priority Date/Time Associated Diagnosis Comments ECG 12-LEAD STAT 01/18/2025 10:10 AM EDT from Last 3 Months Insurance [facility] MEDICARE Member Subscriber Plan / Payer (Ef fective 2016-Present) Name:AMIRA SALGADO Relation to Subscriber:Self Name:Amira Salgado Payer ID:[id number] Group ID:[id number] Type:Not on file Address: [address] [place] [address] Care Teams Mechanic Foreman Relationship Specialty Start Date End Date Physician, Pcp Unknown PCP - General 09/09/24
--- OUTSIDE RECORDS SUMMARY | 2025-01-18 11:22 | XMS_ITS | Clinical Summary ---
Author Organization [facility] Address [address] [place] [address] Care Team Providers Care Computer Engineering Professor Name Role Phone Unavailable Primary Care [...] - [place] MEDICARE PART A & B [facility] MEDICARE OUT OF NETWORK
[2025-01-18 11:35] LABS: Alanine Aminotransferase 20 U/L (0-31); Albumin Level 3.7 g/dL (3.5-5.0); Alkaline Phosphatase 171 U/L (39-117); Anion Gap 16 (12-20); Aspartate Amino Transferase 24 U/L (5-31); Blood Urea Nitrogen 11 mg/dL (9-16); Calcium 10.3 mg/dL (8.4-10.2); Carbon Dioxide 24 mmol/L (22-29); Chloride 107 mmol/L (96-108); Creatinine Clr Calc Pharmacy 143.1; Estimated Glomerular Filt Rate > 60; Lipase 21 U/L (8-78); Magnesium 1.5 mg/dL (1.6-2.6); Potassium 4.0 mmol/L (3.3-5.1); Sodium 143 mmol/L (135-145); Total Protein 6.8 g/dL (6.5-8.0)
[2025-01-18 11:42] LABS: Troponin-I High Sensitivity 5.4 ng/L (<3.5-17.0)
[2025-01-18 12:29] VITALS: BP 141/73; PULSE 84; RESP 18; TEMP 36.3; O2SAT 98
[2025-01-18 12:35] LABS: D Dimer High Sensitivity 475 NG/ML
[2025-01-18 12:48] LABS: Troponin-I High Sensitivity 5.1 ng/L (<3.5-17.0)
[2025-01-18] MEDS: iohexoL 350 MG/ML 100 ML INFUS..BTL IV (13:01)
[2025-01-18 14:43] VITALS: BP 120/56; PULSE 95; RESP 20; O2SAT 95
--- NOTE | 2025-01-18 14:43 | PC.NURSE ---
Pt reports moderate pain relief after meds gv per orders; vss
[2025-01-18 16:11] VITALS: BP 128/62; PULSE 78; RESP 17; TEMP 36.3; O2SAT 98
== END 2025-01-18 16:12 | disposition home or self-care (01) ==
PROVIDERS: Physician Assistant Medical; Emergency Provider Emergency Medicine; PCP Internal Medicine
DX: R07.89 Other chest pain (principal); M94.0 Chondrocostal junction syndrome [Tietze]; Z79.899 Other long term (current) drug therapy
CPT/HCPCS: 36415; 71046; 71275; 80053; 83690; 83735; 84484; 85025; 85379; 93005; 96374; 99285; J1885; Q9967

== ENCOUNTER → 2025-01-18 10:55 | Outpatient (BNV) | payer OTHER, SELFPAY | PROVIDERS: Emergency Provider Emergency Medicine; PCP Internal Medicine; Visit Provider Internal Medicine Cardiovascular Disease | DX: R07.89 Other chest pain (principal) | CPT/HCPCS: 93010 ==

== ENCOUNTER → 2025-01-18 11:09 | Outpatient (BNV) | payer OTHER, SELFPAY | PROVIDERS: Emergency Provider Emergency Medicine; PCP Internal Medicine; Visit Provider Radiology Diagnostic Radiology | DX: R07.89 Other chest pain (principal) | CPT/HCPCS: 71046; 71275 ==

== ENCOUNTER 2025-01-23 15:57 | Outpatient (AMB) | payer OTHER, SELFPAY ==
--- OUTSIDE RECORDS SUMMARY | 2025-01-18 10:18 | XMS_ITS | Encounter Summary ---
Author Organization [employer] Address [address] [place] [address] Care Team Providers Care Coupling Machine Operator Name Role Phone Physician, Pcp Unknown Primary Care Provider Tabatha vailable Reason for Visit * Reason Comments Chest Pain X2-3 days Encounter Details Date Type Department Care Team (Late st Contact Info) Description 01/18/2025 10:18 AM EDT - 01/18/2025 11:20 AM EDT Emergency [facility] Emergency [address] [place] [id number] Abril Roman, DO [address] [place] [address] Discharge Disposition: Left Against Medical Advice Social History Tobacco Use Types Packs/Day Years Used Date Smoking Tobacco: Never Smokeless Tobacco: Never Tobacco Cessation:Counseling Given: Not Answered Comments Unknown Sex and Gender Information Value Date Recorded Sex Assigned at Not on file Legal Sex Female 8:26 AM EST Gender Identity Not on file Sexual Orientation Not on file documented as of this encounter Last Filed Vital Signs Vital Sign Reading Time Taken Comments Blood Pressure 144/74 01/18/2025 10:14 AM EDT Pulse 96 01/18/2025 10:14 AM EDT Temperature 36.8 C (98.2 F) 01/18/2025 10:14 AM EDT Respiratory Rate 16 01/18/2025 10:14 AM EDT Oxygen Saturation 98% 01/18/2025 10:14 AM EDT Inhaled Oxygen Concentration - - Weight 63.5 kg (140 lb) 01/18/2025 10:14 AM EDT Height 170.2 cm (5' 7 ) 01/18/2025 10:14 AM EDT Body Mass Index 21.93 01/18/2025 10:14 AM EDT documented in this encounter Discharge Disposition Disposition Code Departure Means Destination Comment s Left Against Medical Advice documented in this encounter Progress Notes * Savana Chau RN - 01/18/2025 11:16 AM EDT Pt eloped after being brought back from waiting room. Savana Chau RN 01/18/25 1119 * Miya Johansen RN - 01/18/2025 10:13 AM EDT Patient reports chest pain since Sunday. Patient reports being inpatient at [facility] [place] x 3 days for a fall this past week. documented in this encounter Plan of Treatment Scheduled Orders Name Type Priority Associated Diagnoses Orde r Schedule ECG 12 lead ECG STAT Every 2 hours for 1 Occurrences starting 01/18/2025 until 01/18/2025 documented as of this encounter Procedures Procedure Name Priority Date/Time Associated Diagnosis Comments ECG ANNOTATED 01/20/2025 ECG 12-LEAD STAT 01/18/2025 10:10 AM EDT documented in this encounter Results * ECG-Annotated (01/20/2025) us Provider Onbase MD ECG ORDERABLES Final Result * ECG 12 lead (01/18/2025 10:10 AM EDT) Ventricular Rate ECG 90 BPM GEMUSE Atrial Rate 90 BPM GEMUSE P-R Interval 166 ms GEMUSE QRS Duration 90 ms GEMUSE Q-T Interval 356 ms GEMUSE QTc 435 ms GEMUSE P Wave [place] 39 degrees GEMUSE R [place] 39 degrees GEMUSE T [place] 10 degrees GEMUSE ECG Interpretation Normal sinus rhythm Nonspecific ST and T wave abnormality Abnormal ECG When compared with ECG of 30-APR-2015 14:33, Nonspecific T wave abnormality, worse in Inferior leads Nonspecific T wave abnormality now evident in Anterolateral leads Confirmed by Julia MCCORMACK JAMES ([id number]) on 01/18/2025 3:40:46 PM GEMUSE 01/18/2025 10:1 0 AM EDT 01/18/2025 3:40 PM EDT Abril Roman DO ECG ORDERABLES Final Result GEMUSE documented in this encounter Visit Diagnoses Not on filedocumented in this encounter Care Teams Coupling Machine Operator Relationship Specialty Start Date End Date Physician, Pcp Unknown PCP - General 09/09/24 documented as of this encounter
[2025-01-23 15:58] VITALS: BP 140/58; PULSE 72; RESP 18; TEMP 36.3; O2SAT 93; BMI 23.0
--- NOTE | 2025-01-23 15:58 | MHC.PC.OV ---
Vital Signs 01/23/25 15:58 Height 5 ft 7 in Weight 147 lb BMI 23.0 BP 140/58 H Blood Pressure Location Lt brachial Position Sitting Respiration 18 Pulse 72 Pulse Source Pulse Oximeter Temp 97.3 F Temp Source Temporal Artery Scan Pulse Oximetry (%) 93 Oxygen Delivery Method Room Air Intake Visit Reasons: [facility] 01/15 fell/passed out Electrical Inspector Required: No Accompanied by: niece Allergies gabapentin Allergy (Intermediate, Verified 01/23/25 16:02) abdominal pain semaglutide (From Wegovy) Allergy (Intermediate, Verified 01/23/25 16:02) termons Tobacco use date assessed: 01/23/25 Dental Screening Dental Screen Date: 01/23/25 Did you have a dental visit in the last 12 months?: Yes Did you have a dental problem in the last 6 months where you did not have access to dental care?: No Was dental information given to patient?: Patient has dentist HPI HPI Comments History of Present Illness Details 49 y/o Female patient who presents to the clinic today for HDF. Pt was admitted at [facility] on 01/13 - 01/15 for evaluation and treatment of Chest Pains. Pt was re-admitted to [facility] on 01/18 for similar problem. She was diagnosed with Costochondritis. All Testings were unremarkable. Pt continues to have chest pains and has an appointment with cardiology coming up. 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 Social History Household Members: Family Housing: House Do you presently have visiting nurse or other home services: No Alcohol intake: never Patient Tobacco Use Status: Never used Tobacco e-Cigarette/Vaping Use: Never Used Second Hand Smoke Exposure: No service: No Current occupational status: unemployed Cognitive needs: No Hearing needs: No Vision needs: No Female Reproductive History Menstrual Age of Menarche: 9 Questionnaire PHQ-9 Over the last 2 weeks, how often have you been bothered by any of the following problems? 1. Little interest or pleasure in doing things: several days 2. Feeling down, depressed, or hopeless: more than half the days 3. Trouble falling or staying asleep, or sleeping too much: more than half the days 4. Feeling tired or having little energy: more than half the days 5. Poor appetite or overeating: several days 6. Feeling bad about yourself - or that you are a failure or have let yourself or your family down: several days 7. Trouble concentrating on things, such as reading the newspaper or watching television: several days 8. Moving or speaking so slowly that other people could have noticed. Or the opposite - being so fidgety or restless that you have been moving around a lot more than usual: more than half the days 9. Thoughts that you would be better off or of hurting yourself in some way: not at all Total score: 12 Depression Screening Interpretation: Positive Depression Screening Follow-up: Existing condition, In treatment and Follow-up Visit Requested Depression Screening Done: Yes 04233 - PHQ-9 Billing: Yes Source: Developed by Drs. Pablo Gasca, Precious Benoit, Deep Puckett and colleagues, with an educational lyn from [employer]. Thrive Questionnaire Date Thrive assessed: 01/23/25 I am a: Patient What is your living situation today?: I have a steady place to live Within the past 12 months, did the food you bought not last and you didn't have the money to get more?: Sometimes True Within the past 12 months, did you worry whether your food would run out before you got money to buy more?: Never true Do you have trouble paying for medicines?: No Do you have trouble getting transportation to medical appointments?: Yes Do you have trouble paying your heating and electricity bill?: Yes Do you have trouble taking care of your child, family member or friend?: No Do you have trouble with day-to-day activities such as bathing, preparing meals, shopping, managing finances, etc.?: Yes Are you currently unemployed and looking for a job?: Yes Are you interested in more education?: Yes Please select the resources that you would like help with: None Currently or been in a relationship where the following occur: No concerns reported THRIVE Score: 3 AUDIT C Alcohol Use Questionnaire (AUDIT-C) 1. How often do you have a drink containing alcohol?: Never Total Score: 0 ALISON-7 AMB Questionnaire ALISON-7 Date ALISON - 7 assessed: 01/23/25 Feeling nervous, anxious, or on edge: 0 = Not at all Not being able to stop or control worryin = Not at all Worrying too much about different things: 0 = Not at all Trouble relaxin = Not at all Being so restless that it is hard to sit still: 0 = Not at all Becoming easily annoyed or irritable: 1 = Several days Feeling afraid as if something awful might happen: 1 = Several days Total ALISON-7 score (0-4 normal; 5-9 mild; 10-14 moderate; 15-21 severe): 2 Source: Developed by Drs. Pablo Gasca, Precious Benoit, Deep Puckett and colleagues, with an educational lyn from [employer]. Review of Systems Const All systems reviewed & are unremarkable except as noted in HPI and below Physical exam (Primary Care) Vital Signs: Last Vital Signs Temp 97.3 F 01/23/25 15:58 Pulse 72 01/23/25 15:58 Resp 18 01/23/25 15:58 BP 140/58 H 01/23/25 15:58 Pulse Ox 93 01/23/25 15:58 Oxygen Delivery Method Room Air 01/23/25 15:58 BMI result Body Mass Index 23.0 Tobacco/Smoking Status: Tobacco use Status Tobacco use date assessed 01/23/25 01/23/25 16:07 Patient Tobacco Use Status Never used Tobacco 01/23/25 16:07 e-Cigarette/Vaping Use Never Used 01/23/25 16:07 PHQ-9: PHQ-9 Score PHQ-9: Total score 12 01/23/25 16:26 Depression Screening Interpretation: Positive Depression Screening Follow-up: Existing condition, In treatment and Follow-up Visit Requested Thrive Assessment: Date of Thrive Assessment Date Thrive assessed 01/23/25 01/23/25 16:07 Currently or been in a relationship where the following occur: No concerns reported Const General: no acute distress Nutritional Appearance: well nourished Orientation/consciousness: patient oriented x3 Resp Effort & Inspection: normal respiratory effort Auscultation: clear to auscultation bilaterally Cardio Heart sounds: S1 normal heart sound present and S2 normal heart sound present Neuro General: patient oriented x3, gait normal and moves all extremities Coding Level of Care Code Est Pt Level 4 (35578) Diagnoses Chest pain, unspecified type R07.9 Chest pain type: unspecified Additional Codes PHQ-9 - 79036 - PHQ-9 Billing: Yes ([id number]) Time Spent (min) 20 Assessment & Plan Assessment & Plan (1) Chest pain: Code(s): R07.9 - Chest pain, unspecified Category: Medical Qualifiers: Chest pain type: unspecified Qualified Code(s): R07.9 - Chest pain, unspecified Plan: Stable for now. F/U with Cardiology as scheduled.
--- OUTSIDE RECORDS SUMMARY | 2025-01-23 16:00 | XMS_ITS | Clinical Summary ---
Author Organization [facility] Address [address] [place] [address] Care Team Providers Care Sewing Machines Salesperson Name Role Phone Neelima [place] PA-C Primary Care Provider [phone] Source Comments PLEASE NOTE, if this patient [...] last done 03/16/2015 Dr. Samreen Reyes MD [facility] Isobutylene Operator Chief. Recurrent major depression i n partial remission ([facility] V24) 05/31/2015 Migraine [...] Nicholas Relation to Subscriber:Self Name:Amira Nicholas Payer ID:[id number] Group ID:Not on file Type:Medicaid Address: [address] [phone] MEDICARE - [place] Care Teams Sewing Machines Salesperson Relationship Specialty Start Date End Date Neelima Lima PA-C [address] [place] [id number] PCP - General Internal Medicine 05/19/16
--- OUTSIDE RECORDS SUMMARY | 2025-01-23 16:00 | XMS_ITS | Clinical Summary ---
Author Organization [facility] Address [address] [place] [address] Phone Care Team Providers Care Cable Testers Helper Name Role Phone Physician, Pcp Unknown Primary Care Provider Tabatha vailable Allergies Active Allergy Reactions Criticality Noted Date Comments Gabapentin 04/30/2024 Abdominal pain Encounters Date Type Department Care Team Description 01/18/2025 10:18 AM EDT - 01/18/2025 11:20 AM EDT Emergency [facility] Emergency [address] [place] [address] Abril Roman, Discharge Disposition: Left [...] 2023 Zoster Vaccines (1 of 2) 2023 Depression Screening 05/21/2024 COVID-19 Vaccine (1 - 2023-2 5 season) 2025 Influenza Vaccine (#1) 2025 03/11/2014 HIB Vaccines [...] 10:10 AM EDT from Last 3 Months Results * ECG-Annotated (01/20/2025) us Provider Onbase MD ECG ORDERABLES Final Result * ECG 12 lead (01/18/2025 10:10 AM EDT) Ventricular Rate ECG 90 BPM GEMUSE Atrial Rate 90 BPM GEMUSE P-R Interval 166 ms GEMUSE QRS Duration 90 ms GEMUSE Q-T Interval 356 ms GEMUSE QTc 435 ms GEMUSE P Wave [place] 39 degrees GEMUSE R [place] 39 degrees GEMUSE T [place] 10 degrees GEMUSE ECG Interpretation Normal sinus [...] Roman DO ECG ORDERABLES Final Result GEMUSE from Last 3 Months Insurance [facility] MEDICARE Member Subscriber Plan / Payer (Ef fective 2016-Present) Name:AMIRA SALGADO Relation to Subscriber:Self Name:Amira Salgado Payer ID:[id number] Group ID:[id number] Type:Not on file Address: [place] [address] [place] [id number] Care Teams Cable Testers Helper Relationship Specialty Start Date End Date Physician, Pcp Unknown PCP - General 09/09/24
--- OUTSIDE RECORDS SUMMARY | 2025-01-23 16:00 | XMS_ITS | Clinical Summary ---
Author Organization [facility] Address [address] [place] [address] Care Team Providers Care Home Health Nurse Licensed Practical Name Role Phone Unavailable Primary Care Provider [...] season) 2024 Influenza Vaccine 12/19/2024 03/11/2014 Insurance [facility] MEDICARE PART A & B [facility] MEDICARE OUT OF NETWORK
== END 2025-01-23 16:28 | disposition home or self-care (01) ==
LOC: HO.HMCH 15:57
PROVIDERS: PCP Internal Medicine; Visit Provider Nurse Practitioner Family
DX: R07.9 Chest pain, unspecified (principal)

== ENCOUNTER → 2025-01-23 15:57 | Outpatient (BNVA) | payer OTHER, SELFPAY | PROVIDERS: PCP Internal Medicine; Visit Provider Nurse Practitioner Family | DX: R07.9 Chest pain, unspecified (principal) | CPT/HCPCS: 96127; 99212 ==

== ENCOUNTER 2025-02-04 08:14 | Outpatient (AMB) | payer OTHER, SELFPAY ==
[2025-02-04 08:39] VITALS: BP 152/68; PULSE 90; O2SAT 97; BMI 23.0
--- NOTE | 2025-02-04 08:39 | MHC.PC.OV ---
Vital Signs 02/04/25 08:39 Height 5 ft 7 in Weight 147 lb BMI 23.0 BP 152/68 H Blood Pressure Location Lt brachial Position Sitting Pulse 90 Pulse Source Pulse Oximeter Pulse Oximetry (%) 97 Oxygen Delivery Method Room Air Intake Visit Reasons: Follow Up Train Controller Required: No Accompanied by: Self / Same As Patient Allergies gabapentin Allergy (Intermediate, Verified 02/04/25 09:22) abdominal pain semaglutide (From Wevy) Allergy (Intermediate, Verified 02/04/25 09:22) termons Medication List - Last Reconciled 02/04/25 by Stephanie Chapman MD albuterol sulfate 2.5 mg (3 mL) inhalation Q4H PRN 30 days albuterol sulfate 90 mcg/actuation 2 puffs inhalation Q4-6H PRN aspirin 81 mg PO DAILY 90 days [Bath mat As directed] cane As directed cetirizine 10 mg PO DAILY clonazepam 1 mg PO TID PRN [compression stockings knee high As directed] dorzolamide 2% 1 drp ophthalmic (eye) BID escitalopram oxalate 10 mg PO DAILY [Grab bar As directed] ibuprofen 800 mg PO Q8H PRN ibuprofen 800 mg PO Q8H PRN 30 days incontinence pad, liner, disp USe 1 to 2 pads per day as needed lisinopril 20 mg PO DAILY 90 days mecobalamin (vitamin B12) 5,000 mcg PO DAILY 30 days nebulizers (VixOne Nebulizer-Adult Mask) As directed [non slip bath mat As directed] [thin panty liners As directed] timolol maleate 0.5% 1 drp ophthalmic (eye) BID tramadol 50 mg PO Q8H PRN 30 days underpads (Bed Underpads) Use 4 bed pads per day walker (Ultra-Light Rollator misc) As directed [wipes Use 4 times a day as needed] zolpidem 10 mg PO BEDTIME PRN Tobacco use date assessed: 02/04/25 Dental Screening Dental Screen Date: 02/04/25 Did you have a dental visit in the last 12 months?: Yes Did you have a dental problem in the last 6 months where you did not have access to dental care?: No Was dental information given to patient?: Patient has dentist HPI HPI Comments History of Present Illness Details The patient is a 49-year-old female presenting with follow-up on her chronic conditions. She has a history of hypertension, with a current blood pressure reading of 152/68 mmHg despite taking lisinopril 20 mg this morning. Her blood pressure will be rechecked in three weeks by a nurse navigator. The patient experiences urinary incontinence and uses pads as needed. She also suffers from depression with anxiety, managed by psychiatry with escitalopram and benzodiazepines as needed. She has moderate pulmonary hypertension and mild tricuspid regurgitation, as identified by an echocardiogram last month. Last month, she experienced an episode of syncope without bowel or bladder incontinence and was hospitalized for three days. A CT angiogram was performed to rule out pulmonary embolism, which returned negative results. She is scheduled for a CT coronary angiography as ordered by cardiology and follows up with pulmonology for her pulmonary hypertension. 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 She also has severe right temporomandibular joint syndrome, causing occasional pain, and reports some hearing loss, for which she desires a hearing test. [facility] Medical History Chest pain Coarse tremors Abnormal mammogram of right breast Myopathy Dyspnea Pneumonia Rib fracture Pleural effusion HPV (human papilloma virus) infection Chronic restrictive lung disease Arm pain, chronic Knee pain STEPHANIE positive Chronic restrictive lung disease Mild recurrent major depression Polyarthralgia Asthma History of DVT of lower extremity Urge urinary incontinence Chronic restrictive lung disease Reactive airway disease [id number] syndrome Obese Depression with anxiety Dyspnea Anxiety Hypertension Arthritis Encounter for follow-up for hypertension Surgical History History of tubal ligation H/O breast biopsy H/O LEEP Family History Father Liver cancer Mother Hypertension Diabetes CVD (cardiovascular disease) Maternal Grandmother Throat cancer Son No problems noted. Social History Household Members: Family Housing: House Do you presently have visiting nurse or other home services: No Alcohol intake: never Patient Tobacco Use Status: Never used Tobacco e-Cigarette/Vaping Use: Never Used Second Hand Smoke Exposure: No service: No Current occupational status: unemployed Cognitive needs: No Hearing needs: No Vision needs: No Female Reproductive History Menstrual Age of Menarche: 9 Questionnaire Thrive Questionnaire Date Thrive assessed: 02/04/25 I am a: Patient What is your living situation today?: I have a steady place to live Within the past 12 months, did the food you bought not last and you didn't have the money to get more?: Sometimes True Within the past 12 months, did you worry whether your food would run out before you got money to buy more?: Never true Do you have trouble paying for medicines?: No Do you have trouble getting transportation to medical appointments?: Yes Do you have trouble paying your heating and electricity bill?: Yes Do you have trouble taking care of your child, family member or friend?: No Do you have trouble with day-to-day activities such as bathing, preparing meals, shopping, managing finances, etc.?: Yes Are you currently unemployed and looking for a job?: Yes Are you interested in more education?: Yes Please select the resources that you would like help with: None Currently or been in a relationship where the following occur: No concerns reported THRIVE Score: 3 AUDIT C Alcohol Use Questionnaire (AUDIT-C) 1. How often do you have a drink containing alcohol?: Monthly or less 2. How many drinks containing alcohol do you have on a typical day when you are drinking?: 1 or 2 3. How often do you have six or more drinks on one occasion?: Less than monthly Total Score: 2 Score Reviewed/Action Taken: No ALISON-7 AMB Questionnaire ALISON-7 Date ALISON - 7 assessed: 01/23/25 Source: Developed by Drs. Pablo Gasca, Precious Benoit, Deep Puckett and colleagues, with an educational lyn from [employer]. Review of Systems Const All systems reviewed & are unremarkable except as noted in HPI and below Card Denies chest pain at rest, Denies chest pain with activity, Denies edema, Denies irregular heart rhythm, Denies claudication, Denies dyspnea, Denies dyspnea on exertion, Denies orthopnea, Denies paroxysmal nocturnal dyspnea and Denies slow heart rate Resp Denies cough, Denies dyspnea and Denies dyspnea on exertion GI Denies abdominal pain, Denies change in bowel habits, Denies excessive flatus, Denies nausea and Denies vomiting Physical exam (Primary Care) Vital Signs: Last Vital Signs Pulse 90 02/04/25 08:39 BP 152/68 H 02/04/25 08:39 Pulse Ox 97 02/04/25 08:39 Oxygen Delivery Method Room Air 02/04/25 08:39 BMI result Body Mass Index 23.0 Tobacco/Smoking Status: Tobacco use Status Tobacco use date assessed 02/04/25 02/04/25 08:46 Patient Tobacco Use Status Never used Tobacco 02/04/25 08:46 e-Cigarette/Vaping Use Never Used 02/04/25 08:46 Thrive Assessment: Date of Thrive Assessment Date Thrive assessed 02/04/25 02/04/25 08:46 Currently or been in a relationship where the following occur: No concerns reported Resp Effort & Inspection: normal respiratory effort Auscultation: clear to auscultation bilaterally Cardio Jugular venous distension: no JVD Rate: regular rate Rhythm: regular rhythm Heart sounds: S1 normal heart sound present and S2 normal heart sound present Extrem General: Yes full ROM Coding Level of Care Code Est Pt Level 4 (02565) Complex EM visit Add On G2211 Diagnoses Moderate recurrent major depression F33.1 Pulmonary hypertension I27.20 Chronic idiopathic constipation K59.04 Coarse tremors G25.2 Moderate persistent asthma without complication J45.40 Asthma severity: moderate Asthma persistence: persistent Asthma complication type: uncomplicated Syncope and collapse R55 Time Spent (min) 23 Assessment & Plan Assessment & Plan (1) Moderate recurrent major depression: Code(s): F33.1 - Major depressive disorder, recurrent, moderate Category: Medical (2) Pulmonary hypertension: Code(s): I27.20 - Pulmonary hypertension, unspecified Category: Medical (3) Chronic idiopathic constipation: Code(s): K59.04 - Chronic idiopathic constipation Category: Medical (4) Coarse tremors: Comment: likely exaggerated physiological tremors Code(s): G25.2 - Other specified forms of tremor Category: Medical (5) Asthma: Code(s): J45.909 - Unspecified asthma, uncomplicated Category: Medical Qualifiers: Asthma severity: moderate Asthma persistence: persistent Asthma complication type: uncomplicated Qualified Code(s): J45.40 - Moderate persistent asthma, uncomplicated (6) Syncope and collapse: Code(s): R55 - Syncope and collapse Category: Medical Plan Plan Patient was informed and verbally consented to the use of an ambient scribe for clinic note documentation during this visit. 1. Essential Hypertension The patient's blood pressure is currently 152/68 mmHg despite taking lisinopril 20 mg. Blood pressure will be rechecked in three weeks by a nurse navigator to assess control. 2. Urinary Incontinence The patient uses incontinence pads as needed for urinary incontinence. 3. Major Depressive Disorder With Anxiety The patient is managed by psychiatry with escitalopram and benzodiazepines as needed for depression with anxiety. 4. Pulmonary Hypertension The patient has moderate pulmonary hypertension and follows up with pulmonology. 5. Tricuspid Regurgitation The patient has mild tricuspid regurgitation as identified by echocardiogram. 6. Syncope The patient experienced syncope last month and was hospitalized for three days. A CT angiogram was performed to rule out pulmonary embolism, which was negative. A CT coronary angiography is scheduled as ordered by cardiology. 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 8. Temporomandibular Joint Syndrome The patient reports severe right temporomandibular joint syndrome causing occasional pain. 9. Hearing Loss The patient reports some hearing loss and desires a hearing test. Orders: Orders ECG holter monitor 48 hour Today R55 - Syncope and collapse Lipid Panel Today E78.5 - Hyperlipidemia, unspecified Vitamin D 25-OH Total Today E55.9 - Vitamin D deficiency, unspecified Comprehensive Met. Panel Today R55 - Syncope and collapse Vitamin B12 and Folate Today E53.8 - Deficiency of other specified B group vitamins Complete Blood Count Auto Diff Today D64.9 - Anemia, unspecified IRON PROFILE Today D64.9 - Anemia, unspecified Thyroid Stimulating Hormone Today G25.2 - Other specified forms of tremor Free T4 (Free Thyroxine) Today G25.2 - Other specified forms of tremor Referrals Speech and Hearing Referral H91.90 - Unspecified hearing loss, unspecified ear Medications: Changed From escitalopram oxalate 10 mg PO DAILY To escitalopram oxalate 10 mg PO DAILY 90 tabs 1RF 90 days Refilled aspirin 81 mg PO DAILY 90 tabs 3RF 90 days
--- OUTSIDE RECORDS SUMMARY | 2025-02-04 09:11 | XMS_ITS | Clinical Summary ---
Author Organization [facility] Address [address] [place] [address] Phone Care Team Providers Care Hearing Examiner Name Role Phone Physician, Pcp Unknown Primary Care Provider Tabatha vailable Allergies Active Allergy Reactions Criticality Noted Date Comments Gabapentin 04/30/2024 Abdominal pain Encounters Date Type Department Care Team Description 01/18/2025 10:18 AM EDT - 01/18/2025 11:20 AM EDT Emergency [facility] Emergency [address] [place] [address] Abril Roman DO Chest pain, unspecified type (Primary Dx) Discharge Disposition: Left Against Medical Advice from [...] GEMUSE QTc 435 ms GEMUSE P Wave [place] 39 degrees GEMUSE R [place] 39 degrees GEMUSE T [place] 10 degrees GEMUSE ECG Interpretation Normal sinus [...] Result GEMUSE from Last 3 Months Insurance [facility] MEDIC[facility] Member Subscriber Plan / Payer (Ef fective 2016-Present) Name:AMIRA SALGADO Relation to Subscriber:Self Name:Amira Salgado Payer ID:[id number] Group ID:[id number] Type:Not on file Address: [place] [address] [place] [phone] Care Teams Hearing Examiner Relationship Specialty Start Date End Date Physician, Pcp Unknown PCP - General 09/09/24
--- OUTSIDE RECORDS SUMMARY | 2025-02-04 09:11 | XMS_ITS | Clinical Summary ---
Author Organization [facility] Address [address] [place] [address] Care Team Providers Care Geophysical Support Specialist Name Role Phone Neelima Lima PA-C Primary Care Provider [phone] Source Comments PLEASE NOTE, if this patient [...] last done 03/16/2015 Dr. Samreen Reyes MD [facility] Director Of Safety. Recurrent major depression i n partial remission ([facility] V24) 05/31/2015 Migraine [...] Nicholas Relation to Subscriber:Self Name:Amira Nicholas Payer ID:[id number] Group ID:Not on file Type:Medicaid Address: [address] [address] MEDICARE - [place] Care Teams Geophysical Support Specialist Relationship Specialty Start Date End Date Neelima Lima PA-C [address] [place] [id number] PCP - General Internal Medicine 05/19/16
--- OUTSIDE RECORDS SUMMARY | 2025-02-04 09:11 | XMS_ITS | Clinical Summary ---
Author Organization [facility] Address [address] [place] [address] Care Team Providers Care Mechanical Maintenance Name Role Phone Unavailable Primary Care Provider [...] Vaccine (1 of 2) 2023 Influenza Vaccine 12/19/2024 03/11/2014 COVID-19 Vaccine (1 - 2023-25 season) 2025 Insurance [facility] MEDICARE PART A & B [facility] MGD MEDICARE OUT OF NETWORK
== END 2025-02-04 09:46 | disposition home or self-care (01) ==
LOC: HO.HMCH 08:15
PROVIDERS: PCP Internal Medicine; Visit Provider Internal Medicine
DX: F33.1 Major depressive disorder, recurrent, moderate (principal); I27.20 Pulmonary hypertension, unspecified; K59.04 Chronic idiopathic constipation; G25.2 Other specified forms of tremor; J45.40 Moderate persistent asthma, uncomplicated; R55 Syncope and collapse

== ENCOUNTER → 2025-02-04 08:14 | Outpatient (BNVA) | payer OTHER, SELFPAY | PROVIDERS: PCP Internal Medicine; Visit Provider Internal Medicine | DX: I10 Essential (primary) hypertension (principal); R32 Unspecified urinary incontinence; I27.20 Pulmonary hypertension, unspecified; M26.601 Right temporomandibular joint disorder, unspecified; F33.1 Major depressive disorder, recurrent, moderate; K59.04 Chronic idiopathic constipation; G25.2 Other specified forms of tremor; J45.40 Moderate persistent asthma, uncomplicated; R55 Syncope and collapse; H91.90 Unspecified hearing loss, unspecified ear | CPT/HCPCS: 99212 ==

== ENCOUNTER → 2025-02-26 09:51 | Outpatient (BNVA) | payer OTHER, SELFPAY | PROVIDERS: PCP Internal Medicine | DX: I10 Essential (primary) hypertension (principal) | CPT/HCPCS: 99211 ==

== ENCOUNTER 2025-03-05 10:29 | Outpatient (REF) | payer OTHER, SELFPAY ==
[2025-03-05 10:45] LABS: MANUAL DIFF FLAG NO
[2025-03-05 11:28] LABS: Hematocrit 31.2 % (37.0-47.0); Hemoglobin 10.1 g/dl (12.0-16.0); Imm Gran Abs Auto 0.01 X10*3/uL (0.00-0.03); Imm Gran Pct Auto 0.3 % (0.0-0.4); Lymphocytes Absolute Auto 2.1 X10*3/uL (1.2-4.9); Mean Corpuscular HGB Conc 32.4 g/dl (31.0-35.0); Mean Corpuscular Hemoglobin 27.7 pg (27.0-33.0); Mean Corpuscular Volume 85.5 fL (80.0-98.0); NRBC Abs Auto 0.000 X10*3/uL (0.0-0.012); NRBC Pct Auto 0.0 /100WBC (0.0-0.2); Platelet Count 344 X10*3/uL (160-400); Red Blood Count 3.65 X10*6/uL (4.20-5.50); White Blood Count 3.8 X10*3/uL (4.8-10.8)
[2025-03-05 12:25] LABS: Alanine Aminotransferase 36 U/L (0-31); Albumin Level 3.8 g/dL (3.5-5.0); Alkaline Phosphatase 238 U/L (39-117); Anion Gap 11 (12-20); Aspartate Amino Transferase 38 U/L (5-31); Blood Urea Nitrogen 11 mg/dL (9-16); Calcium 9.1 mg/dL (8.4-10.2); Carbon Dioxide 28 mmol/L (22-29); Chloride 109 mmol/L (96-108); Cholesterol 134 mg/dL (<200); Estimated Glomerular Filt Rate > 60; HDL Cholesterol 41 mg/dL (>40); Iron 84 mcg/dL (30-160); Percent Iron Saturation 42 % (15-50); Potassium 3.1 mmol/L (3.3-5.1); Sodium 145 mmol/L (135-145); Total Iron Binding Capacity 200 mcg/dL (228-428); Total Protein 6.6 g/dL (6.5-8.0); Triglycerides 67 mg/dL (<150); Unsaturated Iron Binding 116 ug/dL
[2025-03-05 12:32] LABS: Free T4 (Free Thyroxine) 3.26 ng/dL (0.71-1.85); Thyroid Stimulating Hormone < 0.01 uIU/mL (0.32-4.0)
--- OUTSIDE RECORDS SUMMARY | 2025-03-05 13:02 | XMS_ITS | Clinical Summary ---
Author Organization [facility] Address [address] [place] [address] Care Team Providers Care Advertising Dispatch Clerks Supervisor Name Role Phone Unavailable Primary Care [...] COVID-19 Vaccine (1 - 2023-25 season) 2025 RSV Vaccine 50 years and old er and Patients (1 - 1-dose 75+ series) 2048 Insurance [facility] MEDICARE PART A & B MISC MGD MEDICARE OUT OF NETWORK
--- OUTSIDE RECORDS SUMMARY | 2025-03-05 13:02 | XMS_ITS | Clinical Summary ---
Author Organization [facility] Address [address] [place] [address] Care Team Providers Care Seafood Service Team Member Name Role Phone Neelima Lima PA-C Primary Care Provider [phone] Source Comments PLEASE NOTE, if this patient [...] last done 03/16/2015 Dr. Samreen Reyes MD [facility] Mortician Investigator. Recurrent major depression in partial remission 05/31/2015 Migraine aura, persistent 05/31/2015 Midline low [...] Plan of Treatment Not on file Insurance [place] - [place] Care Teams Seafood Service Team Member Relationship Specialty Start Date End Date Neelima Lima PA-C [address] [place] [id number] PCP - General Internal Medicine 05/19/16
--- OUTSIDE RECORDS SUMMARY | 2025-03-05 13:02 | XMS_ITS | Clinical Summary ---
Author Organization [facility] Address [address] [place] [address] Phone Care Team Providers Care Reed Maker Name Role Phone Physician, Pcp Unknown Primary Care Provider Tabatha vailable Allergies Active Allergy Reactions Criticality Noted Date Comments Gabapentin 04/30/2024 Abdominal pain Encounters Date Type Department Care Team Description 01/18/2025 10:18 AM EDT - 01/18/2025 11:20 AM EDT Emergency [facility] Emergency [address] [place] [address] Abril Roman DO Chest pain, [...] Last Done Comments Breast Cancer Screening 1973 Colorectal Cancer Screening: Colonoscopy 1973 Hepatitis B Vaccines (1 of 3 - 19+ 3-dose series) 1992 Cervical Cancer Screening: P ap Smear 1994 DTaP,Tdap,and Td Vaccines (2 - Td or Tdap) 04/07/2018 04/07/2008 HIV Screening 04/23/2022 Hepatitis C Screening 04/23/2022 Medicare Annual Wellness Visit 04/23/2022 Social Influencers of Health Screening 04/23/2022 Pneumococcal Vaccine: 50+ Ye ars (1 of 1 - PCV) 2023 Zoster Vaccines (1 of 2) 2023 Depression Screening 05/21/2024 COVID-19 Vaccine ( - 2023-2 5 season) 2025 Influenza Vaccine (#1) 2025 03/11/2014 RSV Immunization Adult Patie nts (1 - 1-dose 75+ series) 2048 HIB Vaccines Aged Out No longer eligi [...] GEMUSE QTc 435 ms GEMUSE P Wave [place] 39 degrees GEMUSE R [place] 39 degrees GEMUSE T [place] 10 degrees GEMUSE ECG Interpretation Normal sinus [...] Result GEMUSE from Last 3 Months Insurance [facility] MEDICARE Member Subscriber Plan / Payer (Ef fective 2016-Present) Name:AMIRA SALGADO Relation to Subscriber:Self Name:Amira Salgado Payer ID:[id number] Group ID:[id number] Type:Not on file Address: [place] [address] [place] [id number] Care Teams Reed Maker Relationship Specialty Start Date End Date Physician, Pcp Unknown PCP - General 09/09/24
[2025-03-05 13:09] LABS: Folate 9.5 ng/mL (> or = 4.0); Vitamin B12 412 pg/mL (200-900)
== END 2025-03-05 10:30 | disposition home or self-care (01) ==
LOC: HO.LAB 10:29
PROVIDERS: PCP Internal Medicine; Visit Provider Internal Medicine
DX: E53.8 Deficiency of other specified B group vitamins (principal); D64.9 Anemia, unspecified; E78.5 Hyperlipidemia, unspecified; E55.9 Vitamin D deficiency, unspecified; R55 Syncope and collapse; G25.2 Other specified forms of tremor
CPT/HCPCS: 36415; 80053; 80061; 82306; 82607; 82746; 83540; 84439; 84443; 85025

== ENCOUNTER → 2025-03-06 08:20 | Outpatient (REF) | payer OTHER, SELFPAY ==
--- NOTE | 2025-03-06 08:23 | HM_ITS ---
* Total monitoring time 2 days. * Underlying rhythm is sinus with an average rate of 99/Min. About 45% of the time, rate > 100/Min. * Rare supraventricular ectopy. * Rare ventricular ectopy. Two short runs. Longest 6-7beats. Can also be supraventricular with aberrant conduction. * No significant pauses or high-grade AV blocks. * No patient markers or diary events. MTDD
--- OUTSIDE RECORDS SUMMARY | 2025-03-06 08:36 | XMS_ITS | Clinical Summary ---
Author Organization [facility] Address [address] [place] [address] Care Team Providers Care Harness And Bag Inspector Name Role Phone Unavailable Primary Care [...] (1 - 1-dose 75+ series) 2048 Insurance [facility] MEDICARE PART A & B MISC MGD MEDICARE OUT OF NETWORK
--- OUTSIDE RECORDS SUMMARY | 2025-03-06 08:36 | XMS_ITS | Clinical Summary ---
Author Organization [facility] Address [address] [place] [address] Phone Care Team Providers Care Pump Installation And Servicer Name Role Phone Physician, Pcp Unknown Primary Care Provider Tabatha vailable Allergies Active Allergy Reactions Criticality Noted Date Comments Gabapentin 04/30/2024 Abdominal pain Encounters Date Type Department Care Team Description 01/18/2025 10:18 AM EDT - 01/18/2025 11:20 AM EDT Emergency [facility] Emergency [address] [place] [address] Abril Roman DO Chest pain, [...] GEMUSE QTc 435 ms GEMUSE P Wave [place] 39 degrees GEMUSE R [place] 39 degrees GEMUSE T [place] 10 degrees GEMUSE ECG Interpretation Normal sinus [...] [facility] MEDICARE Member Subscriber Plan / Payer (Ef fective 2016-Present) Name:AMIRA SALGADO Relation to Subscriber:Self Name:Amira Salgado Payer ID:[id number] Group ID:[id number] Type:Not on file Address: [place] [address] [place] [id number] Care Teams Pump Installation And Servicer Relationship Specialty Start Date End Date Physician, Pcp Unknown PCP - General 09/09/24
--- OUTSIDE RECORDS SUMMARY | 2025-03-06 08:36 | XMS_ITS | Clinical Summary ---
Author Organization [facility] Address [address] [place] [address] Care Team Providers Care Field Education Coordinator Name Role Phone Neelima Lima PA-C Primary Care Provider [phone] Source Comments PLEASE NOTE, if this patient [...] last done 03/16/2015 Dr. Samreen Reyes MD [facility] Long Line Teamster. Recurrent major depression in partial remission 05/31/2015 [...] on file Insurance [place] Care Teams Field Education Coordinator Relationship Specialty Start Date End Date Neelima Lima PA-C [address] [place] [id number] PCP - General Internal Medicine 05/19/16
== END ==
LOC: HO.CARD 08:20
PROVIDERS: PCP Internal Medicine; Visit Provider Internal Medicine
DX: R55 Syncope and collapse (principal); I49.3 Ventricular premature depolarization
CPT/HCPCS: 93225

== ENCOUNTER → 2025-03-06 08:23 | Outpatient (BNV) | payer OTHER, SELFPAY | PROVIDERS: PCP Internal Medicine; Visit Provider Internal Medicine | DX: I49.3 Ventricular premature depolarization (principal); I49.49 Other premature depolarization | CPT/HCPCS: 93227 ==

== ENCOUNTER 2025-03-09 10:54 | Outpatient (AMB) | payer OTHER, SELFPAY ==
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
[2025-03-09 11:01] VITALS: BP 124/50; PULSE 112; O2SAT 98; BMI 23.1
== END 2025-03-09 12:45 | disposition home or self-care (01) ==
LOC: HO.HPS 10:55
PROVIDERS: PCP Internal Medicine; Visit Provider Hospitalist
DX: J45.909 Unspecified asthma, uncomplicated (principal); J98.4 Other disorders of lung; R06.00 Dyspnea, unspecified
CPT/HCPCS: 99214; G2211

== ENCOUNTER → 2025-03-09 10:54 | Outpatient (BNVA) | payer OTHER, SELFPAY | PROVIDERS: PCP Internal Medicine; Visit Provider Hospitalist | DX: R55 Syncope and collapse (principal); J45.909 Unspecified asthma, uncomplicated; R06.02 Shortness of breath; J98.4 Other disorders of lung | CPT/HCPCS: 99212 ==

== ENCOUNTER 2025-04-01 08:29 | Outpatient (AMB) | payer OTHER, SELFPAY ==
--- NOTE | 2025-04-01 08:31 | MHC.PC.OV ---
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 Required: No Accompanied by: Self / Same As Patient Allergies gabapentin Allergy (Intermediate, Verified 04/01/25 08:54) abdominal pain semaglutide (From Wegovy) Allergy (Intermediate, Verified 04/01/25 08:54) termons Medication List - Last Reconciled 04/01/25 by Stephanie Chapman MD albuterol sulfate 2.5 mg (3 mL) inhalation Q4H PRN 30 days albuterol sulfate 90 mcg/actuation 2 puffs inhalation Q4-6H PRN aspirin 81 mg PO DAILY 90 days [Bath mat As directed] cane As directed cetirizine 10 mg PO DAILY clonazepam 1 mg PO TID PRN [compression stockings knee high As directed] dorzolamide 2% 1 drp ophthalmic (eye) BID escitalopram oxalate 10 mg PO DAILY 90 days [Grab bar As directed] ibuprofen 800 mg PO Q8H PRN incontinence pad, liner, disp USe 1 to 2 pads per day as needed lisinopril 20 mg PO DAILY 90 days mecobalamin (vitamin B12) 5,000 mcg PO DAILY 30 days nebulizers (VixOne Nebulizer-Adult Mask) As directed [non slip bath mat As directed] [thin panty liners As directed] timolol maleate 0.5% 1 drp ophthalmic (eye) BID tramadol 50 mg PO Q8H PRN 30 days underpads (Bed Underpads) Use 4 bed pads per day walker (Ultra-Light Rollator misc) As directed [wipes Use 4 times a day as needed] zolpidem 10 mg PO BEDTIME PRN Tobacco use date assessed: 04/01/25 Dental Screening Dental Screen Date: 04/01/25 Did you have a dental visit in the last 12 months?: Yes Did you have a dental problem in the last 6 months where you did not have access to dental care?: No Was dental information given to patient?: Patient has dentist HPI HPI Comments History of Present Illness Details The patient is a 49-year-old female presenting for an annual physical exam, review of lab results, and discussion of screenings. Her current medications include an albuterol inhaler, aspirin, cetirizine, clonazepam, escitalopram for depression with anxiety, ibuprofen as needed, lisinopril, tramadol, and zolpidem for sleep. She has known allergies to gabapentin, which caused abdominal pain, and Wegovy, which caused tremors. The patient reports unintentional weight loss despite eating regularly, which she attributes to her thyroid condition. She has a diagnosis of an active thyroid disorder and has an upcoming appointment with an irrigation worker. She previously saw a neurologist for uncontrolled tremors, particularly affecting her mouth, which she associated with a Wegovy injection, but she was dissatisfied with the consultation. Recent lab results showed a slightly low hemoglobin of 10.1 and a white blood cell count of 3.8, which is a decrease from a previous value of 4.1. Her renal function, glucose, calcium, and iron levels are normal, but liver enzymes are slightly elevated. Her total cholesterol is 134, and her vitamin B12 level is normal at 412. For health maintenance, her Cologuard test in 2022 was negative, with the next one due in 2025. A CT scan, done to rule out pulmonary embolism, was negative but did show incidental findings of sinus congestion and a small cyst. She follows with a store sales leader, whom she saw recently and will see again on the . The patient was informed that her next Cologuard test is due in 2025. As her vitamin B12 level is normal, she was advised to discontinue any supplementation. She has upcoming appointments with pulmonology and endocrinology. Mammogram done this year. Pap smear also done this year. She declines tetanus and flu vaccine today. 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 Social History Household Members: Family Housing: House Do you presently have visiting nurse or other home services: No Alcohol intake: never Patient Tobacco Use Status: Never used Tobacco e-Cigarette/Vaping Use: Never Used Second Hand Smoke Exposure: No service: No Current occupational status: unemployed Cognitive needs: No Hearing needs: No Vision needs: No Female Reproductive History Menstrual Age of Menarche: 9 Questionnaire Thrive Questionnaire Date Thrive assessed: 09/29/24 I am a: Patient What is your living situation today?: I have a steady place to live Within the past 12 months, did the food you bought not last and you didn't have the money to get more?: Sometimes True Within the past 12 months, did you worry whether your food would run out before you got money to buy more?: Never true Do you have trouble paying for medicines?: No Do you have trouble getting transportation to medical appointments?: Yes Do you have trouble paying your heating and electricity bill?: Yes Do you have trouble taking care of your child, family member or friend?: No Do you have trouble with day-to-day activities such as bathing, preparing meals, shopping, managing finances, etc.?: Yes Are you currently unemployed and looking for a job?: Yes Are you interested in more education?: Yes Please select the resources that you would like help with: None Currently or been in a relationship where the following occur: No concerns reported THRIVE Score: 3 ALISON-7 AMB Questionnaire ALISON-7 Date ALISON - 7 assessed: 01/23/25 Source: Developed by Drs. Pablo Gasca, Precious Benoit, Deep Puckett and colleagues, with an educational lyn from [employer]. Review of Systems Const All systems reviewed & are unremarkable except as noted in HPI and below Card Denies chest pain at rest, Denies chest pain with activity, Denies edema, Denies irregular heart rhythm, Denies claudication, Denies dyspnea, Denies dyspnea on exertion, Denies orthopnea, Denies paroxysmal nocturnal dyspnea and Denies slow heart rate Resp Denies cough, Denies dyspnea and Denies dyspnea on exertion GI Denies abdominal pain, Denies change in bowel habits, Denies excessive flatus, Denies nausea and Denies vomiting Denies urinary incontinence, Denies urinary hesitancy and Denies urinary urgency Musc Denies atrophy, Denies deformity and Denies limited range of motion Skin/Breast Denies bleeding lesions, Denies changing lesions and Denies rash Physical exam (Primary Care) Vital Signs: Last Vital Signs Temp 97.5 F 04/01/25 08:32 Pulse 65 04/01/25 08:32 Resp 18 04/01/25 08:32 BP 160/90 H 04/01/25 08:32 Oxygen Delivery Method Room Air 04/01/25 08:32 BMI result Body Mass Index 22.4 Tobacco/Smoking Status: Tobacco use Status Tobacco use date assessed 04/01/25 04/01/25 08:44 Patient Tobacco Use Status Never used Tobacco 04/01/25 08:44 e-Cigarette/Vaping Use Never Used 04/01/25 08:44 Thrive Assessment: Date of Thrive Assessment Date Thrive assessed 09/29/24 04/01/25 08:44 Currently or been in a relationship where the following occur: No concerns reported [facility] Head: Yes normal to inspection, Yes normocephalic and Yes atraumatic Ears: external ears normal Eyes General: appearance normal, both eyes and all related structures Eyelids: Yes eyelids normal Conjunctivae: conjunctivae normal Neck Neck: Yes normal visual inspection and Yes supple Resp Effort & Inspection: normal respiratory effort Auscultation: clear to auscultation bilaterally Cardio Jugular venous distension: no JVD Rate: regular rate Rhythm: regular rhythm Heart sounds: S1 normal heart sound present and S2 normal heart sound present GI Inspection: Yes normal to inspection Palpation (GI): Soft to palpation and nontender Auscultation: normal bowel sounds Skin General skin exam: no rashes or lesions noted Neuro General: no focal motor deficits Extrem General: Yes full ROM Psych Appearance: grossly normal Coding Level of Care Code Est Pt Level 4 (01552) Est Pt Prev Care 40-64y(44501) Diagnoses Physical exam Z00.00 Coarse tremors G25.2 Hypokalemia E87.6 Transaminitis R74.01 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 Hyperthyroidism E05.90 Moderate recurrent major depression F33.1 Bicytopenia D75.89 Time Spent (min) 40 Assessment & Plan Assessment & Plan (1) Physical exam: Code(s): Z00.00 - Encounter for general adult medical examination without abnormal findings Category: Medical (2) Coarse tremors: Comment: likely exaggerated physiological tremors Code(s): G25.2 - Other specified forms of tremor Category: Medical (3) Hypokalemia: Code(s): E87.6 - Hypokalemia Category: Medical (4) Transaminitis: Code(s): R74.01 - Elevation of levels of liver transaminase levels Category: Medical (5) Retention cyst of paranasal sinus: Code(s): J34.1 - Cyst and mucocele of nose and nasal sinus Category: Medical (6) Hyperthyroidism: Code(s): E05.90 - Thyrotoxicosis, unspecified without thyrotoxic crisis or storm Category: Medical (7) Moderate recurrent major depression: Code(s): F33.1 - Major depressive disorder, recurrent, moderate Category: Medical (8) Bicytopenia: Code(s): D75.89 - Other specified diseases of blood and blood-forming organs Category: Medical Plan Plan 1. Physical exam Continue yearly mammograms. Cologuard for 2025. 2. Hyperthyroidism The patient's unintentional weight loss despite a good appetite is concerning for an active thyroid disorder. Management will be deferred to the irrigation worker, with whom the patient has an appointment on the . 3. Hypertension The patient's blood pressure was elevated during the visit. She will continue her current regimen with lisinopril and monitor her blood pressure. 4. Anemia And Leukopenia Recent labs revealed continued anemia (Hgb 10.1) and leukopenia (WBC 3.8). Repeat labs, including a complete blood count and metabolic panel, will be obtained on the . 5. Elevated Liver Enzymes Recent labs showed slightly elevated liver enzymes. A repeat chemistry panel will be performed on the to reassess. Orders: Orders Comprehensive Met. Panel Today E87.6 - Hypokalemia, R74.01 - Elevation of levels of liver transaminase levels Referrals Ear/Nose/Throat Referral J34.1 - Cyst and mucocele of nose and nasal sinus Hematology & Oncology Referral D75.89 - Other specified diseases of blood and blood-forming organs Neurology Referral G25.2 - Other specified forms of tremor
[2025-04-01 08:32] VITALS: BP 160/90; PULSE 65; RESP 18; TEMP 36.4; BMI 22.4
--- OUTSIDE RECORDS SUMMARY | 2025-04-01 08:45 | XMS_ITS | Clinical Summary ---
Author Organization [facility] Address [address] [place] [address] Care Team Providers Care Metal Furniture Repairer Name Role Phone Unavailable Primary Care Provider [...] (1 - 1-dose 75+ series) 2048 Insurance [facility] MEDICARE PART A & B MISC MGD MEDICARE OUT OF NETWORK
--- OUTSIDE RECORDS SUMMARY | 2025-04-01 08:45 | XMS_ITS | Clinical Summary ---
Author Organization [facility] Address [address] [place] [address] Care Team Providers Care Overhead Crane Inspector Name Role Phone Neelima Lima PA-C Primary Care Provider [phone] Source Comments PLEASE NOTE, if this patient [...] last done 03/16/2015 Dr. Samreen Reyes MD [facility] Placement Specialist. Recurrent major depression in partial remission 05/31/2015 [...] Plan of Treatment Not on file Insurance [place] Care Teams Overhead Crane Inspector Relationship Specialty Start Date End Date Neelima Lima PA-C [address] [place] [id number] PCP - General Internal Medicine 05/19/16
--- OUTSIDE RECORDS SUMMARY | 2025-04-01 08:45 | XMS_ITS | Clinical Summary ---
Author Organization [facility] Address [address] [place] [address] Phone Care Team Providers Care Global Cmo Name Role Phone Physician, Pcp Unknown Primary Care Provider Tabatha vailable Allergies Active Allergy Reactions Criticality Noted Date Comments Gabapentin 04/30/2024 Abdominal pain Encounters Date Type Department Care Team Description 01/18/2025 10:18 AM EDT - 01/18/2025 11:20 AM EDT Emergency [facility] Emergency [address] [place] [address] Abril Roman DO Chest pain, [...] Depression Screening 05/21/2024 COVID-19 Vaccine (1 - 2024-2 6 season) 2025 Influenza Vaccine (#1) 2025 03/11/2014 [...] GEMUSE QTc 435 ms GEMUSE P Wave [place] 39 degrees GEMUSE R [place] 39 degrees GEMUSE T [place] 10 degrees GEMUSE ECG Interpretation Normal sinus [...] Result GEMUSE from Last 3 Months Insurance [facility] MEDICARE Member Subscriber Plan / Payer (Ef fective 2016-Present) Name:AMIRA SALGADO Relation to Subscriber:Self Name:Amira Salgado Payer ID:[id number] Group ID:[id number] Type:Not on file Address: [place] [address] [place] [address] Care Teams Global Cmo Relationship Specialty Start Date End Date Physician, Pcp Unknown PCP - General 09/09/24
== END 2025-04-01 09:18 | disposition home or self-care (01) ==
LOC: HO.HMCH 08:30
PROVIDERS: PCP Internal Medicine; Visit Provider Internal Medicine
DX: Z00.00 Encounter for general adult medical examination without abnormal findings (principal); G25.2 Other specified forms of tremor; E87.6 Hypokalemia; R74.01 Elevation of levels of liver transaminase levels; J34.1 Cyst and mucocele of nose and nasal sinus; E05.90 Thyrotoxicosis, unspecified without thyrotoxic crisis or storm; F33.1 Major depressive disorder, recurrent, moderate; D75.89 Other specified diseases of blood and blood-forming organs

== ENCOUNTER → 2025-04-01 08:29 | Outpatient (BNVA) | payer OTHER, SELFPAY | PROVIDERS: PCP Internal Medicine; Visit Provider Internal Medicine | DX: Z00.00 Encounter for general adult medical examination without abnormal findings (principal); R63.4 Abnormal weight loss; G25.2 Other specified forms of tremor; E87.6 Hypokalemia; R74.01 Elevation of levels of liver transaminase levels; J34.1 Cyst and mucocele of nose and nasal sinus; E05.90 Thyrotoxicosis, unspecified without thyrotoxic crisis or storm; F33.1 Major depressive disorder, recurrent, moderate; D75.89 Other specified diseases of blood and blood-forming organs; Z68.22 Body mass index [BMI] 22.0-22.9, adult | CPT/HCPCS: 99396 ==

== ENCOUNTER 2025-04-06 09:08 | Outpatient (REF) | payer OTHER, SELFPAY ==
[2025-04-06 11:33] LABS: Alanine Aminotransferase 32 U/L (0-31); Albumin Level 3.8 g/dL (3.5-5.0); Anion Gap 12 (12-20); Aspartate Amino Transferase 33 U/L (5-31); Blood Urea Nitrogen 15 mg/dL (9-16); Calcium 9.9 mg/dL (8.4-10.2); Carbon Dioxide 28 mmol/L (22-29); Chloride 106 mmol/L (96-108); Estimated Glomerular Filt Rate > 60; Potassium 3.9 mmol/L (3.3-5.1); Sodium 142 mmol/L (135-145); Total Protein 6.9 g/dL (6.5-8.0)
[2025-04-06 11:34] LABS: Alkaline Phosphatase 214 U/L (39-117)
== END 2025-04-06 09:09 | disposition home or self-care (01) ==
LOC: HO.LAB 09:08
PROVIDERS: PCP Internal Medicine; Visit Provider Internal Medicine
DX: J45.30 Mild persistent asthma, uncomplicated (principal); E87.6 Hypokalemia; R74.01 Elevation of levels of liver transaminase levels; J98.4 Other disorders of lung; Z79.51 Long term (current) use of inhaled steroids; Z79.899 Other long term (current) drug therapy
CPT/HCPCS: 36415; 80053; 99212

== ENCOUNTER 2025-04-06 09:25 | Outpatient (AMB) | payer OTHER, SELFPAY ==
[2025-04-06 09:30] VITALS: BP 128/58; PULSE 94; O2SAT 99; BMI 23.1
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
== END 2025-04-06 14:29 | disposition home or self-care (01) ==
PROVIDERS: PCP Internal Medicine; Visit Provider Hospitalist
DX: J45.40 Moderate persistent asthma, uncomplicated (principal); J98.4 Other disorders of lung; R06.02 Shortness of breath
CPT/HCPCS: 99214

== ENCOUNTER 2025-04-09 15:55 | Outpatient (AMB) | payer OTHER, SELFPAY ==
--- NOTE | 2025-04-09 16:01 | A.OFFVIS_ITS ---
Vital Signs 04/09/25 16:03 Height 5 ft 7 in Weight 143 lb 4.807 oz BMI 22.4 BP 138/74 Blood Pressure Location Rt brachial Position Sitting Pulse 98 Pulse Source Pulse Oximeter Oxygen Delivery Method Room Air Intake Visit Reasons: Thyrotoxicosis, unspecified without thyrotoxic cri Intake Note: NEW Patient presents today to establish care for Thyrotoxicosis, unspecified without thyrotoxic crisis: Color Worker Required: No Accompanied by: Other Relationship Allergies gabapentin Allergy (Intermediate, Verified 04/06/25 09:33) abdominal pain semaglutide (From [facility]) Allergy (Intermediate, Verified 04/06/25 09:33) termons Medication List - Last Reconciled 04/09/25 by Rakesh Barraza MD albuterol sulfate 2.5 mg (3 mL) inhalation Q4H PRN 30 days albuterol sulfate 90 mcg/actuation 2 puffs inhalation Q4-6H PRN aspirin 81 mg PO DAILY 90 days [Bath mat As directed] cane As directed cetirizine 10 mg PO DAILY clonazepam 1 mg PO TID PRN [compression stockings knee high As directed] dorzolamide 2% 1 drp ophthalmic (eye) BID escitalopram oxalate 10 mg PO DAILY 90 days [Grab bar As directed] ibuprofen 800 mg PO Q8H PRN incontinence pad, liner, disp USe 1 to 2 pads per day as needed lisinopril 20 mg PO DAILY 90 days mecobalamin (vitamin B12) 5,000 mcg PO DAILY 30 days methimazole 5 mg PO BID methylprednisolone (Medrol (James)) PO PER PKG DIR 6 days mometasone-formoterol 200-5 mcg/actuation (Dulera) 2 puffs inhalation Q12H 30 days nebulizers (VixOne Nebulizer-Adult Mask) As directed [non slip bath mat As directed] [thin panty liners As directed] timolol maleate 0.5% 1 drp ophthalmic (eye) BID tramadol 50 mg PO Q8H PRN 30 days umeclidinium 62.5 mcg/actuation (Incruse Ellipta) 1 inh inhalation DAILY 30 days underpads (Bed Underpads) Use 4 bed pads per day walker (Ultra-Light Rollator misc) As directed [wipes Use 4 times a day as needed] zolpidem 10 mg PO BEDTIME PRN HPI Comments Details: 49 F with PMH of ,,, seen in the office for evaluation and management of hyperthyroidism. She once seen in 2021 for suppressed TSH, and repeat labs showed normal TFTs, hence she was discharged to PCP. Patient reports that a family member adviced her to check her thyroid levels as she had a bump in her neck. She requested her PCP to do TFTs which showed elevated FT4 and suppress TSH. She denies any recent trigger to her current symptoms. fatigue: yes sleep: for the last 2 years, she assocuates this with her menopausal symptoms periods: none, for the last 4 years diarrhea: no weight: weight loss intentional, she was on weight loss meds, but she developed an adverse effects Palpitations: yes, improved from before vision: reports double vision, has history of glaucoma Reports hair loss. Denies dry skin Resports dypshagia /bolus sensation Fam Hx: older sister, unclear. Another family member had thyroidectomy, unclear etiology Thyroid cancer history: not known Biotin: unclear Radiation exposure: No Physical exam: General: Well appearing. NAD. Neck/Thyroid: Thyroid palpable, no nodules. Eyes: No conjunctival injection, not lid lag or proptosis CV: RRR, no murmur. No edema. Resp:Lungs clear to auscultation bilaterally Abdomen: Soft, nontender. nondistended Extremities/Neuro: No weakness. Mild tremor of outstretched hands Laboratory Tests 03/05/25 10:43 TSH < 0.01 L Free T4 3.26 H PFSH Medical History Chest pain Coarse tremors Abnormal mammogram of right breast Myopathy Dyspnea Pneumonia Rib fracture Pleural effusion HPV (human papilloma virus) infection Chronic restrictive lung disease Arm pain, chronic Knee pain JABARI positive Chronic restrictive lung disease Mild recurrent major depression Polyarthralgia Asthma History of DVT of lower extremity Urge urinary incontinence Chronic restrictive lung disease Reactive airway disease [id number] syndrome Obese Depression with anxiety Dyspnea Anxiety Hypertension Arthritis Encounter for follow-up for hypertension Surgical History History of tubal ligation H/O breast biopsy H/O LEEP Family History Father Liver cancer Mother Hypertension Diabetes CVD (cardiovascular disease) Maternal Grandmother Throat cancer Son No problems noted. Social History Household Members: Family Housing: House Do you presently have visiting nurse or other home services: No Alcohol intake: never Patient Tobacco Use Status: Never used Tobacco e-Cigarette/Vaping Use: Never Used Second Hand Smoke Exposure: No service: No Current occupational status: unemployed Cognitive needs: No Hearing needs: No Vision needs: No Female Reproductive History Menstrual Age of Menarche: 9 Physical Exam Vital Signs: Last Vital Signs Pulse 98 04/09/25 16:03 BP 138/74 04/09/25 16:03 Oxygen Delivery Method Room Air 04/09/25 16:03 BMI result Body Mass Index 22.4 Assessment & Plan Assessment & Plan (1) Hyperthyroidism: Code(s): E05.90 - Thyrotoxicosis, unspecified without thyrotoxic crisis or storm Category: Medical Plan: Hyperthyroidism of variable course, possibly related to Graves' disease. Other etiologies like transient thyroiditis, subacute thyroiditis seem less likely but are not completely ruled out, although these usually present with neck pain, which patient does not have. She is currently oligosymptomatic, and there is no many signs indicating overt hyperthyroidism, although her heart rate is borderline high and she had mild tremor of her hands, and reported weight loss. She did report that she is taking the multivitamin and she is unclear this contains biotin, but is unlikely that this along with the explain the patient's current symptoms. He discussed that Graves is an autoimmune disease characterized by the production of TSH receptor antibodies, leading to unregulated thyroid tormone production. The natural history includes periods of remission and relapse. With antithyroid drug therapy, about 30-50% of patients may achieve remission after 18-24 months, but recurrences possible especially with younger patients. Definitive therapy (radioactive iodine ablation or thyroidectomy) is considered for those with persistent or relapsing disease, medication intolerance, or patient preference. Plan Start MMI 5 mg BID Recheck TFTs, liver panel and thyroid AB (TSI, TrAB) Discussed side effects of methimazole: rash, gastrointestinal upset, arthralgias, and, rarely, agranulocytosis or hepatotoxicity. Advise patients to report fever, sore throat, or jaundice immediately. Follow up in 2 months Plan 45 minutes spent reviewing previous records, labs, imaging, education and documenting in the chart Orders: Orders TSH reflex Free T4 6 Weeks E05.90 - Thyrotoxicosis, unspecified without thyrotoxic crisis or storm Thyroid Stimulating Immunoglob 6 Weeks E05.90 - Thyrotoxicosis, unspecified without thyrotoxic crisis or storm Thyrotropin Receptor Antibody 6 Weeks E05.90 - Thyrotoxicosis, unspecified without thyrotoxic crisis or storm Liver Panel 6 Weeks E05.90 - Thyrotoxicosis, unspecified without thyrotoxic crisis or storm Medications: New methimazole 5 mg PO BID 60 tabs 3RF E05.90 - Thyrotoxicosis, unspecified without thyrotoxic crisis or storm Patient Instructions: Instrucciones para el paciente: Efectos secundarios de metimazol Usted est? recibiendo metimazol para el tratamiento del hipertiroidismo. Es importante que conozca los posibles efectos secundarios y sepa cu?ndo debe buscar atenci?n m?dica. Efectos secundarios comunes (pueden no requerir suspensi?n del medicamento): Sarpullido o erupci?n en la piel Picaz?n (prurito) Urticaria N?useas o v?mitos Dolor de est?mike o malestar epig?strico Dolor de marcio Dolor en las articulaciones o m?sculos P?rdida del gusto Ca?da anormal del brenna Somnolencia, mareo o sensaci?n de v?rtigo Efectos secundarios graves (debe acudir al m?dico o a urgencias de inmediato): Fiebre Dolor de garganta Malestar general intenso Aparici?n de moretones o sangrado f?cil Coloraci?n amarilla en la piel o los ojos (ictericia) Orina oscura o disminuci?n en la cantidad de orina Dificultad para respirar, tos con ojse Erupci?n cut?coy nueva o ampollas Inflamaci?n de ganglios o gl?ndulas Dolor intenso de marcio o debilidad muscular ?Importante! Si presenta fiebre, dolor de garganta, ?lceras en la boca, moretones, sangrado, coloraci?n amarilla en la piel/ojos, o cualquier s?ntoma grave mencionado arriba, suspenda el medicamento y acuda de inmediato a wiseman m?dico o a la bartolo de urgencias. Estos s?ntomas pueden indicar problemas graves en la jose (chepe agranulocitosis o anemia apl?bryson), da?o hep?leanna o vasculitis. Recomendaciones generales: No suspenda el medicamento sin consultar denisse. Informe a wiseman m?dico sobre cualquier s?ntoma nuevo o inusual. Acuda a haider controles y ex?menes de jose seg?n lo indicado. Coding Level of Care Code New Pt Level 4 (81236) Diagnoses Hyperthyroidism E05.90
[2025-04-09 16:03] VITALS: BP 138/74; PULSE 98; BMI 22.4
--- OUTSIDE RECORDS SUMMARY | 2025-04-09 20:49 | XMS_ITS | Clinical Summary ---
Author Organization [facility] Address [address] [place] [address] Phone Care Team Providers Care Rice Field Worker Name Role Phone Physician, Pcp Unknown Primary Care Provider Tabatha vailable Allergies Active Allergy Reactions Criticality Noted Date Comments Gabapentin 04/30/2024 Abdominal pain Encounters Date Type Department Care Team Description 01/18/2025 10:18 AM EDT - 01/18/2025 11:20 AM EDT Emergency [facility] [address] [place] [address] Abril Roman DO Chest pain, [...] GEMUSE QTc 435 ms GEMUSE P Wave [place] 39 degrees GEMUSE R [place] 39 degrees GEMUSE T [place] 10 degrees GEMUSE ECG Interpretation Normal sinus [...] Result GEMUSE from Last 3 Months Insurance [facility] MEDICARE Member Subscriber Plan / Payer (Ef fective 2016-Present) Name:AMIRA SALGADO Relation to Subscriber:Self Name:Amira Salgado Payer ID:[id number] Group ID:[id number] Type:Not on file Address: [place] [address] [place] [address] Care Teams Rice Field Worker Relationship Specialty Start Date End Date Physician, Pcp Unknown PCP - General 09/09/24
--- OUTSIDE RECORDS SUMMARY | 2025-04-09 20:49 | XMS_ITS | Clinical Summary ---
Author Organization [facility] Address [address] [place] [address] Care Team Providers Care Assistant Buyer Name Role Phone Unavailable Primary Care Provider [...] (1 - 1-dose 75+ series) 2048 Insurance [facility] MEDICARE PART A & B MISC [place] MEDICARE OUT OF NETWORK
== END 2025-04-09 16:36 | disposition home or self-care (01) ==
LOC: HO.ENCR 15:56
PROVIDERS: PCP Internal Medicine; Visit Provider Student in an Organized Health Care Education/Training Program
DX: E05.90 Thyrotoxicosis, unspecified without thyrotoxic crisis or storm (principal)
CPT/HCPCS: 99204

== ENCOUNTER → 2025-04-09 15:55 | Outpatient (BNVA) | payer OTHER, SELFPAY | PROVIDERS: PCP Internal Medicine; Visit Provider Student in an Organized Health Care Education/Training Program | DX: E05.90 Thyrotoxicosis, unspecified without thyrotoxic crisis or storm (principal) | CPT/HCPCS: 99202 ==

== ENCOUNTER → 2025-04-23 13:39 | Outpatient (BNVA) | payer OTHER, SELFPAY | PROVIDERS: PCP Internal Medicine | DX: I10 Essential (primary) hypertension (principal) | CPT/HCPCS: 99211 ==

== ENCOUNTER 2025-05-19 08:13 | Outpatient (REF) | payer OTHER, SELFPAY ==
--- OUTSIDE RECORDS SUMMARY | 2025-05-19 09:47 | XMS_ITS | Clinical Summary ---
Author Organization [facility] Address [address] [place] [address] Phone Care Team Providers Care Senior Tax Analyst Name Role Phone Physician, Pcp Unknown Primary [...] to complete this topic Insurance [facility] MEDICARE Member Subscriber Plan / Payer (Ef fective 2016-Present) Name:AMIRA SALGADO Relation to Subscriber:Self Name:Amira Salgado Payer ID:[id number] Group ID:[id number] Type:Not on file Address: [facility] [address] [address] Care Teams Senior Tax Analyst Relationship Specialty Start Date End Date Physician, Pcp Unknown PCP - General 09/09/24
--- OUTSIDE RECORDS SUMMARY | 2025-05-19 09:47 | XMS_ITS | Clinical Summary ---
Author Organization [facility] Address [address] [place] [address] Care Team Providers Care Registered Route Associate Name Role Phone Unavailable Primary Care Provider [...] Vaccine 12/19/2024 03/11/2014 COVID-19 Vaccine (1 - 2024- season) 2025 RSV Vaccine 50 years and old er and Patients (1 - 1-dose 75+ series) 2048 Insurance [facility] MEDICARE PART A & B MISC [place] MEDICARE OUT OF NETWORK
[2025-05-19 10:02] LABS: Alanine Aminotransferase 13 U/L (0-31); Albumin Level 4.0 g/dL (3.5-5.0); Alkaline Phosphatase 299 U/L (39-117); Aspartate Amino Transferase 19 U/L (5-31); Total Protein 7.2 g/dL (6.5-8.0)
[2025-05-19 13:24] LABS: Free T4 (Free Thyroxine) 0.82 ng/dL (0.71-1.85)
== END 2025-05-19 08:14 | disposition home or self-care (01) ==
LOC: HO.LAB 08:13
PROVIDERS: PCP Internal Medicine; Visit Provider Student in an Organized Health Care Education/Training Program
DX: E05.90 Thyrotoxicosis, unspecified without thyrotoxic crisis or storm (principal)
CPT/HCPCS: 36415; 80076; 83520; 84439; 84443; 84445